=== PATIENT | female | born 1990 | race Caucasian/White ===

== ENCOUNTER 2023-01-12 23:26 | Inpatient (IN) | payer OTHER, SELFPAY ==
--- OUTSIDE RECORDS SUMMARY | 2023-01-12 23:29 | XMS_ITS | Continuity of Care Document ---
Author Name Unknown Organization [facility] ter Address [address] [place] [id number]- Care Team Providers Care Visual Merchandising Associate Name Role Phone Radha Awan MD Primary Care Physician [place] [facility] [place] - 06/15/[address] [address]- Encounter Diagnosis Opiate overdose(Final) - 06/15/21 Bipolar disorder(Final) - 06/15/21 Manic state(Final) - 06/15/21 COVID-19 virus infection(Final) - 06/15/21 Discharge Disposition: A-D/C Home Attending Physician: Tomas Hill MD Admitting Physician: Tomas Hill MD Referring Physician: Not on Staff, Referring MD Allergies, Adverse Reactions, Alerts Substance Reaction Severity Status NKA Active Immunizations Not Given Vaccine Date Status Refusal Reason influenza virus vaccine, inactivated 06/22/19 Not Given Patient Refuses Medications benztropine 1 mg oral tablet 1 mg, 1, tablet, By Mouth, Daily at bedtime, # 14 tablet, Refills 0, Tot. Refills 0, Maintenance, 08/20/20 15:34:00 EDT, Route to Pharmacy Electronically, [facility]/pharmacy #[id number], Partial fill upon patient request if the prescription is for a schedule II o... Start Date: 08/20/20 Stop Date: 09/03/20 Status: Ordered haloperidol 10 mg oral tablet 10 mg, 1, tablet, By Mouth, Daily at bedtime, # 14 tablet, Refills 0, Tot. Refills 0, Maintenance, 08/20/20 15:34:00 EDT, Route to Pharmacy Electronically, [facility]/pharmacy #[id number], Partial fill upon patient request if the prescription is for a schedule II... Start Date: 08/20/20 Stop Date: 09/03/20 Status: Ordered QUEtiapine 200 mg oral tablet 400 mg, 2, tablet, By Mouth, Daily at bedtime, # 28 tablet, Refills 0, Tot. Refills 0, Maintenance,08/20/20 15:34:00 EDT, Route to Pharmacy Electronically, [facility]/pharmacy #[id number], Partial fill upon patient request if the prescription is for a schedule II... Start Date: 08/20/20 Stop Date: 09/03/20 Status: Ordered traZODone 50 mg oral tablet 50 mg, 1, tablet, By Mouth, Daily at bedtime, # 14 tablet, Refills 0, Tot. Refills 0, Maintenance, 08/20/20 15:33:00 EDT, Route to Pharmacy Electronically, [facility]/pharmacy #[id number], Partial fill upon patient request if the prescription is for a schedule II... Start Date: 08/20/20 Stop Date: 09/03/20 Status: Ordered Vital Signs Most recent to oldest [Reference Range]: 1 2 Height 160 cm (06/15/21 12:44 AM) Weight 82 kg (06/15/21 12:44 AM) Oxygen Saturation [94-100 %] 100 % (06/15/21 3:11 AM) 100 % (06/15/21 12:44 AM) Pulse Rate [55-90 bpm] 77 bpm (06/15/21 3:11 AM) 77 bpm (06/15/21 12:44 AM) Blood Pressure [90-138/55-84 mm Hg] 114/ 80mm Hg (06/15/21 3:11 AM) 125/80mm Hg (06/15/21 12:44 AM) Respiratory Rate [16-30 br/min] 18 br/mi n (06/15/21 3:11 AM) 16 br/min (06/15/21 12:44 AM) Temperature [96.8-100.4 DegF] 97.7 DegF (06/15/21 12:44 AM) Mode of Delivery (Oxygen) Room air (06/15/21 3:11 AM) Room air (06/15/21 12:44 AM) Blood pressure sites Arm, right (06/15/21 3:11 AM) Arm, right (06/15/21 12:44 AM) Temperature Route Oral (06/15/21 12:44 AM) Dry Weight 82 kg (06/15/21 12:44 AM) Dry Weight Obtained Via Patient/family s tated (06/15/21 12:44 AM) Social History Social History 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
--- OUTSIDE RECORDS SUMMARY | 2023-01-12 23:30 | XMS_ITS | Continuity of Care Document ---
Author Name Unknown Organization [facility] ter Address [address] [place] [id number]- Care Team Providers Care Ad Writer Name Role Phone Radha Awan MD Primary Care Physician [place] [facility] [place] 08/13/20 - 08/14/[address] [address]- Discharge Disposition: A-D/C Home Attending Physician: Kei Alberts DO Admitting Physician: Kei Alberts DO Referring Physician: Not on Staff, Referring MD Allergies, Adverse Reactions, Alerts Substance Reaction Severity Status NKA Active Immunizations Not Given Vaccine Date Status Refusal Reason influenza virus vaccine, inactivated 06/22/19 Not Given Patient Refuses Medications hydrOXYzine pamoate 50 mg oral capsule = 50 mg, By Mouth, 2 times a day, PRN Anxiety, # 60 capsule, 0 Refills, Maintenance, 01/17/20 14:44:00 EDT, Capsule, [facility][id number], 162, cm, 07/01/19 8:32:00 EST, Height, 90, kg, 06/20/19 18:59:00 EST, Dry Weight Start Date: 01/17/20 Status: Ordered Nicoderm C-Q 21 mg/24 hr transdermal film, extended release 1 patch, Topically, Daily, Apply in the morning, remove prior to going to bed, # 30 patch, 0 Refills, Maintenance, 01/17/20 14:47:00 EDT, Patch, [id number], 162, cm, 07/01/19 8:32:00 EST, Height, 90, kg, 06/20/19 18:59:00 EST, Dry Weight Start Date: 01/17/20 Status: Ordered olanzapine 20 mg oral tablet 1 tablet = 20 mg, By Mouth, Daily at bedtime, # 30 tablet, 0 Refills, Maintenance, 01/17/20 14:44:00 EDT, Tablet, [id number], 162, cm, 07/01/19 8:32:00 EST, Height, 90, kg, 06/20/19 18:59:00 EST, Dry Weight Start Date: 01/17/20 Status: Ordered pantoprazole 20 mg oral delayed release tablet = 20 mg, By Mouth, Daily, # 30 tablet, 0 Refills, Maintenance, 01/17/20 14:47:00 EDT, EC Tablet, 162, cm, 07/01/19 8:32:00 EST, Height, 90, kg, 06/20/19 18:59:00 EST, Dry Weight Start Date: 01/17/20 Status: Ordered traZODone 50 mg oral tablet 50 mg, 1, tablet, By Mouth, Daily at bedtime, PRN, # 30 tablet, Refills 0, Tot. Refills 0, Maintenance, Insomnia, 01/17/20 14:44:00 EDT, Route to Pharmacy Electronically, [facility]/pharmacy #[id number], 162, cm,07/01/19 8:32:00 EST, Height, 90, kg, 06/20/19 18:5... Start Date: 01/17/20 Status: Ordered Results Radiology Reports * Exam Date Time Procedure Performing Provider Status 08/14/20 12:43 AM Chest Portable Jeremy Richardson ( Verified) Notes: (Chest Portable) Reason For Exam: Shortness of Breath RESULT: Chest Portable AP portable chest, INDICATION: Reason: Shortness of Breath; Clinical Question(s): CHF COMPARISON: 08/09/2015 FINDINGS: LINES AND TUBES: None LUNGS AND PLEURA AND MEDIASTINUM: There is no pneumothorax. Clear lungs without focal infiltrate. Normal size heart. IMPRESSION: No acute abnormality. WSN: [id number] Ordering Physician: Pinky Graves Dictated By: Enedelia Nolan MD Dictated Date/Time: 08/14/20 7:59 am Reviewed By: Enedelia Nolan MD Signed By: Enedelia Nolan MD Signed Date/Time: 08/14/20 7:59 am Transcribed By: LANE Transcribed Date/Time: 08/14/20 7:58 am Vital Signs Most recent to oldest [Reference Range]: 1 2 Oxygen Saturation [94-100 %] 100 % (08/14/20 5:01 AM) 100 % (08/14/20 12:18 AM) Pulse Rate [55-90 bpm] 73 bpm (08/14/20 5:01 AM) 83 bpm (08/14/20 12:18 AM) Blood Pressure [90-138/55-84 mm Hg] 110/ 56mm Hg (08/14/20 5:01 AM) 143/76mm Hg *H* (08/14/20 12:18 AM) Respiratory Rate [16-30 br/min] 18 br/mi n (08/14/20 5:01 AM) 16 br/min (08/14/20 12:18 AM) Temperature [96.8-100.4 DegF] 98.0 DegF (08/14/20 5:01 AM) 98.6 DegF (08/14/20 12:18 AM) Mode of Delivery (Oxygen) Room air (08/14/20 5:01 AM) Room air (08/14/20 12:18 AM) Blood pressure sites Arm, left (08/14/20 5:01 AM) Arm, left (08/14/20 12:18 AM) Temperature Route Oral (08/14/20 5:01 AM) Oral (08/14/20 12:18 AM) Social History Social History 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
--- OUTSIDE RECORDS SUMMARY | 2023-01-12 23:30 | XMS_ITS | Continuity of Care Document ---
Author Name Unknown Organization [facility] ter Address [address] [place] [id number]- Care Team Providers Care Quality Assurance Lead Name Role Phone Radha Awan MD Primary Care Physician Encounter [facility] [place] Date(s): 04/11/22 - 04/21/[address] [id number]- Encounter Diagnosis Crack cocaine use(Final) - 04/11/22 Discharge Disposition: A-D/C Home Attending Physician: Andreina Drummond MD Admitting Physician: Cathryn Reilly MD Referring Physician: Not on Staff, Referring MD Allergies, Adverse Reactions, Alerts No Known Allergies Immunizations Given and Recorded Vaccine Date Status Refusal Reason influenza virus vaccine, inactivated 06/28/20 Aki rded tetanus/diphtheria/pertussis, acel(Tdap) 07/11/11 Recorded Human Papillomavirus Vaccine 02/23/07 Recorded hepatitis B adult vaccine 01/01/01 Recorded hepatitis B adult vaccine 02/06/00 Recorded tetanus-diphtheria toxoids (Td) 02/06/00 Recorded Measles/Mumps/Rubella Virus Vaccine 03/14/98 Recor ded Measles/Mumps/Rubella Virus Vaccine 09/20/89 Recor ded Not Given Vaccine Date Status Refusal Reason influenza virus vaccine, inactivated 06/22/19 Not Given Patient Refuses SARS-CoV-2 (COVID-19) Ad26 vaccine 1 08/21/21 Not Given Patient Refuses 1Result Comment: not available Medications benztropine 0.5 mg oral tablet 0.5 mg, 1, tablet, By Mouth, 2 times a day, # 60 each, Refills 0, Tot. Refills 0, Maintenance, 04/21/22 14:46:00 EST, Route to Pharmacy Electronically, [facility], Partial fill upon patient request if the prescription is for a schedule I... Start Date: 04/21/22 Status: Ordered multivitamin Multiple Vitamins oral tablet 1 tablet, By Mouth, Daily, # 90 tablet, 3 Refills, Maintenance, 04/21/22 14:47:00 EST, Tablet, [facility], Partial fill upon patient request if the prescription is for a schedule II opioid drug., 1 tablet By Mouth Daily, 163, cm, ... Start Date: 04/21/22 Status: Ordered risperiDONE 2 mg oral tablet 2 mg, 1, tablet, By Mouth, 2 times a day, # 60 tablet, Refills 1, Tot. Refills 1, Maintenance, 04/21/22 14:47:00 EST, Route to Pharmacy Electronically, [facility], Partial fill upon patient request if the prescription is for a schedule I... Start Date: 04/21/22 Status: Ordered Problem List Condition Confirmation Course Effective Dates Status Health St atus Informant Obese class I Confirmed Active Results Radiology Reports * Exam Date Time Procedure Performing Provider Status 04/11/22 10:[address] Cervical Spine W/O Contrast Carlos Loving; Auth (Verified) Notes: (CT Cervical Spine W/O Contrast) Reason For Exam: Neck trauma, dangerous injury mechanism;Other: RESULT: CT Cervical Spine W/O Contrast CT Head/Brain W/O Contrast, CT Cervical Spine W/O Contrast INDICATION: Hx of Present Illness: combative after drug use; Reason: Trauma; Clinical Question(s): Hematoma TECHNIQUE: Noncontrast head CT using axial technique was reconstructed in axial and coronal planes.Noncontrast spiral CT through the cervical spine was formatted in 3 planes. Automatic tube modulation was used for the cervical spine and iterative dose reconstruction was used for both the head and cervical spine to optimize scan parameters and image quality. CTDIvol Body: 13.90 mGy, DLP Body: 393 mGy*cm. CTDIvol Head: 38.80 mGy, DLP Head: 672 mGy*cm. COMPARISON: None. FINDINGS: Quality Engineer View Findings, Lines and Tubes: None. BRAIN AND EXTRA-AXIAL SPACES: No parenchymal hemorrhage, midline shift, or mass effect. Hernandez-white matter differentiation is wellpreserved. No acute infarct. Negative insular ribbon and hyperdense vessel signs. Ventricles, sulci, and basilar cisterns are normal. No white matter lesions. No subarachnoid hemorrhage. No subdural or epidural collection. CALVARIUM, SKULL BASE, AND SOFT TISSUES: No fractures or suspicious bony lesions. The paranasal sinuses and mastoid air cells are clear. Visualized orbits and globes are intact. The extracranial soft tissues are unremarkable. CERVICAL SPINE: No acute cervical spine fracture. Normal alignment. No locked or perched facet. A few levels of mild multilevel degenerative disc space narrowing and end plate spurring. OTHER BONES: No acute abnormality. CERVICAL SOFT TISSUES AND LUNG APICES: Normal soft tissues. Visualized lung apices are clear. IMPRESSION: No acute intracranial abnormality. No acute cervical spine fracture. WSN: [id number] Ordering Physician: Preston Galvan Dictated By: Myriam Bear MD Dictated Date/Time: 04/11/22 10:54 a Reviewed By: Myriam Bear MD Signed By: Myriam Bear MD Signed Date/Time: 04/11/22 10:54 am Transcribed By: LANE Transcribed Date/Time: 04/11/22 10:49 am * Exam Date Time Procedure Performing Provider Status 04/11/22 10:[address] Head/Brain W/O Contrast Ste , Mariela Forbes; Auth (Verified) Notes: (CT Head/Brain W/O Contrast) Reason For Exam: Trauma RESULT: CT Head/Brain W/O Contrast CT Head/Brain W/O Contrast, CT Cervical Spine W/O Contrast INDICATION: Hx of Present Illness: combative after drug use; Reason: Trauma; Clinical Question(s): Hematoma TECHNIQUE: Noncontrast head CT using axial technique was reconstructed in axial and coronal planes.Noncontrast spiral CT through the cervical spine was formatted in 3 planes. Automatic tube modulation was used for the cervical spine and iterative dose reconstruction was used for both the head and cervical spine to optimize scan parameters and image quality. CTDIvol Body: 13.90 mGy, DLP Body: 393 mGy*cm. CTDIvol Head: 38.80 mGy, DLP Head: 672 mGy*cm. COMPARISON: None. FINDINGS: Quality Engineer View Findings, Lines and Tubes: None. BRAIN AND EXTRA-AXIAL SPACES: No parenchymal hemorrhage, midline shift, or mass effect. Hernandez-white matter differentiation is wellpreserved. No acute infarct. Negative insular ribbon and hyperdense vessel signs. Ventricles, sulci, and basilar cisterns are normal. No white matter lesions. No subarachnoid hemorrhage. No subdural or epidural collection. CALVARIUM, SKULL BASE, AND SOFT TISSUES: No fractures or suspicious bony lesions. The paranasal sinuses and mastoid air cells are clear. Visualized orbits and globes are intact. The extracranial soft tissues are unremarkable. CERVICAL SPINE: No acute cervical spine fracture. Normal alignment. No locked or perched facet. A few levels of mild multilevel degenerative disc space narrowing and end plate spurring. OTHER BONES: No acute abnormality. CERVICAL SOFT TISSUES AND LUNG APICES: Normal soft tissues. Visualized lung apices are clear. IMPRESSION: No acute intracranial abnormality. No acute cervical spine fracture. WSN: [id number] Ordering Physician: Preston Galvan Dictated By: Myriam Bear MD Dictated Date/Time: 04/11/22 10:54 a Reviewed By: Myriam Bear MD Signed By: Myriam Bear MD Signed Date/Time: 04/11/22 10:54 am Transcribed By: LANE Transcribed Date/Time: 04/11/22 10:49 am Vital Signs Most recent to oldest [Reference Range]: 1 2 3 Height 163 cm (04/21/22 7:30 AM) 163 cm (04/20/22 8:34 PM) 163 cm (04/20/22 7:30 AM) Weight 84.5 kg (04/11/22 9:56 PM) Oxygen Saturation [94-100 %] 98 % (04/21/22 7:30 AM) 98 % (04/20/22 8:34 PM) 100 % (04/20/22 7:30 AM) Pulse Rate [55-90 bpm] 96 bpm *H* (04/21/22 7:30 AM) 87 bpm (04/20/22 8:34 PM) 100 bpm *H* (04/20/22 7:30 AM) Body Mass Index [18.5-24.99 kg/m2] 31.8 kg/m2 *>HHI* (04/11/22 9:56 PM) Blood Pressure [90-138/55-84 mm Hg] 138/65mm Hg (04/21/22 7:30 AM) 109/62mm Hg (04/20/22 8:34 PM) 143/76mm Hg *H* (04/20/22 7:30 AM) Respiratory Rate [16-30 br/min] 18 br/min (04/21/22 7:30 AM) 17 br/min (04/20/22 8:34 PM) 18 br/min (04/20/22 7:30 AM) Temperature [96.8-100.4 DegF] 98.7 DegF (04/21/22 7:30 AM) 98.1 DegF (04/20/22 8:34 PM) 97.6 DegF (04/20/22 7:30 AM) Mode of Delivery (Oxygen) Room air (04/21/22 7:30 AM) Room air (04/20/22 8:34 PM) Room air (04/20/22 7:30 AM) Blood pressure sites Arm, left (04/21/22 7:30 AM) Arm, right (04/20/22 8:34 PM) Arm, left (04/20/22 7:30 AM) Temperature Route Oral (04/21/22 7:30 AM) Oral (04/20/22 8:34 PM) Oral (04/20/22 7:30 AM) Dry Weight 84.5 kg (04/11/22 9:56 PM) Weight Obtained Via Bed scale (04/11/22 9:56 PM) Dry Weight Obtained Via Bed scale (04/11/22 9:56 PM) Consult note * Jessica Logan: PERFORM, SIGN, VERIFY Event Display: Consult Authored Date: Patient: ROSMERY GERBER Age: 31 years Sex: Female : 1990 Associated Diagnoses: None Author: Jessica Logan Met with patient this morning to discuss addiction resources. Patient agreed to therapy and connecting with a tin recovery worker. A referral for recovery coaching was submitted. An appointment was established for therapy on at 11:00am over the phone. Patient did not want any other resources at this time. Addiction Consultation Team [address] [place] [id number] Patient: Rosmery Gerber (: 1990) Date: 04/16/2022 You have been referred to the following [facility] Counseling Appointment: 04/25/2022 at 11:00am. Your counselor is Anny Mora. This is an over the phone therapy session. Anny will call you at the time of the appointment. A referral has been made to [facility] on your behalf. A staff member will notify you after discharge to schedule a day/time for an intake. History and physical note * Gil Davison MD: MODIFY, MODIFY, PERFORM Event Display: History and Physical Hospital Authored Date: Patient: ??ROSMERY GERBER ? Age:??31 Years?Sex:??Female?:??1990?? Chief Complaint/Reason for Consultation Episode of agitation and??combativeness. History of Present Illness 31-year-old female with a past medical history of psychosis, bipolar disorder, multiple inpatient hospitalization in [facility] because of linette with prior suicide attempt came with a complaint of agitation.?? As per the information she was brought to the ED because of agitation and destructive behavior.?? Police found her combative, screaming loudly.?? She did use the crack cocaine yesterday.?? She was very combative towards the EMS in route.?? She was given 5 mg Versed IM.?? Lab work-up showed highWBC count.?? Gradually she got more calm but kind of confused as per the ED documentation.?? Because of ongoing altered mental status she was admitted under observation. During my examination she was very quiet and calm and she was not sure why she was brought to the hospital.?? She was found to have slightly high CPK level with positive cocaine in the urine.?? COVID-19 was negative.?? CT of the head and cervical spine was negative for any acute pathology. Currently she is unemployed looking for??job.?? She had a history of depression but currently denied any active suicidal thoughts or any plan from ?? Review of Systems ?? During my examination she was complaining of body aching all over the body otherwise she denied any other active issue.?? Otherwise all other review of system are obtained from the patient and arenegative for except as mentioned above. Objective Vital Signs?? Temperature: 97.8 DegF (04/11/22:56:00) Temperature: 97.8 DegF (04/11/22:56:00) Temperature Route: Oral (04/11/22 21:56:00) Temperature Route: Oral (04/11/22:56:00) Pulse Rate: 84 bpm (04/11/22:56:00) Pulse Rate: 84 bpm (04/11/22:56:00) Pulse Rate: 84 bpm (04/11/22:56:00) Respiratory Rate: 18 br/min (04/11/22:56:00) Respiratory Rate: 18 br/min (04/11/22:56:00) Respiratory Rate: 18 br/min (04/11/22 21:56:00) Systolic Blood Pressure: 119 mm Hg (04/11/22:56:00) Systolic Blood Pressure: 119 mm Hg (04/11/22:56:00) Systolic Blood Pressure: 119 mm Hg (04/11/22:56:00) Diastolic Blood Pressure: 79 mm Hg (04/11/22 21:56:00) Diastolic Blood Pressure: 79 mm Hg (04/11/22:56:00) Diastolic Blood Pressure: 79 mm Hg (04/11/22 21:56:00) Blood pressure sites: Arm, right (04/11/22:56:00) Blood pressure sites: Arm, right (04/11/22:56:00) Mean Arterial Pressure: 92 mm Hg (04/11/22:56:00) Mean Arterial Pressure: 92 mm Hg (04/11/22:56:00) Pulse Pressure: 40 mm Hg (04/11/22:56:00) Pulse Pressure: 40 mm Hg (04/11/22:56:00) Oxygen Saturation: 100 % (04/11/22:56:00) Oxygen Saturation: 100 % (04/11/22:56:00) Mode of Delivery (Oxygen): Room air (04/11/22:56:00) Mode of Delivery (Oxygen): Room air (04/11/22 21:56:00) Early Warning Score: 5 (04/11/22 23:56:29) ? Physical Exam General Appearance: Moderately nourished, not in any apparent distress, alert, awake and oriented x3. Skin: No rash.?? Warm, dry, pink, no pallor, intact. Eye:?? Normal conjunctiva. HEENT: No JVP.?? Moist mucous membrane. Heart:?? S1, S2.?? No murmurs.? Respiratory:?? Clear to auscultation, no rhonchi, no wheezing, no crackles. GI:?? Abdomen is soft, nontender, nondistended.?? Bowel sounds are positive.?? No organomegaly Neurologic:?? Nonfocal neurological examination.?? Cranial nerves II through XII normal.?? Deep tendon reflexes normal. Extremities:?? No calf tenderness, no clubbing, no edema. Psychiatric: Looking anxious. Musculoskeletal: Moving all extremities. Lymphatic system: No cervical lymphadenopathy. ?? CT of the head:/Cervical spine: No acute pathology. Assessment/Plan 31-year-old female with a past medical history of psychosis, bipolar disorder, multiple inpatient hospitalization in [facility] because of linette with prior suicide attempt came with a complaint of agitation.?? She is admitted for ongoing on and off confusion. ?? Acute psychosis Acute delirium due to polysubstance abuse During my examination she was back to her baseline but as per the nurse she did have intermittent on and off episode of confusion.?? She is neurologically intact.?? We will have CIWA protocol, thiamine, folic acid.?? We will watch her for signs or symptoms of withdrawal from opioids, cocaine, alcohol.?? Will give Ativan as needed.?? She wanted to quit polysubstance abuse.?? We will get a addiction medicine consult.?? She denies any suicidal or homicidal thoughts.?? If she will continue to be stable then she can be discharged in the morning time.?? In the ED note there is a documentation of phencyclidine??use but she denied it to me. Mild rhabdomyolysis. Due to agitation.?? We will repeat a CPK level in the morning time. High WBC count Reactive in nature.?? No sign or symptoms of infectious etiology.?? We will continue to watch her DVT prophylaxis Will continue with the Lovenox. ?? CODE STATUS: Full code. Disposition: To home.?? No indication for psych evaluation. Disclaimer:?? This note?? was accomplished with use of Admittedly voice recognition software, which is prone to medical and other word misidentifications and grammatical errors.?? The physician does strive to identify and correct these, but some could still be present.?? Please do not hesitate to contact the physician for clarifications . ?? Histories Allergies Allergies ?(Active and Proposed Allergies Only) NKA? (Severity: Unknown severity, Onset: Unknown) ? Past Medical History/Problem List Bipolar disorder History of polysubstance abuse ? Social History She admitted use of smoking, alcohol, illicit drug abuse that include heroin, cocaine and other stuff.?? She was unable to give me more details about the frequency of drug taking and alcohol intake.? Family History She??denied any positive family history except history of substance abuse.?? Medications She is not taking any medications. ? Results Recent Labs BLOOD COUNT & DIFF WBC 18.0 k/mm3 (High)?? 04/11/2022 01:23 RBC 4.53 m/mm3 ()?? 04/11/2022 01:23 Hgb 13.7 Gm/dL ()?? 04/11/2022 01:23 Hct 42.0 % ()?? 04/11/2022 01:23 MCV 92.7 femtoliters ()?? 04/11/2022 01:23 MCH 30.2 pg ()?? 04/11/2022 01:23 MCHC 32.6 g/dL (Low)?? 04/11/2022 01:23 Platelet Count 154 k/mm3 ()?? 04/11/2022 01:23 RDW-SD 42.5 femtoliters ()?? 04/11/2022 01:23 MPV 11.4 femtoliters ()?? 04/11/2022 01:23 Nucleated RBC (Automated) 0.0 #/100 WBC'S ()?? 04/11/2022 01:23 Abs. NRBC 0.0 k/mm3 ()?? 04/11/2022 01:23 Abs. Neut 12.7 k/mm3 (High)?? 04/11/2022 01:23 Abs. Lymph 3.3 k/mm3 (High)?? 04/11/2022 01:23 Abs. Carroll 1.8 k/mm3 (High)?? 04/11/2022 01:23 Abs. Eo 0.1 k/mm3 ()?? 04/11/2022 01:23 Abs. Baso 0.1 k/mm3 ()?? 04/11/2022 01:23 Neut % 70.6 % ()?? 04/11/2022 01:23 Lymph % 18.3 % ()?? 04/11/2022 01:23 Carroll % 9.8 % ()?? 04/11/2022 01:23 Eos % 0.5 % ()?? 04/11/2022 01:23 Baso % 0.4 % ()?? 04/11/2022 01:23 Platelet Estimate ADEQUATE ()?? 04/11/2022 01:23 Imm Gran 0.4 % ()?? 04/11/2022 01:23 Abs. Imm Gran 0.1 k/mm3 ()?? 04/11/2022 01:23 ?? CARDIAC CK, Total 269 units/L (High)?? 04/11/2022 01:23 ?? CHEM GENERAL Sodium 140 mmol/L ()?? 04/11/2022 01:23 Potassium 4.3 mmol/L ()?? 04/11/2022 01:23 Chloride 99 mmol/L ()?? 04/11/2022 01:23 Bicarbonate Level 28 mmol/L ()?? 04/11/2022 01:23 Anion Gap 13 ()?? 04/11/2022 01:23 Glucose Level 101 mg/dL (High)?? 04/11/2022 01:23 Glucose, POC 202 mg/dL (High)?? 04/11/2022 07:30 BUN 10 mg/dL ()?? 04/11/2022 01:23 Creatinine-Blood 0.7 mg/dL ()?? 04/11/2022 01:23 Estimated GFR Creatinine 117 ML/MIN/1.73 M2 ()?? 04/11/2022 01:23 Calcium 9.5 mg/dL ()?? 04/11/2022 01:23 Protein, Total 6.7 Gm/dL ()?? 04/11/2022 01:23 Albumin 4.4 Gm/dL ()?? 04/11/2022 01:23 AG Ratio 1.9 ()?? 04/11/2022 01:23 Alkaline Phosphatase 54 units/L ()?? 04/11/2022 01:23 AST (SGOT) 28 units/L ()?? 04/11/2022 01:23 ALT (SGPT) 14 units/L ()?? 04/11/2022 01:23 Bilirubin, Total 1.3 mg/dL (High)?? 04/11/2022 01:23 ?? ENDOCRINE/TUMOR MARKER TSH 0.77 uIU/mL ()?? 04/11/2022 01:23 Serum Qual NEGATIVE mIU/mL ()?? 04/11/2022 01:23 ?? TOXICOLOGY/TDM Ethanol, Serum or Plasma NONE DETECTED mg/dL ()?? 04/11/2022 01:23 Cocaine Metabolite Screen, Urine POSITIVE (Abnormal)?? 04/11/2022 05:50 Opiate Screen, Urine NONE DETECTED ()?? 04/11/2022 05:50 ?? VIROLOGY COVID-19 by RT-PCR NEGATIVE ()?? 04/10/2022 20:53 ? EKG study * Event Display: ECG 12-Lead Authored Date: Please click on pdf link to open report * Event Display: ECG 12-Lead Authored Date: Ventricular Rate: 123 BPM Atrial Rate: 123 BPM P-R Interval: 164 ms QRS Duration: 80 ms Q-T Interval: 304 ms QTC Calculation(Bazett): 435 ms P Naches: 72 degrees R Naches: 73 degrees T Naches: 35 degrees Sinus tachycardia Cannot rule out Anterior infarct , age undetermined Abnormal ECG When compared with ECG of 13-AUG-2021 13:21, Vent. rate has increased BY 54 BPM Confirmed by DAVID KATZ ([id number]) on 04/11/2022 11:22:42 AM Hardy: DAVID KTAZ Hospital Progress note * Adrian Jiménez RN: PERFORM, SIGN, VERIFY Event Display: Progress Note Hospital Authored Date: [id number] Patient: ROSMERY GERBER Age: 31 years Sex: Female : 1990 Associated Diagnoses: None Author: Adrian Jiménez RN Patient arrived on unit via wheel chair. Able to make her needs known. Refused assessments. RefusedVitals signs. On enhanced respiratory precautions. Sitter outside of room. Purposeful rounds being done. Safety maintained. * Cathi DO, Jw J: PERFORM Cathi DO, Jw J: PERFORM, MODIFY Cathi DO, Jw J: MODIFY, MODIFY Danie Soria: MODIFY, MODIFY Danie Soria: MODIFY, MODIFY Danie Soria: MODIFY Event Display: Progress Note Hospital Authored Date: [id number] Patient: ??ROSMERY GERBER ? Age:??31 Years?Sex:??Female?:??1990?? Subjective Patient seen this afternoon at bedside. Per nurse collateral, Code yellow had to be called on the patient yesterday and there was reported incidence of patient combativeness and property destruction.The patient is continuously trying to leave her room in an attempt to go home . Per MAR, the patient not receive any IM PRN's for agitation and has ultimately been re-directable with verbal deescalation techniques. ?? When asked how she was feeling, the patient stated good and depressed . The patient profusely expressed her desire to leave the hospital and go back to her partner or her mother. The patient states that she feels as if she is ready to leave. ?? The patient still??has some mild paranoid- making statements such as: doctors don't care they are just trying to test their theories . The patient is more linear and thought process is much more organized as her Risperdal has been titrated to a therapeutic dose. ?? Patient is now on COVID-19 isolation precautions as a rule out. ?? Patient denies any acute side effects from her recent medication management ?? Patient denies AH/VH, SI/HI. ?? Review of Systems 10 point ROS conducted and negative except as stated above ?? Psychiatric Review of Systems -Depression- unable to obtain due to patient limitations -MASSIEL-unable to obtain due to patient limitations -Linette-unable to obtain due to patient limitations -Psychosis- as stated above in HPI ? Allergies Allergies ?(Active and Proposed Allergies Only) NKA? (Severity: Unknown severity, Onset: Unknown) ? Past Medical History Active Problems??(1) Obese class I ? Past Surgical History No surgery history documented. ? Social History No social history documented. ? Objective MENTAL STATUS EXAM ?? Appearance: casually dressed, casual appearance, well groomed Attitude:?? uncooperative, evasive, suspicious, , agitated Motor Activity:?? restless,?inconsistent eye contact Mood: Good and Depressed Affect: angry, irritable, tearful at times Speech: clear, normal rate and tone Orientation: oriented to person, time, and place Perception: denies auditory or visual hallucinations. Paranoid content exhibited during interview- see HPI above Thought process: less disorganized, linear, perseverative surrounding discharge Insight: improved Judgement:??improved - patient fully compliant with medication management Self Injury: denies suicidal ideation, plan, or intent. Denies self injurious behaviors Homicidality: denies homicidal ideation, plan, or intent ?? Physical Exam MSK- patient able to move all four extremities freely; no spasticity/rigidity appreciated _ Home Medications Acetaminophen (acetaminophen 325 mg oral tablet)?650?Milligram?By Mouth?Every 4 hours?as needed?Temperature Greater than 100.5?Pain , Mild Benztropine (benztropine 0.5 mg oral tablet)?0.5?Milligram?1?tablet?By Mouth?2 times a day Clonidine (cloNIDine 0.1 mg oral tablet)?0.1?Milligram?1?tablet?By Mouth?3 times a day?as needed?hold for hypotension?Agitation Cyclobenzaprine (cyclobenzaprine 10 mg oral tablet)?10?Milligram?1?tablet?By Mouth?3 times a day?as needed?Pain , Mild Docusate (docusate sodium 100 mg oral capsule)?100?Milligram?1?capsule?By Mouth?2times a day Enoxaparin?0.4?Milliliter?40?Milligram?Subcutaneous Injection?Daily Folic Acid (folic acid 1 mg oral tablet)?1?Milligram?1?tablet?By Mouth?Daily Lorazepam (LORazepam 0.5 mg oral tablet)?2?tab(s)?1?Milligram?By Mouth?2 times a day?as needed?Anxiety Melatonin (melatonin 3 mg oral tablet)?3?Milligram?By Mouth?Daily at bedtime?as needed?Insomnia Multivitamin (Multivitamin Tablet)?1?tab(s)?By Mouth?Daily Pyridoxine (Pyridoxine Tablet)?50?Milligram?By Mouth?Daily Risperidone (risperiDONE 2 mg oral tablet)?2?Milligram?1?tablet?By Mouth?2 times a day Risperidone (risperiDONE 1 mg oral tablet)?1?Milligram?1?tablet?By Mouth?2 times a day?as needed?Agitation Thiamine (thiamine 100 mg oral tablet)?100?Milligram?1?tablet?By Mouth?2 times a day ? Inpatient Medications Medications (26) Active SCHEDULED: (10) Benztropine 1 mg Tablet (Cogentin Tablet) ??0.5 mg, By Mouth, 2 times a day Enoxaparin 40 mg Inj (Enoxaparin Inj) ??40 mg 0.4 mL, Subcutaneous Injection, Daily Folic Acid 1 mg Tablet (Folic Acid Tablet) ??1 mg, By Mouth, Daily Multivitamin Tablet ??1 tablet, By Mouth, Daily NaCl 0.9% Flush 3ml (NaCL 0.9% Flush) ??3 mL, IV Push, Every 8 hours Nicotine 21 mg / 24 hour Patch (Nicotine Topical) ??21 mg, Topically, Daily Pyridoxine 50 mg Tablet (Pyridoxine Tablet) ??50 mg, By Mouth, Daily Remove Patch (Remove ??Patch) ??1 each, Topically, Daily Risperidone 1 mg Tablet (risperiDONE 1 mg oral tablet) ??2 mg, By Mouth, 2 times a day Thiamine 100 mg Tablet (Thiamine Tablet) ??100 mg, By Mouth, 2 times a day CONTINUOUS: (0) PRN: (16) Acetaminophen 325 mg Tablet (Acetaminophen Tablet) ??650 mg, By Mouth, Every 4 hours Al hydroxide/Mg hydroxide/simethicone 200 mg-200 mg-20 mg/5 mL Susp UD (Maalox Plus Liquid) ??15 mL, By Mouth, 4 times a day Calcium Carbonate 500 mg (Calcium 200 mg) Chewable Tablet (Tums 500 mg oral tablet, chewable) ??1,000 mg 2 tablet, Chew, Every 4 hours Clonidine 0.1 mg Tablet (cloNIDine 0.1 mg oral tablet) ??0.1 mg, By Mouth, 3 times a day Cyclobenzaprine 10 mg Tablet (Flexeril 10 mg oral tablet) ??10 mg, By Mouth, 3 times a day Dextromethorphan-Guaifenesin 20 mg-200 mg/10 mL Liqu UD (Robitussin DM Liquid) ??10 mL, By Mouth, Every 4 hours Haloperidol Lactate 5 mg/mL Inj (1 mL) (Haloperidol LACTATE Inj) ??5 mg 1 mL, Intramuscular, Every 4 hours Lorazepam 1 mg Tablet (LORazepam 0.5 mg oral tablet) ??1 mg, By Mouth, 2 times a day Lorazepam 2 mg Inj Syringe (LORazepam Inj) ??1 mg, Intramuscular, Every 4 hours Melatonin 3 mg Tablet (Melatonin Tablet) ??3 mg, By Mouth, Daily at bedtime NaCl 0.9% Flush 3ml (NaCL 0.9% Flush) ??3 mL, IV Push, Every 8 hours nalOXONE ??400mcg/mL Inj (nalOXONE Inj) ??0.2 mg 0.5 mL, IV Push Slowly, Once Polyethylene Glycol 17 Gm Powder (MiraLax Powder) ??17 Gm 1 pack/packet, By Mouth, Daily Risperidone 1 mg Tablet (risperiDONE 1 mg oral tablet) ??1 mg, By Mouth, 2 times a day Senna 8.6 mg / Docusate 50 mg tablet (Docusate/Senna Tablet) ??1 tablet, By Mouth, 2 times a day Simethicone 80 mg Chewable Tablet (Simethicone Tablet) ??80 mg, Chew, 3 times a day ? Results Recent Labs TOXICOLOGY/TDM Barbiturate Screen, Urine NONE DETECTED ()?? 04/20/2022 02:21 Cannabinoid Screen, Urine POSITIVE (Abnormal)?? 04/20/2022 02:21 Cocaine Metabolite Screen, Urine NONE DETECTED ()?? 04/20/2022 02:21 Methadone Screen, Urine NONE DETECTED ()?? 04/20/2022 02:21 Benzodiazepine Screen, Urine NONE DETECTED ()?? 04/20/2022 02:21 Amphetamine Screen, Urine NONE DETECTED ()?? 04/20/2022 02:21 Opiate Screen, Urine NONE DETECTED ()?? 04/20/2022 02:21 Oxycodone Screen, Urine NONE DETECTED ()?? 04/20/2022 02:21 Buprenorphine, Urine Random NONE DETECTED ()?? 04/20/2022 02:21 ? Assessment/Plan ?? IMPRESSION: The patient is a 31 y/0 female with a PMHx of unspecified psychotic disorder, polysubstance use disorders (heroin, EtOH, crack cocaine, and cannabis) with recent psychiatric admission to [facility] 11/27 who presented to the ED 04/11 after an incidence of agitation in the setting of crack cocaineuse. ?? Per nurse collateral, code yellow had to be called on the patient yesterday. Today, the patient is perseverative on wanting to go home. She is currently re- directable with verbal deescalation techniques. She is fully medication compliant.? DIAGNOSIS: 1. Unspecified psychotic disorder 2. Heroin use disorder 3. Cocaine use disorder 4. EtOH use disorder ?? RECOMMENDATIONS: -Patient is cleared for psychiatric discharge- she has been initiated and up- titrated on a to a therapeutic dose of Risperdal. Her thought is more linear and goal directed as a result of this treatment. Her agitation remains centered on the fact that she cannot leave the hospital and is not relatedto underlying psychosis. The patient remains medication compliant. The patient does have some paranoid features; however, at her baseline she most probably retains some elements of positive psychosis. The patient does not currently represent??imminent danger to herself due to psychosis or disorganization and she does not endorse SI. The patient does not represent a danger to other and she does not report HI. At this time, more harm than good would come from the patient being restrained for involuntary hospitalized which she does not meet criteria for at this point regardless. further. Thus, psychiatry recommends discharge with close psychiatric care follow up outpatient. -Discharge patient on 2mg BID Risperdal -Discharge patient??on 0.5 mg BID Cogentin -Patient to follow up with outpatient services. * Arleth Barlow RN: PERFORM, SIGN, VERIFY Event Display: Progress Note Hospital Authored Date: [id number] Patient: ROSMERY GERBER Age: 31 years Sex: Female : 1990 Associated Diagnoses: None Author: Arleth Barlow RN Findings Problem Related to Alteration in Psychosocial : Alteration in Psychosocial Function/new 04/19/2022 10:00 EST Alteration in Psychosocial Related to Anxiety, Substance abuse, Other: Bipolar, Psychosis Goals & Outcomes, Psychosocial Psychosocial support will be provided to Pt/S.O. as needed, Pt will identify stressors leading up to event, Pt will state importance of adhering to medication regime, Pt/caregiver will be offered appropriate resources & support, Pt will demonstrate ability forself care, Pt will refrain from acting on delusional thinking, Pt will be free from withdrawal symptoms Interventions, Psychosocial Assess psychosocial needs, Assess readiness to learn needed lifestyle changes, Assess/monitor level of consciousness, Collaborate with provider for psychiatric consult, Evaluate resources & support system available to pt, Offer support; discuss coping strategies, Provide a calm, supportive environment, Provide chances to express concerns/emotions/expectations, Provide info on community resources for education, support, Provide information about illness and recovery, Provide verbal limits if pt's behavior escalates BH Goals/Interventions, Psychosocial Yes Psychosocial, Problem Start 04/17/2022 8:00 Reviewed Plan with, Psychosocial Patient Patient Progression, Psychosocial Pt progressing according to plan . Nursing Data Vital Signs : VITAL SIGNS SECTION 04/20/2022 20:34 EST Early Warning Score 0.00 04/20/2022 20:34 EST Temperature 98.1 DegF Temperature Route Oral Pulse Rate 87 bpm Respiratory Rate 17 br/min Systolic Blood Pressure 109 mm Hg Diastolic Blood Pressure 62 mm Hg Blood pressure sites Arm, right Mean Arterial Pressure 78 mm Hg Pulse Pressure 47 mm Hg Oxygen Saturation 98 % Mode of Delivery (Oxygen) Room air . Evaluation Pt sleeping at intervals. Pt says she's annoyed that people are going in and out of room disturbingher. MD and staff were in room to see pt's roomate. No attempts to leave floor. Sitter outside of room. Pt took all night time meds. Prn ativan tab administered once. Patient would ask for food or meds, then would say I didn't ask for that. VSS. Pt cannot leave AMA. . Note * Iron SHELLEY, Eryn: PERFORM, MODIFY, MODIFY, MODIFY, MODIFY Event Display: Discharge/Transfer Note Hospital Authored Date: Patient: ??ROSMERY GERBER ? Age:??31 Years?Sex:??Female?:??1990?? Patient Information Discharge Location: S1 Primary Care Physician: Radha Awan MD Admit Date/Time: 04/11/22 14:49 Discharge Date:??04/21/2022 14:50 Discharge Disposition Discharge Disposition: Home: No Services Discharge Diagnosis Crack cocaine use (F14.90) Psychosis (F29) _ Discharge Medications Benztropine (benztropine 0.5 mg oral tablet)?0.5?Milligram?1?tablet?By Mouth?2 times a day Multivitamin (multivitamin Multiple Vitamins oral tablet)?1?tab(s)?By Mouth?Daily Risperidone (risperiDONE 2 mg oral tablet)?2?Milligram?1?tablet?By Mouth?2 times a day Medications Started Benztropine (benztropine 0.5 mg oral tablet)?0.5?Milligram?1?tablet?By Mouth?2 times a day Multivitamin (multivitamin Multiple Vitamins oral tablet)?1?tab(s)?By Mouth?Daily Risperidone (risperiDONE 2 mg oral tablet)?2?Milligram?1?tablet?By Mouth?2 times a day Medications Discontinued None Doses Changed None Allergies Allergies ?(Active and Proposed Allergies Only) NKA? (Severity: Unknown severity, Onset: Unknown) ?? PCP Follow-Up/Heads-Up Pt admitted for agitation and psychosis in setting of cocaine use. Please ensure pt has mental health follow up in the community. Pt was exposed to COVID during her hospitalization, please ensure that she continues to feel well. Please help patient maintain abstinence from substance use. Hospital Course Pt is a 31-year-old female with a past medical history of psychosis, bipolar disorder, multiple inpatient psychiatric hospitalizations because of linette with prior suicide attempt admitted for agitation, confusion, and cocaine use. She is now??medically cleared. Throughout her hospitalization, she has become more organized and has a safety plan to stay with her mother. Psychiatry has??reassessed her multiple times, and have deemed that she is stable for discharge home with close follow up. ? Acute Psychosis Disorganized Behaviors Acute Agitation due to Polysubstance Abuse Bipolar Disorder ?Pt admitted for agitation and destructive behaviors in setting of crack cocaine use. CT head onadmission showed no acute intracranial abnormality. No acute cervical spine fracture. She has been medically cleared, now less agitated but still??with inappropriate behaviors. She is??occasionally refusing medications. Psychiatry and Addiction Medicine evaluated the patient during this hospitalization. Recommendations: ??-Continue risperidone 2mg BID per psychiatry ??-Cogentin 0.5mg BID for EPS prophylaxis ? Substance Use Disorder Alcohol Use Disorder ?No clear report of how much patient was drinking; does not currently seem to be in alcohol withdrawal. She was started on CIWA protocol and was scoring but it was difficult to determine how much was due to alcohol withdrawal versus other psychiatric condition. Addiction medicine saw patient amy MAT which patient seems interested in engaging in when she is back in the community. Recommendations: ??-Multivitamin supplementation ?? Leukocytosis ?Resolved, most likely reactive in nature. No sign or symptoms of infectious etiology; particularly no suspicion for meningitis. ??Recommendations: ??-Monitor clinically, consider outpatient CBC if necessary. ?? Objective Measurements?? Height: 163 cm (04/21/22) Weight: 84.5 kg (04/11/22) Dry Weight: 84.5 kg (04/11/22) Body Mass Index:??31.8 kg/m2??Critical (04/11/22) ?? Vital Signs?? Temperature: 98.7 DegF (04/21/22 07:30:00) Temperature Route: Oral (04/21/22 07:30:00) Pulse Rate:??96 bpm??High (04/21/22 07:30:00) Respiratory Rate: 18 br/min (04/21/22 07:30:00) Systolic Blood Pressure: 138 mm Hg (04/21/22 07:30:00) Diastolic Blood Pressure: 65 mm Hg (04/21/22 07:30:00) Blood pressure sites: Arm, left (04/21/22 07:30:00) Mean Arterial Pressure: 89 mm Hg (04/21/22 07:30:00) Pulse Pressure: 73 mm Hg (04/21/22 07:30:00) Oxygen Saturation: 98 % (04/21/22 07:30:00) Mode of Delivery (Oxygen): Room air (04/21/22 07:30:00) Early Warning Score: 0 (04/21/22 13:01:28) ?? Intake/Output? 04/11 14:49 04/21 07:00 04/20 07:00 04/19 07:00 04/18 07:00 ?? 04/21 14:50 04/21 14:50 04/21 06:59 04/20 06:59 04/19 06:59 Intake ? 7700 ?480 ?480 ?720 ? 1320 Output ?600 ?0 ?0 ?600 ?0 Net Total ? 7100 ?480 ?480 ?120 ? 1320 ? Urine Count ? 44 ?0 ?5 ?1 ?7 . Physical Exam General: Well appearing. In no distress Head: NCAT. Scalp without any lesions. Eyes: [place] conjunctiva. Anicteric sclera. Ears: Bilateral pinnae without discharge or lesions. Nose:?? No discharge or congestion. Throat/Mouth: MMM. Oral mucosa was pink and without any lesions. Cardiovascular: Well perfused. No murmurs, rubs, or gallops. Physiologic S1 and S2. Respiratory: Breathing comfortably on room air. CTA bilaterally. Neurologic:??Awake and alert. Psych: Friendly, happy mood today. Consultants Psychiatry Addiction Medicine Patient Education Titles Risperidone Oral Tablet?? Finding the Right Rehab Program for Substance Abuse?? Follow-Up Appointments Added Follow Up ?Time Frame ?Comments Radha Awan MD Patient Instructions You were brought to the hospital due to agitation and cocaine use??and were found to have worsened psychosis. Please reach out to your PCP once you are home for further follow up. Please call one of the following numbers to get set up with mental health support. Please take your medication (risperidone 2mg twice a day). Please refrain from cocaine,??alcohol, or tobacco use.??You were also exposedto COVID during your hospitalization. Please wear a mask and quarantine for the next 7-14 days. Please get tested for COVID if you develop any cough, headache, shortness of breath, fevers, chills, muscle aches, or other concerning symptoms. ?? [facility]: ?? [facility]: ?? [facility]: ?? [facility] ?? If you are experiencing a mental health crisis, you can call the [facility] Crisis Hotline at 133-445-9075. Results Discharge Labs BLOOD COUNT & DIFF WBC 7.8 k/mm3 ()?? 04/12/2022 05:57 RBC 4.38 m/mm3 ()?? 04/12/2022 05:57 Hgb 12.9 Gm/dL ()?? 04/12/2022 05:57 Hct 40.9 % ()?? 04/12/2022 05:57 MCV 93.4 femtoliters ()?? 04/12/2022 05:57 MCH 29.5 pg ()?? 04/12/2022 05:57 MCHC 31.5 g/dL (Low)?? 04/12/2022 05:57 Platelet Count 238 k/mm3 ()?? 04/12/2022 05:57 RDW-SD 43.3 femtoliters ()?? 04/12/2022 05:57 MPV 11.4 femtoliters ()?? 04/12/2022 05:57 Nucleated RBC (Automated) 0.0 #/100 WBC'S ()?? 04/12/2022 05:57 Abs. NRBC 0.0 k/mm3 ()?? 04/12/2022 05:57 Abs. Neut 4.5 k/mm3 ()?? 04/12/2022 05:57 Abs. Lymph 2.0 k/mm3 ()?? 04/12/2022 05:57 Abs. Carroll 0.9 k/mm3 ()?? 04/12/2022 05:57 Abs. Eo 0.2 k/mm3 ()?? 04/12/2022 05:57 Abs. Baso 0.1 k/mm3 ()?? 04/12/2022 05:57 Neut % 58.4 % ()?? 04/12/2022 05:57 Lymph % 26.1 % ()?? 04/12/2022 05:57 Carroll % 12.1 % (High)?? 04/12/2022 05:57 Eos % 2.1 % ()?? 04/12/2022 05:57 Baso % 1.0 % ()?? 04/12/2022 05:57 Platelet Estimate ADEQUATE ()?? 04/11/2022 01:23 Imm Gran 0.3 % ()?? 04/12/2022 05:57 Abs. Imm Gran 0.0 k/mm3 ()?? 04/12/2022 05:57 ? CARDIAC CK, Total 201 units/L (High)?? 04/12/2022 05:57 ? CHEM GENERAL Sodium 138 mmol/L ()?? 04/12/2022 05:57 Potassium 4.1 mmol/L ()?? 04/12/2022 05:57 Chloride 103 mmol/L ()?? 04/12/2022 05:57 Bicarbonate Level 26 mmol/L ()?? 04/12/2022 05:57 Anion Gap 9 ()?? 04/12/2022 05:57 Glucose Level 101 mg/dL (High)?? 04/11/2022 01:23 Glucose, POC 123 mg/dL (High)?? 04/12/2022 00:15 BUN 10 mg/dL ()?? 04/11/2022 01:23 Creatinine-Blood 0.5 mg/dL ()?? 04/12/2022 05:57 Estimated GFR Creatinine 126 ML/MIN/1.73 M2 ()?? 04/12/2022 05:57 Calcium 9.5 mg/dL ()?? 04/11/2022 01:23 Protein, Total 6.7 Gm/dL ()?? 04/11/2022 01:23 Albumin 4.4 Gm/dL ()?? 04/11/2022 01:23 AG Ratio 1.9 ()?? 04/11/2022 01:23 Alkaline Phosphatase 54 units/L ()?? 04/11/2022 01:23 AST (SGOT) 23 units/L ()?? 04/12/2022 05:57 ALT (SGPT) 15 units/L ()?? 04/12/2022 05:57 Bilirubin, Total 1.3 mg/dL (High)?? 04/11/2022 01:23 ?? ENDOCRINE/TUMOR MARKER TSH 0.77 uIU/mL ()?? 04/11/2022 01:23 Serum Qual NEGATIVE mIU/mL ()?? 04/11/2022 01:23 ?? TOXICOLOGY/TDM Ethanol, Serum or Plasma NONE DETECTED mg/dL ()?? 04/11/2022 01:23 Barbiturate Screen, Urine NONE DETECTED ()?? 04/20/2022 02:21 Cannabinoid Screen, Urine POSITIVE (Abnormal)?? 04/20/2022 02:21 Cocaine Metabolite Screen, Urine NONE DETECTED ()?? 04/20/2022 02:21 Methadone Screen, Urine NONE DETECTED ()?? 04/20/2022 02:21 Benzodiazepine Screen, Urine NONE DETECTED ()?? 04/20/2022 02:21 Amphetamine Screen, Urine NONE DETECTED ()?? 04/20/2022 02:21 Opiate Screen, Urine NONE DETECTED ()?? 04/20/2022 02:21 Oxycodone Screen, Urine NONE DETECTED ()?? 04/20/2022 02:21 Buprenorphine, Urine Random NONE DETECTED ()?? 04/20/2022 02:21 ?? URINE OTHER Urine, NEGATIVE (N)?? 04/19/2022 10:12 ? VIROLOGY COVID-19 by RT-PCR NEGATIVE ()?? 04/10/2022 20:53 COVID-19 PCR Specimen Source NASAL ()?? 04/17/2022 05:02 COVID-19 PCR Result NEGATIVE ()?? 04/17/2022 05:02 ? Microbiology ?? COVID-19 (2018 Novel Coronavirus) PCR?? Completed?? Source: Nasal Body Site: Nose Collected Dt/Tm: 04/14/2022 05:06 Last Updated Dt/Tm: 04/14/2022 17:26 COVID-19 (2019 Novel Coronavirus) PCR?? Completed?? Source: Nasal Body Site: Nose Collected Dt/Tm: 04/17/2022 05:02 Last Updated Dt/Tm: 04/17/2022 21:35 30??minutes spent on discharge ?? Patient seen and discussed with Attending, Dr. Drummond ?? Eryn Perdue MD PGY-1, Internal Medicine-Pediatrics Pager [phone] ?? * Jessy KIRK, Adrian: PERFORM Event Display: Patient Education/Instruction Authored Date: [id number] Inpatient Adult Discharge Instructions [place] [id number] Name: ROSMERY GERBER : 1990 Visit: 04/11/2022 14:49:00 Current Date: 04/21/2022 15:26 Account: [id number] Inpatient Adult Discharge Instructions We would like to thank you for allowing us to assist you with your healthcare needs. The following includes patient education materials and information regarding your injury/illness. Our entire staffstrives to provide an excellent experience for our patients and their families. PLEASE ENSURE YOU FOLLOW-UP PER THE INSTRUCTIONS BELOW! ?? YOUR OPINION IS IMPORTANT TO US! Please complete the survey you may receive by mail or email. Your feedback will be used to make improvements to the healthcare experiences of our patients and their families. Surveys are administered by [employer] ?? If further treatment with your primary care physician or another doctor is recommended, it is important for you to keep the appointment. Call your primary care physician or return to the Emergency Department immediately if your condition worsens, fails to improve, or new symptoms develop. If you need to find a doctor, you can call [facility] for a referral at [phone] or toll free at [phone] or log in to [email or web address].. ?? You can view and manage your care through the patient portal or by using a health care osmel of your choosing. [employer] is a website that allows you to securely view your medical information including your hospital discharge summary, office visit summaries, medications and follow-up visits. You can also request appointments, renew medications, and request access to your medical information using a health care osmel of your choosing, or just ask a question. You can enroll at [email or web address] or register during your next office visit. You have been discharged from [facility], Patient Care Unit: S1. If you have any questions regarding these instructions after you leave, please call us and we will be happy to assist you. [facility] Your Care Team Attending Physician Hoda SHELLEY, Andreina Consulting Providers Marta SHELLEY, Cayden Cortez; Kevin SHELLEY, Aditi; Jw Winkler DO Discharging Providers Iron SHELLEY, Eryn Reason for Admission handcuffs Your Diagnosis Crack cocaine use Psychosis Tests Performed Below is a partial list of the tests performed during your hospitalization. You may have had other tests and procedures not included in this list. Please discuss all test results with your provider. Alcohol Level ALT Amphetamine Urine Screen AST Barbiturate Urine Screen Benzodiazepine Urine Screen BUPRENORPHINE, URINE Cannabinoid Urine Screen CBC w/ Differential Cocaine Urine Screen Comprehensive Metabolic Panel COVID-19 (2019 Novel Coronavirus) PCR COVID-19 (Novel Coronavirus), Rapid PCR CPK Total Only Creatinine Electrolytes GLUCOSE POC METHADONE SCREEN, URINE Opiate Screen Urine OXYCODONE SCREEN, URINE Serum Qualitative Test Urine TSH with T4 Reflex (Adults Only) CT Cervical Spine W/O Contrast CT Head/Brain W/O Contrast Primary Care Provider Radha Awan MD Advance Directive Health Care Proxy on File No Patient refuses to discuss No qualifying data available. Discharge Vitals Temperature: 98.7 DegF Height: 163 cm Pulse Rate:??96 bpm??High Weight: 84.5 kg Respiratory Rate: 18 br/min Body Mass Index:??31.8 kg/m2??Critical Systolic Blood Pressure: 138 mm Hg Body surface area: 1.96 Diastolic Blood Pressure: 65 mm Hg ?? Oxygen Saturation: 98 % ?? Studies Pending All tests and labs ordered during this hospital stay have been completed unless listed below. Please discuss all pending results with your provider listed above in these instructions. ?? Add On Lab Order COVID-19 (2019 Novel Coronavirus) PCR Fentanyl Screen, Urine Toxicology (FENTANYL SCREEN, URINE) What to do next Instructions From Your Doctor You were brought to the hospital due to agitation and cocaine use??and were found to have worsened psychosis. Please reach out to your PCP once you are home for further follow up. Please call one of the following numbers to get set up with mental health support. Please take your medication (risperidone 2mg twice a day). Please refrain from cocaine,??alcohol, or tobacco use.??You were also exposedto COVID during your hospitalization. Please wear a mask and quarantine for the next 7-14 days. Please get tested for COVID if you develop any cough, headache, shortness of breath, fevers, chills, muscle aches, or other concerning symptoms. ?? [facility]: ?? [facility]: ?? [facility]: ?? [facility] ?? If you are experiencing a mental health crisis, you can call the [facility] Crisis Hotline at [phone]. Discharge Orders You Need to Schedule the Following Appointments Follow Up with??Radha Awan MD When?? Where: [address] [place] [phone] Discharge Medications ROSMERY GERBER :1990 Visit Date:04/11/2022 Medications: Please continue your medications until treatment is completed or stopped by your provider. Medications not listed below should be discontinued. Discuss any questions related to medications with your provider. What How Much When Instructions Next Dose New Benztropine (benztropine 0.5 mg oral tablet) 1 tab(s) Oral Twice a day Pickup at [facility] 3 New Multivitamin (multivitamin Multiple Vitamins oral tablet) 1 tab(s) Oral Daily Refills: 3 Pickup at [facility] 3 Unchanged Risperidone (risperiDONE 2 mg oral tablet) 1 tab(s) Oral Twice a day Pickup at [facility] 3 Pharmacy Information [facility] 3: [address], [place] [phone] ?? What How Much When Comments Stop Taking ChlorproMAZINE (chlorproMAZINE 50 mg oral tablet) 50 Milligram Oral Every 4 hours as needed for Agitation Stop Taking Docusate (docusate sodium 100 mg oral capsule) 1 capsule Oral Twice a day Test Results Below is a partial list of the most recent Laboratory test results done prior to this discharge. You may have had other tests and procedures not included in this list. Please discuss all test resultswith your provider. Alcohol Level (04/11/2022) ???Ethanol, Serum or Plasma - NONE DETECTED ALT (04/12/2022) ???ALT (SGPT) - 15 units/L Amphetamine Urine Screen (04/20/2022) ???Amphetamine Screen, Urine - NONE DETECTED AST (04/12/2022) ???AST (SGOT) - 23 units/L Barbiturate Urine Screen (04/20/2022) ???Barbiturate Screen, Urine - NONE DETECTED Benzodiazepine Urine Screen (04/20/2022) ???Benzodiazepine Screen, Urine - NONE DETECTED BUPRENORPHINE, URINE (04/20/2022) ???Buprenorphine, Urine Random - NONE DETECTED Cannabinoid Urine Screen (04/20/2022) ???Cannabinoid Screen, Urine - POSITIVE CBC w/ Differential (04/12/2022) ???WBC - 7.8 k/mm3???RBC - 4.38 m/mm3???Hgb - 12.9 Gm/dL???Hct - 40.9 %???MCV - 93.4 femtoliters???MCH - 29.5 pg???MCHC - 31.5 g/dL???Platelet Count - 238 k/mm3???RDW-SD - 43.3 femtoliters???MPV - 11.4 femtoliters???Nucleated RBC (Automated) - 0.0 #/100 WBC'S???Abs. NRBC - 0.0 k/mm3???Abs. Neut - 4.5 k/mm3???Abs. Lymph - 2.0 k/mm3???Abs. Carroll - 0.9 k/mm3???Abs. Eo - 0.2 k/mm3???Abs. Baso - 0.1 k/mm3???Neut % - 58.4 %???Lymph % - 26.1 %???Carroll % - 12.1 %???Eos % - 2.1 %???Baso % - 1.0 %???Imm Gran - 0.3 %???Abs. Imm Gran - 0.0 k/mm3 Cocaine Urine Screen (04/20/2022) ???Cocaine Metabolite Screen, Urine - NONE DETECTED Comprehensive Metabolic Panel (04/11/2022) ???Sodium - 140 mmol/L???Potassium - 4.3 mmol/L???Chloride - 99 mmol/L???Bicarbonate Level - 28 mmol/L???Anion Gap - 13???Glucose Level - 101 mg/dL???BUN - 10 mg/dL???Creatinine-Blood - 0.7 mg/dL???Estimated GFR Creatinine - 117 ML/MIN/1.73 M2???Calcium - 9.5 mg/dL???Protein, Total - 6.7 Gm/dL???Alb umin - 4.4 Gm/dL???AG Ratio - 1.9???Alkaline Phosphatase - 54 units/L???AST (SGOT) - 28 units/L???ALT (SGPT) - 14 units/L???Bilirubin, Total - 1.3 mg/dL COVID-19 (2019 Novel Coronavirus) PCR (04/17/2022) ???COVID-19 PCR Specimen Source - NASAL???COVID-19 PCR Result - NEGATIVE COVID-19 (Novel Coronavirus), Rapid PCR (04/10/2022) ???COVID-19 by RT-PCR - NEGATIVE CPK Total Only (04/12/2022) ???CK, Total - 201 units/L Creatinine (04/12/2022) ???Creatinine-Blood - 0.5 mg/dL???Estimated GFR Creatinine - 126 ML/MIN/1.73 M2 Electrolytes (04/12/2022) ???Sodium - 138 mmol/L???Potassium - 4.1 mmol/L???Chloride - 103 mmol/L???Bicarbonate Level - 26 mmol/L???Anion Gap - 9 GLUCOSE POC (04/12/2022) ???Glucose, POC - 123 mg/dL METHADONE SCREEN, URINE (04/20/2022) ???Methadone Screen, Urine - NONE DETECTED Opiate Screen Urine (04/20/2022) ???Opiate Screen, Urine - NONE DETECTED OXYCODONE SCREEN, URINE (04/20/2022) ???Oxycodone Screen, Urine - NONE DETECTED Serum Qualitative (04/11/2022) ??? Serum Qual - NEGATIVE Test Urine (04/19/2022) ???Urine, - NEGATIVE TSH with T4 Reflex (Adults Only) (04/11/2022) ???TSH - 0.77 uIU/mL Allergies (NKA means No Known Allergies) NKA Problems Active Problems??(1) Obese class I?? Education Materials Below is the list of Educational Leaflet Providered with your Discharge Instructions. Psychosis?? Substance Abuse and Traumatic Brain Injury?? Risperidone Oral Tablet?? Finding the Right Rehab Program for Substance Abuse?? Valuables and Belongings I fully understand and agree that [facility] accepts no responsibility for all my personal property including clothing, toilet articles, radios, jewelry, dentures, hearing aids, rings, money, or any other property that is in my possession or is brought to me after admission. I understand certain valuables may be placed in a hospital safe for a short period of time. I understand that the hospital is not liable for loss or damage due to accident, fire, or other natural occurrence while said property is in the safe. I accept full responsibility for any personal property that I keep with me, and will not hold the hospital responsible in case of loss or disappearance. I acknowledge that i have been encouraged to send valuables and belongings home. ?? Review of Valuable and Belonging List: With patient, With witness Date for Pt to Sign Valuables/Belongings: 04/21/22 14:41:00 ?? Other Discharge Information ? Pulmonary Rehab Status?? Pulmonary Rehab Discharge Status?? Respiratory Rate: 18 br/min ? Common Emergency Awareness Tips IS IT A STROKE? Act FAST and Check for these signs: FACE Does the face look uneven? ARM Does one arm drift down? SPEECH Does their speech sound strange? TIME Call at any sign of stroke ?? Heart Attack Signs Chest discomfort: Most heart attacks involve discomfort in the center of the chest and lasts more than a few minutes, or goes away and comes back. It can feel like uncomfortable pressure, squeezing, fullness or pain. Discomfort in upper body: Symptoms can include pain or discomfort in one or both arms, back, neck, jaw or stomach. Shortness of breath: With or without discomfort. Other signs: Breaking out in a cold sweat, nausea, or lightheaded. Remember, MINUTES DO MATTER. If you experience any of these heart attack warning signs, call to get immediate medical attention! ?? Smoking can increase your chances of developing chronic health problems and can cause harmful effects to other family members in your house. If you smoke, you are strongly encouraged to quit. Please call [facility] Link at [phone] or [phone] Initative ([phone]) or log in to [email or web address] for referrals to smoking cessation programs. ?? The National Suicide Prevention Hotline is available 29/12 if you or someone you know needs to find a reason to keep living. By calling 1-945-989-BUX (7384) you'll be connected to a skilled, trained counselor at a crisis center in your area. INPATIENT DISCHARGE INSTRUCTIONS SIGNATURE ROSMERY BHAGAT Location:[facility] Registration Date and Time:04/11/2022 14:49 EDT Primary Care Physician: Radha Awan MD, ROSMERY WEAVER, have received the above patient education materials/instructions and have verbalized understanding. If ambulance or transport services are being used I further acknowledge beinggiven a choice of service. ?? If you need to contact me, please call me at this number: . Patient/Payloader Machine Operator Name: Patient/Payloader Machine Operator Signature: Relationship to Patient: Witness Name/Signature: Date: * Adrian Jiménez RN: PERFORM Event Display: Patient Education/Instruction Authored Date: [id number] Inpatient Adult Discharge Instructions [address] [address] Name: ROSMERY GERBER : 1990 Visit: 04/11/2022 14:49:00 Current Date: 04/21/2022 15:20 Account: [id number] Inpatient Adult Discharge Instructions We would like to thank you for allowing us to assist you with your healthcare needs. The following includes patient education materials and information regarding your injury/illness. Our entire staffstrives to provide an excellent experience for our patients and their families. PLEASE ENSURE YOU FOLLOW-UP PER THE INSTRUCTIONS BELOW! ?? YOUR OPINION IS IMPORTANT TO US! Please complete the survey you may receive by mail or email. Your feedback will be used to make improvements to the healthcare experiences of our patients and their families. Surveys are administered by [employer] ?? If further treatment with your primary care physician or another doctor is recommended, it is important for you to keep the appointment. Call your primary care physician or return to the Emergency Department immediately if your condition worsens, fails to improve, or new symptoms develop. If you need to find a doctor, you can call [facility] for a referral at [phone] or toll free at [phone] ([phone]) or log in to [email or web address].. ?? You can view and manage your care through the patient portal or by using a health care osmel of your choosing. [employer] is a website that allows you to securely view your medical information including your hospital discharge summary, office visit summaries, medications and follow-up visits. You can also request appointments, renew medications, and request access to your medical information using a health care osmel of your choosing, or just ask a question. You can enroll at [email or web address] or register during your next office visit. You have been discharged from [facility], Patient Care Unit: S1. If you have any questions regarding these instructions after you leave, please call us and we will be happy to assist you. [facility] Your Care Team Attending Physician Hoda SHELLEY, Andreina Consulting Providers Marta SHELLEY, Cayden Cortez; Kevin SHELLEY, Jw Obando DO Discharging Providers Iron SHELLEY, Eryn Reason for Admission handcuffs Your Diagnosis Crack cocaine use Psychosis Tests Performed Below is a partial list of the tests performed during your hospitalization. You may have had other tests and procedures not included in this list. Please discuss all test results with your provider. Alcohol Level ALT Amphetamine Urine Screen AST Barbiturate Urine Screen Benzodiazepine Urine Screen BUPRENORPHINE, URINE Cannabinoid Urine Screen CBC w/ Differential Cocaine Urine Screen Comprehensive Metabolic Panel COVID-19 (2019 Novel Coronavirus) PCR COVID-19 (Novel Coronavirus), Rapid PCR CPK Total Only Creatinine Electrolytes GLUCOSE POC METHADONE SCREEN, URINE Opiate Screen Urine OXYCODONE SCREEN, URINE Serum Qualitative Test Urine TSH with T4 Reflex (Adults Only) CT Cervical Spine W/O Contrast CT Head/Brain W/O Contrast Primary Care Provider Radha Awan MD Advance Directive Health Care Proxy on File No Patient refuses to discuss No qualifying data available. Discharge Vitals Temperature: 98.7 DegF Height: 163 cm Pulse Rate:??96 bpm??High Weight: 84.5 kg Respiratory Rate: 18 br/min Body Mass Index:??31.8 kg/m2??Critical Systolic Blood Pressure: 138 mm Hg Body surface area: 1.96 Diastolic Blood Pressure: 65 mm Hg ?? Oxygen Saturation: 98 % ?? Studies Pending All tests and labs ordered during this hospital stay have been completed unless listed below. Please discuss all pending results with your provider listed above in these instructions. ?? Add On Lab Order COVID-19 (2019 Novel Coronavirus) PCR Fentanyl Screen, Urine Toxicology (FENTANYL SCREEN, URINE) What to do next Instructions From Your Doctor You were brought to the hospital due to agitation and cocaine use??and were found to have worsened psychosis. Please reach out to your PCP once you are home for further follow up. Please call one of the following numbers to get set up with mental health support. Please take your medication (risperidone 2mg twice a day). Please refrain from cocaine,??alcohol, or tobacco use.??You were also exposedto COVID during your hospitalization. Please wear a mask and quarantine for the next 7-14 days. Please get tested for COVID if you develop any cough, headache, shortness of breath, fevers, chills, muscle aches, or other concerning symptoms. ?? [facility]: ?? [facility]: ?? [facility]: ?? [facility] ?? If you are experiencing a mental health crisis, you can call the [facility] Crisis Hotline at 800-061-1994. Discharge Orders You Need to Schedule the Following Appointments Follow Up with??Radha Awan MD When?? Where: [address] [place] [address] [place] [id number]- Discharge Medications ROSMERY GERBER :1990 Visit Date:04/11/2022 Medications: Please continue your medications until treatment is completed or stopped by your provider. Medications not listed below should be discontinued. Discuss any questions related to medications with your provider. What How Much When Instructions Next Dose New Benztropine (benztropine 0.5 mg oral tablet) 1 tab(s) Oral Twice a day Pickup at [facility] 3 As directed New Multivitamin (multivitamin Multiple Vitamins oral tablet) 1 tab(s) Oral Daily Refills: 3 Pickup at [facility] 3 As directed Unchanged Risperidone (risperiDONE 2 mg oral tablet) 1 tab(s) Oral Twice a day Pickup at [facility] 3 As directed Pharmacy Information [facility] 3: [address] [place], [place] [id number] [phone] ?? What How Much When Comments Stop Taking ChlorproMAZINE (chlorproMAZINE 50 mg oral tablet) 50 Milligram Oral Every 4 hours as needed for Agitation Stop Taking Docusate (docusate sodium 100 mg oral capsule) 1 capsule Oral Twice a day Test Results Below is a partial list of the most recent Laboratory test results done prior to this discharge. You may have had other tests and procedures not included in this list. Please discuss all test resultswith your provider. Alcohol Level (04/11/2022) ???Ethanol, Serum or Plasma - NONE DETECTED ALT (04/12/2022) ???ALT (SGPT) - 15 units/L Amphetamine Urine Screen (04/20/2022) ???Amphetamine Screen, Urine - NONE DETECTED AST (04/12/2022) ???AST (SGOT) - 23 units/L Barbiturate Urine Screen (04/20/2022) ???Barbiturate Screen, Urine - NONE DETECTED Benzodiazepine Urine Screen (04/20/2022) ???Benzodiazepine Screen, Urine - NONE DETECTED BUPRENORPHINE, URINE (04/20/2022) ???Buprenorphine, Urine Random - NONE DETECTED Cannabinoid Urine Screen (04/20/2022) ???Cannabinoid Screen, Urine - POSITIVE CBC w/ Differential (04/12/2022) ???WBC - 7.8 k/mm3???RBC - 4.38 m/mm3???Hgb - 12.9 Gm/dL???Hct - 40.9 %???MCV - 93.4 femtoliters???MCH - 29.5 pg???MCHC - 31.5 g/dL???Platelet Count - 238 k/mm3???RDW-SD - 43.3 femtoliters???MPV - 11.4 femtoliters???Nucleated RBC (Automated) - 0.0 #/100 WBC'S???Abs. NRBC - 0.0 k/mm3???Abs. Neut - 4.5 k/mm3???Abs. Lymph - 2.0 k/mm3???Abs. Carroll - 0.9 k/mm3???Abs. Eo - 0.2 k/mm3???Abs. Baso - 0.1 k/mm3???Neut % - 58.4 %???Lymph % - 26.1 %???Carroll % - 12.1 %???Eos % - 2.1 %???Baso % - 1.0 %???Imm Gran - 0.3 %???Abs. Imm Gran - 0.0 k/mm3 Cocaine Urine Screen (04/20/2022) ???Cocaine Metabolite Screen, Urine - NONE DETECTED Comprehensive Metabolic Panel (04/11/2022) ???Sodium - 140 mmol/L???Potassium - 4.3 mmol/L???Chloride - 99 mmol/L???Bicarbonate Level - 28 mmol/L???Anion Gap - 13???Glucose Level - 101 mg/dL???BUN - 10 mg/dL???Creatinine-Blood - 0.7 mg/dL???Estimated GFR Creatinine - 117 ML/MIN/1.73 M2???Calcium - 9.5 mg/dL???Protein, Total - 6.7 Gm/dL???Alb umin - 4.4 Gm/dL???AG Ratio - 1.9???Alkaline Phosphatase - 54 units/L???AST (SGOT) - 28 units/L???ALT (SGPT) - 14 units/L???Bilirubin, Total - 1.3 mg/dL COVID-19 (2019 Novel Coronavirus) PCR (04/17/2022) ???COVID-19 PCR Specimen Source - NASAL???COVID-19 PCR Result - NEGATIVE COVID-19 (Novel Coronavirus), Rapid PCR (04/10/2022) ???COVID-19 by RT-PCR - NEGATIVE CPK Total Only (04/12/2022) ???CK, Total - 201 units/L Creatinine (04/12/2022) ???Creatinine-Blood - 0.5 mg/dL???Estimated GFR Creatinine - 126 ML/MIN/1.73 M2 Electrolytes (04/12/2022) ???Sodium - 138 mmol/L???Potassium - 4.1 mmol/L???Chloride - 103 mmol/L???Bicarbonate Level - 26 mmol/L???Anion Gap - 9 GLUCOSE POC (04/12/2022) ???Glucose, POC - 123 mg/dL METHADONE SCREEN, URINE (04/20/2022) ???Methadone Screen, Urine - NONE DETECTED Opiate Screen Urine (04/20/2022) ???Opiate Screen, Urine - NONE DETECTED OXYCODONE SCREEN, URINE (04/20/2022) ???Oxycodone Screen, Urine - NONE DETECTED Serum Qualitative (04/11/2022) ??? Serum Qual - NEGATIVE Test Urine (04/19/2022) ???Urine, - NEGATIVE TSH with T4 Reflex (Adults Only) (04/11/2022) ???TSH - 0.77 uIU/mL Allergies (NKA means No Known Allergies) NKA Problems Active Problems??(1) Obese class I?? Education Materials Below is the list of Educational Leaflet Providered with your Discharge Instructions. Risperidone Oral Tablet?? Finding the Right Rehab Program for Substance Abuse?? Valuables and Belongings I fully understand and agree that [facility] accepts no responsibility for all my personal property including clothing, toilet articles, radios, jewelry, dentures, hearing aids, rings, money, or any other property that is in my possession or is brought to me after admission. I understand certain valuables may be placed in a hospital safe for a short period of time. I understand that the hospital is not liable for loss or damage due to accident, fire, or other natural occurrence while said property is in the safe. I accept full responsibility for any personal property that I keep with me, and will not hold the hospital responsible in case of loss or disappearance. I acknowledge that i have been encouraged to send valuables and belongings home. ?? Review of Valuable and Belonging List: With patient, With witness Date for Pt to Sign Valuables/Belongings: 04/21/22 14:41:00 ?? Other Discharge Information ? Pulmonary Rehab Status?? Pulmonary Rehab Discharge Status?? Respiratory Rate: 18 br/min ? Common Emergency Awareness Tips IS IT A STROKE? Act FAST and Check for these signs: FACE Does the face look uneven? ARM Does one arm drift down? SPEECH Does their speech sound strange? TIME Call at any sign of stroke ?? Heart Attack Signs Chest discomfort: Most heart attacks involve discomfort in the center of the chest and lasts more than a few minutes, or goes away and comes back. It can feel like uncomfortable pressure, squeezing, fullness or pain. Discomfort in upper body: Symptoms can include pain or discomfort in one or both arms, back, neck, jaw or stomach. Shortness of breath: With or without discomfort. Other signs: Breaking out in a cold sweat, nausea, or lightheaded. Remember, MINUTES DO MATTER. If you experience any of these heart attack warning signs, call to get immediate medical attention! ?? Smoking can increase your chances of developing chronic health problems and can cause harmful effects to other family members in your house. If you smoke, you are strongly encouraged to quit. Please call [facility] Link at [phone] or [phone] Initative ([phone]) or log in to [email or web address] for referrals to smoking cessation programs. ?? The National Suicide Prevention Hotline is available 29/12 if you or someone you know needs to find a reason to keep living. By calling 8-004-989-BUX (0137) you'll be connected to a skilled, trained counselor at a crisis center in your area. INPATIENT DISCHARGE INSTRUCTIONS SIGNATURE ROSMERY BHAGAT Location:[facility] Registration Date and Time:04/11/2022 14:49 EDT Primary Care Physician: Radha Awan MD, I ROSMERY GERBER, have received the above patient education materials/instructions and have verbalized understanding. If ambulance or transport services are being used I further acknowledge beinggiven a choice of service. ?? If you need to contact me, please call me at this number: . Patient/Payloader Machine Operator Name: Patient/Payloader Machine Operator Signature: Relationship to Patient: Witness Name/Signature: Date: * Adrian Jiménez RN: PERFORM Event Display: Patient Education Leaflets Authored Date: [id number] Psychosis ?? [id number] Psychosis Psychosis is a serious symptom of certain mental health problems. It also can be caused by some physical disease, traumatic experiences, or drugs and toxins. Psychosis involves perceiving reality differently from those around you. The difference between reality and what you think is reality becomesblurred in your mind. There are different kinds of psychosis, depending on the cause: ??? Health problems such as infections, thyroid disorders, some cancers, sleep deprivation, low or high blood sugar levels, or dementia ??? Drug-induced from drugs such as alcohol, methamphetamine, cocaine, LSD, or PCP ??? Bipolar disorder ??? Depression ??? Schizophrenia Symptoms The symptoms of psychosis may not all be the same for each person. But they usually involve: ??? Hallucinations. Seeing, hearing, feeling, or even tasting or smelling things that are not there. ??? Delusions.??Believing something that's not true, or false beliefs that are not part of a person's mormon or cultural background. There may also be disturbances in thinking, speech, and behavior. These can include: ??? Hearing voices that others don't hear ??? Seeing things that others don't see ??? Racing thoughts ??? Lack of energy ??? Feeling very fearful ??? Disorganized speech ??? Intentional or unintentional bodily harm to others ??? Paranoia ??? Trouble thinking or concentrating clearly ??? Depression,feeling suicidal ??? Insomnia ??? Withdrawal from those around you Treatment for psychosis depends on the cause. Medicine is often used, with or without psychotherapy. You may need to stay in the hospital. This is to protect you and to carefully monitor medicines. ?? Home care ??? Find a healthcare provider and therapist who meet your needs. Seek help when you feellike your symptoms are returning. ??? Be sure to take your medicine as directed even if you think you don't need it. Never stop your medicine or change the dose without talking with your provider. Never use another person's medicine. ??? If you have trouble paying for your prescription, let your providers know so they can help you find resources. ??? Talk with your family about your feelings and thoughts. Ask them to help you recognize any behavior changes so you can get help and, if needed, medicines can be adjusted. ??? Contact your provider if you feel like your medicine is not working and changes need to be made. ?? Follow-up care is critical It's important to manage your condition by staying in close and regular contact with your healthcare team. Always follow up with your counselor, therapist, or psychiatrist as advised. Don't skip taking your medicine or change it without talking with your healthcare team. Take it as directed even if you think you don't need it. Also: ??? Be certain to tell each of your healthcare providers about all of the prescription medicines, bzic-klh-rbjliom medicines, illegal drugs, vitamins, and supplements you take.??Certain supplements interact with medicines. This can result in dangerous side effects.??Ask your pharmacist when you have questions about drug interactions. Tell your provider if you use alcohol and, if you do, howoften and how much you drink. ??? Tell your healthcare provider about all your medical conditions and any recent illnesses, such as infections. ??? Follow-up with lab tests as advised by your healthcare provider. Lab work is very important and can tell your provider the blood level of certain medicines. They can see if your dose needs to be increased or decreased. ?? Crisis care If you or the person is at immediate risk, call or text the National Suicide Lifeline at 988. Or call emergency services at 911. You will be connected to trained crisis counselors. An online chat option is also available. Lifeline is free and available 29/12. The Lifeline will work together with 911operators to make sure you get the care you need. Call 988 if you: ??? Have suicidal thoughts, a suicide plan, and the means to carry out the plan ??? Hear voices that are telling you to harm yourself or others ??? Have trouble breathing ??? Are very confused ??? Are very drowsy or have trouble awakening ??? Faint or lose??consciousness ??? Have arapid heart rate, very low heart rate, or a new irregular heart rate ??? Have a seizure ?? When to seek medical advice Call your healthcare provider right away if any of these occur: ??? Gradual or rapid return of psychotic symptoms ??? Feeling like you want to harm yourself or another ??? Feeling extremely depressed??? Feeling very anxious, agitated, or angry ??? Feeling out of control or being controlled by others ??? Unable to care for yourself ??? Seeing things or hearing voices that you know aren't real ?? Last Reviewed Date: 2021 ?? 1605-6587 [employer]. All rights reserved. This information is not intended as a substitute for professional medical care. Always follow your healthcare professional's instructions. ?? * Adrian Jiménez RN: PERFORM Event Display: Patient Education Leaflets Authored Date: [id number] Substance Abuse and Traumatic Brain Injury ?? 58353 Substance Abuse and Traumatic Brain Injury A traumatic brain injury (TBI) is a shock or blow to your head that changes the way your brain works. A TBI can change the way you think, feel, and act. Substance abuse is using a substance, like alcohol or a drug, in an uncontrolled way that hurts you or those around you. Many people with a TBI also have problems with substance abuse. Substance abuse can lead to a TBI. Studies show that at least 3 in 10 people hospitalized for a TBIhave a history of substance abuse. This relationship can work in the opposite way, as well. Having a TBI can lead to substance abuse, even if you haven???t had a problem with substance abuse in the past. Alcohol is the most common type of substance abuse problem seen in people with a TBI.?? Why substance abuse leads to TBI Just like a TBI, substance abuse changes the way you think, act, and feel. Being intoxicated affects your vision, coordination, and judgment. This can lead to risky behavior and poor decisions that cause TBI accidents and injuries. ?? Why TBI leads to substance abuse Symptoms of a TBI include slowed thinking, mood swings, depression, anxiety, and headaches. Living with these symptoms can be very frustrating. Some people try to ease their problems with alcohol or drugs. This is very dangerous. A TBI may make your brain more easily affected by alcohol and drugs.? The dangers of misusing alcohol or drugs after a TBI If you've been diagnosed with a TBI, you need to know how dangerous it is to try to ease your symptoms with alcohol or drugs. Mixing a TBI with misuse of alcohol or drugs raises your risk for: ??? Slower recovery ??? TBI symptoms getting worse ??? Making bad decisions ??? Having another TBI ??? Seizures ??? Family and job problems ??? Suicide ?? What to do Knowing the dangers of substance abuse after TBI is the first step. Many people who've had a substance abuse problem in the past actually stop using drugs and alcohol after a TBI because they understand the dangers. Here are robins steps to take: ??? Be honest with your healthcare team. Let them know if you're having problems with alcohol or drugs. ??? Stick with your treatment program. People in supervised treatment are less likely to have substance abuse problems. ??? Don???t spend too much time alone. Have friends and family take part inyour recovery. ??? Join a support group. Ask your healthcare provider if you need help finding one.??? Don???t get discouraged. Knowing that the symptoms of TBI usually go away in time will help youhave a successful recovery. It may be tempting to ease the symptoms and frustration of recovering from a TBI by drinking alcohol or taking drugs. But this only makes things worse. Be patient with your brain. It takes time to heal. Remember that most people do recover. ?? Last Reviewed Date: 2021 ?? [employer]. All rights reserved. This information is not intended as a substitute for professional medical care. Always follow your healthcare professional's instructions. ?? * Eryn Perdue MD: PERFORM Event Display: Patient Education Leaflets Authored Date: [id number] Risperidone Oral Tablet ?? [id number] Risperidone Oral Tablet Brands: Risperdal Uses This medicine is used for the following purposes: ??? bipolar disorder ??? depression ??? developmental disorder ??? obsessive compulsive disorder ??? schizophrenia ?? Instructions This medicine may be taken with or without food. It is very important that you take the medicine at about the same time every day. It will work bestif you do this. Keep the medicine at room temperature. Avoid heat and direct light. It may take several weeks for this medicine to fully work. It is important that you keep taking each dose of this medicine on time even if you are feeling well. If you forget to take a dose on time, take it as soon as you remember. If it is almost time for thenext dose, do not take the missed dose. Return to your normal dosing schedule. Do not take 2 doses of this medicine at one time. Tell your doctor and pharmacist about all your medicines. Include prescription and xzso-ing-aanucftkmldpidnx, vitamins, and herbal medicines. Do not suddenly stop taking this medicine. Check with your doctor before stopping. This medicine may cause higher blood sugar levels or diabetes. Please follow your doctor's instructions and check your blood sugar level regularly while on this medicine. ?? Cautions Tell your doctor and pharmacist if you ever had an allergic reaction to a medicine. Do not use the medication any more than instructed. This medicine may cause dizziness or fainting, especially after exercising or in hot weather. Be very careful when standing or sitting up quickly. Your ability to stay alert or to react quickly may be impaired by this medicine. Do not operate machinery or drive while on this medicine. Do not drink beverages with alcohol while on this medicine. Avoid becoming overheated during exercise or other activities. Try to stay cool in hot weather. Contact your doctor if you notice a change in the amount or darkening of your urine. Tell the doctor or pharmacist if you are , planning to be , or . Do not start or stop any other medicines without first speaking to your doctor or pharmacist. If you have a painful erection or an erection for more than 4 hours, seek medical care right away. Do not share this medicine with anyone who has not been prescribed this medicine. ?? Side Effects The following is a list of some common side effects from this medicine. Please speak with your doctor about what you should do if you experience these or other side effects. ??? dizziness or drowsiness ??? drooling ??? nausea ??? weight gain Call your doctor or get medical help right away if you notice any of these more serious side effects: ??? agitated feeling or trouble sleeping ??? confusion ??? fainting ??? lack of energy and tiredness ??? fever ??? swelling in the neck or throat ??? rapid heartbeat ??? low blood pressure ??? mood changes ??? uncontrollable movement of face, tongue, arms or legs ??? muscle aches, spasms or abnormal movements ??? seizures ??? problems with sexual functions or desire ??? difficulty swallowing A few people may have an allergic reaction to this medicine. Symptoms can include difficulty breathing, skin rash, itching, swelling, or severe dizziness. If you notice any of these symptoms, seek medical help quickly. ?? Extra Please speak with your doctor, nurse, or pharmacist if you have any questions about this medicine. ?? [email or web address] IMPORTANT NOTE: This document tells you briefly how to take your medicine, but it does not tell youall there is to know about it. Your doctor or pharmacist may give you other documents about your medicine. Please talk to them if you have any questions. Always follow their advice. There is a more complete description of this medicine available in Kiswahili. Scan this code on your smartphone or tablet or use the web address below. You can also ask your pharmacist for a printout. If you have any questions, please ask your pharmacist. The display and use of this drug information is subject to Terms of Use. Copyright(c) 2021 [employer]. ?? [employer]. All rights reserved. This information is not intended as a substitute for professional medical care. Always follow your healthcare professional's instructions. ?? CT Cervical spine WO contrast * [facility] , CIS S: TRANSCRIMARIELA Bear MD, Myriam R: VERIFY Event Display: Result: Authored Date: CT Head/Brain W/O Contrast, CT Cervical Spine W/O Contrast INDICATION: Hx of Present Illness: combative after drug use; Reason: Trauma; Clinical Question(s): Hematoma TECHNIQUE: Noncontrast head CT using axial technique was reconstructed in axial and coronal planes.Noncontrast spiral CT through the cervical spine was formatted in 3 planes. Automatic tube modulation was used for the cervical spine and iterative dose reconstruction was used for both the head and cervical spine to optimize scan parameters and image quality. CTDIvol Body: 13.90 mGy, DLP Body: 393 mGy*cm. CTDIvol Head: 38.80 mGy, DLP Head: 672 mGy*cm. COMPARISON: None. FINDINGS: Quality Engineer View Findings, Lines and Tubes: None. BRAIN AND EXTRA-AXIAL SPACES: No parenchymal hemorrhage, midline shift, or mass effect. Hernandez-white matter differentiation is wellpreserved. No acute infarct. Negative insular ribbon and hyperdense vessel signs. Ventricles, sulci, and basilar cisterns are normal. No white matter lesions. No subarachnoid hemorrhage. No subdural or epidural collection. CALVARIUM, SKULL BASE, AND SOFT TISSUES: No fractures or suspicious bony lesions. The paranasal sinuses and mastoid air cells are clear. Visualized orbits and globes are intact. The extracranial soft tissues are unremarkable. CERVICAL SPINE: No acute cervical spine fracture. Normal alignment. No locked or perched facet. A few levels of mild multilevel degenerative disc space narrowing and end plate spurring. OTHER BONES: No acute abnormality. CERVICAL SOFT TISSUES AND LUNG APICES: Normal soft tissues. Visualized lung apices are clear. IMPRESSION: No acute intracranial abnormality. No acute cervical spine fracture. 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 Automatic tube modulation was used for the cervical spine and iterative dose reconstruction was used for both the head and cervical spine to optimize scan parameters and image quality. CTDIvol Body: 13.90 mGy, DLP Body: 393 mGy*cm. CTDIvol Head: 38.80 mGy, DLP Head: 672 mGy*cm. COMPARISON: None. FINDINGS: Quality Engineer View Findings, Lines and Tubes: None. BRAIN AND EXTRA-AXIAL SPACES: No parenchymal hemorrhage, midline shift, or mass effect. Hernandez-white matter differentiation is wellpreserved. No acute infarct. Negative insular ribbon and hyperdense vessel signs. Ventricles, sulci, and basilar cisterns are normal. No white matter lesions. No subarachnoid hemorrhage. No subdural or epidural collection. CALVARIUM, SKULL BASE, AND SOFT TISSUES: No fractures or suspicious bony lesions. The paranasal sinuses and mastoid air cells are clear. Visualized orbits and globes are intact. The extracranial soft tissues are unremarkable. CERVICAL SPINE: No acute cervical spine fracture. Normal alignment. No locked or perched facet. A few levels of mild multilevel degenerative disc space narrowing and end plate spurring. OTHER BONES: No acute abnormality. CERVICAL SOFT TISSUES AND LUNG APICES: Normal soft tissues. Visualized lung apices are clear. IMPRESSION: No acute intracranial abnormality. No acute cervical spine fracture. WSN: [id number] Ordering Physician: Preston Galvan Dictated By: Myriam Bear MD Dictated Date/Time: 04/11/22 10:54 a Reviewed By: Myriam Bear MD Signed By: Myriam Bear MD Signed Date/Time: 04/11/22 10:54 am Transcribed By: CSB Transcribed Date/Time: 04/11/22 10:49 am Patient Care team information Care Team Personnel Name: Abby Grace RN Position: [facility] RN Member Role: Primary Care Nurse Name: Adrian Jiménez RN Position: [facility] RN Member Role: Primary Care Nurse Name: Adriane Bonilla RN Position: [facility] RN Member Role: Primary Care Nurse Name: Danica Carmona RN Position: [facility] ED RN W/OE and Tasks Member Role: Primary Care Nurse Name: Reba Arguello Position: [facility] RN Member Role: Primary Care Nurse Name: Anna Ramos RN Position: [facility] RN Member Role: Primary Care Nurse Name: Tarah Pa RN Position: [facility] RN Member Role: Primary Care Nurse Name: Leonie Barros RN Position: [facility] RN Member Role: Primary Care Nurse Name: Erica Booth LPN Position: [facility] RN Member Role: Primary Care Nurse Name: Charley New RN Position: [facility] RN Member Role: Primary Care Nurse Name: Mel Martines RN Position: [facility] RN Member Role: Primary Care Nurse Name: Maria Elena Huntley RN Position: [facility] RN Member Role: Primary Care Nurse Name: Radha Awan MD Position: [facility] Physician (General Medicine) Member Role: PCP Address: Address: [address] [place] [id number] Name: Juli Holder RN Position: [facility] RN Member Role: Primary Care Nurse Name: Jeanine Cespedes RN Position: [facility] RN Member Role: Primary Care Nurse Name: Ghulam AWAN Attending Position: [facility] ED Medicine MD Name: Brianda Small Position: [facility] ED TA [facility] Member Role: Personal Injury Law Specialist Name: Ailin Dominguez Position: [facility] ED OA Charge Member Role: ED Associate Name: Daxa Dickson RN Position: [facility] ED RN W/OE and Tasks Member Role: Patient Care Provider Care Team Related Persons Name: REGGIE LAWSON Address: [place] [address] Name: PHLYLIS LAUREANO Address: home [address] [place] [id number]
--- OUTSIDE RECORDS SUMMARY | 2023-01-12 23:30 | XMS_ITS | Continuity of Care Document ---
Author Name Unknown Organization [facility] ter Address [address] [place] [address]- Care Team Providers Care Job Placement Specialist Name Role Phone Not on Staff, PCP Primary Care Physician Unavail able [place] [facility] [place]14[place] - 09/15/[address] [address]- Encounter Diagnosis Anxiety(Final) - 09/14/22 Suicidal ideation(Final) - 09/14/22 Discharge Disposition: Transfer to [facility] Attending Physician: Maria Elena Devries MD Admitting Physician: Maria Elena Devries MD Referring Physician: Not on Staff, Referring [...] Patient Refuses 1Result Comment: not available Medications Acetaminophen Tablet 650 mg, Tablet, By Mouth, Every 8 hours, PRN for Pain , Moderate, STAT, 09/14/22 8:04:00 EDT Start Date: 09/14/22 Stop Date: 09/15/22 Status: Discontinued benztropine 0.5 mg oral tablet 0.5 mg, 1, tablet, By Mouth, 2 times a day, # 60 each, Refills 0, Tot. Refills 0, Maintenance, 04/21/22 14:46:00 EST, Route to Pharmacy Electronically, [facility], Partial fill upon patient request if the prescription is for a schedule I... Start Date: 04/21/22 Status: Ordered Ibuprofen Tablet 400 mg, Tablet, By Mouth, Every 8 hours, PRN for Pain , Moderate, STAT, 09/14/22 8:04:00 EDT Start Date: 09/14/22 Stop Date: 09/15/22 Status: Discontinued multivitamin Multiple Vitamins oral tablet 1 tablet, By Mouth, Daily, # 90 tablet, 3 Refills, Maintenance, 04/21/22 14:47:00 EST, Tablet, [facility], Partial fill upon patient request if the prescription is for a schedule II opioid drug., 1 tablet By Mouth Daily, 163, cm, ... Start Date: 04/21/22 Status: Ordered risperiDONE 2 mg oral tablet 2 mg, 1, tablet, By Mouth, 2 times a day, # 60 tablet, Refills 1, Tot. Refills 1, Maintenance, 04/21/22 14:47:00 EST, Route to Pharmacy Electronically, [facility], Partial fill upon patient request if the prescription is for a schedule I... Start Date: 04/21/22 Status: Ordered Problem List Condition Confirmation Course Effective Dates Status Health St atus Informant Obese class I Confirmed Active Vital Signs Most recent to oldest [Reference Range]: 1 2 3 4 Oxygen Saturation [94-100 %] 100 % (09/15/22 6:14 AM) 100 % (09/14/22 7:00 PM) 99 % (09/14/22 7:49 AM) Pulse Rate [55-90 bpm] 91 bpm *H* (09/15/22 9:54 AM) 82 bpm (09/15/22 6:14 AM) 70 bpm (09/14/22 7:00 PM) Blood Pressure [90-138/55-84 mm Hg] 114/82mm Hg (09/15/22 9:54 AM) 123/87mm Hg (09/15/22 6:14 AM) 119/69mm Hg (09/14/22 7:00 PM) Respiratory Rate [16-30 br/min] 16 br/min (09/15/22 6:14 AM) 18 br/min (09/14/22 7:00 PM) 16 br/min (09/14/22 2:59 PM) 16 br/min (09/14/22 2:59 PM) Temperature [96.8-100.4 DegF] 97.3 DegF (09/15/22 6:14 AM) 98 DegF (09/14/22 7:00 PM) Mode of Delivery (Oxygen) Room air (09/15/22 6:14 AM) Room air (09/14/22 7:00 PM) Room air (09/14/22 7:49 AM) Blood pressure sites Arm, right (09/15/22 6:14 AM) Arm, left (09/14/22 7:49 AM) Temperature Route Oral (09/15/22 6:14 AM) Oral (09/14/22 7:00 PM) Hospital Progress note * Dex Braun DO: PERFORM Event Display: Progress Note Hospital Authored Date: Patient: ??ROSMERY HORTA ? Age:??32 Years?Sex:??Female?:??1990?? Subjective Chief complaint:? I'm still so anxious ?? Patient seen, chart reviewed, and discussed with treatment team.? Interval History: No acute overnight events. Patient has been refusing Madeline and Zyprexa overnight, and only took Zyprexa 5 mg x1 this morning. She was seen briefly this morning prior to IPLOC transfer. Rosmery??reports ongoing anxiety and feeling worried about everything that is going on right now. She does not feel as though she requires any IPLOC and would prefer discharge. 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 She did not report any adverse effects to current medication regimen. Aware of placement for [facility] later this morning. Adamantly denying any SI/HI/AVH. No other reported symptoms concerning for anxiety, depression, linette, psychosis or PTSD. Able to make needs known.? Patient was later overheard speaking with [facility] about experiencing visual hallucinations after taking??Zyprexa this morning, despite receiving psychoeducation on the use of antipsychotic medications in treatment of hallucinations. ?? Review of Systems Pertinent positives as listed above in HPI. ??Otherwise, remainder of review of systems negative. Objective ? Vital Signs?? Temperature: 97.3 DegF (09/15/22 06:14:00) Temperature Route: Oral (09/15/22 06:14:00) Pulse Rate:??91 bpm??High (09/15/22 09:54:00) Respiratory Rate: 16 br/min (09/15/22 06:14:00) Systolic Blood Pressure: 114 mm Hg (09/15/22 09:54:00) Diastolic Blood Pressure: 82 mm Hg (09/15/22 09:54:00) Blood pressure sites: Arm, right (09/15/22 06:14:00) Mean Arterial Pressure: 93 mm Hg (09/15/22 09:54:00) Pulse Pressure: 32 mm Hg (09/15/22 09:54:00) Oxygen Saturation: 100 % (09/15/22 06:14:00) Mode of Delivery (Oxygen): Room air (09/15/22 06:14:00) ? Physical Exam Mental Status Exam Appearance: Casual, disheveled Eye contact: Sparse Attitude: Guarded Motor Activity: Restless; absent of tics, tremors, psychomotor agitation Mood: Anxious Affect: Blunted Speech: Nonspontaneous, normal rate, low tone, latency, brief responses Perception: No reported AVH;??appears internally preoccupied, actively responding to internal stimuli Orientation: Intact to person and place Memory: Uncertain Thought Process: Disorganized Thought Content: Minimization of precipitants. Paranoia, delusions. Medication Adherence: Impaired Reliability: Limited historian Insight: Impaired Judgment: Impaired?? Impulse control: Impaired Suicidality/Self-destructive Behavior: None currently Homicidality/Violence: None currently Muscle strength/tone: Antigravity. No rigidity noted. Moving all four extremities spontaneously. Ambulating without gait disturbance.? _ Inpatient Medications Medications (11) Active SCHEDULED: (2) Madeline 300 mg Tablet (LITHium Tablet) ??600 mg, By Mouth, Daily at bedtime Olanzapine 5 mg Tablet (olanzapine 5 mg oral tablet) ??5 mg, By Mouth, 2 times a day CONTINUOUS: (0) PRN: (9) Acetaminophen 325 mg Tablet (Acetaminophen Tablet) ??650 mg, By Mouth, Every 8 hours Al hydroxide/Mg hydroxide/simethicone 200 mg-200 mg-20 mg/5 mL Susp UD (Maalox Plus Liquid) ??30 mL, By Mouth, Every 8 hours ChlorproMAZINE 50 mg Tablet (chlorproMAZINE 50 mg oral tablet) ??50 mg, By Mouth, Every 4 hours diphenhydrAMINE 25 mg Tablet (diphenhydrAMINE 25 mg oral tablet) ??25 mg, By Mouth, Every 4 hours HydrOXYzine Pamoate 25mg Capsule (HydrOXYzine Pamoate Capsule) ??50 mg, By Mouth, Every 6 hours Ibuprofen 400 mg Tablet (Ibuprofen Tablet) ??400 mg, By Mouth, Every 8 hours Lorazepam 1 mg Tablet (LORazepam Tablet) ??1 mg, By Mouth, Every 8 hours Melatonin 3 mg Tablet (Melatonin Tablet) ??3 mg, By Mouth, Daily at bedtime Trazodone 50 mg Tablet (traZODone 50 mg oral tablet) ??50 mg, By Mouth, Daily at bedtime ? Results Recent Labs BLOOD COUNT & DIFF WBC 12.4 k/mm3 (High)?? 09/14/2022 09:48 RBC 4.27 m/mm3 ()?? 09/14/2022 09:48 Hgb 12.7 Gm/dL ()?? 09/14/2022 09:48 Hct 38.4 % ()?? 09/14/2022 09:48 MCV 89.9 femtoliters ()?? 09/14/2022 09:48 MCH 29.7 pg ()?? 09/14/2022 09:48 MCHC 33.1 g/dL ()?? 09/14/2022 09:48 Platelet Count 295 k/mm3 ()?? 09/14/2022 09:48 RDW-SD 38.7 femtoliters ()?? 09/14/2022 09:48 MPV 10.3 femtoliters ()?? 09/14/2022 09:48 Nucleated RBC (Automated) 0.0 #/100 WBC'S ()?? 09/14/2022 09:48 Abs. NRBC 0.0 k/mm3 ()?? 09/14/2022 09:48 Abs. Neut 7.3 k/mm3 (High)?? 09/14/2022 09:48 Abs. Lymph 3.4 k/mm3 (High)?? 09/14/2022 09:48 Abs. Menard 1.2 k/mm3 (High)?? 09/14/2022 09:48 Abs. Eo 0.2 k/mm3 ()?? 09/14/2022 09:48 Abs. Baso 0.1 k/mm3 ()?? 09/14/2022 09:48 Neut % 58.8 % ()?? 09/14/2022 09:48 Lymph % 27.9 % ()?? 09/14/2022 09:48 Menard % 10.0 % ()?? 09/14/2022 09:48 Eos % 1.9 % ()?? 09/14/2022 09:48 Baso % 0.8 % ()?? 09/14/2022 09:48 Imm Gran 0.6 % ()?? 09/14/2022 09:48 Abs. Imm Gran 0.1 k/mm3 ()?? 09/14/2022 09:48 ?? CHEM GENERAL Sodium 140 mmol/L ()?? 09/14/2022 09:48 Potassium 3.9 mmol/L ()?? 09/14/2022 09:48 Chloride 100 mmol/L ()?? 09/14/2022 09:48 Bicarbonate Level 35 mmol/L (High)?? 09/14/2022 09:48 Anion Gap 5 ()?? 09/14/2022 09:48 Glucose Level 134 mg/dL (High)?? 09/14/2022 09:48 BUN 10 mg/dL ()?? 09/14/2022 09:48 Creatinine-Blood 0.6 mg/dL ()?? 09/14/2022 09:48 Estimated GFR Creatinine 120 ML/MIN/1.73 M2 ()?? 09/14/2022 09:48 Calcium 9.5 mg/dL ()?? 09/14/2022 09:48 ?? ENDOCRINE/TUMOR MARKER TSH 0.39 uIU/mL (Low)?? 09/14/2022 09:48 Blood <1 mIU/mL ()?? 09/14/2022 09:48 ?? TOXICOLOGY/TDM Ethanol, Serum or Plasma NONE DETECTED mg/dL ()?? 09/14/2022 09:48 Madeline Level 0.2 mmol/L (Low)?? 09/14/2022 09:48 Barbiturate Screen, Urine NONE DETECTED ()?? 09/14/2022 09:50 Cannabinoid Screen, Urine POSITIVE (Abnormal)?? 09/14/2022 09:50 Cocaine Metabolite Screen, Urine POSITIVE (Abnormal)?? 09/14/2022 09:50 Benzodiazepine Screen, Urine NONE DETECTED ()?? 09/14/2022 09:50 Amphetamine Screen, Urine NONE DETECTED ()?? 09/14/2022 09:50 Opiate Screen, Urine NONE DETECTED ()?? 09/14/2022 09:50 ?? VIROLOGY Influenza A PCR NEGATIVE ()?? 09/14/2022 08:35 Influenza B PCR NEGATIVE ()?? 09/14/2022 08:35 RSV PCR NEGATIVE ()?? 09/14/2022 08:35 COVID-19 PCR Specimen Source NASAL ()?? 09/14/2022 08:35 COVID-19 PCR Result NEGATIVE ()?? 09/14/2022 08:35 ? Assessment/Plan Assessment:?In brief, this is a 32-year-old female with past history of bipolar 1 disorder with psychotic features, polysubstance use, question of substance-induced psychosis, multiple inpatientpsychiatric hospitalizations, who initially presented [place] [facility] on [place] for evaluation of anxiety.??At this point in time, the patient has been medically cleared and referred to??[facility] Crisis for evaluation and assistance with potential psychiatric disposition, albeit currently pending bed searchfor inpatient psychiatric hospitalization.?The emergency psychiatry service was consulted for ass istance with medication management. There is concern for??acute psychotic illness as evident by??guarded attitude,??sparse eye contact, mild psychomotor agitation, blunted affect??with latency??and fragmentation of speech??disorganized thought process??and appearance of??responding to internal stimuli.?? In the setting of urine toxicology positive for cannabinoid??pain??as well as to 3 days of nonadherence to her psychotropic medication,??this presentation is most consistent??with recurrence??of psychotic disorder secondary to substance use??and medication nonadherence.??Diagnostic clarificati on is deferred to the next/longitudinal level of care. Explained to the patient the differential diagnoses, treatment options, risks of untreated illness, and risks/benefits of treatment. See below for??detailed??treatment recommendations. ?? 09/15/22: Rosmery remains acutely psychotic as evident by ongoing perceptual disturbances, internalpreoccupation, self-dialoguing, and disorganization. Reasonable to titrate Zyprexa for psychosis and/or mood stabilization. Discontinue Benadryl (not necessary with Thorazine) PRN for severe agitation. Otherwise, continue all medications as currently scheduled. She continues to meet criteria for IPLOC and is??being imminently transferred to [facility] for inpatient psychiatric stabilization. ?? Diagnoses: Unspecified psychotic disorder Visual hallucinations Agitation Medication nonadherence Crack cocaine use Cannabis use History of bipolar 1 disorder with psychotic features, rule out current??manic episode with psychotic features Rule out??cannabis induced psychotic disorder Rule out cocaine-induced??psychotic disorder ?? Recommendations: -Disposition as per Crisis Services, albeit currently a bed search for inpatient psychiatric hospitalization. 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 Patient may NOT leave A without psychiatry clearance. -Restart lithium for mood stabilization at reduced dose given recent nonadherence, 600 mg po qhs with further optimization as indicated toward previous dose of 900 mg po qhs. Monitoring parameters asbelow. -Titrate Zyprexa/Olanzapine??from 5??to 10??mg??PO twice daily with further optimization as indicated for psychosis. -Restart trazodone 50 mg po qhs prn insomnia, allowing for additional 50 mg if needed (100 mg max single dose) -Start hydroxyzine 50 mg po q6h prn anxiety -Start??chlorpromazine 50 mg + po q4h prn agitation as per last known inpatient regimen. Can use IMequivalent PRN severe agitation with acute safety concern and refusal of PO. -Decrease melatonin to 3 mg po qhs prn insomnia targeting minimum effective dose. -The preference is for PO medications, but if the patient refuses the oral medications and there issufficient acute safety concern, can judiciously utilize IM equivalents for severe agitation.??Would note that these medications are only being utilized in the ER while the patient awaits placement. Long-term need for these medications will need to be assessed by the patient's future treating psychiatrist. -Seclusion or restraint may only be used as interventions of last resort in the management of severe agitation in patient. If they are used, seclusion and restraint episodes should be as short as possible, dignified, and as safe as possible for all involved. Patient preference should always be considered when feasible. -Given elevated bicarbonate 35 and extensive hepatic metabolism of olanzapine please consider CMP to rule out metabolic disturbance contributing to symptoms -Check trough serum lithium level, BMP, TSH, and CBC within 4-5 days of any dose adjustment and following achievement of therapeutic dose. -ECG when able given potentially QT-prolonging polypharmacy ?? Please feel free to contact the Psychiatry consult service (page [phone]) with any questions or concerns.? Dex Braun D.O.?? It Program Manager, Emergency Psychiatry Services Division of Consultation-Liaison Psychiatry Department of Psychiatry [facility] ? Patient Care team information Care Team Personnel Name: Abby Grace RN Position: [facility] RN Member Role: Primary Care Nurse Name: Adrian Jiménez RN Position: [facility] RN Member Role: Primary Care Nurse Name: Adriane Bonilla RN Position: [facility] RN Member Role: Primary Care Nurse Name: Danica Carmona RN Position: [facility] ED RN W/OE and Tasks Member Role: Primary Care Nurse Name: Reba Arguello RN Position: [facility] RN Member Role: Primary Care Nurse Name: Anna Ramos RN Position: [facility] RN Member Role: Primary Care Nurse Name: Tarah Pa RN Position: [facility] RN Member Role: Primary Care Nurse Name: Leonie Barros RN Position: [facility] RN Member Role: Primary Care Nurse Name: Erica Booth LPN Position: [facility] RN Member Role: Primary Care Nurse Name: Not on Staff, PCP Position: [facility] Physician (General Medicine) Member Role: PCP Name: Mel Martines RN Position: [facility] RN Member Role: Primary Care Nurse Name: Maria Elena Huntley RN Position: [facility] RN Member Role: Primary Care Nurse Name: Jeanine Cespedes RN Position: [facility] RN Member Role: Primary Care Nurse Name: [facility] Attending Position: [facility] ED Attendings Patient Name: Maria Elena Devries MD Position: [facility] ED Medicine MD Member Role: Admitting Physician Address: Address: [address] [place] [id number] Name: Yessy Turner Position: [facility] ED TA [facility] Member Role: 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
--- OUTSIDE RECORDS SUMMARY | 2023-01-12 23:30 | XMS_ITS | Continuity of Care Document ---
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 Name Role Phone Radha Awan MD Primary Care Physician [phone] Encounter [facility] Date(s): 01/16/21 - 01/18/[address] [address]- Encounter Diagnosis Psychosis(Final) - 01/16/21 Substance use disorder(Final) - 01/18/21 Discharge Disposition: A-D/C Retirement, [facility], or Longterm Fac Attending Physician: Tuan Mccabe MD Admitting Physician: Tuan Mccabe MD Referring Physician: Not on Staff, Referring [...] 08/20/20 15:34:00 EDT, Route to Pharmacy Electronically, [id number], Partial fill upon patient request if the prescription is for a schedule II o... Start Date: 08/20/20 Stop Date: 09/03/20 Status: Ordered haloperidol 10 mg oral tablet 10 mg, 1, tablet, By Mouth, Daily at bedtime, # 14 tablet, Refills 0, Tot. Refills 0, Maintenance, 08/20/20 15:34:00 EDT, Route to Pharmacy Electronically, [id number], Partial fill upon patient request if the prescription is for a schedule II... Start Date: 08/20/20 Stop Date: 09/03/20 Status: Ordered QUEtiapine 200 mg oral tablet 400 mg, 2, tablet, By Mouth, Daily at bedtime, # 28 tablet, Refills 0, Tot. Refills 0, Maintenance,08/20/20 15:34:00 EDT, Route to Pharmacy Electronically, [id number], Partial fill upon patient request if the prescription is for a schedule II... Start Date: 08/20/20 Stop Date: 09/03/20 Status: Ordered traZODone 50 mg oral tablet 50 mg, 1, tablet, By Mouth, Daily at bedtime, # 14 tablet, Refills 0, Tot. Refills 0, Maintenance, 08/20/20 15:33:00 EDT, Route to Pharmacy Electronically, [id number], Partial fill upon patient request if the prescription is for a schedule II... Start Date: 08/20/20 Stop Date: 09/03/20 Status: Ordered Vital Signs Most recent to oldest [Reference Range]: 1 2 3 Oxygen Saturation [94-100 %] 100 % (01/18/21 5:06 AM) 100 % (01/17/21 9:03 PM) 100 % (01/17/21 1:15 PM) Pulse Rate [55-90 bpm] 68 bpm (01/18/21 5:06 AM) 72 bpm (01/17/21 9:03 PM) 70 bpm (01/17/21 1:15 PM) Blood Pressure [90-138/55-84 mm Hg] 118/72mm Hg (01/18/21 5:06 AM) 122/74mm Hg (01/17/21 9:03 PM) 116/73mm Hg (01/17/21 1:15 PM) Respiratory Rate [16-30 br/min] 16 br/min (01/18/21 5:06 AM) 16 br/min (01/17/21 9:03 PM) 18 br/min (01/17/21 1:15 PM) Temperature [96.8-100.4 DegF] 98.4 DegF (01/18/21 5:06 AM) 97.6 DegF (01/17/21 9:03 PM) 97.9 DegF (01/17/21 4:00 AM) Mode of Delivery (Oxygen) Room air (01/18/21 5:06 AM) Room air (01/17/21 9:03 PM) Room air (01/17/21 4:00 AM) Blood pressure sites Arm, left (01/17/21 4:00 AM) Temperature Route Oral (01/18/21 5:06 AM) Oral (01/17/21 9:03 PM) Oral (01/17/21 4:00 AM) Social History Social History 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
--- OUTSIDE RECORDS SUMMARY | 2023-01-12 23:30 | XMS_ITS | Continuity of Care Document ---
Author Name Unknown Organization [facility] ter Address [address] [place] [id number]- Care Team Providers Care Title Abstractor Name Role Phone Not on Staff, PCP Primary Care Physician Unavail able Encounter [facility] Date(s): 06/06/22 - 06/10/[address] [address]- Encounter Diagnosis Acute paranoia(Final) - 06/06/22 Discharge Disposition: Transfer to [facility] Facility Attending Physician: Rob Rodriges MD Admitting Physician: Rob Rodriges MD Referring Physician: Not on Staff, Referring [...] 04/21/22 14:46:00 EST, Route to Pharmacy Electronically, [facility], Partial fill upon patient request if the prescription is for a schedule I... Start Date: 04/21/22 Status: Ordered multivitamin Multiple Vitamins oral tablet 1 tablet, By Mouth, Daily, # 90 tablet, 3 Refills, Maintenance, 04/21/22 14:47:00 EST, Tablet, [facility], Partial fill upon patient request if the prescription is for a schedule II opioid drug., 1 tablet By Mouth Daily, 163, cm, ... Start Date: 04/21/22 Status: Ordered risperiDONE 2 mg oral tablet 2 mg, 1, tablet, By Mouth, 2 times a day, # 60 tablet, Refills 1, Tot. Refills 1, Maintenance, 04/21/22 14:47:00 EST, Route to Pharmacy Electronically, [facility], Partial fill upon patient request if the prescription is for a schedule I... Start Date: 04/21/22 Status: Ordered Problem List Condition Confirmation Course Effective Dates Status Health St atus Informant Obese class I Confirmed Active Vital Signs Most recent to oldest [Reference Range]: 1 2 3 Oxygen Saturation [94-100 %] 100 % (06/09/22 3:25 PM) 99 % (06/08/22 9:26 PM) 100 % (06/08/22 1:51 PM) Pulse Rate [55-90 bpm] 135 bpm *H* (06/09/22 3:25 PM) 110 bpm *H* (06/08/22 9:26 PM) 80 bpm (06/08/22 1:51 PM) Blood Pressure [90-138/55-84 mm Hg] 103/58mm Hg (06/09/22 3:25 PM) 130/87mm Hg (06/08/22 9:26 PM) 109/45mm Hg (06/08/22 1:51 PM) Respiratory Rate [16-30 br/min] 18 br/min (06/09/22 3:25 PM) 18 br/min (06/08/22 9:26 PM) 16 br/min (06/08/22 1:51 PM) Temperature [96.8-100.4 DegF] 97.1 DegF (06/09/22 3:25 PM) 98.7 DegF (06/08/22 9:26 PM) 98.3 DegF (06/08/22 1:51 PM) Mode of Delivery (Oxygen) Room air (06/09/22 3:25 PM) Room air (06/08/22 9:26 PM) Room air (06/08/22 1:51 PM) Blood pressure sites Arm, right (06/09/22 3:25 PM) Arm, right (06/08/22 9:26 PM) Arm, right (06/08/22 1:51 PM) Temperature Route Oral (06/09/22 3:25 PM) Oral (06/08/22 9:26 PM) Oral (06/08/22 1:51 PM) Hospital Progress note * Event Display: Progress Note Hospital Authored Date: * Cayden Lozano MD: PERFORM, SIGN, VERIFY Event Display: Progress Note Hospital Authored Date: Patient: ADRIAN HORTA Age: 31 years Sex: Female : 1990 Associated Diagnoses: None Author: Marta SHELLEY, Cayden Cortez Asked by ED to review psychiatric medications. Chart reviewed. Patient not seen. Briefly, this patient with psychotic disorder is being continued on her current psychiatric medication and is calm andcompliant in the ED. Since we do not know what her outpatient adherence with medications was, I agree with continuing her on Risperidone as ordered and would defer further changes to the inpatient psy chiatry team. Above relayed to Dr. Julian. Please contact me with further questions or concerns. Patient Care team information Care Team Personnel Name: Abyb Grace RN Position: [facility] RN Member Role: Primary Care Nurse Name: Adrian Jiménez RN Position: [facility] RN Member Role: Primary Care Nurse Name: Adriane Bonilla RN Position: S RN Member Role: Primary Care Nurse Name: Danica Carmona RN Position: [facility] ED RN W/OE and Tasks Member Role: Primary Care Nurse Name: Reba Arguello Position: S RN Member Role: Primary Care Nurse Name: Anna Ramos RN Position: S RN Member Role: Primary Care Nurse Name: Tarah Pa RN Position: S RN Member Role: Primary Care Nurse Name: Leonie Barros RN Position: S RN Member Role: Primary Care Nurse Name: Erica Booth LPN Position: [facility] RN Member Role: Primary Care Nurse Name: Charley New RN Position: [facility] RN Member Role: Primary Care Nurse Name: Not on Staff, PCP Position: [facility] Physician (General Medicine) Member Role: PCP Name: Mel Martines RN Position: [facility] RN Member Role: Primary Care Nurse Name: Maria Elena Huntley RN Position: [facility] RN Member Role: Primary Care Nurse Name: Juli Holder RN Position: [facility] RN Member Role: Primary Care Nurse Name: Jeanine Cespedes RN Position: [facility] RN Member Role: Primary Care Nurse Name: *[facility], ED Attending Position: [facility] ED Attendings Patient Name: Shruti Aguilar RN Position: [facility] ED RN W/OE and Tasks Member Role: Patient Care Provider Name: Rob Rodriges MD Position: [facility] ED Medicine MD Member Role: Admitting Physician Address: Address: [address] [place] [id number]- [place] Care Team Related Persons Name: REGGIE LAWSON Address: [place] [address] Name: PHYLLIS LAUREANO Address: home [address] [place] [id number]
--- OUTSIDE RECORDS SUMMARY | 2023-01-12 23:30 | XMS_ITS | Continuity of Care Document ---
Author Name Unknown Organization [facility] ter Address [address] [place] [address]- Care Team Providers Care Biztalk Administrator Name Role Phone Radha Awan MD Primary Care Physician [phone] Encounter [facility] Date(s): 08/14/20 - 08/20/[address] [address]- Encounter Diagnosis Agitation(Final) - 08/15/20 Discharge Disposition: A-D/C Home Attending Physician: Blane Olmstead MD Admitting Physician: Blane Olmstead MD Referring Physician: Not on Staff, Referring [...] 08/20/20 15:34:00 EDT, Route to Pharmacy Electronically, [facility] #[id number], Partial fill upon patient request if the prescription is for a schedule II o... Start Date: 08/20/20 Stop Date: 09/03/20 Status: Ordered haloperidol 10 mg oral tablet 10 mg, 1, tablet, By Mouth, Daily at bedtime, # 14 tablet, Refills 0, Tot. Refills 0, Maintenance, 08/20/20 15:34:00 EDT, Route to Pharmacy Electronically, [facility]/pharmacy #[id number], Partial fill upon patient request if the prescription is for a schedule II... Start Date: 08/20/20 Stop Date: 09/03/20 Status: Ordered QUEtiapine 200 mg oral tablet 400 mg, 2, tablet, By Mouth, Daily at bedtime, # 28 tablet, Refills 0, Tot. Refills 0, Maintenance,08/20/20 15:34:00 EDT, Route to Pharmacy Electronically, [facility]/pharmacy #[id number], Partial fill upon patient request if the prescription is for a schedule II... Start Date: 08/20/20 Stop Date: 09/03/20 Status: Ordered traZODone 50 mg oral tablet 50 mg, 1, tablet, By Mouth, Daily at bedtime, # 14 tablet, Refills 0, Tot. Refills 0, Maintenance, 08/20/20 15:33:00 EDT, Route to Pharmacy Electronically, [facility]/pharmacy #[id number], Partial fill upon patient request if the prescription is for a schedule II... Start Date: 08/20/20 Stop Date: 09/03/20 Status: Ordered Vital Signs Most recent to oldest [Reference Range]: 1 2 3 Oxygen Saturation [94-100 %] 100 % (08/20/20 8:15 PM) 100 % (08/20/20 2:29 PM) 100 % (08/20/20 10:30 AM) Pulse Rate [55-90 bpm] 80 bpm (08/20/20 8:15 PM) 89 bpm (08/20/20 2:29 PM) 70 bpm (08/20/20 10:30 AM) Blood Pressure [90-138/55-84 mm Hg] 126/70mm Hg (08/20/20 8:15 PM) 113/67mm Hg (08/20/20 2:29 PM) 126/70mm Hg (08/20/20 10:30 AM) Respiratory Rate [16-30 br/min] 17 br/min (08/20/20 8:15 PM) 17 br/min (08/20/20 2:29 PM) 16 br/min (08/20/20 10:30 AM) Temperature [96.8-100.4 DegF] 98.8 DegF (08/20/20 8:15 PM) 98.2 DegF (08/20/20 2:29 PM) 98.1 DegF (08/20/20 10:30 AM) Mode of Delivery (Oxygen) Room air (08/20/20 8:15 PM) Room air (08/20/20 2:29 PM) Room air (08/20/20 10:30 AM) Blood pressure sites Arm, left (08/20/20 8:15 PM) Arm, right (08/20/20 2:29 PM) Arm, right (08/19/20 8:57 PM) Temperature Route Oral (08/20/20 8:15 PM) Oral (08/20/20 2:29 PM) Oral (08/20/20 10:30 AM) Social History Social History 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
--- OUTSIDE RECORDS SUMMARY | 2023-01-12 23:30 | XMS_ITS | Continuity of Care Document ---
Author Name Unknown Organization [facility] ter Address [address] [place] [address]- Care Team Providers Care Golf Course Superintendent Name Role Phone Radha Awan MD Primary Care Physician [phone] Encounter [facility] Date(s): 10/26/19 - 10/27/[address] [address]- [facility] Discharge Disposition: Transfer to [facility] Facility Attending Physician: Nacho Pacheco MD Admitting Physician: Nacho Pacheco MD Referring Physician: Not on Staff, Referring MD Allergies, Adverse Reactions, Alerts Substance Reaction Severity Status NKA Active Immunizations Not Given Vaccine Date Status Refusal Reason influenza virus vaccine, inactivated 06/22/19 Not Given Patient Refuses Medications Colace sodium 100 mg oral capsule 100 mg, 1, capsule, By Mouth, 2 times a day, # 60 capsule, Refills 0, Tot. Refills 0, Maintenance, 07/24/19 11:47:00 EST, Route to Pharmacy Electronically, [facility]acy #[id number], 162, cm, 07/01/19 8:32:00 EST, Height, 90, kg, 06/20/19 18:59:00 EST, Dry W... Start Date: 07/24/19 Status: Ordered Cryselle 28 oral tablet TAKE 1 TABLET BY MOUTH EVERY DAY Start Date: 11/26/18 Status: Ordered divalproex sodium 250 mg oral enteric coated tablet 1 tablet = 250 mg, By Mouth, 2 times a day, # 60 tablet, 0 Refills, Maintenance, 07/24/19 11:47:00 EST, Tablet, [facility]/pharmacy #[id number], 162, cm, 07/01/19 8:32:00 EST, Height, 90, kg, 06/20/19 18:59:00 EST, Dry Weight Start Date: 07/24/19 Status: Ordered hydrOXYzine pamoate 50 mg oral capsule 1 capsule = 50 mg, By Mouth, 2 times a day, PRN Anxiety, may also take for insomnia, # 60 capsule, 0 Refills, Maintenance, 07/24/19 11:47:00 EST, Capsule, [facility]/pharmacy #[id number], 162, cm, 07/01/19 8:32:00 EST, Height, 90, kg, 06/20/19 18:59:00 EST, Dry We... Start Date: 07/24/19 Status: Ordered traZODone 50 mg oral tablet 50 mg, 1, tablet, By Mouth, Daily at bedtime, PRN, # 30 tablet, Refills 0, Tot. Refills 0, Maintenance, Insomnia, 07/24/19 11:47:00 EST, Route to Pharmacy Electronically, [facility]/pharmacy #[id number], 162, cm,07/01/19 8:32:00 EST, Height, 90, kg, 06/20/19 18:5... Start Date: 07/24/19 Status: Ordered valACYclovir 500 mg oral tablet 500 mg, 1, tablet, By Mouth, 2 times a day with meals, # 60 tablet, Refills 0, Tot. Refills 0, Maintenance, 07/24/19 11:47:00 EST, Route to Pharmacy Electronically, [facility]/pharmacy #[id number], 162, cm, 07/01/19 8:32:00 EST, Height, 90, kg, 06/20/19 18:59:00 E... Start Date: 07/24/19 Status: Ordered ZyPREXA 10 mg oral tablet 10 mg, 1, tablet, By Mouth, Daily in AM, # 30 tablet, Refills 0, Tot. Refills 0, Maintenance, 07/24/19 11:47:00 EST, Route to Pharmacy Electronically, [facility]/pharmacy #[id number], 162, cm, 07/01/19 8:32:00 EST, Height, 90, kg, 06/20/19 18:59:00 EST, Dry Weight Start Date: 07/24/19 Status: Ordered ZyPREXA 15 mg oral tablet 1 tablet = 15 mg, By Mouth, Daily at bedtime, # 30 tablet, 0 Refills, Maintenance, 07/24/19 11:47:00 EST, Tablet, [id number], 162, cm, 07/01/19 8:32:00 EST, Height, 90, kg, 06/20/19 18:59:00 EST, Dry Weight Start Date: 07/24/19 Status: Ordered Vital Signs Most recent to oldest [Reference Range]: 1 2 3 4 Oxygen Saturation [94-100 %] 100 % (10/27/19 8:46 AM) 100 % (10/26/19 10:28 PM) 100 % (10/26/19 3:26 PM) Pulse Rate [55-90 bpm] 75 bpm (10/27/19 8:46 AM) 89 bpm (10/26/19 10:28 PM) 94 bpm *H* (10/26/19 3:26 PM) Blood Pressure [90-138/55-84 mm Hg] 124/66mm Hg (10/26/19 10:28 PM) 123/61mm Hg (10/26/19 3:26 PM) 144/86mm Hg *H* (10/26/19 9:41 AM) Respiratory Rate [16-30 br/min] 20 br/min (10/27/19 8:46 AM) 18 br/min (10/26/19 10:28 PM) 20 br/min (10/26/19 8:02 PM) 20 br/min (10/26/19 8:02 PM) Temperature [96.8-100.4 DegF] 98.4 DegF (10/26/19 10:28 PM) 98.2 DegF (10/26/19 3:26 PM) 97.9 DegF (10/26/19 9:41 AM) Mode of Delivery (Oxygen) Room air (10/27/19 8:46 AM) Room air (10/26/19 10:28 PM) Room air (10/26/19 3:26 PM) Blood pressure sites Arm, right (10/26/19 10:28 PM) Arm, right (10/26/19 3:26 PM) Arm, left (10/26/19 9:41 AM) Temperature Route Oral (10/26/19 10:28 PM) Oral (10/26/19 3:26 PM) Oral (10/26/19 9:41 AM) Social History Social History 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
--- OUTSIDE RECORDS SUMMARY | 2023-01-12 23:30 | XMS_ITS | Continuity of Care Document ---
Author Name Unknown Organization [facility] ter Address [address] [place] [address]- Care Team Providers Care Behavioral Consultant Name Role Phone Radha Awan MD Primary Care Physician Encounter [facility] Date(s): 01/05/20 - 01/06/[address] [address]- [facility] Encounter Diagnosis Schizophrenia(Final) - 01/05/20 Discharge Disposition: A-D/C Home Attending Physician: Eben Coles MD Admitting Physician: Eben Coles MD Referring Physician: Not on Staff, Referring [...] 07/24/19 11:47:00 EST, Route to Pharmacy Electronically, [facility] #[id number], 162, cm, 07/01/19 8:32:00 EST, Height, [...] 0 Refills, Maintenance, 07/24/19 11:47:00 EST, Tablet, [facility]/pharmacy #[id number], 162, cm, 07/01/19 8:32:00 EST, Height, 90, kg, 06/20/19 18:59:00 EST, Dry Weight Start Date: 07/24/19 Status: Ordered hydrOXYzine pamoate 50 mg oral capsule 1 capsule = 50 mg, By Mouth, 2 times a day, PRN Anxiety, may also take for insomnia, # 60 capsule, 0 Refills, Maintenance, 07/24/19 11:47:00 EST, Capsule, [facility]/pharmacy #[id number], 162, cm, 07/01/19 8:32:00 EST, Height, 90, kg, 06/20/19 18:59:00 EST, Dry We... Start Date: 07/24/19 Status: Ordered traZODone 50 mg oral tablet 50 mg, 1, tablet, By Mouth, Daily at bedtime, PRN, # 30 tablet, Refills 0, Tot. Refills 0, Maintenance, Insomnia, 07/24/19 11:47:00 EST, Route to Pharmacy Electronically, [facility]/pharmacy #[id number], 162, cm,07/01/19 8:32:00 EST, Height, 90, kg, 06/20/19 18:5... Start Date: 07/24/19 Status: Ordered valACYclovir 500 mg oral tablet 500 mg, 1, tablet, By Mouth, 2 times a day with meals, # 60 tablet, Refills 0, Tot. Refills 0, Maintenance, 07/24/19 11:47:00 EST, Route to Pharmacy Electronically, [facility]/pharmacy #[id number], 162, cm, 07/01/19 8:32:00 EST, Height, 90, kg, 06/20/19 18:59:00 E... Start Date: 07/24/19 Status: Ordered ZyPREXA 10 mg oral tablet 10 mg, 1, tablet, By Mouth, Daily in AM, # 30 tablet, Refills 0, Tot. Refills 0, Maintenance, 07/24/19 11:47:00 EST, Route to Pharmacy Electronically, [facility]/pharmacy #[id number], 162, cm, 07/01/19 8:32:00 EST, Height, 90, kg, 06/20/19 18:59:00 EST, Dry Weight Start Date: 07/24/19 Status: Ordered ZyPREXA 15 mg oral tablet 1 tablet = 15 mg, By Mouth, Daily at bedtime, # 30 tablet, 0 Refills, Maintenance, 07/24/19 11:47:00 EST, Tablet, [facility]/pharmacy #[id number], 162, cm, 07/01/19 8:32:00 EST, Height, 90, kg, 06/20/19 18:59:00 EST, Dry Weight Start Date: 07/24/19 Status: Ordered Vital Signs Most recent to oldest [Reference Range]: 1 2 3 Oxygen Saturation [94-100 %] 100 % (01/06/20 5:38 AM) 100 % (01/05/20 10:18 PM) 100 % (01/05/20 5:11 AM) Pulse Rate [55-90 bpm] 101 bpm *H* (01/06/20 5:38 AM) 62 bpm (01/05/20 10:18 PM) 59 bpm (01/05/20 5:11 AM) Blood Pressure [90-138/55-84 mm Hg] 102/85mm Hg (01/06/20 5:38 AM) 123/58mm Hg (01/05/20 10:18 PM) 108/55mm Hg (01/05/20 5:11 AM) Respiratory Rate [16-30 br/min] 16 br/min (01/06/20 5:38 AM) 16 br/min (01/05/20 10:18 PM) 20 br/min (01/05/20 5:11 AM) Temperature [96.8-100.4 DegF] 97.9 DegF (01/06/20 5:38 AM) 97.9 DegF (01/05/20 10:18 PM) 97.7 DegF (01/05/20 5:11 AM) Mode of Delivery (Oxygen) Room air (01/06/20 5:38 AM) Room air (01/05/20 10:18 PM) Room air (01/05/20 5:11 AM) Blood pressure sites Arm, left (01/06/20 5:38 AM) Arm, left (01/05/20 10:18 PM) Arm, right (01/05/20 5:11 AM) Temperature Route Oral (01/06/20 5:38 AM) Oral (01/05/20 10:18 PM) Oral (01/05/20 5:11 AM) Social History Social History 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
--- OUTSIDE RECORDS SUMMARY | 2023-01-12 23:30 | XMS_ITS | Continuity of Care Document ---
Author Name Unknown Organization [facility] ter Address [address] [place] [address]- Care Team Providers Care Support Manager Name Role Phone Radha Awan MD Primary Care Physician [phone] Encounter [facility] [place] Date(s): 02/26/21 - 02/28/[address] [address]- Encounter Diagnosis Polysubstance abuse(Final) - 02/27/21 Bipolar disorder(Final) - 02/27/21 Discharge Disposition: Transfer to [facility] Facility Attending Physician: Saul Emerson DO Admitting Physician: Saul Emerson DO Referring Physician: Not on Staff, Referring [...] 08/20/20 15:34:00 EDT, Route to Pharmacy Electronically, [facility]/pharmacy #[id number], Partial fill upon patient request if the prescription is for a schedule II o... Start Date: 08/20/20 Stop Date: 09/03/20 Status: Ordered haloperidol 10 mg oral tablet 10 mg, 1, tablet, By Mouth, Daily at bedtime, # 14 tablet, Refills 0, Tot. Refills 0, Maintenance, 08/20/20 15:34:00 EDT, Route to Pharmacy Electronically, [facility]/pharmacy #[id number], Partial fill upon patient request if the prescription is for a schedule II... Start Date: 08/20/20 Stop Date: 09/03/20 Status: Ordered QUEtiapine 200 mg oral tablet 400 mg, 2, tablet, By Mouth, Daily at bedtime, # 28 tablet, Refills 0, Tot. Refills 0, Maintenance,08/20/20 15:34:00 EDT, [id number] Partial fill upon patient request if the prescription is for a schedule II... Start Date: 08/20/20 Stop Date: 09/03/20 Status: Ordered traZODone 50 mg oral tablet 50 mg, 1, tablet, By Mouth, Daily at bedtime, # 14 tablet, Refills 0, Tot. Refills 0, Maintenance, 08/20/20 15:33:00 EDT, Route to Pharmacy Electronically, [facility]/pharmacy #[id number], Partial fill upon patient request if the prescription is for a schedule II... Start Date: 08/20/20 Stop Date: 09/03/20 Status: Ordered Vital Signs Most recent to oldest [Reference Range]: 1 2 3 Height 160 cm (02/28/21 6:10 AM) 160 cm (02/27/21 8:19 PM) 160 cm (02/27/21 6:36 AM) Weight 86.5 kg (02/28/21 6:10 AM) 86.5 kg (02/27/21 8:19 PM) 86.5 kg (02/27/21 6:36 AM) Oxygen Saturation [94-100 %] 98 % (02/28/21 6:10 AM) 99 % (02/27/21 8:19 PM) 100 % (02/27/21 6:36 AM) Pulse Rate [55-90 bpm] 68 bpm (02/28/21 6:10 AM) 77 bpm (02/27/21 8:19 PM) 86 bpm (02/27/21 6:36 AM) Body Mass Index [18.5-24.99] 33.79 *>HHI* (02/27/21 8:19 PM) 33.79 *>HHI* (02/27/21 6:36 AM) 33.79 *>HHI* (02/26/21 9:44 PM) Blood Pressure [90-138/55-84 mm Hg] 102/58mm Hg (02/28/21 6:10 AM) 104/61mm Hg (02/27/21 8:19 PM) 107/54mm Hg (02/27/21 6:36 AM) Respiratory Rate [16-30 br/min] 16 br/min (02/28/21 6:10 AM) 16 br/min (02/27/21 8:19 PM) 16 br/min (02/27/21 6:36 AM) Temperature [96.8-100.4 DegF] 97.9 DegF (02/28/21 6:10 AM) 98.1 DegF (02/27/21 8:19 PM) 98.2 DegF (02/27/21 6:36 AM) Mode of Delivery (Oxygen) Room air (02/28/21 6:10 AM) Room air (02/27/21 8:19 PM) Room air (02/27/21 6:36 AM) Blood pressure sites Arm, right (02/28/21 6:10 AM) Arm, right (02/27/21 8:19 PM) Arm, right (02/27/21 6:36 AM) Temperature Route Oral (02/28/21 6:10 AM) Oral (02/27/21 8:19 PM) Oral (02/27/21 6:36 AM) Dry Weight 86.5 kg (02/28/21 6:10 AM) 86.5 kg (02/27/21 8:19 PM) 86.5 kg (02/27/21 6:36 AM) Weight Obtained Via Patient/family state d (02/26/21 7:29 AM) Dry Weight Obtained Via Patient/family s tated (02/26/21 7:29 AM) Social History Social History 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
--- OUTSIDE RECORDS SUMMARY | 2023-01-12 23:30 | XMS_ITS | Continuity of Care Document ---
Author Name Unknown Organization [facility] ter Address [address] [place] [address]- Care Team Providers Care Vending Technician Name Role Phone Radha Awan MD Primary Care Physician [phone] Encounter [facility] [place] Date(s): 10/30/22 - 10/30/[address] [address]- Discharge Disposition: A-D/C Home Attending Physician: Eliot SHELLEY, Leisa Esqueda Admitting Physician: Leisa Mccabe MD Referring Physician: Not on Staff, [...] 04/21/22 14:46:00 EST, Route to Pharmacy Electronically, [facility], Partial fill upon patient request if the prescription is for a schedule I... Start Date: 04/21/22 Status: Ordered hydrOXYzine pamoate 50 mg oral capsule 0 Refills, Maintenance, 10/30/22 3:21:00 EDT, Partial fill upon patient request if the prescriptionis for a schedule II opioid drug. Start Date: 10/30/22 Status: Ordered ibuprofen 600 mg oral tablet TAKE 1 TABLET BY MOUTH 3 TIMES A DAY NEEDED FOR PAIN Start Date: 10/30/22 Status: Ordered lithium 450 mg oral tablet, extended release TAKE 2 TABS AT BEDTIME FOR MOOD Start Date: 10/30/22 Status: Ordered Melatonin 3 mg oral tablet 0 Refills, Maintenance, 10/30/22 3:21:00 EDT, Partial fill upon patient request if the prescriptionis for a schedule II opioid drug. Start Date: 10/30/22 Status: Ordered multivitamin Multiple Vitamins oral tablet 1 tablet, By Mouth, Daily, # 90 tablet, 3 Refills, Maintenance, 04/21/22 14:47:00 EST, Tablet, [facility], Partial fill upon patient request if the prescription is for a schedule II opioid drug., 1 tablet By Mouth Daily, 163, cm, ... Start Date: 04/21/22 Status: Ordered olanzapine 10 mg oral tablet TAKE 1 TABLET BY MOUTH EVERY DAY AT BEDTIME FOR BIPOLAR Start Date: 10/30/22 Status: Ordered risperiDONE 2 mg oral tablet 2 mg, 1, tablet, By Mouth, 2 times a day, # 60 tablet, Refills 1, Tot. Refills 1, Maintenance, 04/21/22 14:47:00 EST, Route to Pharmacy Electronically, [facility], Partial fill upon patient request if the prescription is for a schedule I... Start Date: 04/21/22 Status: Ordered traZODone 50 mg oral tablet 50 mg, 1, tablet, TAKE 1 TABLET BY MOUTH AT BEDTIME NEEDED SLEEP OR INSOMNIA Start Date: 10/30/22 Status: Ordered Problem List Condition Confirmation Course Effective Dates Status Health St atus Informant Obese class I Confirmed Active Vital Signs Most recent to oldest [Reference Range]: 1 2 Height 160 cm (10/30/22 6:39 AM) 160 cm (10/30/22 2:47 AM) Weight 79.5 kg (10/30/22 6:39 AM) 79.5 kg (10/30/22 2:47 AM) Oxygen Saturation [94-100 %] 98 % (5/25/23 6:39 AM) 100 % (10/30/22 2:47 AM) Pulse Rate [55-90 bpm] 78 bpm (10/30/22 6:39 AM) 85 bpm (10/30/22 2:47 AM) Body Mass Index [18.5-24.99 kg/m2] 31.05 kg/m2 *>HHI* (10/30/22 6:39 AM) Blood Pressure [90-138/55-84 mm Hg] 109/ 60mm Hg (10/30/22 6:39 AM) 129/82mm Hg (10/30/22 2:47 AM) Respiratory Rate [16-30 br/min] 18 br/mi n (10/30/22 6:39 AM) 15 br/min *L* (10/30/22 2:47 AM) Temperature [96.8-100.4 DegF] 97.9 DegF (10/30/22 6:39 AM) 98 DegF (10/30/22 2:47 AM) Mode of Delivery (Oxygen) Room air (10/30/22 6:39 AM) Room air (10/30/22 2:47 AM) Blood pressure sites Arm, right (10/30/22 6:39 AM) Arm, right (10/30/22 2:47 AM) Temperature Route Oral (10/30/22 6:39 AM) Oral (10/30/22 2:47 AM) Dry Weight 79.5 kg (10/30/22 6:39 AM) 79.5 kg (10/30/22 2:47 AM) Weight Obtained Via Patient/family state d (10/30/22 2:47 AM) Dry Weight Obtained Via Patient/family s tated (10/30/22 2:47 AM) EKG study * Event Display: EKG Authored Date: Patient Care team information Care Team Personnel Name: Abby Grace RN Position: S RN Member Role: Primary Care Nurse Name: Adrian Jiménez RN Position: S RN Member Role: Primary Care Nurse Name: Adriane Bonilla RN Position: S RN Member Role: Primary Care Nurse Name: Danica Carmona RN Position: [facility] CH[place] RN W/OE and Tasks Member Role: Primary Care Nurse Name: Reba Arguello RN Position: [facility] RN Member Role: Primary Care Nurse Name: Anna Ramos RN Position: [facility] RN Member Role: Primary Care Nurse Name: Tarah Pa RN Position: [facility] RN Member Role: Primary Care Nurse Name: Leonie Barros RN Position: [facility] RN Member Role: Primary Care Nurse Name: Erica Booth LPN Position: [facility] RN Member Role: Primary Care Nurse Name: Mel Martines RN Position: [facility] RN Member Role: Primary Care Nurse Name: Maria Elena Huntley RN Position: [facility] RN Member Role: Primary Care Nurse Name: Radha Awan MD Position: [facility] Physician (General Medicine) Member Role: PCP Address: Address: [address] [place] [id number]- Name: *[facility], ED Attending Position: [facility] ED Attendings Patient Name: Rosa Elena Gramajo Position: [facility] ED TA [facility] Member Role: Patient Care Provider Name: Gabrielle Stallworth RN Position: [facility] ED RN W/OE and Tasks Member Role: Patient Care Provider Name: Eliot SHELLEY, Leisa Esqueda Position: [facility] ED Medicine MD Member Role: Admitting Physician Address: Address: [address] [place] [address] [place] [address]- [place] Care Team Related Persons Name: REGGIE LAWSON Address: [place] [address] Name: PHYLLIS LAUREANO Address: home [address] [place] [id number]
[2023-01-12 23:40] VITALS: BP 131/90; PULSE 100; RESP 18; TEMP 36.4; O2SAT 97
[2023-01-13] MEDS: OLANZapine 5 MG TABLET PO ×2 (00:06→15:42)
--- NOTE | 2023-01-13 01:51 | PC.ADMIT ---
Rosmery is a 32 year old female, [place] [facility] to [facility] for safety, stabilization and medication reconciliation. DX Bipolar Disorder with psychotic features. Rosmery arrived on the unit post signing a CV at 2330 via stretcher. She is alert, awake, oriented , ad-ashlie with steady gait, skin check/body audit completed. Active Medical DX include UTI, she is prescribed Keflex x 5 days. TOX screen positive for cannabis and cocaine, Covid negative. She has a history of Multiple psychiatric in patient treatments. Presenting event leading to [facility] included non-adherence with prescribed psychiatric meds resulting in exacerbation of symptoms/decompensation of psychosis and substance use. During the admission process she appeared to be responding to internal stimuli, delayed/latent brief responses or she declined to provide answers to questions, often stating I don't remember or I don't know. , flat affect, intermittent intense eye contact, Denied SI/HI/AVH/SIB by nodding her head in response. Rosmery was escorted to her assigned room, provided with snacks, scheduled HS med given, and she went to bed, requested to complete admission later, I want to go to sleep. Discharge planning to include reconnecting with psychiatrist and PCP. Rosmery is on 15 min unit safety observation checks.
--- NOTE | 2023-01-13 06:35 | PC.NURSE ---
Rosmery refused am Keflex and asked nurse to leaver her room.
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
--- NOTE | 2023-01-13 12:02 | HO.PM.IMCN ---
History of Present Illness Data of Consult Service Date: 01/13/23 Requesting physician: Chucho Mccabe Primary Care Provider: Unknown Physician HPI Reason for consult: medical H&P 32-year-old female without significant past medical history except for polysubstance abuse admitted to psychiatry with consult placed hospital service for medical H and P. The patient is not agreeable to examination at this time. While at [facility] ED, urinalysis was significant for 3+ leukocytes, heavy bacteria but negative for any nitrites and did have squamous epithelial cells. Unclear patient is symptomatic as she is not agreeable to discussion. Urine cultures not available for review. She was prescribed Keflex. Urine tox screen positive for cannabinoids and cocaine. No other significant lab abnormality. Review of Systems Review of Systems: Yes Other (pt not agreeable to exam/interview) [facility] Medical History No pertinent past medical history Social History Household Members: Other Household Members Other:: Boyfriend Housing: Unknown / Unable to assess Do you presently have visiting nurse or other home services: No Unable to assess alcohol history related to: Refusing to respond Patient Tobacco Use Status: Tobacco use Unknown Use of substances other than those prescribed or required for medical reasons: Yes Substance Use Type: Crack/Cocaine and Marijuana Last Used Substance: Unknown Currently Displaying Signs/Symptoms of Drug Intoxication Withdrawal: No Advance Directives: No Advance Directives Information Provided: Yes Do you have thoughts of harming others: None Do you have a plan to hurt others: No Plan Recently lost weight without trying: No How much weight loss: Not applicable Eating poorly because of decreased appetite: No Nutrition screen score: 0 Nutrition Risks: No Nutritional Risk Patient : No : No Poor oral hygiene: No service: No Sexual orientation: Straight/Heterosexual Meds Allergies Allergy/AdvReac Type Severity Reaction Status Date / Time No Known Allergies Allergy Verified 01/13/23 00:32 Active Medications: Current Medications Acetaminophen (Acetaminophen 325 Mg Tablet) 650 mg PO Q6H PRN PRN Reason: Headache/Pain Mild Scale (1-3) Al Hydroxide/Mg Hydroxide (Magnesium Hydrox/Alum Hydrox 30 Ml Oral.Susp) 30 ml PO Q6H PRN PRN Reason: Heartburn/Nausea Cephalexin HCl (Cephalexin 500 Mg Capsule) 500 mg PO Q6H [facility] Stop: 01/17/23 12:01 Last Admin: 01/13/23 08:45 Dose: Not Given Hydroxyzine HCl (Hydroxyzine Hcl 25 Mg Tablet) 25 mg PO Q6H PRN PRN Reason: Anxiety Magnesium Hydroxide (Milk Of Magnesia 30 Ml Oral.Susp) 30 ml PO DAILY PRN PRN Reason: Constipation Nicotine Polacrilex (Nicotine Polacrilex 2 Mg Gum) 4 mg BUCCAL Q2H PRN PRN Reason: Nicotine Cravings Olanzapine (Olanzapine 5 Mg Tablet) 5 mg PO BID [facility] Last Admin: 01/13/23 08:45 Dose: Not Given Trazodone HCl (Trazodone Hcl 50 Mg Tablet) 50 mg PO BEDTIME MRX1 PRN PRN Reason: Insomnia Home Medications Medication Instructions Recorded Confirmed Last Taken Type benztropine 0.5 mg tablet 0.5 mg PO BID 01/13/23 01/13/23 Unknown History chlorpromazine 50 mg tablet 50 mg PO Q4H PRN Agitation 01/13/23 01/13/23 Unknown History doxycycline monohydrate 100 mg 100 mg PO BID 01/13/23 01/13/23 Unknown History capsule hydroxyzine HCl 25 mg tablet 25 mg PO Q8H PRN anxiety 01/13/23 01/13/23 Unknown History hydroxyzine HCl 25 mg tablet 25 mg PO Q8H PRN anxiety 01/13/23 01/13/23 Unknown History ibuprofen 600 mg tablet 600 mg PO TID PRN pain 01/13/23 01/13/23 Unknown History ibuprofen 600 mg tablet 600 mg PO TID PRN pain 01/13/23 01/13/23 Unknown History lithium carbonate 450 mg 900 mg PO BEDTIME depressive 01/13/23 01/13/23 Unknown History tablet,extended release disorder multivitamin with folic acid 400 1 tab PO DAILY 01/13/23 01/13/23 Unknown History mcg tablet (Daily-Jo Ann (with folic acid)) olanzapine 5 mg tablet 5 mg PO BID 01/13/23 01/13/23 01/13/23 00:05 History 5 mg vits no.130-ferrous fum 1 tab PO DAILY 01/13/23 01/13/23 Unknown History 27 mg iron-folic acid 800 mcg tablet ( Vitamin) vits no.130-ferrous fum 1 tab PO DAILY 01/13/23 01/13/23 Unknown History 27 mg iron-folic acid 800 mcg tablet ( Vitamin) trazodone 50 mg tablet 50 mg PO BEDTIME PRN insomnia 01/13/23 01/13/23 Unknown History Physical Exam Vital Signs and Narrative: Vital Signs: Last Vital Signs Temp 97.6 F 01/12/23 23:40 Pulse 100 01/12/23 23:40 Resp 18 01/12/23 23:40 BP 131/90 H 01/12/23 23:40 Pulse Ox 97 01/12/23 23:40 O2 Del Method Room Air 01/12/23 23:40 Pt refused Assessment and Plan (1) Routine medical exam: Status: Acute (2) Abnormal urinalysis: Status: Acute Plan 32-year-old female without significant past medical history except for polysubstance abuse admitted to psychiatry with consult placed hospital service for medical H and P. #Mood disorder -plan per psychiatry #Abnormal UA at [facility] -culture not available for review -Likely contaminated given presence of squamous epithelial cells in the urine -would only recommend continuing Keflex if patient symptomatic -would not repeat UA/UC unless patient symptomatic # polysubstance abuse -plan per Psychiatry [facility] chart reviewed. Thank you for allowing me to participate in this consult. Signing off at this time. Please do not hesitate to call for further questions. Time Spent With Patient Time: Total time managing care of this patient today ____ minutes.
[2023-01-13] MEDS: cephALEXin 500 MG CAPSULE PO ×2 (12:32→18:37)
[2023-01-13] MEDS: hydrOXYzine HCL 25 MG TABLET PO (18:42)
[2023-01-13 20:15] VITALS: BP 134/89; PULSE 110; RESP 16; TEMP 36.4; O2SAT 98
[2023-01-13] MEDS: OLANZapine 10 MG TABLET PO (21:07)
[2023-01-13] MEDS: Lithium Carbonate ER 450 MG TABLET.ER PO (21:07)
[2023-01-14 04:58] LABS: Amphetamine Screen Urine Not Detected (Not Detect); Barbiturates, Urine Not Detected (Not Detect); Benzodiazepines Screen Urine Not Detected (Not Detect); Cannabinoid Screen Urine Not Detected (Not Detect); Cocaine Screen Urine Not Detected (Not Detect); Fentanyl, urine POSITIVE (Not Detect); Opiate Screen Urine Not Detected (Not Detect); Phencyclidine Screen Urine Not Detected (Not Detect)
[2023-01-14 09:29] LABS: MANUAL DIFF FLAG NO
[2023-01-14 09:33] LABS: Basophils Absolute Auto 0.1 X10*3/uL (0.0-0.2); Basophils Percent Auto 0.6 % (0-2); Eosinophils Absolute Auto 0.1 X10*3/uL (0.0-0.4); Eosinophils Percent Auto 0.9 % (0-4); Hematocrit 45.5 % (37.0-47.0); Hemoglobin 15.4 g/dl (12.0-16.0); Imm Gran Abs Auto 0.08 X10*3/uL (0.00-0.03); Imm Gran Pct Auto 0.7 % (0.0-0.4); Lymphocytes Absolute Auto 1.6 X10*3/uL (1.2-4.9); Lymphocytes Percent Auto 14.1 % (20-40); Mean Corpuscular HGB Conc 33.8 g/dl (31.0-35.0); Mean Corpuscular Volume 88.7 fL (80.0-98.0); Mean Platelet Volume 10.3 fL (9.4-12.3); Monocytes Absolute Auto 0.9 X10*3/uL (0.1-1.2); Neutrophils Absolute Auto 8.6 x10*3/uL (2.0-8.3); Neutrophils Percent Auto 75.7 % (45-73); Platelet Count 281 X10*3/uL (160-400); Red Blood Count 5.13 X10*6/uL (4.20-5.50); Red Cell Distribution Width 12.4 % (11.0-16.0); White Blood Count 11.3 X10*3/uL (4.8-10.8)
[2023-01-14 09:42] LABS: Lithium 0.23 mmol/L (0.60-1.20)
--- NOTE | 2023-01-14 09:57 | P.PNPSI_ITS ---
Subjective Subjective Date of Service: 01/14/23 Reason For Visit: F39, F14.20 Subjective Notes: Conditional Voluntary Interim History: Reviewed in team and Dr. Santos. Patient more talkative today in 1:1, however remains guarded with some confusion. Patient reports feeling depressed and anxious . Patient stated, I stopped taking my medications because I ran out of refills. I came here because I couldn't stay still from the anxiety . Pt reports some paranoia around her family. Pt stated, I don't know if I've ever had a child. I have some paranoia around if my family is lying but I don't know . Patient reports using substances regularly,(crack/cocaine/fentanyl/heroin); the last being before admission. She reports taking zyprexa and lithium in the past and this combination being helpful. Denies SI/HI/VH/AH at this time. Would like a referral to a outpatient psychiatrist and therapist. barn worker notified. Medication Compliance: Yes Side effects from medications: No Attending Groups: No Review of Systems Constitutional: Reports as per HPI Eyes: Reports as per HPI Reports as per HPI Cardiovascular: Reports as per HPI Respiratory: Reports as per HPI Gastrointestinal: Reports as per HPI Genitourinary: Reports as per HPI Musculoskeletal: Reports as per HPI Skin/Breast: Reports as per HPI Reports as per HPI Psychiatric: Reports as per HPI Endocrine: Reports as per HPI Hematologic/Lymphatic: Reports as per HPI Allergic/Immunologic: Reports as per HPI Mental Status Exam Mental Status Exam Narrative: Pt is alert and oriented; behavior is cooperative and calm; patient is not in distress; dressed in casual attire with unkempt hair; mood is described as de pressed ; eye contact appropriate; Speech is normal rate, volume and prosody and not pressured; no psychomotor agitation/retardation present; thought process is confused; Thought content is on tx; pt reports some paranoia regarding her family; denies SI/HI. There is no evidence of perceptual disturbance. Patients insight and judgment are poor. Diagnostics Vital Signs (24Hr): Vital Signs - 24 hr 01/13/23 20:15 Temperature 97.6 F Pulse Rate 110 H Respiratory Rate 16 Blood Pressure 134/89 Pulse Oximetry 98 Oxygen Delivery Method Room Air Labs 01/14/23 09:21 01/14/23 09:21 Labs: Laboratory Results - last 48 hr 01/14/23 01/14/23 01/14/23 04:37 09:21 09:21 WBC 11.3 H RBC 5.13 Hgb 15.4 Hct 45.5 MCV 88.7 MCH 30.0 MCHC 33.8 RDW 12.4 Plt Count 281 MPV 10.3 Immature Gran % (Auto) 0.7 H Neut % (Auto) 75.7 H Lymph % (Auto) 14.1 L [place] % (Auto) 8.0 Eos % (Auto) 0.9 Baso % (Auto) 0.6 Lymph # (Auto) 1.6 [place] # (Auto) 0.9 Eos # (Auto) 0.1 Baso # (Auto) 0.1 Abs Immat Gran (auto) 0.08 H Absolute Neuts (auto) 8.6 H Absolute Nucleated RBC 0.000 Nucleated RBC % (auto) 0.0 Urine Opiates Screen Not Detected Urine Fentanyl Screen POSITIVE H Ur Barbiturates Screen Not Detected Ur Phencyclidine Scrn Not Detected Ur Amphetamines Screen Not Detected U Benzodiazepines Scrn Not Detected [place] 0.23 L Urine Cocaine Screen Not Detected U Marijuana (THC) Screen Not Detected Medications Medications Current Medications Acetaminophen (Acetaminophen 325 Mg Tablet) 650 mg PO Q6H PRN PRN Reason: Headache/Pain Mild Scale (1-3) Al Hydroxide/Mg Hydroxide (Magnesium Hydrox/Alum Hydrox 30 Ml Oral.Susp) 30 ml PO Q6H PRN PRN Reason: Heartburn/Nausea Cephalexin HCl (Cephalexin 500 Mg Capsule) 500 mg PO Q6H MÓNICA Stop: 01/17/23 12:01 Last Admin: 01/14/23 06:43 Dose: Not Given Hydroxyzine HCl (Hydroxyzine Hcl 25 Mg Tablet) 25 mg PO Q6H PRN PRN Reason: Anxiety Last Admin: 01/13/23 18:42 Dose: 25 mg [place] Carbonate ([place] Carbonate Er 450 Mg Tablet.Er) 450 mg PO BEDTIME MÓNICA Last Admin: 01/13/23 21:07 Dose: 450 mg Magnesium Hydroxide (Milk Of Magnesia 30 Ml Oral.Susp) 30 ml PO DAILY PRN PRN Reason: Constipation Nicotine Polacrilex (Nicotine Polacrilex 2 Mg Gum) 4 mg BUCCAL Q2H PRN PRN Reason: Nicotine Cravings Olanzapine (Olanzapine 10 Mg Tablet) 10 mg PO BEDTIME MÓNICA Last Admin: 01/13/23 21:07 Dose: 10 mg Olanzapine (Olanzapine 5 Mg Tablet) 5 mg PO Q6H PRN PRN Reason: Psychosis Last Admin: 01/13/23 15:42 Dose: 5 mg Trazodone HCl (Trazodone Hcl 50 Mg Tablet) 50 mg PO BEDTIME MRX1 PRN PRN Reason: Insomnia Allergies Allergies Allergy/AdvReac Type Severity Reaction Status Date / Time No Known Allergies Allergy Verified 01/13/23 00:32 Assessment & Plan Assessment & Plan (1) Bipolar 1 disorder: Status: Acute Code(s): F31.9 - Bipolar disorder, unspecified (2) Cocaine abuse: Status: Acute Code(s): F14.10 - Cocaine abuse, uncomplicated Plan Patient is a 32 year old female with hx of Bipolar d/o and polysubstance abuse, who presented via ambulance to ER secondary to not being medication compliant for some time . Bipolar d/o r/o substance induced psychosis. Plan: CV 15 minute safety checks Obtain collateral Zyprexa 10mg PO bedtime Zyprexa 5mg PO Q6HR PRN for psychosis [place] ER 450mg PO bedtime 01/14: Pt remains guarded with some confusion. Depressed, anxious. Patient stated, I stopped taking my medications because I ran out of refills. I came here because I couldn't stay still from the anxiety . Some paranoia around her family. She reports taking zyprexa and lithium in the past and this combination being helpful. Continue current tx plan. Patient educated on: diagnosis and medication risk/benefits Informed Consent: understands and further education needed Reason for continued inpatient stay Substantial Risk for: med/psych decompensation Time Spent With Patient Time: Total time managing care of this patient today _30___ minutes.
[2023-01-14 09:59] LABS: Anion Gap 12 (12-20); Blood Urea Nitrogen 11 mg/dL (9-16); Carbon Dioxide 22 mmol/L (22-29); Chloride 109 mmol/L (96-108); Estimated Glomerular Filt Rate > 60; Potassium 4.3 mmol/L (3.3-5.1); Sodium 139 mmol/L (135-145)
[2023-01-14 10:10] LABS: TSH reflex Free T4 0.36 uIU/mL (0.32-4.0)
[2023-01-14] MEDS: cephALEXin 500 MG CAPSULE PO ×2 (11:01→17:55)
[2023-01-14] MEDS: OLANZapine 5 MG TABLET PO ×2 (11:01→18:04)
--- NOTE | 2023-01-14 15:44 | PC.NURSE ---
Patient signed A 3 day notice on 01/14/23, up on Thursday01/19/23
[2023-01-14] MEDS: hydrOXYzine HCL 25 MG TABLET PO (18:04)
[2023-01-14] MEDS: Acetaminophen 325 MG TABLET 650 MG PO (18:04)
[2023-01-14] MEDS: OLANZapine 10 MG TABLET PO (19:59)
[2023-01-14] MEDS: Lithium Carbonate ER 450 MG TABLET.ER PO (19:59)
[2023-01-14] MEDS: traZODone HCL 50 MG TABLET PO (20:00)
[2023-01-15] MEDS: traZODone HCL 50 MG TABLET PO ×2 (01:55→21:34)
[2023-01-15] MEDS: Magnesium Hydrox/Alum Hydrox 30 ML ORAL.SUSP PO (01:56)
--- NOTE | 2023-01-15 08:51 | HO.PSYCHPN ---
Subjective Subjective Date of Service: 01/15/23 Reason For Visit: F39, F14.20 Subjective Notes: 3 Day Interim History: Reviewed in team and Dr. Santos. Patient presents calm and cooperative today. More organized with tangential thought content. Pt stated, I signed a 3 day because I don't want to be here. I'm doing okay with the medication now. I'm not feeling paranoid. I'm going to go live with my mom. I just need a referral to a psychiatrist and therapist . Medication Compliance: Yes Side effects from medications: No Attending Groups: No Review of Systems Review of Systems Yes Other (pt not agreeable to exam/interview) Constitutional: Reports as per HPI Eyes: Reports as per HPI Reports as per HPI Cardiovascular: Reports as per HPI Respiratory: Reports as per HPI Gastrointestinal: Reports as per HPI Genitourinary: Reports as per HPI Musculoskeletal: Reports as per HPI Skin/Breast: Reports as per HPI Reports as per HPI Psychiatric: Reports as per HPI Endocrine: Reports as per HPI Hematologic/Lymphatic: Reports as per HPI Allergic/Immunologic: Reports as per HPI Mental Status Exam Mental Status Exam Narrative: Pt is alert and oriented; behavior is cooperative and calm; patient is not in distress; dressed in casual attire with unkempt hair; mood is described as okay ; eye contact appropriate; Speech is normal rate, volume and prosody and not pressured; no psychomotor agitation/retardation present; thought process is organized; Thought content is tangential; denies paranoia. denies SI/HI. There is no evidence of perceptual disturbance. Patients insight and judgment are poor. Diagnostics Labs 01/14/23 09:21 01/14/23 09:21 Labs: Laboratory Results - last 48 hr 01/14/23 01/14/23 01/14/23 04:37 09:21 09:21 WBC 11.3 H RBC 5.13 Hgb 15.4 Hct 45.5 MCV 88.7 MCH 30.0 MCHC 33.8 RDW 12.4 Plt Count 281 MPV 10.3 Immature Gran % (Auto) 0.7 H Neut % (Auto) 75.7 H Lymph % (Auto) 14.1 L [place] % (Auto) 8.0 Eos % (Auto) 0.9 Baso % (Auto) 0.6 Lymph # (Auto) 1.6 [place] # (Auto) 0.9 Eos # (Auto) 0.1 Baso # (Auto) 0.1 Abs Immat Gran (auto) 0.08 H Absolute Neuts (auto) 8.6 H Absolute Nucleated RBC 0.000 Nucleated RBC % (auto) 0.0 Sodium 139 Potassium 4.3 Chloride 109 H Carbon Dioxide 22 Anion Gap 12 BUN 11 Creatinine 0.70 Estim Creat Clear Calc TNP Estimated GFR > 60 TSH 0.36 Urine Opiates Screen Not Detected Urine Fentanyl Screen POSITIVE H Ur Barbiturates Screen Not Detected Ur Phencyclidine Scrn Not Detected Ur Amphetamines Screen Not Detected U Benzodiazepines Scrn Not Detected [place] Urine Cocaine Screen Not Detected U Marijuana (THC) Screen Not Detected 01/14/23 09:21 WBC RBC Hgb Hct MCV MCH MCHC RDW Plt Count MPV Immature Gran % (Auto) Neut % (Auto) Lymph % (Auto) [place] % (Auto) Eos % (Auto) Baso % (Auto) Lymph # (Auto) [place] # (Auto) Eos # (Auto) Baso # (Auto) Abs Immat Gran (auto) Absolute Neuts (auto) Absolute Nucleated RBC Nucleated RBC % (auto) Sodium Potassium Chloride Carbon Dioxide Anion Gap BUN Creatinine Estim Creat Clear Calc Estimated GFR TSH Urine Opiates Screen Urine Fentanyl Screen Ur Barbiturates Screen Ur Phencyclidine Scrn Ur Amphetamines Screen U Benzodiazepines Scrn [place] 0.23 L Urine Cocaine Screen U Marijuana (THC) Screen Medications Medications Current Medications Acetaminophen (Acetaminophen 325 Mg Tablet) 650 mg PO Q6H PRN PRN Reason: Headache/Pain Mild Scale (1-3) Last Admin: 01/14/23 18:04 Dose: 650 mg Al Hydroxide/Mg Hydroxide (Magnesium Hydrox/Alum Hydrox 30 Ml Oral.Susp) 30 ml PO Q6H PRN PRN Reason: Heartburn/Nausea Last Admin: 01/15/23 01:56 Dose: 30 ml Cephalexin HCl (Cephalexin 500 Mg Capsule) 500 mg PO Q6H MÓNICA Stop: 01/17/23 12:01 Last Admin: 01/15/23 07:37 Dose: Not Given Hydroxyzine HCl (Hydroxyzine Hcl 25 Mg Tablet) 25 mg PO Q6H PRN PRN Reason: Anxiety Last Admin: 01/14/23 18:04 Dose: 25 mg [place] Carbonate ([place] Carbonate Er 450 Mg Tablet.Er) 450 mg PO BEDTIME MÓNICA Last Admin: 01/14/23 19:59 Dose: 450 mg Magnesium Hydroxide (Milk Of Magnesia 30 Ml Oral.Susp) 30 ml PO DAILY PRN PRN Reason: Constipation Nicotine Polacrilex (Nicotine Polacrilex 2 Mg Gum) 4 mg BUCCAL Q2H PRN PRN Reason: Nicotine Cravings Olanzapine (Olanzapine 10 Mg Tablet) 10 mg PO BEDTIME MÓNICA Last Admin: 01/14/23 19:59 Dose: 10 mg Olanzapine (Olanzapine 5 Mg Tablet) 5 mg PO Q6H PRN PRN Reason: Psychosis Last Admin: 01/14/23 18:04 Dose: 5 mg Trazodone HCl (Trazodone Hcl 50 Mg Tablet) 50 mg PO BEDTIME MRX1 PRN PRN Reason: Insomnia Last Admin: 01/15/23 01:55 Dose: 50 mg Allergies Allergies Allergy/AdvReac Type Severity Reaction Status Date / Time No Known Allergies Allergy Verified 01/13/23 00:32 Assessment & Plan Assessment & Plan (1) Bipolar 1 disorder: Status: Acute Code(s): F31.9 - Bipolar disorder, unspecified (2) Cocaine abuse: Status: Acute Code(s): F14.10 - Cocaine abuse, uncomplicated Plan Patient is a 32 year old female with hx of Bipolar d/o and polysubstance abuse, who presented via ambulance to ER secondary to not being medication compliant for some time . Bipolar d/o r/o substance induced psychosis. Plan: CV 15 minute safety checks Obtain collateral Zyprexa 10mg PO bedtime Zyprexa 5mg PO Q6HR PRN for psychosis [place] ER 450mg PO bedtime 01/14: Pt remains guarded with some confusion. Depressed, anxious. Patient stated, I stopped taking my medications because I ran out of refills. I came here because I couldn't stay still from the anxiety . Some paranoia around her family. She reports taking zyprexa and lithium in the past and this combination being helpful. Continue current tx plan. 01/15: Patient presents calm and cooperative today. More organized with tangential thought content. Pt stated, I signed a 3 day because I don't want to be here. I'm doing okay with the medication now. I'm not feeling paranoid. I'm going to go live with my mom. I just need a referral to a psychiatrist and therapist . Denies SI/HI/VH/AH. Continue tx plan. Patient educated on: diagnosis, medication risk/benefits and therapeutic strategies Informed Consent: understands Reason for continued inpatient stay Substantial Risk for: med/psych decompensation Time Spent With Patient Time: Total time managing care of this patient today _30___ minutes.
[2023-01-15] MEDS: cephALEXin 500 MG CAPSULE PO ×3 (09:29→17:34)
[2023-01-15 10:00] VITALS: BP 112/64; PULSE 102; RESP 16; TEMP 36.8; O2SAT 98
[2023-01-15] MEDS: OLANZapine 5 MG TABLET PO (12:52)
[2023-01-15] MEDS: hydrOXYzine HCL 25 MG TABLET PO (17:34)
[2023-01-15 21:20] VITALS: BP 136/92; PULSE 107; RESP 16; O2SAT 96
[2023-01-15] MEDS: OLANZapine 10 MG TABLET PO (21:34)
[2023-01-15] MEDS: Lithium Carbonate ER 450 MG TABLET.ER PO (21:34)
[2023-01-16] MEDS: cephALEXin 500 MG CAPSULE PO ×4 (00:36→17:27)
--- NOTE | 2023-01-16 09:04 | P.PNPSI_ITS ---
Subjective Subjective Date of Service: 01/16/23 Reason For Visit: F39, F14.20 Subjective Notes: 3 Day Interim History: Reviewed in team and Dr. Santos. Patient presents with organized thought content and process. Patient reports feeling good today. Pt stated, I signed a 3 day. I'm feeling better than when I first came. I'm going to keep taking my meds. I just want to go home . Patient denies SI/HI/VH/AH. Medication Compliance: Yes Side effects from medications: No Attending Groups: No Review of Systems Review of Systems Yes Other (pt not agreeable to exam/interview) Constitutional: Reports as per HPI Eyes: Reports as per HPI Reports as per HPI Cardiovascular: Reports as per HPI Respiratory: Reports as per HPI Gastrointestinal: Reports as per HPI Genitourinary: Reports as per HPI Musculoskeletal: Reports as per HPI Skin/Breast: Reports as per HPI Reports as per HPI Psychiatric: Reports as per HPI Endocrine: Reports as per HPI Hematologic/Lymphatic: Reports as per HPI Allergic/Immunologic: Reports as per HPI Mental Status Exam Mental Status Exam Narrative: Pt is alert and oriented; behavior is cooperative and calm; patient is not in distress; dressed in casual attire with unkempt hair; mood is described as good ; eye contact appropriate; Speech is normal rate, volume and prosody and not pressured; no psychomotor agitation/retardation present; thought process is organized; Thought content is on discharge; denies paranoia. denies SI/HI. There is no evidence of perceptual disturbance. Patients insight and judgment are fair. Diagnostics Vital Signs (24Hr): Vital Signs - 24 hr 01/15/23 10:00 01/15/23 21:20 Temperature 98.2 F Pulse Rate 102 H 107 H Respiratory Rate 16 16 Blood Pressure 112/64 136/92 H Pulse Oximetry 98 96 Oxygen Delivery Method Room Air Room Air Labs 01/14/23 09:21 01/14/23 09:21 Labs: Laboratory Results - last 48 hr 01/14/23 01/14/23 01/14/23 09:21 09:21 09:21 WBC 11.3 H RBC 5.13 Hgb 15.4 Hct 45.5 MCV 88.7 MCH 30.0 MCHC 33.8 RDW 12.4 Plt Count 281 MPV 10.3 Immature Gran % (Auto) 0.7 H Neut % (Auto) 75.7 H Lymph % (Auto) 14.1 L [place] % (Auto) 8.0 Eos % (Auto) 0.9 Baso % (Auto) 0.6 Lymph # (Auto) 1.6 [place] # (Auto) 0.9 Eos # (Auto) 0.1 Baso # (Auto) 0.1 Abs Immat Gran (auto) 0.08 H Absolute Neuts (auto) 8.6 H Absolute Nucleated RBC 0.000 Nucleated RBC % (auto) 0.0 Sodium 139 Potassium 4.3 Chloride 109 H Carbon Dioxide 22 Anion Gap 12 BUN 11 Creatinine 0.70 Estim Creat Clear Calc TNP Estimated GFR > 60 TSH 0.36 [place] 0.23 L Medications Medications Current Medications Acetaminophen (Acetaminophen 325 Mg Tablet) 650 mg PO Q6H PRN PRN Reason: Headache/Pain Mild Scale (1-3) Last Admin: 01/14/23 18:04 Dose: 650 mg Al Hydroxide/Mg Hydroxide (Magnesium Hydrox/Alum Hydrox 30 Ml Oral.Susp) 30 ml PO Q6H PRN PRN Reason: Heartburn/Nausea Last Admin: 01/15/23 01:56 Dose: 30 ml Cephalexin HCl (Cephalexin 500 Mg Capsule) 500 mg PO Q6H MÓNICA Stop: 01/17/23 12:01 Last Admin: 01/16/23 07:11 Dose: 500 mg Hydroxyzine HCl (Hydroxyzine Hcl 25 Mg Tablet) 25 mg PO Q6H PRN PRN Reason: Anxiety Last Admin: 01/15/23 17:34 Dose: 25 mg [place] Carbonate ([place] Carbonate Er 450 Mg Tablet.Er) 450 mg PO BEDTIME MÓNICA Last Admin: 01/15/23 21:34 Dose: 450 mg Magnesium Hydroxide (Milk Of Magnesia 30 Ml Oral.Susp) 30 ml PO DAILY PRN PRN Reason: Constipation Nicotine Polacrilex (Nicotine Polacrilex 2 Mg Gum) 4 mg BUCCAL Q2H PRN PRN Reason: Nicotine Cravings Olanzapine (Olanzapine 10 Mg Tablet) 10 mg PO BEDTIME MÓNICA Last Admin: 01/15/23 21:34 Dose: 10 mg Olanzapine (Olanzapine 5 Mg Tablet) 5 mg PO Q6H PRN PRN Reason: Psychosis Last Admin: 01/15/23 12:52 Dose: 5 mg Trazodone HCl (Trazodone Hcl 50 Mg Tablet) 50 mg PO BEDTIME MRX1 PRN PRN Reason: Insomnia Last Admin: 01/15/23 21:34 Dose: 50 mg Allergies Allergies Allergy/AdvReac Type Severity Reaction Status Date / Time No Known Allergies Allergy Verified 01/13/23 00:32 Assessment & Plan Assessment & Plan (1) Bipolar 1 disorder: Status: Acute Code(s): F31.9 - Bipolar disorder, unspecified (2) Cocaine abuse: Status: Acute Code(s): F14.10 - Cocaine abuse, uncomplicated Plan Patient is a 32 year old female with hx of Bipolar d/o and polysubstance abuse, who presented via ambulance to ER secondary to not being medication compliant for some time . Bipolar d/o r/o substance induced psychosis. Plan: CV 15 minute safety checks Obtain collateral Zyprexa 10mg PO bedtime Zyprexa 5mg PO Q6HR PRN for psychosis [place] ER 450mg PO bedtime 01/14: Pt remains guarded with some confusion. Depressed, anxious. Patient stated, I stopped taking my medications because I ran out of refills. I came here because I couldn't stay still from the anxiety . Some paranoia around her family. She reports taking zyprexa and lithium in the past and this combination being helpful. Continue current tx plan. 01/15: Patient presents calm and cooperative today. More organized with tangential thought content. Pt stated, I signed a 3 day because I don't want to be here. I'm doing okay with the medication now. I'm not feeling paranoid. I'm going to go live with my mom. I just need a referral to a psychiatrist and therapist . Denies SI/HI/VH/AH. Continue tx plan. 01/16: Patient presents with organized thought content and process. Patient reports feeling good today. Pt stated, I signed a 3 day. I'm feeling better than when I first came. I'm going to keep taking my meds. I just want to go home . Labs ordered for Thursday (BUN, creatintine,TSH, Electrolytes and lithium level). Patient educated on: diagnosis, medication risk/benefits and therapeutic strategies Informed Consent: understands and further education needed Reason for continued inpatient stay Substantial Risk for: med/psych decompensation Time Spent With Patient Time: Total time managing care of this patient today _30___ minutes.
[2023-01-16 10:00] VITALS: BP 108/68; PULSE 78; RESP 18; TEMP 36.9; O2SAT 96
[2023-01-16] MEDS: OLANZapine 5 MG TABLET PO ×2 (10:11→15:24)
[2023-01-16] MEDS: Nicotine Polacrilex 2 MG GUM 4 MG BUCCAL (15:24)
[2023-01-16 20:20] VITALS: BP 132/92; PULSE 100; RESP 16; TEMP 36.8; O2SAT 98
[2023-01-16] MEDS: OLANZapine 10 MG TABLET PO (20:41)
[2023-01-16] MEDS: Docusate Sodium 100 MG CAPSULE PO (20:41)
[2023-01-16] MEDS: Lithium Carbonate ER 450 MG TABLET.ER PO (20:41)
[2023-01-16] MEDS: traZODone HCL 50 MG TABLET PO ×2 (20:46→22:24)
[2023-01-17] MEDS: cephALEXin 500 MG CAPSULE PO ×2 (00:24→11:21)
--- NOTE | 2023-01-17 10:15 | P.PNPSI_ITS ---
Subjective Subjective Date of Service: 01/17/23 Reason For Visit: F39, F14.20 Subjective Notes: Conditional Voluntary Interim History: pt was calmer less lablie agreeable to tx asking for valtrex genital suppression later heard bf had been ? arrested Mental Status Exam Mental Status Exam Narrative: Pt is alert and oriented; behavior is cooperative and calm; patient is not in distress; dressed in casual attire with unkempt hair; mood is described as good ; eye contact appropriate; Speech is normal rate, volume and prosody and not pressured; no psychomotor agitation/retardation present; thought process is organized; Thought content is on discharge; denies paranoia. denies SI/HI. There is no evidence of perceptual disturbance. Patients insight and judgment are fair. Diagnostics Vital Signs (24Hr): Vital Signs - 24 hr 01/16/23 20:20 Temperature 98.3 F Pulse Rate 100 Respiratory Rate 16 Blood Pressure 132/92 H Pulse Oximetry 98 Oxygen Delivery Method Room Air Labs 01/14/23 09:21 01/14/23 09:21 Medications Medications Current Medications Acetaminophen (Acetaminophen 325 Mg Tablet) 650 mg PO Q6H PRN PRN Reason: Headache/Pain Mild Scale (1-3) Last Admin: 01/14/23 18:04 Dose: 650 mg Al Hydroxide/Mg Hydroxide (Magnesium Hydrox/Alum Hydrox 30 Ml Oral.Susp) 30 ml PO Q6H PRN PRN Reason: Heartburn/Nausea Last Admin: 01/15/23 01:56 Dose: 30 ml Cephalexin HCl (Cephalexin 500 Mg Capsule) 500 mg PO Q6H MÓNICA Stop: 01/17/23 12:01 Last Admin: 01/17/23 07:31 Dose: Not Given Docusate Sodium (Docusate Sodium 100 Mg Capsule) 100 mg PO BEDTIME [facility] Last Admin: 01/16/23 20:41 Dose: 100 mg Hydroxyzine HCl (Hydroxyzine Hcl 25 Mg Tablet) 25 mg PO Q6H PRN PRN Reason: Anxiety Last Admin: 01/15/23 17:34 Dose: 25 mg [place] Carbonate ([place] Carbonate Er 450 Mg Tablet.Er) 450 mg PO BEDTIME [facility] Last Admin: 01/16/23 20:41 Dose: 450 mg Magnesium Hydroxide (Milk Of Magnesia 30 Ml Oral.Susp) 30 ml PO DAILY PRN PRN Reason: Constipation Nicotine Polacrilex (Nicotine Polacrilex 2 Mg Gum) 4 mg BUCCAL Q2H PRN PRN Reason: Nicotine Cravings Last Admin: 01/16/23 15:24 Dose: 4 mg Olanzapine (Olanzapine 10 Mg Tablet) 10 mg PO BEDTIME MÓNICA Last Admin: 01/16/23 20:41 Dose: 10 mg Olanzapine (Olanzapine 5 Mg Tablet) 5 mg PO Q6H PRN PRN Reason: Psychosis Last Admin: 01/16/23 15:24 Dose: 5 mg Trazodone HCl (Trazodone Hcl 50 Mg Tablet) 50 mg PO BEDTIME MRX1 PRN PRN Reason: Insomnia Last Admin: 01/16/23 22:24 Dose: 50 mg Allergies Allergies Allergy/AdvReac Type Severity Reaction Status Date / Time No Known Allergies Allergy Verified 01/13/23 00:32 Assessment & Plan Assessment & Plan (1) Bipolar 1 disorder: Status: Acute Code(s): F31.9 - Bipolar disorder, unspecified (2) Cocaine abuse: Status: Acute Code(s): F14.10 - Cocaine abuse, uncomplicated Plan Patient is a 32 year old female with hx of Bipolar d/o and polysubstance abuse, who presented via ambulance to ER secondary to not being medication compliant for some time . Bipolar d/o r/o substance induced psychosis. Plan: CV 15 minute safety checks Obtain collateral Zyprexa 10mg PO bedtime Zyprexa 5mg PO Q6HR PRN for psychosis [place] ER 450mg PO bedtime 01/14: Pt remains guarded with some confusion. Depressed, anxious. Patient stated, I stopped taking my medications because I ran out of refills. I came here becau se I couldn't stay still from the anxiety . Some paranoia around her family. She reports taking zyprexa and lithium in the past and this combination being helpful. Continue current tx plan. 01/15: Patient presents calm and cooperative today. More organized with tangential thought content. Pt stated, I signed a 3 day because I don't want to be here. I'm doing okay with the medication now. I'm not feeling paranoid. I'm going to go live with my mom. I just need a referral to a psychiatrist and ther apist . Denies SI/HI/VH/AH. Continue tx plan. 01/16: Patient presents with organized thought content and process. Patient reports feeling good today. Pt stated, I signed a 3 day. I'm feeling better than when I first came. I'm going to keep taking my meds. I just want to go home . Labs ordered for Thursday (BUN, creatintine,TSH, Electrolytes and lithium level). cont plan of care start valtex Patient educated on: diagnosis and medication risk/benefits Informed Consent: further education needed Reason for continued inpatient stay Substantial Risk for: inability to function, rapid decompensation and med/psych decompensation Time Spent With Patient Time: Total time managing care of this patient today ____ minutes.
[2023-01-17] MEDS: Nicotine Polacrilex 2 MG GUM 4 MG BUCCAL (13:04)
[2023-01-17] MEDS: hydrOXYzine HCL 25 MG TABLET PO ×2 (13:04→20:16)
[2023-01-17] MEDS: OLANZapine 5 MG TABLET PO (14:42)
[2023-01-17] MEDS: LORazepam 1 MG TABLET 2 MG PO (15:50)
--- NOTE | 2023-01-17 16:30 | PC.NURSE ---
Pt became agitated after finding out her boyfriend got arrested. Pt threatened to break the phone but was able to be redirected. Pt received Hydroxyzine and Zyprexa 5mg an hour earlier but she reported no effectiveness. Ativan 2mg ordered and administered. Pt appears calm and reports feeing better.
[2023-01-17] MEDS: Magnesium Hydrox/Alum Hydrox 30 ML ORAL.SUSP PO (19:16)
[2023-01-17] MEDS: OLANZapine 10 MG TABLET PO (20:08)
[2023-01-17] MEDS: traZODone HCL 50 MG TABLET PO (20:08)
[2023-01-17] MEDS: Lithium Carbonate ER 450 MG TABLET.ER PO (20:09)
[2023-01-17] MEDS: cephALEXin 500 MG CAPSULE 1000 MG PO (20:09)
[2023-01-17] MEDS: Docusate Sodium 100 MG CAPSULE PO (20:09)
[2023-01-17 20:10] VITALS: BP 141/64; PULSE 125; RESP 18; TEMP 36.8; O2SAT 100
[2023-01-18 08:12] LABS: Anion Gap 12 (12-20); Blood Urea Nitrogen 11 mg/dL (9-16); Carbon Dioxide 23 mmol/L (22-29); Chloride 108 mmol/L (96-108); Estimated Glomerular Filt Rate > 60; Sodium 139 mmol/L (135-145)
[2023-01-18 08:29] LABS: TSH reflex Free T4 0.57 uIU/mL (0.32-4.0)
[2023-01-18] MEDS: cephALEXin 500 MG CAPSULE 1000 MG PO ×2 (09:21→20:34)
[2023-01-18] MEDS: valACYclovir HCL 500 MG TABLET PO (09:21)
[2023-01-18 09:32] VITALS: BP 114/55; PULSE 92; TEMP 36.6; O2SAT 99
--- NOTE | 2023-01-18 10:12 | HO.PSYCHPN ---
Subjective Subjective Date of Service: 01/18/23 Reason For Visit: F39, F14.20 Subjective Notes: Conditional Voluntary and 3 Day Interim History: Patient continues to be improved not overly agitated some concerns about where she is going to live issues related to her boyfriend who may have been arrested. Patient has been agitated yesterday seems much calmer future focused not psychotic Tolerating current regimen Diagnostics Vital Signs (24Hr): Vital Signs - 24 hr 01/17/23 20:10 01/18/23 09:32 Temperature 98.2 F 97.9 F Pulse Rate 125 H 92 Respiratory Rate 18 Blood Pressure 141/64 H 114/55 L Pulse Oximetry 100 99 Oxygen Delivery Method Room Air Labs 01/14/23 09:21 01/18/23 07:28 Labs: Laboratory Results - last 48 hr 01/18/23 01/18/23 07:28 07:28 Sodium 139 Potassium 4.0 Chloride 108 Carbon Dioxide 23 Anion Gap 12 BUN 11 Creatinine 0.60 Estim Creat Clear Calc TNP Estimated GFR > 60 TSH 0.57 [place] 0.20 L Medications Medications Current Medications Acetaminophen (Acetaminophen 325 Mg Tablet) 650 mg PO Q6H PRN PRN Reason: Headache/Pain Mild Scale (1-3) Last Admin: 01/14/23 18:04 Dose: 650 mg Al Hydroxide/Mg Hydroxide (Magnesium Hydrox/Alum Hydrox 30 Ml Oral.Susp) 30 ml PO Q6H PRN PRN Reason: Heartburn/Nausea Last Admin: 01/17/23 19:16 Dose: 30 ml Bacitracin (Bacitracin Oint 14 Gm Tube) 1 appl TOPICAL BID PRN; Protocol PRN Reason: ingrown hair Cephalexin HCl (Cephalexin 500 Mg Capsule) 1,000 mg PO BID MÓNICA Stop: 01/19/23 21:01 Last Admin: 01/18/23 09:21 Dose: 1,000 mg Docusate Sodium (Docusate Sodium 100 Mg Capsule) 100 mg PO BEDTIME MÓNICA Last Admin: 01/17/23 20:09 Dose: 100 mg Hydroxyzine HCl (Hydroxyzine Hcl 25 Mg Tablet) 25 mg PO Q6H PRN PRN Reason: Anxiety Last Admin: 01/17/23 20:16 Dose: 25 mg [place] Carbonate ([place] Carbonate Er 450 Mg Tablet.Er) 450 mg PO BEDTIME MÓNICA Last Admin: 01/17/23 20:09 Dose: 450 mg Magn[place] Hydroxide (Milk Of Magnesia 30 Ml Oral.Susp) 30 ml PO DAILY PRN PRN Reason: Constipation Nicotine Polacrilex (Nicotine Polacrilex 2 Mg Gum) 4 mg [place]CC[place] Q2H PRN PRN Reason: Nicotine Cravings Last Admin: 01/17/23 13:04 Dose: 4 mg Olanzapine (Olanzapine 10 Mg Tablet) 10 mg PO BEDTIME MÓNICA Last Admin: 01/17/23 20:08 Dose: 10 mg Olanzapine (Olanzapine 5 Mg Tablet) 5 mg PO Q6H PRN PRN Reason: Psychosis Last Admin: 01/17/23 14:42 Dose: 5 mg Trazodone HCl (Trazodone Hcl 50 Mg Tablet) 50 mg PO BEDTIME MRX1 PRN PRN Reason: Insomnia Last Admin: 01/17/23 20:08 Dose: 50 mg Valacyclovir HCl (Valacyclovir Hcl 500 Mg Tablet) 500 mg PO DAILY MÓNICA Last Admin: 01/18/23 09:21 Dose: 500 mg Allergies Allergies Allergy/AdvReac Type Severity Reaction Status Date / Time No Known Allergies Allergy Verified 01/13/23 00:32 Assessment & Plan Assessment & Plan (1) Bipolar 1 disorder: Status: Acute Code(s): F31.9 - Bipolar disorder, unspecified (2) Cocaine abuse: Status: Acute Code(s): F14.10 - Cocaine abuse, uncomplicated Plan Patient is a 32 year old female with hx of Bipolar d/o and polysubstance abuse, who presented via ambulance to ER secondary to not being medication compliant for some time . Bipolar d/o r/o substance induced psychosis. Plan: CV 15 minute safety checks Obtain collateral Zyprexa 10mg PO bedtime Zyprexa 5mg PO Q6HR PRN for psychosis [place] ER 450mg PO bedtime 01/14: Pt remains guarded with some confusion. Depressed, anxious. Patient stated, I stopped taking my medications because I ran out of refills. I came here because I couldn't stay still from the anxiety . Some paranoia around her family. She reports taking zyprexa and lithium in the past and this combination being helpful. Continue current tx plan. 01/15: Patient presents calm and cooperative today. More organized with tangential thought content. Pt stated, I signed a 3 day because I don't want to be here. I'm doing okay with the medication now. I'm not feeling paranoid. I'm going to go live with my mom. I just need a referral to a psychiatrist and therapist . Denies SI/HI/VH/AH. Continue tx plan. 01/16: Patient presents with organized thought content and process. Patient reports feeling good today. Pt stated, I signed a 3 day. I'm feeling better than when I first came. I'm going to keep taking my meds. I just want to go home . Labs ordered for Thursday (BUN, creatintine,TSH, Electrolytes and lithium level). 8107/31 cont plan of care start valtex 01/18/2023 [place] level low 0.2 unclear up patient compliant increase lithium to 600 mg at bedtime would maintain at the lower end range Reason for continued inpatient stay Substantial Risk for: inability to function and rapid decompensation Time Spent With Patient Time: Total time managing care of this patient today ____ minutes.
--- NOTE | 2023-01-18 10:13 | HO.PSYCHPN ---
Subjective Subjective Reason For Visit: F39, F14.20 Diagnostics Vital Signs (24Hr): Vital Signs - 24 hr 01/17/23 20:10 01/18/23 09:32 Temperature 98.2 F 97.9 F Pulse Rate 125 H 92 Respiratory Rate 18 Blood Pressure 141/64 H 114/55 L Pulse Oximetry 100 99 Oxygen Delivery Method Room Air Labs 01/14/23 09:21 01/18/23 07:28 Labs: Laboratory Results - last 48 hr 01/18/23 01/18/23 07:28 07:28 Sodium 139 Potassium 4.0 Chloride 108 Carbon Dioxide 23 Anion Gap 12 BUN 11 Creatinine 0.60 Estim Creat Clear Calc TNP Estimated GFR > 60 TSH 0.57 [place] 0.20 L Medications Medications Current Medications Acetaminophen (Acetaminophen 325 Mg Tablet) 650 mg PO Q6H PRN PRN Reason: Headache/Pain Mild Scale (1-3) Last Admin: 01/14/23 18:04 Dose: 650 mg Al Hydroxide/Mg Hydroxide (Magnesium Hydrox/Alum Hydrox 30 Ml Oral.Susp) 30 ml PO Q6H PRN PRN Reason: Heartburn/Nausea Last Admin: 01/17/23 19:16 Dose: 30 ml Bacitracin (Bacitracin Oint 14 Gm Tube) 1 appl TOPICAL BID PRN; Protocol PRN Reason: ingrown hair Cephalexin HCl (Cephalexin 500 Mg Capsule) 1,000 mg PO BID MÓNICA Stop: 01/19/23 21:01 Last Admin: 01/18/23 09:21 Dose: 1,000 mg Docusate Sodium (Docusate Sodium 100 Mg Capsule) 100 mg PO BEDTIME MÓNICA Last Admin: 01/17/23 20:09 Dose: 100 mg Hydroxyzine HCl (Hydroxyzine Hcl 25 Mg Tablet) 25 mg PO Q6H PRN PRN Reason: Anxiety Last Admin: 01/17/23 20:16 Dose: 25 mg [place] Carbonate ([place] Carbonate Er 450 Mg Tablet.Er) 450 mg PO BEDTIME MÓNICA Last Admin: 01/17/23 20:09 Dose: 450 mg Magnesium Hydroxide (Milk Of Magnesia 30 Ml Oral.Susp) 30 ml PO DAILY PRN PRN Reason: Constipation Nicotine Polacrilex (Nicotine Polacrilex 2 Mg Gum) 4 mg BUCCAL Q2H PRN PRN Reason: Nicotine Cravings Last Admin: 01/17/23 13:04 Dose: 4 mg Olanzapine (Olanzapine 10 Mg Tablet) 10 mg PO BEDTIME MÓNICA Last Admin: 01/17/23 20:08 Dose: 10 mg Olanzapine (Olanzapine 5 Mg Tablet) 5 mg PO Q6H PRN PRN Reason: Psychosis Last Admin: 01/17/23 14:42 Dose: 5 mg Trazodone HCl (Trazodone Hcl 50 Mg Tablet) 50 mg PO BEDTIME MRX1 PRN PRN Reason: Insomnia Last Admin: 01/17/23 20:08 Dose: 50 mg Valacyclovir HCl (Valacyclovir Hcl 500 Mg Tablet) 500 mg PO DAILY MÓNICA Last Admin: 01/18/23 09:21 Dose: 500 mg Allergies Allergies Allergy/AdvReac Type Severity Reaction Status Date / Time No Known Allergies Allergy Verified 01/13/23 00:32 Assessment & Plan Assessment & Plan (1) Bipolar 1 disorder: Status: Acute Code(s): F31.9 - Bipolar disorder, unspecified (2) Cocaine abuse: Status: Acute Code(s): F14.10 - Cocaine abuse, uncomplicated Plan Patient is a 32 year old female with hx of Bipolar d/o and polysubstance abuse, who presented via ambulance to ER secondary to not being medication compliant for some time . Bipolar d/o r/o substance induced psychosis. Plan: CV 15 minute safety checks Obtain collateral Zyprexa 10mg PO bedtime Zyprexa 5mg PO Q6HR PRN for psychosis [place] ER 450mg PO bedtime 01/14: Pt remains guarded with some confusion. Depressed, anxious. Patient stated, I stopped taking my medications because I ran out of refills. I came here because I couldn't stay still from the anxiety . Some paranoia around her family. She reports taking zyprexa and lithium in the past and this combination being helpful. Continue current tx plan. 01/15: Patient presents calm and cooperative today. More organized with tangential thought content. Pt stated, I signed a 3 day because I don't want to be here. I'm doing okay with the medication now. I'm not feeling paranoid. I'm going to go live with my mom. I just need a referral to a psychiatrist and therapist . Denies SI/HI/VH/AH. Continue tx plan. 01/16: Patient presents with organized thought content and process. Patient reports feeling good today. Pt stated, I signed a 3 day. I'm feeling better than when I first came. I'm going to keep taking my meds. I just want to go home . Labs ordered for Thursday (BUN, creatintine,TSH, Electrolytes and lithium level). cont plan of care start valtex Time Spent With Patient Time: Total time managing care of this patient today ____ minutes.
[2023-01-18] MEDS: OLANZapine 5 MG TABLET PO ×2 (11:58→18:15)
[2023-01-18] MEDS: hydrOXYzine HCL 25 MG TABLET PO ×2 (14:20→20:35)
[2023-01-18 20:30] VITALS: BP 141/83; PULSE 102; RESP 16; O2SAT 99
[2023-01-18] MEDS: OLANZapine 10 MG TABLET PO (20:34)
[2023-01-18] MEDS: Lithium Carbonate ER 450 MG TABLET.ER PO (20:35)
[2023-01-18] MEDS: traZODone HCL 50 MG TABLET PO (20:35)
[2023-01-18] MEDS: Magnesium Hydrox/Alum Hydrox 30 ML ORAL.SUSP PO (23:29)
[2023-01-19] MEDS: cephALEXin 500 MG CAPSULE 1000 MG PO (08:55)
[2023-01-19] MEDS: valACYclovir HCL 500 MG TABLET PO (08:55)
[2023-01-19] MEDS: OLANZapine 5 MG TABLET PO (08:57)
[2023-01-19 09:04] VITALS: BP 159/89; PULSE 104; RESP 16; TEMP 36.6; O2SAT 97
--- NOTE | 2023-01-19 10:00 | P.DS_ITS ---
DS: Providers Provider Date of Service: 01/19/23 Date of admission: 01/12/23 23:26 Date of discharge: 01/19/23 Primary care physician: Unknown Physician Admitting clinician: Diamante Garcia Attending physician on admission: Carrington Santos Consults: 01/12/23 23:38 Consult to Hospitalist Routine Comment: Consulting Provider: Hospitalist Reason For Exam: OSH admission Attending physician on discharge: Carrington Santos Discharging clinician: Diamante Garcia DS: Diagnosis Discharge Diagnosis (1) Bipolar 1 disorder: Status: Acute (2) Cocaine abuse: Status: Acute DS: Medications Discharge Medications Home Medications: Home Medications Medication Instructions Recorded Confirmed benztropine 0.5 mg tablet 0.5 mg PO BID 01/13/23 01/13/23 chlorpromazine 50 mg tablet 50 mg PO Q4H PRN Agitation 01/13/23 01/13/23 doxycycline monohydrate 100 mg 100 mg PO BID 01/13/23 01/13/23 capsule hydroxyzine HCl 25 mg tablet 25 mg PO Q8H PRN anxiety 01/13/23 01/13/23 hydroxyzine HCl 25 mg tablet 25 mg PO Q8H PRN anxiety 01/13/23 01/13/23 ibuprofen 600 mg tablet 600 mg PO TID PRN pain 01/13/23 01/13/23 ibuprofen 600 mg tablet 600 mg PO TID PRN pain 01/13/23 01/13/23 lithium carbonate 450 mg 900 mg PO BEDTIME depressive 01/13/23 01/13/23 tablet,extended release disorder multivitamin with folic acid 400 1 tab PO DAILY 01/13/23 01/13/23 mcg tablet (Daily-Jo Ann (with folic acid)) olanzapine 5 mg tablet 5 mg PO BID 01/13/23 01/13/23 vits no.130-ferrous fum 1 tab PO DAILY 01/13/23 01/13/23 27 mg iron-folic acid 800 mcg tablet ( Vitamin) vits no.130-ferrous fum 1 tab PO DAILY 01/13/23 01/13/23 27 mg iron-folic acid 800 mcg tablet ( Vitamin) trazodone 50 mg tablet 50 mg PO BEDTIME PRN insomnia 01/13/23 01/13/23 Mental Status Exam Mental Status Exam Narrative: Pt is alert and oriented; behavior is cooperative, friendly and calm; patient is not in distress; dressed in casual attire; mood is described as good ; eye contact appropriate; Speech is normal rate, volume and prosody and not pressured; no psychomotor agitation/retardation present; thought process is organized and goal directed; Thought content is on tx; otherwise pertinent to relevant topics and without any delusional content, paranoid ideations or grandiosity; denies SI/HI. There is no evidence of perceptual disturbance. Patients insight and judgment are fair. Data Data Completed and Pending Completed studies during hospitalization [Text1]: 01/14/23 01/14/23 01/14/23 04:37 09:21 09:21 WBC 11.3 H RBC 5.13 Hgb 15.4 Hct 45.5 MCV 88.7 MCH 30.0 MCHC 33.8 RDW 12.4 Plt Count 281 MPV 10.3 Immature Gran % (Auto) 0.7 H Neut % (Auto) 75.7 H Lymph % (Auto) 14.1 L [place] % (Auto) 8.0 Eos % (Auto) 0.9 Baso % (Auto) 0.6 Lymph # (Auto) 1.6 [place] # (Auto) 0.9 Eos # (Auto) 0.1 Baso # (Auto) 0.1 Abs Immat Gran (auto) 0.08 H Absolute Neuts (auto) 8.6 H Absolute Nucleated RBC 0.000 Nucleated RBC % (auto) 0.0 Sodium 139 Potassium 4.3 Chloride 109 H Carbon Dioxide 22 Anion Gap 12 BUN 11 Creatinine 0.70 Estim Creat Clear Calc TNP Estimated GFR > 60 TSH 0.36 Urine Opiates Screen Not Detected Urine Fentanyl Screen POSITIVE H Ur Barbiturates Screen Not Detected Ur Phencyclidine Scrn Not Detected Ur Amphetamines Screen Not Detected U Benzodiazepines Scrn Not Detected [place] Urine Cocaine Screen Not Detected U Marijuana (THC) Screen Not Detected 01/14/23 01/18/23 01/18/23 09:21 07:28 07:28 WBC RBC Hgb Hct MCV MCH MCHC RDW Plt Count MPV Immature Gran % (Auto) Neut % (Auto) Lymph % (Auto) [place] % (Auto) Eos % (Auto) Baso % (Auto) Lymph # (Auto) [place] # (Auto) Eos # (Auto) Baso # (Auto) Abs Immat Gran (auto) Absolute Neuts (auto) Absolute Nucleated RBC Nucleated RBC % (auto) Sodium 139 Potassium 4.0 Chloride 108 Carbon Dioxide 23 Anion Gap 12 BUN 11 Creatinine 0.60 Estim Creat Clear Calc TNP Estimated GFR > 60 TSH 0.57 Urine Opiates Screen Urine Fentanyl Screen Ur Barbiturates Screen Ur Phencyclidine Scrn Ur Amphetamines Screen U Benzodiazepines Scrn [place] 0.23 L 0.20 L Urine Cocaine Screen U Marijuana (THC) Screen DS: Summary Hospital Course Hospital Course: Patient is a 32 year old female with hx of Bipolar d/o and polysubstance abuse, who presented via ambulance to ER secondary to not being medication compliant for some time . Per crisis report, pt stated she had been trying to keep her own schedule of medication but was unable to keep it up. During the crisis evaluation, she was observed responding to internal stimuli, paranoid and unable to answer most questions. During admission assessment, Pt was laying in bed in her room.Pt refused to meet with T/W and stated, I don't know why I'm here. I don't want to talk to you right now. We can talk tomorrow. You can be excused . When T/W explained to patient what a conditional voluntary and 3 day notice are; pt stated, I un derstand. You are excused . T/W told patient that we would meet again tomorrow and left patients room. Pt remains guarded with some confusion. Depressed, anxious. Patient stated, I stopped taking my medications because I ran out of refills. I came here because I couldn't stay still from the anxiety . Some paranoia around her family. She reports taking zyprexa and lithium in the past and this combination being helpful. Patient was started on, Zyprexa 10mg PO bedtime and [place] ER 450mg PO bedtime. Patient presents calm and cooperative today. More organized with tangential thought content. Pt stated, I signed a 3 day because I don't want to be here. I'm doing okay with the medication now. I'm not feeling paranoid. I'm going to go live with my mom. I just need a referral to a psychiatrist and therapist . Denies SI/HI/VH/AH. Patient presents with organized thought content and process. Pt stated, I signed a 3 day. I'm feeling better than when I first came. I'm going to keep taking my meds. I just want to go home . [place] level low 0.2, unclear of patient compliant, increase lithium to 600 mg at bedtime, would maintain at the lower end range. Patient reports feeling good and ready to go home . Patient reports she plans on being medication compliant and following up with her outpatient providers. Denies SI/HI/VH/AH at this time. Time spent discussing smoking cessation with patient: 3 to 10 minutes Status at Discharge Cognitive/behavioral status at discharge: Patient was interviewed prior to discharge and found to be fully oriented and without any SI or HI. Patient has insight and demonstrates good judgment in terms of wanting to pursue treatment. Patient is not in imminent risk of harm to self or others and has a safety plan that includes presenting to the closest ER or calling 911 if feeling unsafe. Patient has been observed closely by nursing and unit staff throughout admission; patient has not engaged in any behaviors that suggest dangerousness to self or others and has demonstrated appropriate behaviors and impulse control. Functional status at discharge: independent ambulation Overall status at discharge: patient is back to baseline Time Spent with Patient Time attestation: Total time managing care of this patient today _30___ minutes. Time spent: Less than 30 minutes Discharge Plan Discharge Anticipated Discharge Date/Time: 01/19/23 13:30 Patient Disposition: Home, Self-Care Discharge Diagnosis: Bipolar d/o, cocaine abuse Referrals: Itzel Infante (Therapy) [Other] - 01/29/23 10:00 am (IN OFFICE APPOINTMENT) Dr. Vega (Psychiatry) [Other] - 02/13/23 9:00 am (TELEHEALTH APPOINTMENT) María Delgado, VIDYA [Nurse Practitioner] - 1 Week (pcp will contact patient with follow up appt. ) Discharge Medications: New lithium carbonate 300 mg Tablet Extended Release 600 mg PO BEDTIME 30 Days Qty: 60 0RF olanzapine 10 mg Tablet 10 mg PO BEDTIME 30 Days Qty: 30 0RF trazodone 50 mg Tablet 50 mg PO BEDTIME PRN (Reason: Insomnia) 30 Days Qty: 30 0RF hydroxyzine HCl 25 mg Tablet 25 mg PO TID PRN (Reason: Anxiety) 30 Days Qty: 90 0RF valacyclovir 500 mg Tablet 500 mg PO DAILY 30 Days Qty: 30 0RF Discontinued benztropine 0.5 mg tablet 0.5 mg PO BID trazodone 50 mg tablet 50 mg PO BEDTIME PRN (Reason: insomnia) olanzapine 5 mg tablet 5 mg PO BID lithium carbonate 450 mg tablet extended release 900 mg PO BEDTIME doxycycline monohydrate 100 mg capsule 100 mg PO BID hydroxyzine HCl 25 mg tablet 25 mg PO Q8H PRN (Reason: anxiety) hydroxyzine HCl 25 mg tablet 25 mg PO Q8H PRN (Reason: anxiety) ibuprofen 600 mg tablet 600 mg PO TID PRN (Reason: pain) ibuprofen 600 mg tablet 600 mg PO TID PRN (Reason: pain) chlorpromazine 50 mg tablet 50 mg PO Q4H PRN (Reason: Agitation) multivitamin with folic acid [Daily-Jo Ann (with folic acid)] 400 mcg tablet 1 tab PO DAILY Vitamin 27 mg iron- 800 mcg tablet 1 tab PO DAILY Vitamin 27 mg iron- 800 mcg tablet 1 tab PO DAILY Discharge Orders: Discharge Order (Routine); Ordered 01/19/23 Ordered By: Diamante Garcia Diet: Regular diet Activity on Discharge: As tolerated Stand Alone Forms: Patient Portal Discharge page, Community Support Care Plan Goals: Maintain mood and safe behaviors Take medications as prescribed Continue to pursue sobriety Practice coping skills Continue with outpatient providers and reach out to them as needed Health Concerns: Mood stability and behaviors Sobriety Plan of Treatment: Follow up with your PCP, psychiatric provider and other outpatient providers regarding above concerns Take medications as prescribed Assessment: Patient was interviewed prior to discharge and found to be fully oriented and without any SI or HI. Patient has insight and demonstrates good judgment in terms of wanting to pursue treatment. Patient is not in imminent risk of harm to self or others and has a safety plan that includes presenting to the closest ER or calling 911 if feeling unsafe. Patient has been observed closely by nursing and unit staff throughout admission; patient has not engaged in any behaviors that suggest dangerousness to self or others and has demonstrated appropriate behaviors and impulse control. Discharge Date/Time: 01/19/23 12:02
== END 2023-01-19 12:02 | disposition home or self-care (01) | DRG 753 ==
PROVIDERS: Admitting Provider Psychiatry & Neurology Psychiatry; Responsible Provider Registered Nurse; Visit Provider Psychiatry & Neurology Psychiatry
DX: F31.9 Bipolar disorder, unspecified (principal); Z91.148 Patient's other noncompliance with medication regimen for other reason; F14.10 Cocaine abuse, uncomplicated; Z79.899 Other long term (current) drug therapy
CPT/HCPCS: 36415; 80051; 80178; 80307; 82565; 84443; 84520; 85025

== ENCOUNTER → 2023-01-12 23:26 | Outpatient (BNV) | payer OTHER, SELFPAY | PROVIDERS: Admitting Provider Psychiatry & Neurology Psychiatry; Responsible Provider Registered Nurse; Visit Provider Psychiatry & Neurology Psychiatry | DX: F31.63 Bipolar disorder, current episode mixed, severe, without psychotic features (principal); F14.10 Cocaine abuse, uncomplicated | CPT/HCPCS: 99232 ==

== ENCOUNTER → 2023-01-12 23:26 | Outpatient (BNV) | payer OTHER, SELFPAY | PROVIDERS: Admitting Provider Psychiatry & Neurology Psychiatry; Responsible Provider Registered Nurse; Visit Provider Registered Nurse | DX: F31.63 Bipolar disorder, current episode mixed, severe, without psychotic features (principal); F14.10 Cocaine abuse, uncomplicated | CPT/HCPCS: 90792; 99231; 99232; 99238 ==

== ENCOUNTER → 2023-01-12 23:26 | Outpatient (BNV) | payer OTHER, SELFPAY | PROVIDERS: Admitting Provider Psychiatry & Neurology Psychiatry; Responsible Provider Registered Nurse; Visit Provider Physician Assistant | DX: Z02.2 Encounter for examination for admission to residential institution (principal) | CPT/HCPCS: 99429 ==

== ENCOUNTER 2025-01-11 19:03 | Inpatient (IN) | payer OTHER, SELFPAY ==
[2025-01-11 20:00] VITALS: BP 115/72; PULSE 96; RESP 16; TEMP 36.8; O2SAT 99
--- NOTE | 2025-01-11 23:55 | PC.ADMIT ---
Patient is a 34 year old single Belarusian speaking female who was BIBA to [facility] at 1925 from [facility] ED and placed on 15 minute safety checks. She signed a CV, was fairly cooperative with skin check, which was unremarkable. However, patient would not participate in the admission paperwork, did not want to participate with [facility], and much of the information documented in her assessment was from the patient's ED record and this selling underwriter's assessment when interacting with the patient. She was basically nonverbal, but would offer Yes or No to some questions, or shake or nod her head. She appeared very distracted and would occasionally look around and laugh. Rosmery has a history of bipolar d/o, schizophrenia and cocaine/crack use, severe, with multiple inpatient psychiatric admissions and at least two Section 35s. She has a history of medication noncompliance and uses marijuana, cocaine and PCP. Apparently the patient was using some type of substances today and was noted to be basically nonverbal at home, so her family sent her to the ED for evaluation. Medications were reviewed with Kelsey Luna NP. Patient will remain on 15 minute safety checks. Although she is type 2 Diabetic she refused HS POC. Will continue to monitor patient.
[2025-01-12 05:42] VITALS: BMI 33.9
[2025-01-12 08:00] VITALS: BP 106/60; PULSE 61; RESP 16; TEMP 35.5; O2SAT 98
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
[2025-01-12 20:00] VITALS: BP 116/78; PULSE 75; RESP 16; TEMP 35.9; O2SAT 96
--- NOTE | 2025-01-12 22:41 | PC.NURSE ---
Addendum entered by Kim Morgan RN 01/12/25 22:47: Valacyclovir 500 mg po daily was ordered and patient received her first dose. Patient declined Risperdal and HS poc. Original Note: Patient c/o genital herpes outbreak with itching. She has a history of taking po medication as a prn for outbreaks. Dr. Mccabe notified and order was received.
[2025-01-13 08:00] VITALS: BP 99/48; PULSE 69; TEMP 36.1; O2SAT 98
[2025-01-13 08:25] LABS: Glucose, Whole Blood 140 mg/dL (60-115)
--- NOTE | 2025-01-13 09:46 | P.PNPSI_ITS ---
Subjective Subjective Date of Service: 01/13/25 Reason For Visit: F31.2 Biopolar D/O manic; F143.20 Cocaine use raymond Subjective Notes: Calvo Warning Interim History: Met with patient; discussed with team Patient mostly refused to engage. Teacher Of Family And Consumer Science did give calvo warning which patient said she understood. Patient said I do not want to talk... But also asked KS going to get a roommate? She then said Thank you, Bye. Later she approached senior underwriter and asked if she could change rooms or change to a different floor however would not discuss why or engage further and walked away. Mental Status Exam Mental Status Exam Narrative: Pt is alert and oriented; behavior is isolative, non- cooperative, calm, speaking very little; patient is not in distress; dressed in hospital attire, unkempt, hirsutism; mood is described as Don't want to talk and affect blunted; eye contact avoidant; Speech sparse, soft and quiet; psychomotor retardation present; thought process seems disorganized; Thought content not disclose; does not express any SI/HI. Patient appears internally preoccupied and responding to internal stimuli. Patients insight and judgment impaired Diagnostics Vital Signs (24Hr): Vital Signs - 24 hr 01/12/25 20:00 01/13/25 08:00 Temperature 96.7 F L 96.9 F Pulse Rate 75 69 Respiratory Rate 16 Blood Pressure 116/78 99/48 L Pulse Oximetry 96 98 Oxygen Delivery Method Room Air Room Air BMI result Body Mass Index 33.9 Labs Labs: Laboratory Results - last 48 hr 01/13/25 08:18 POC Glucose 140 H Medications Medications Current Medications Acetaminophen (Acetaminophen 325 Mg Tablet) 650 mg PO Q6H PRN PRN Reason: Headache/Pain, Scale 1-10 Al Hydroxide/Mg Hydroxide (Magnesium Hydrox/Alum Hydrox 30 Ml Oral.Susp) 30 ml PO Q6H PRN PRN Reason: Heartburn/Nausea Hydroxyzine HCl (Hydroxyzine Hcl 25 Mg Tablet) 25 mg PO Q6H PRN PRN Reason: mild anxiety Insulin Human Lispro (Insulin Lispro 100 Unit/Ml 3 Ml Vial) 0 unit SUBCUT [facility]; Protocol Last Admin: 01/13/25 08:00 Dose: Not Given Magnesium Hydroxide (Milk Of Magnesia 30 Ml Oral.Susp) 30 ml PO DAILY PRN PRN Reason: Constipation Metformin HCl (Metformin Hcl 500 Mg Tablet) 500 mg PO BIDWM [facility] Last Admin: 01/13/25 09:02 Dose: Not Given Nicotine Polacrilex (Nicotine Polacrilex 2 Mg Gum) 2 mg BUCCAL Q2H PRN PRN Reason: Nicotine Cravings Olanzapine (Olanzapine 5 Mg Tablet) 5 mg PO Q4H PRN PRN Reason: psychosis/agitation Risperidone (Risperidone 1 Mg Tablet) 1 mg PO BID [facility] Last Admin: 01/13/25 09:02 Dose: Not Given Trazodone HCl (Trazodone Hcl 50 Mg Tablet) 50 mg PO BEDTIME MRX1 PRN PRN Reason: Insomnia Last Admin: 01/13/25 03:49 Dose: 50 mg Valacyclovir HCl (Valacyclovir Hcl 500 Mg Tablet) 500 mg PO DAILY [facility] Last Admin: 01/13/25 09:02 Dose: Not Given Allergies Allergies Allergy/AdvReac Type Severity Reaction Status Date / Time blueberry Allergy Unknown Unknown Verified 01/11/25 21:20 Assessment & Plan Assessment & Plan (1) Catatonia: Status: Acute Code(s): F06.1 - Catatonic disorder due to known physiological condition (2) Bipolar 1 disorder: Status: Acute Code(s): F31.9 - Bipolar disorder, unspecified (3) Polysubstance use disorder: Status: Acute Code(s): F19.90 - Other psychoactive substance use, unspecified, uncomplicated Assessment and Plan: 34-year-old Polish-speaking female is a direct transfer, via ambulance, from [facility] [place] [facility] She has history of bipolar disorder, schizophrenia, marijuana, PCP, and cocaine/crack use (severe), multiple inpatient admissions and at least 2 section 35. She was evaluated at [facility] for being nonverbal at home following substance use. This provider and patient's professor of social work found the patient lying in her bed. She is alert, opens and closes her eyes, moves her feet, but would not respond to this provider and professor of social work. Patient advised to inform staff if she decides to engage in an interview with her professor of social work and provider for admission. Hospital course: 01/13 patient appears catatonic, not talking much, not moving, sometimes walking around in a disorganized way; seems to be history of catatonia as well. Not sure if eating and drinking. Teacher Of Family And Consumer Science tried to discuss medications including Ativan however patient not engaging; Currently refusing all medications Plan Admit to M5. CV 15 minutes check. Start patient on Ativan 1 mg t.i.d.; may increase Hold Risperdal for now given concern for catatonia Diagnostics as needed. Collateral contact. Continue remainder of regime. Encouraged full milieu. Discharge planning. Patient educated on: diagnosis and medication risk/benefits Informed Consent: does not understand Reason for continued inpatient stay Substantial Risk for: inability to function Time Spent With Patient Time: Total time managing care of this patient today ____ minutes.
[2025-01-13 20:00] VITALS: BP 100/60; PULSE 99; RESP 16; TEMP 36.1; O2SAT 99
[2025-01-14 08:00] VITALS: BP 128/73; PULSE 66; RESP 16; TEMP 35.7; O2SAT 99
--- NOTE | 2025-01-14 17:26 | HO.PSYCHPN ---
Subjective Subjective Date of Service: 01/14/25 Reason For Visit: F31.2 Biopolar D/O manic; F143.20 Cocaine use raymond Interim History: Met with patient; discussed with team Withdrawn. Difficult to engage. One word answers. Stays in her room. Irritable. I want to go to a different unit. I don't feel comfortable here but would not elaborate what she means. Paranoid. When she takes Ativan she has some improvement but is inconsistent and refuses it. Denies SI/HI. . Review of Systems Review of Systems Unable to obtain due to patient's cooperation Mental Status Exam Mental Status Exam Narrative: Pt is alert and oriented; behavior is isolative, non- cooperative, calm, speaking very little; patient is not in distress; dressed in hospital attire, unkempt, hirsutism; mood is described as Don't want to talk and affect blunted; eye contact avoidant; Speech sparse, soft and quiet; psychomotor retardation present; thought process seems disorganized; Thought content not disclose; does not express any SI/HI. Patient appears internally preoccupied and responding to internal stimuli. Patients insight and judgment impaired Diagnostics Vital Signs (24Hr): Vital Signs - 24 hr 01/13/25 20:00 01/14/25 08:00 Temperature 96.9 F 96.3 F L Pulse Rate 99 66 Respiratory Rate 16 16 Blood Pressure 100/60 128/73 Pulse Oximetry 99 99 Oxygen Delivery Method Room Air Room Air BMI result Body Mass Index 33.9 Labs Labs: Laboratory Results - last 48 hr 01/13/25 08:18 POC Glucose 140 H Medications Medications Current Medications Acetaminophen (Acetaminophen 325 Mg Tablet) 650 mg PO Q6H PRN PRN Reason: Headache/Pain, Scale 1-10 Al Hydroxide/Mg Hydroxide (Magnesium Hydrox/Alum Hydrox 30 Ml Oral.Susp) 30 ml PO Q6H PRN PRN Reason: Heartburn/Nausea Hydroxyzine HCl (Hydroxyzine Hcl 25 Mg Tablet) 25 mg PO Q6H PRN PRN Reason: mild anxiety Insulin Human Lispro (Insulin Lispro 100 Unit/Ml 3 Ml Vial) 0 unit SUBCUT QIDACHS [facility]; Protocol Last Admin: 01/14/25 16:21 Dose: Not Given Lorazepam (Lorazepam 1 Mg Tablet) 1 mg PO QID [facility] Last Admin: 01/14/25 14:01 Dose: Not Given Magnesium Hydroxide (Milk Of Magnesia 30 Ml Oral.Susp) 30 ml PO DAILY PRN PRN Reason: Constipation Metformin HCl (Metformin Hcl 500 Mg Tablet) 500 mg PO BIDWM [facility] Last Admin: 01/14/25 13:22 Dose: Not Given Nicotine Polacrilex (Nicotine Polacrilex 2 Mg Gum) 2 mg BUCCAL Q2H PRN PRN Reason: Nicotine Cravings Olanzapine (Olanzapine 5 Mg Tablet) 5 mg PO Q4H PRN PRN Reason: psychosis/agitation Risperidone (Risperidone 1 Mg Tablet) 1 mg PO BID [facility] On Hold: 01/13/25 09:46 Last Admin: 01/13/25 09:02 Dose: Not Given Trazodone HCl (Trazodone Hcl 50 Mg Tablet) 50 mg PO BEDTIME MRX1 PRN PRN Reason: Insomnia Last Admin: 01/13/25 20:41 Dose: 50 mg Valacyclovir HCl (Valacyclovir Hcl 500 Mg Tablet) 500 mg PO DAILY [facility] Last Admin: 01/14/25 13:22 Dose: Not Given Allergies Allergies Allergy/AdvReac Type Severity Reaction Status Date / Time blueberry Allergy Unknown Unknown Verified 01/11/25 21:20 Assessment & Plan Assessment & Plan (1) Catatonia: Status: Acute Code(s): F06.1 - Catatonic disorder due to known physiological condition (2) Bipolar 1 disorder: Status: Acute Code(s): F31.9 - Bipolar disorder, unspecified (3) Polysubstance use disorder: Status: Acute Code(s): F19.90 - Other psychoactive substance use, unspecified, uncomplicated Assessment and Plan: 34-year-old Estonian-speaking female is a direct transfer, via ambulance, from [facility] [place] [facility] [place] [facility]. She has history of bipolar disorder, schizophrenia, marijuana, PCP, and cocaine/crack use (severe), multiple inpatient admissions and at least 2 section 35. She was evaluated at [facility] for being nonverbal at home following substance use. This provider and patient's social media specialist found the patient lying in her bed. She is alert, opens and closes her eyes, moves her feet, but would not respond to this provider and social media specialist. Patient advised to inform staff if she decides to engage in an interview with her social media specialist and provider for admission. Hospital course: 01/13 patient appears catatonic, not talking much, not moving, sometimes walking around in a disorganized way; seems to be history of catatonia as well. Not sure if eating and drinking. Driveway Attendant tried to discuss medications including Ativan however patient not engaging; Currently refusing all medications 01/14: continue current management and treatment plan. Encourage adherence. Plan Admit to M5. CV 15 minutes check. Start patient on Ativan 1 mg t.i.d.; may increase Hold Risperdal for now given concern for catatonia Diagnostics as needed. Collateral contact. Continue remainder of regime. Encouraged full milieu. Discharge planning. Reason for continued inpatient stay Substantial Risk for: inability to function and rapid decompensation Time Spent With Patient Time: Total time managing care of this patient today ____ minutes.
[2025-01-14 20:27] LABS: Glucose, Whole Blood 154 mg/dL (60-115)
--- NOTE | 2025-01-15 09:20 | HO.PSYCHPN ---
Subjective Subjective Date of Service: 01/15/25 Reason For Visit: F31.2 Biopolar D/O manic; F143.20 Cocaine use raymond Interim History: Met with patient. Very difficult to engage. Refusing medications. Slowed responses. Mumbles I don't know what to tell you, I don't know what to say... in response to questions. She is isolated. Then asking about discharge. Appears internally preoccupied. Paranoid. Denies SI/HI. . Review of Systems Review of Systems Unable to obtain due to patient's cooperation Mental Status Exam Mental Status Exam Narrative: Pt is alert and oriented; behavior is isolative, non- cooperative, calm, speaking very little; patient is not in distress; dressed in hospital attire, unkempt, hirsutism; mood is described as Don't want to talk and affect blunted; eye contact avoidant; Speech sparse, soft and quiet; psychomotor retardation present; thought process seems disorganized; Thought content not disclose; does not express any SI/HI. Patient appears internally preoccupied and responding to internal stimuli. Patients insight and judgment impaired Diagnostics Vital Signs (24Hr): BMI result Body Mass Index 33.9 Labs Labs: Laboratory Results - last 48 hr 01/14/25 20:22 POC Glucose 154 H Medications Medications Current Medications Acetaminophen (Acetaminophen 325 Mg Tablet) 650 mg PO Q6H PRN PRN Reason: Headache/Pain, Scale 1-10 Al Hydroxide/Mg Hydroxide (Magnesium Hydrox/Alum Hydrox 30 Ml Oral.Susp) 30 ml PO Q6H PRN PRN Reason: Heartburn/Nausea Hydroxyzine HCl (Hydroxyzine Hcl 25 Mg Tablet) 25 mg PO Q6H PRN PRN Reason: mild anxiety Insulin Human Lispro (Insulin Lispro 100 Unit/Ml 3 Ml Vial) 0 unit SUBCUT QIDACHS [facility]; Protocol Last Admin: 01/15/25 08:55 Dose: Not Given Lorazepam (Lorazepam 1 Mg Tablet) 1 mg PO QID [facility] Last Admin: 01/15/25 09:00 Dose: Not Given Magnesium Hydroxide (Milk Of Magnesia 30 Ml Oral.Susp) 30 ml PO DAILY PRN PRN Reason: Constipation Metformin HCl (Metformin Hcl 500 Mg Tablet) 500 mg PO BIDWM [facility] Last Admin: 01/15/25 09:00 Dose: Not Given Nicotine Polacrilex (Nicotine Polacrilex 2 Mg Gum) 2 mg BUCCAL Q2H PRN PRN Reason: Nicotine Cravings Olanzapine (Olanzapine 5 Mg Tablet) 5 mg PO Q4H PRN PRN Reason: psychosis/agitation Risperidone (Risperidone 1 Mg Tablet) 1 mg PO BID [facility] On Hold: 01/13/25 09:46 Last Admin: 01/13/25 09:02 Dose: Not Given Trazodone HCl (Trazodone Hcl 50 Mg Tablet) 50 mg PO BEDTIME MRX1 PRN PRN Reason: Insomnia Last Admin: 01/14/25 20:35 Dose: 50 mg Valacyclovir HCl (Valacyclovir Hcl 500 Mg Tablet) 500 mg PO DAILY [facility] Last Admin: 01/15/25 08:59 Dose: Not Given Allergies Allergies Allergy/AdvReac Type Severity Reaction Status Date / Time blueberry Allergy Unknown Unknown Verified 01/11/25 21:20 Assessment & Plan Assessment & Plan (1) Catatonia: Status: Acute Code(s): F06.1 - Catatonic disorder due to known physiological condition (2) Bipolar 1 disorder: Status: Acute Code(s): F31.9 - Bipolar disorder, unspecified (3) Polysubstance use disorder: Status: Acute Code(s): F19.90 - Other psychoactive substance use, unspecified, uncomplicated Assessment and Plan: 34-year-old Lao-speaking female is a direct transfer, via ambulance, from [facility] to [facility] [place] [place] [facility]. She has history of bipolar disorder, schizophrenia, marijuana, PCP, and cocaine/crack use (severe), multiple inpatient admissions and at least 2 section 35. She was evaluated at [facility] for being nonverbal at home following substance use. This provider and patient's social organization professor found the patient lying in her bed. She is alert, opens and closes her eyes, moves her feet, but would not respond to this provider and social organization professor. Patient advised to inform staff if she decides to engage in an interview with her social organization professor and provider for admission. Hospital course: 01/13 patient appears catatonic, not talking much, not moving, sometimes walking around in a disorganized way; seems to be history of catatonia as well. Not sure if eating and drinking. Director Summer Sessions tried to discuss medications including Ativan however patient not engaging; Currently refusing all medications 01/14: continue current management and treatment plan. Encourage adherence. 01/15: continue current management and treatment plan. Encourage adherence. Plan Admit to M5. CV 15 minutes check. Start patient on Ativan 1 mg t.i.d.; may increase Hold Risperdal for now given concern for catatonia Diagnostics as needed. Collateral contact. Continue remainder of regime. Encouraged full milieu. Discharge planning. Reason for continued inpatient stay Substantial Risk for: inability to function and rapid decompensation Time Spent With Patient Time: Total time managing care of this patient today ____ minutes.
[2025-01-15 19:45] VITALS: BP 128/65; PULSE 89; TEMP 35.9; O2SAT 98
[2025-01-16 07:57] VITALS: BP 110/55; PULSE 74; RESP 18; TEMP 35.9; O2SAT 99
[2025-01-16 20:13] VITALS: BP 123/71; PULSE 84; RESP 16; TEMP 36.2; O2SAT 99
--- NOTE | 2025-01-16 22:01 | P.PNPSI_ITS ---
Subjective Subjective Date of Service: 01/16/25 Reason For Visit: F31.2 Biopolar D/O manic; F143.20 Cocaine use raymond Subjective Notes: 3 Day Healthcare Proxy: No Guardianship: No Medical Problems Affecting Mental Status: No Interim History: Medical record and nursing notes reviewed; case discussed during rounds with team/nursing staff, and met with patient for supportive therapy/psychoeducation, as well as medication management. Patient slept for 7 hours, was not compliant with medication or point of care, she is in bed most of the morning until she was thinking about signing the 3 da ys. She would not signed a 3 days until she talk to to social worker psychiatric. She said yet to anxiety and said a little when I asked about depression. Reports hearing voices when being asked, but not able to disclose to more details. She denies suicidal thoughts or thoughts of hurting other people. She was not sure where she was coming from before coming in here. She was not sure who she stay with prior to be admitted. This provider note the patient by history, that mom and sister concerned about her in the past. However, patient is guarded, do not give anymore information or consent to talk to the family member. Not able to assess for more details regarding substance use. Medication Compliance: No Side effects from medications: No Attending Groups: No Review of Systems Acute medical concerns: No Medical Review of Systems: unchanged Review of Systems Review of Systems Unable to obtain due to patient's cooperation. Do not appear to be distress Mental Status Exam Mental Status Exam Narrative: Pt is alert and oriented; behavior is isolative, non- cooperative, calm with mild anxiety, speaking very little; patient is not in distress; dressed in hospital attire, unkempt, poor hygiene; mood is described as little bit for depression and anxiety,and affect blunted; eye contact avoidant but can be appropriate when she wants to talk; Speech sparse, soft and quiet; psychomotor retardation present; thought process seems disorganized; Thought content focused on 3 day notice; denies SI/HI. Patient appears internally preoccupied and responding to internal stimuli. Reports hearing voices, but not giving details. Thought blocks. Patients insight and judgment impaired Diagnostics Vital Signs (24Hr): Vital Signs - 24 hr 01/16/25 07:57 01/16/25 20:13 Temperature 96.6 F L 97.2 F Pulse Rate 74 84 Respiratory Rate 18 16 Blood Pressure 110/55 L 123/71 Pulse Oximetry 99 99 Oxygen Delivery Method Room Air Room Air BMI result Body Mass Index 33.9 Medications Medications Current Medications Acetaminophen (Acetaminophen 325 Mg Tablet) 650 mg PO Q6H PRN PRN Reason: Headache/Pain, Scale 1-10 Al Hydroxide/Mg Hydroxide (Magnesium Hydrox/Alum Hydrox 30 Ml Oral.Susp) 30 ml PO Q6H PRN PRN Reason: Heartburn/Nausea Hydroxyzine HCl (Hydroxyzine Hcl 25 Mg Tablet) 25 mg PO Q6H PRN PRN Reason: mild anxiety Insulin Human Lispro (Insulin Lispro 100 Unit/Ml 3 Ml Vial) 0 unit SUBCUT QIDACHS [facility]; Protocol Last Admin: 01/16/25 21:55 Dose: Not Given Lorazepam (Lorazepam 1 Mg Tablet) 1 mg PO QID [facility] Last Admin: 01/16/25 21:55 Dose: Not Given Magnesium Hydroxide (Milk Of Magnesia 30 Ml Oral.Susp) 30 ml PO DAILY PRN PRN Reason: Constipation Metformin HCl (Metformin Hcl 500 Mg Tablet) 500 mg PO BIDWM [facility] Last Admin: 01/16/25 17:40 Dose: Not Given Nicotine Polacrilex (Nicotine Polacrilex 2 Mg Gum) 2 mg BUCCAL Q2H PRN PRN Reason: Nicotine Cravings Olanzapine (Olanzapine 5 Mg Tablet) 5 mg PO Q4H PRN PRN Reason: psychosis/agitation Risperidone (Risperidone 1 Mg Tablet) 1 mg PO BID [facility] On Hold: 01/13/25 09:46 Last Admin: 01/13/25 09:02 Dose: Not Given Trazodone HCl (Trazodone Hcl 50 Mg Tablet) 50 mg PO BEDTIME MRX1 PRN PRN Reason: Insomnia Last Admin: 01/15/25 21:59 Dose: 50 mg Valacyclovir HCl (Valacyclovir Hcl 500 Mg Tablet) 500 mg PO DAILY [facility] Last Admin: 01/16/25 09:37 Dose: Not Given Allergies Allergies Allergy/AdvReac Type Severity Reaction Status Date / Time blueberry Allergy Unknown Unknown Verified 01/11/25 21:20 Assessment & Plan Assessment & Plan (1) Catatonia: Status: Acute Code(s): F06.1 - Catatonic disorder due to known physiological condition (2) Bipolar 1 disorder: Status: Acute Code(s): F31.9 - Bipolar disorder, unspecified (3) Polysubstance use disorder: Status: Acute Code(s): F19.90 - Other psychoactive substance use, unspecified, uncomplicated Assessment and Plan: 34-year-old Yakut-speaking female is a direct transfer, via ambulance, from [facility] to [facility] [place] [facility]. She has history of bipolar disorder, schizophrenia, marijuana, PCP, and cocaine/crack use (severe), multiple inpatient admissions and at least 2 section 35. She was evaluated at [facility] for being nonverbal at home following substance use. This provider and patient's social worker psychiatric found the patient lying in her bed. She is alert, opens and closes her eyes, moves her feet, but would not respond to this provider and social worker psychiatric. Patient advised to inform staff if she decides to engage in an interview with her social worker psychiatric and provider for admission. Hospital course: 01/13 patient appears catatonic, not talking much, not moving, sometimes walking around in a disorganized way; seems to be history of catatonia as well. Not sure if eating and drinking. Plumbing Inspector tried to discuss medications including Ativan however patient not engaging; Currently refusing all medications 01/14: continue current management and treatment plan. Encourage adherence. 01/15: continue current management and treatment plan. Encourage adherence. 01/16/25: Patient slept for 7 hours, was not compliant with medication or point of care, she is in bed most of the morning until she was thinking about signing the 3 days. She would not signed a 3 days until she talk to to social worker psychiatric. She said yes to anxiety and said a little when I asked about depression. Reports hearing voices when being asked, but not able to disclose to more details. She denies suicidal thoughts or thoughts of hurting other people. She was not sure where she stayed and who she stayed with before coming in here. This provider note the patient by history, that mom and sister concerned about her in the past. However, patient is guarded, do not give anymore information or consent to talk to the family member. Not able to assess for more details regarding substance use. Plan 15 minutes check. 3 day notice on . Current Ativan 1 mg QID.; She has not taking Ativan- only took total of 3 doses since 01/13.. I was her distribution center assistant in the past. She responded well when she takes risperidone. Therefore resume the order. Diagnostics as needed. Collateral contact. Continue remainder of regime. Encouraged full milieu. Discharge planning. Reason for continued inpatient stay Substantial Risk for: med/psych decompensation Time Spent With Patient Time: Total time managing care of this patient today ____ minutes.
[2025-01-17 08:29] LABS: Creatinine Clr Calc Pharmacy 148.3; Estimated Glomerular Filt Rate > 60
[2025-01-17 08:31] LABS: Anion Gap 14 (12-20); Blood Urea Nitrogen 12 mg/dL (9-16); Calcium 9.3 mg/dL (8.4-10.2); Carbon Dioxide 27 mmol/L (22-29); Chloride 101 mmol/L (96-108); Creatinine Clr Calc Pharmacy 156.0; Estimated Glomerular Filt Rate > 60; Potassium 4.0 mmol/L (3.3-5.1); Sodium 138 mmol/L (135-145)
--- NOTE | 2025-01-17 09:13 | P.PNPSI_ITS ---
Subjective Subjective Date of Service: 01/17/25 Reason For Visit: F31.2 Biopolar D/O manic; F143.20 Cocaine use raymond Subjective Notes: [place] Warning Interim History: met with patient; discussed with team; reviewed chart Patient difficult with which to engage, lying in bed, not talking much at all, intermittently opening eyes. On inquiry about why not taking medications, she She says she did took some pills today (her metformin and 1 dose of Ativan). Does not answer questions about SI, HI, AVH, depression, worries. She is eating and drinking and said that she will talk with physician underwriter tomorrow. Program Manager asked her about her 3 day notice and there is concern about discharging her if she is not able to answer questions...she said that she will talk with physician underwriter tomorrow. Program Manager talked with patient's sister who reports that was her regular, full functioning self few weeks until she relapsed. Sister says that whenever patient uses a lot she becomes like a zombie; she typically uses crack cocaine. Sister says she has been in numerous treatment facilities and on medication returns to full functioning, communicating and having normal discourse however as soon as he is discharged from any facility she relapses that day; sister reiterated that she has been stabilized numerous times with the same result. Sister said that despite her not talking and acting like a zombie she is typically able to function and reports that patient called their mother 2 days ago asking for phone number is of a friend. Says her diagnose says schizoaffective disorder, bipolar type, borderline personality disorder; denies ASD diagnosis Program Manager also discussed Case with Sarah who has had this patient at other facilities and thinks this might not be catatonia but rather selective mutism and the patient selects the times when she wants to be organized and talk; patient has a history of psychotic illness and catatonia however rarely takes medications during inpatient admissions and at some point just gets better and wants to go. Of note patient was organized enough to sign a 3 day notice. Mental Status Exam Mental Status Exam Narrative: Pt is alert and oriented; behavior is isolative, non- cooperative, calm, speaking very little; patient is not in distress; dressed in hospital attire, unkempt, hirsutism; mood is described as ill talk tomorrow and affect blunted; eye contact avoidant; Speech sparse, soft and quiet; psychomotor retardation present; thought process seems disorganized; Thought content not disclose; does not express any SI/HI. Patient appears internally preoccupied and responding to internal stimuli. Patients insight and judgment impaired Diagnostics Vital Signs (24Hr): Vital Signs - 24 hr 01/16/25 20:13 Temperature 97.2 F Pulse Rate 84 Respiratory Rate 16 Blood Pressure 123/71 Pulse Oximetry 99 Oxygen Delivery Method Room Air BMI result Body Mass Index 33.9 Labs 01/17/25 07:54 Labs: Laboratory Results - last 48 hr 01/17/25 01/17/25 01/17/25 07:54 07:54 07:54 Sodium 138 Potassium 4.0 Chloride 101 Carbon Dioxide 27 Anion Gap 14 BUN 12 Creatinine 0.58 0.61 Estim Creat Clear Calc 156.0 148.3 Estimated GFR > 60 Random Glucose Calcium 01/17/25 07:54 Sodium Potassium Chloride Carbon Dioxide Anion Gap BUN Creatinine Estim Creat Clear Calc Estimated GFR > 60 Random Glucose 140 H Calcium 9.3 Medications Medications Current Medications Acetaminophen (Acetaminophen 325 Mg Tablet) 650 mg PO Q6H PRN PRN Reason: Headache/Pain, Scale 1-10 Al Hydroxide/Mg Hydroxide (Magnesium Hydrox/Alum Hydrox 30 Ml Oral.Susp) 30 ml PO Q6H PRN PRN Reason: Heartburn/Nausea Hydroxyzine HCl (Hydroxyzine Hcl 25 Mg Tablet) 25 mg PO Q6H PRN PRN Reason: mild anxiety Insulin Human Lispro (Insulin Lispro 100 Unit/Ml 3 Ml Vial) 0 unit SUBCUT QIDACHS [facility]; Protocol Last Admin: 01/17/25 08:04 Dose: Not Given Lorazepam (Lorazepam 1 Mg Tablet) 1 mg PO QID [facility] Last Admin: 01/17/25 08:53 Dose: 1 mg Magnesium Hydroxide (Milk Of Magnesia 30 Ml Oral.Susp) 30 ml PO DAILY PRN PRN Reason: Constipation Metformin HCl (Metformin Hcl 500 Mg Tablet) 500 mg PO BIDWM [facility] Last Admin: 01/17/25 08:54 Dose: 500 mg Nicotine Polacrilex (Nicotine Polacrilex 2 Mg Gum) 2 mg BUCCAL Q2H PRN PRN Reason: Nicotine Cravings Olanzapine (Olanzapine 5 Mg Tablet) 5 mg PO Q4H PRN PRN Reason: psychosis/agitation Risperidone (Risperidone 1 Mg Tablet) 1 mg PO BID [facility] On Hold: 01/13/25 09:46 Last Admin: 01/13/25 09:02 Dose: Not Given Trazodone HCl (Trazodone Hcl 50 Mg Tablet) 50 mg PO BEDTIME MRX1 PRN PRN Reason: Insomnia Last Admin: 01/15/25 21:59 Dose: 50 mg Valacyclovir HCl (Valacyclovir Hcl 500 Mg Tablet) 500 mg PO DAILY M[facility]NICA Last Admin: 01/17/25 08:54 Dose: 500 mg Allergies Allergies Allergy/AdvReac Type Severity Reaction Status Date / Time blueberry Allergy Unknown Unknown Verified 01/11/25 21:20 Assessment & Plan Assessment & Plan (1) Schizoaffective disorder, bipolar type: Status: Acute Code(s): F25.0 - Schizoaffective disorder, bipolar type (2) Catatonia: Status: Acute Code(s): F06.1 - Catatonic disorder due to known physiological condition (3) Polysubstance use disorder: Status: Acute Code(s): F19.90 - Other psychoactive substance use, unspecified, uncomplicated (4) Cocaine abuse: Status: Acute Code(s): F14.10 - Cocaine abuse, uncomplicated Plan 34-year-old Estonian-speaking female is a direct transfer, via ambulance, from [facility] to [facility]. She has history of bipolar disorder, schizophrenia, marijuana, PCP, and cocaine/crack use (severe), multiple inpatient admissions and at least 2 section 35. She was evaluated at [facility] for being nonverbal at home following substance use. This provider and patient's vp digital marketing social media and crm found the patient lying in her bed. She is alert, opens and closes her eyes, moves her feet, but would not respond to this provider and vp digital marketing social media and crm. Patient advised to inform staff if she decides to engage in an interview with her vp digital marketing social media and crm and provider for admission. Hospital course: 01/13 patient appears catatonic, not talking much, not moving, sometimes walking around in a disorganized way; seems to be history of catatonia as well. Not sure if eating and drinking. Program Manager tried to discuss medications including Ativan however patient not engaging; Currently refusing all medications 01/14: continue current management and treatment plan. Encourage adherence. 01/15: continue current management and treatment plan. Encourage adherence. 01/16/25: Patient slept for 7 hours, was not compliant with medication or point of care, she is in bed most of the morning until she was thinking about signing the 3 days. She would not signed a 3 days until she talk to to vp digital marketing social media and crm. She said yes to anxiety and said a little when I asked about depression. Reports hearing voices when being asked, but not able to disclose to more details. She denies suicidal thoughts or thoughts of hurting other people. She was not sure where she stayed and who she stayed with before coming in here. This provider note the patient by history, that mom and sister concerned about her in the past. However, patient is guarded, do not give anymore information or consent to talk to the family member. Not able to assess for more details regarding substance use. 01/17 Patient difficult with which to engage, lying in bed, not talking much at all, intermittently opening eyes. On inquiry about why not taking medications, she She says she did took some pills today (her metformin and 1 dose of Ativan). Does not answer questions about SI, HI, AVH, depression, worries. She is eating and drinking and said that she will talk with physician underwriter tomorrow. Program Manager asked her about her 3 day notice and there is concern about discharging her if she is not able to answer questions...she said that she will talk with physician underwriter tomorrow. Collateral: Program Manager talked with patient's sister who reports that was her regular, full functioning self few weeks until she relapsed. Sister says that whenever patient uses a lot she becomes like a zombie; she typically uses crack cocaine. Sister says she has been in numerous treatment facilities and on medication returns to full functioning, communicating and having normal discourse however as soon as he is discharged from any facility she relapses that day; sister reiterated that she has been stabilized numerous times with the same result. Sister said that despite her not talking and acting like a zombie she is typically able to function and reports that patient called their mother 2 days ago asking for phone number is of a friend. Says her diagnose says schizoaffective disorder, bipolar type, borderline personality disorder; denies ASD diagnosis Program Manager also discussed Case with Sarah who has had this patient at other facilities and thinks this might not be catatonia but rather selective mutism and the patient selects the times when she wants to be organized and talk; patient has a history of psychotic illness and catatonia however rarely takes medications during inpatient admissions and at some point just gets better and wants to go. Of note patient was organized enough to sign a 3 day notice. Impression/clinical reasoning: Patient has psychotic illness that seems to respond to Risperdal; currently she has catatonic like symptoms and while she has a history of selective mutism/participation her symptoms are enough to warrant continued Ativan. Hopefully she will take it and can restart Risperdal Plan 15 minutes check. 3 day notice on . continue Ativan 1 mg QID Will restart Risperdal but will hold for now, hoping she will take Ativan Diagnostics as needed. Collateral contact. Continue remainder of regime. Encouraged full milieu. Discharge planning. Patient educated on: diagnosis and medication risk/benefits Informed Consent: understands, does not understand and further education needed Reason for continued inpatient stay Substantial Risk for: inability to function and rapid decompensation Time Spent With Patient Time: Total time managing care of this patient today ____ minutes.
--- NOTE | 2025-01-18 09:59 | P.PNPSI_ITS ---
Subjective Subjective Date of Service: 01/18/25 Reason For Visit: F31.2 Biopolar D/O manic; F143.20 Cocaine use raymond Interim History: met with patient; discussed with team Patient a little more talkative today hand out and about in the milieu more, eating and drinking and sitting with peers though keeping to herself and remains internally preoccupied. Patient told senior mortgage underwriter that she had a hard time talking because she was in her slumber. She seems to say show take medications and did take some doses; she also agreed to retract her 3 day notice and was able to discuss how much longer senior mortgage underwriter thought she should stay. Throughout conversation patient continuing to struggle with internal preoccupation and thought blocking. Patient refusing point of cares to check blood sugar. Control Clerk Repairs can not find hx of scripts for insulin; she's been mostly refusing POC (the few times has allowed <200). Will HOLD sliding scale/POC's for now. Ordered HBA1C (and lipids) Mental Status Exam Mental Status Exam Narrative: Pt is alert and oriented; behavior is in the milieu, sitting with peers though not talking, laughing inappropriately and remains internally preoccupied but a little more talkative with provider; patient is not in distress; dressed in hospital attire, unkempt, hirsutism; mood is described as blunted and affect a little more expressive but smiling inappropriately; eye contact remains avoidant; Speech sparse, soft and quiet; less psychomotor retardation present; thought process can be goal oriented but also quickly becomes disorganized; Thought content not disclosed; does not express any SI/HI. Patient appears internally preoccupied and responding to internal stimuli. Patients insight and judgment impaired Diagnostics Vital Signs (24Hr): BMI result Body Mass Index 33.9 Labs 01/17/25 07:54 Labs: Laboratory Results - last 48 hr 01/17/25 01/17/25 01/17/25 07:54 07:54 07:54 Sodium 138 Potassium 4.0 Chloride 101 Carbon Dioxide 27 Anion Gap 14 BUN 12 Creatinine 0.58 0.61 Estim Creat Clear Calc 156.0 148.3 Estimated GFR > 60 Random Glucose Calcium 01/17/25 07:54 Sodium Potassium Chloride Carbon Dioxide Anion Gap BUN Creatinine Estim Creat Clear Calc Estimated GFR > 60 Random Glucose 140 H Calcium 9.3 Medications Medications Current Medications Acetaminophen (Acetaminophen 325 Mg Tablet) 650 mg PO Q6H PRN PRN Reason: Headache/Pain, Scale 1-10 Al Hydroxide/Mg Hydroxide (Magnesium Hydrox/Alum Hydrox 30 Ml Oral.Susp) 30 ml PO Q6H PRN PRN Reason: Heartburn/Nausea Hydroxyzine HCl (Hydroxyzine Hcl 25 Mg Tablet) 25 mg PO Q6H PRN PRN Reason: mild anxiety Insulin Human Lispro (Insulin Lispro 100 Unit/Ml 3 Ml Vial) 0 unit SUBCUT QIDACHS [facility]; Protocol Last Admin: 01/18/25 09:28 Dose: Not Given Lorazepam (Lorazepam 1 Mg Tablet) 1 mg PO QID [facility] Last Admin: 01/18/25 09:45 Dose: Not Given Magnesium Hydroxide (Milk Of Magnesia 30 Ml Oral.Susp) 30 ml PO DAILY PRN PRN Reason: Constipation Metformin HCl (Metformin Hcl 500 Mg Tablet) 500 mg PO BIDWM [facility] Last Admin: 01/18/25 08:05 Dose: 500 mg Nicotine Polacrilex (Nicotine Polacrilex 2 Mg Gum) 2 mg BUCCAL Q2H PRN PRN Reason: Nicotine Cravings Olanzapine (Olanzapine 5 Mg Tablet) 5 mg PO Q4H PRN PRN Reason: psychosis/agitation Risperidone (Risperidone 1 Mg Tablet) 1 mg PO BID [facility] On Hold: 01/13/25 09:46 Last Admin: 01/13/25 09:02 Dose: Not Given Trazodone HCl (Trazodone Hcl 50 Mg Tablet) 50 mg PO BEDTIME MRX1 PRN PRN Reason: Insomnia Last Admin: 01/17/25 20:50 Dose: 50 mg Valacyclovir HCl (Valacyclovir Hcl 500 Mg Tablet) 500 mg PO DAILY [facility] Last Admin: 01/18/25 08:05 Dose: 500 mg Allergies Allergies Allergy/AdvReac Type Severity Reaction Status Date / Time blueberry Allergy Unknown Unknown Verified 01/11/25 21:20 Assessment & Plan Assessment & Plan (1) Schizoaffective disorder, bipolar type: Status: Acute Code(s): F25.0 - Schizoaffective disorder, bipolar type (2) Catatonia: Status: Acute Code(s): F06.1 - Catatonic disorder due to known physiological condition (3) Polysubstance use disorder: Status: Acute Code(s): F19.90 - Other psychoactive substance use, unspecified, uncomplicated (4) Cocaine abuse: Status: Acute Code(s): F14.10 - Cocaine abuse, uncomplicated Plan 34-year-old Fijian-speaking female is a direct transfer, via ambulance, from [facility] to [facility]. She has history of bipolar disorder, schizophrenia, marijuana, PCP, and cocaine/crack use (severe), multiple inpatient admissions and at least 2 section 35. She was evaluated at [facility] for being nonverbal at home following substance use. This provider and patient's social services assistant found the patient lying in her bed. She is alert, opens and closes her eyes, moves her feet, but would not respond to this provider and social services assistant. Patient advised to inform staff if she decides to engage in an interview with her social services assistant and provider for admission. Hospital course: 01/13 patient appears catatonic, not talking much, not moving, sometimes walking around in a disorganized way; seems to be history of catatonia as well. Not sure if eating and drinking. Control Clerk Repairs tried to discuss medications including Ativan however patient not engaging; Currently refusing all medications 01/14: continue current management and treatment plan. Encourage adherence. 01/15: continue current management and treatment plan. Encourage adherence. 01/16/25: Patient slept for 7 hours, was not compliant with medication or point of care, she is in bed most of the morning until she was thinking about signing the 3 days. She would not signed a 3 days until she talk to to social services assistant. She said yes to anxiety and said a little when I asked about depression. Reports hearing voices when being asked, but not able to disclose to more details. She denies suicidal thoughts or thoughts of hurting other people. She was not sure where she stayed and who she stayed with before coming in here. This provider note the patient by history, that mom and sister concerned about her in the past. However, patient is guarded, do not give anymore information or consent to talk to the family member. Not able to assess for more details regarding substance use. 01/17 Patient difficult with which to engage, lying in bed, not talking much at all, intermittently opening eyes. On inquiry about why not taking medications, she She says she did took some pills today (her metformin and 1 dose of Ativan). Does not answer questions about SI, HI, AVH, depression, worries. She is eating and drinking and said that she will talk with senior mortgage underwriter tomorrow. Control Clerk Repairs asked her about her 3 day notice and there is concern about discharging her if she is not able to answer questions...she said that she will talk with senior mortgage underwriter tomorrow. Collateral: Control Clerk Repairs talked with patient's sister who reports that was her regular, full functioning self few weeks until she relapsed. Sister says that whenever patient uses a lot she becomes like a zombie; she typically uses crack cocaine. Sister says she has been in numerous treatment facilities and on medication returns to full functioning, communicating and having normal discourse however as soon as he is discharged from any facility she relapses that day; sister reiterated that she has been stabilized numerous times with the same result. Sister said that despite her not talking and acting like a zombie she is typically able to function and reports that patient called their mother 2 days ago asking for phone number is of a friend. Says her diagnose says schizoaffective disorder, bipolar type, borderline personality disorder; denies ASD diagnosis -Control Clerk Repairs also discussed Case with Sarah who has had this patient at other facilities and thinks this might not be catatonia but rather selective mutism and the patient selects the times when she wants to be organized and talk; patient has a history of psychotic illness and catatonia however rarely takes medications during inpatient admissions and at some point just gets better and wants to go. -Of note patient was organized enough to sign a 3 day notice. 01/18 Patient a little more talkative today hand out and about in the milieu more, eating and drinking and sitting with peers though keeping to herself and remains internally preoccupied. Patient told senior mortgage underwriter that she had a hard time talking because she was in her slumber. She seems to say show take medications and did take some doses; she also agreed to retract her 3 day notice and was able to discuss how much longer senior mortgage underwriter thought she should stay. Throughout conversation patient continuing to struggle with internal preoccupation and thought blocking. Patient refusing point of cares to check blood sugar. Control Clerk Repairs can not find hx of scripts for insulin; she's been mostly refusing POC (the few times has allowed <200). Will HOLD sliding scale/POC's for now. 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 She has agreed to restart risperidone but has often refused Plan 15 minutes check. CV continue Ativan 1 mg QID Restart Risperdal 1 mg b.i.d. Diagnostics as needed. Collateral contact. Continue remainder of regime. Encouraged full milieu. Discharge planning. Patient educated on: diagnosis and medication risk/benefits Informed Consent: understands, does not understand and further education needed Reason for continued inpatient stay Substantial Risk for: rapid decompensation Time Spent With Patient Time: Total time managing care of this patient today ____ minutes.
[2025-01-18 20:00] VITALS: BP 129/78; PULSE 91; RESP 16; TEMP 36.6; O2SAT 96
--- NOTE | 2025-01-19 09:45 | HO.PSYCHPN ---
Subjective Subjective Date of Service: 01/19/25 Reason For Visit: F31.2 Biopolar D/O manic; F143.20 Cocaine use raymond Interim History: Met with patient; discussed with team Patient again not talking, isolating and mostly stayed in bed; eating and drinking without problems but refusing medication and remains very internally preoccupied with significant thought blocking. Not answering questions Mental Status Exam Mental Status Exam Narrative: Pt is alert and oriented; behavior is isolative, non-cooperative, calm, internally preoccupied, sometimes smiling or laughing inappropriately; speaking very little; patient is not in distress; dressed in hospital attire, unkempt, hirsutism; mood is described as blunted and affect blunted; eye contact avoidant; Speech sparse, soft and quiet; psychomotor retardation present; thought process marred by significant thought blocking; can be goal oriented but quickly becomes disorganized; Thought content not disclosed; does not express any SI/HI. Patient internally preoccupied and responding to internal stimuli. Patients insight and judgment impaired Diagnostics Vital Signs (24Hr): Vital Signs - 24 hr 01/18/25 20:00 Temperature 97.9 F Pulse Rate 91 Respiratory Rate 16 Blood Pressure 129/78 Pulse Oximetry 96 Oxygen Delivery Method Room Air BMI result Body Mass Index 33.9 Labs 01/17/25 07:54 Medications Medications Current Medications Acetaminophen (Acetaminophen 325 Mg Tablet) 650 mg PO Q6H PRN PRN Reason: Headache/Pain, Scale 1-10 Al Hydroxide/Mg Hydroxide (Magnesium Hydrox/Alum Hydrox 30 Ml Oral.Susp) 30 ml PO Q6H PRN PRN Reason: Heartburn/Nausea Hydroxyzine HCl (Hydroxyzine Hcl 25 Mg Tablet) 25 mg PO Q6H PRN PRN Reason: mild anxiety Insulin Human Lispro (Insulin Lispro 100 Unit/Ml 3 Ml Vial) 0 unit SUBCUT QIDACHS [facility]; Protocol On Hold: 01/18/25 09:59 Last Admin: 01/18/25 09:28 Dose: Not Given Lorazepam (Lorazepam 1 Mg Tablet) 1 mg PO QID [facility] Last Admin: 01/19/25 09:36 Dose: Not Given Magnesium Hydroxide (Milk Of Magnesia 30 Ml Oral.Susp) 30 ml PO DAILY PRN PRN Reason: Constipation Metformin HCl (Metformin Hcl 500 Mg Tablet) 500 mg PO BIDWM [facility] Last Admin: 01/19/25 09:36 Dose: Not Given Nicotine Polacrilex (Nicotine Polacrilex 2 Mg Gum) 2 mg BUCCAL Q2H PRN PRN Reason: Nicotine Cravings Olanzapine (Olanzapine 5 Mg Tablet) 5 mg PO Q4H PRN PRN Reason: psychosis/agitation Risperidone (Risperidone 1 Mg Tablet) 1 mg PO BID [facility] Last Admin: 01/19/25 09:36 Dose: Not Given Trazodone HCl (Trazodone Hcl 50 Mg Tablet) 50 mg PO BEDTIME MRX1 PRN PRN Reason: Insomnia Last Admin: 01/17/25 20:50 Dose: 50 mg Valacyclovir HCl (Valacyclovir Hcl 500 Mg Tablet) 500 mg PO DAILY [facility] Last Admin: 01/19/25 09:37 Dose: Not Given Allergies Allergies Allergy/AdvReac Type Severity Reaction Status Date / Time blueberry Allergy Unknown Unknown Verified 01/11/25 21:20 Assessment & Plan Assessment & Plan (1) Schizoaffective disorder, bipolar type: Status: Acute Code(s): F25.0 - Schizoaffective disorder, bipolar type (2) Catatonia: Status: Acute Code(s): F06.1 - Catatonic disorder due to known physiological condition (3) Polysubstance use disorder: Status: Acute Code(s): F19.90 - Other psychoactive substance use, unspecified, uncomplicated (4) Cocaine abuse: Status: Acute Code(s): F14.10 - Cocaine abuse, uncomplicated Plan 34-year-old Northern Irish-speaking female is a direct transfer, via ambulance, from [facility] to [facility]. She has history of bipolar disorder, schizophrenia, marijuana, PCP, and cocaine/crack use (severe), multiple inpatient admissions and at least 2 section 35. She was evaluated at [facility] for being nonverbal at home following substance use. This provider and patient's social media marketing analyst found the patient lying in her bed. She is alert, opens and closes her eyes, moves her feet, but would not respond to this provider and social media marketing analyst. Patient advised to inform staff if she decides to engage in an interview with her social media marketing analyst and provider for admission. Hospital course: 01/13 patient appears catatonic, not talking much, not moving, sometimes walking around in a disorganized way; seems to be history of catatonia as well. Not sure if eating and drinking. Fuel Attendant tried to discuss medications including Ativan however patient not engaging; Currently refusing all medications 01/14: continue current management and treatment plan. Encourage adherence. 01/15: continue current management and treatment plan. Encourage adherence. 01/16/25: Patient slept for 7 hours, was not compliant with medication or point of care, she is in bed most of the morning until she was thinking about signing the 3 days. She would not signed a 3 days until she talk to to social media marketing analyst. She said yes to anxiety and said a little when I asked about depression. Reports hearing voices when being asked, but not able to disclose to more details. She denies suicidal thoughts or thoughts of hurting other people. She was not sure where she stayed and who she stayed with before coming in here. This provider note the patient by history, that mom and sister concerned about her in the past. However, patient is guarded, do not give anymore information or consent to talk to the family member. Not able to assess for more details regarding substance use. 01/17 Patient difficult with which to engage, lying in bed, not talking much at all, intermittently opening eyes. On inquiry about why not taking medications, she She says she did took some pills today (her metformin and 1 dose of Ativan). Does not answer questions about SI, HI, AVH, depression, worries. She is eating and drinking and said that she will talk with underwriter solicitation director tomorrow. Fuel Attendant asked her about her 3 day notice and there is concern about discharging her if she is not able to answer questions...she said that she will talk with underwriter solicitation director tomorrow. Collateral: Fuel Attendant talked with patient's sister who reports that was her regular, full functioning self few weeks until she relapsed. Sister says that whenever patient uses a lot she becomes like a zombie; she typically uses crack cocaine. Sister says she has been in numerous treatment facilities and on medication returns to full functioning, communicating and having normal discourse however as soon as he is discharged from any facility she relapses that day; sister reiterated that she has been stabilized numerous times with the same result. Sister said that despite her not talking and acting like a zombie she is typically able to function and reports that patient called their mother 2 days ago asking for phone number is of a friend. Says her diagnose says schizoaffective disorder, bipolar type, borderline personality disorder; denies ASD diagnosis -Fuel Attendant also discussed Case with Sarah who has had this patient at other facilities and thinks this might not be catatonia but rather selective mutism and the patient selects the times when she wants to be organized and talk; patient has a history of psychotic illness and catatonia however rarely takes medications during inpatient admissions and at some point just gets better and wants to go. -Of note patient was organized enough to sign a 3 day notice. 01/18 Patient a little more talkative today hand out and about in the milieu more, eating and drinking and sitting with peers though keeping to herself and remains internally preoccupied. Patient told underwriter solicitation director that she had a hard time talking because she was in her slumber. She seems to say show take medications and did take some doses; she also agreed to retract her 3 day notice and was able to discuss how much longer underwriter solicitation director thought she should stay. Throughout conversation patient continuing to struggle with internal preoccupation and thought blocking. -Patient refusing point of cares to check blood sugar. Fuel Attendant can not find hx of scripts for insulin; she's been mostly refusing POC (the few times has allowed <200). Will HOLD sliding scale/POC's for now. Ordered HBA1C (and lipids) 01/19 Patient again not talking, isolating and mostly stayed in bed; eating and drinking without problems but refusing medication and remains very internally preoccupied with significant thought blocking. Not answering questions Impression/clinical reasoning: Patient has psychotic illness that in the past has seemed to respond to Risperdal; currently she has catatonic like symptoms and while she has a history of selective mutism/participation her symptoms are enough to warrant continued Ativan. She has agreed to restart risperidone but has often refused Plan 15 minutes check. CV continue Ativan 1 mg QID for catatonic like symptoms Increased Risperdal to 1 mg q.i.d. since she has been refusing and hoping that multiple offers will result in patient taking adequate dose Patient refused labs including hemoglobin A1c and lipid panel with several attempts Diagnostics as needed. Collateral contact. Continue remainder of regime. Encouraged full milieu. Discharge planning. Patient educated on: diagnosis and medication risk/benefits Informed Consent: does not understand Reason for continued inpatient stay Substantial Risk for: inability to function Time Spent With Patient Time: Total time managing care of this patient today ____ minutes.
[2025-01-20 08:00] VITALS: BP 99/54; PULSE 77; TEMP 36.4
--- NOTE | 2025-01-20 18:14 | HO.PSYCHPN ---
Subjective Subjective Date of Service: 01/20/25 Reason For Visit: F31.2 Biopolar D/O manic; F143.20 Cocaine use raymond Interim History: Met with patient; discussed with team Patient remains isolative, lying in bed, not talking and continually responding to internal stimuli. Continues to refuse labs. Sometimes patient will go to groups but does not talk and needs cues for her to transition. Mental Status Exam Mental Status Exam Narrative: Pt is alert and oriented; behavior is isolative, non-cooperative, calm, internally preoccupied, sometimes smiling or laughing inappropriately; speaking very little; patient is not in distress; dressed in hospital attire, unkempt, hirsutism; mood is described as blunted and affect blunted; eye contact avoidant; Speech sparse, soft and quiet; psychomotor retardation present; thought process marred by significant thought blocking; can be goal oriented but quickly becomes disorganized; Thought content not disclosed; does not express any SI/HI. Patient internally preoccupied and responding to internal stimuli. Patients insight and judgment impaired Diagnostics Vital Signs (24Hr): Vital Signs - 24 hr 01/20/25 08:00 Temperature 97.5 F Pulse Rate 77 Blood Pressure 99/54 L Oxygen Delivery Method Room Air BMI result Body Mass Index 33.9 Labs 01/17/25 07:54 Medications Medications Current Medications Acetaminophen (Acetaminophen 325 Mg Tablet) 650 mg PO Q6H PRN PRN Reason: Headache/Pain, Scale 1-10 Al Hydroxide/Mg Hydroxide (Magnesium Hydrox/Alum Hydrox 30 Ml Oral.Susp) 30 ml PO Q6H PRN PRN Reason: Heartburn/Nausea Hydroxyzine HCl (Hydroxyzine Hcl 25 Mg Tablet) 25 mg PO Q6H PRN PRN Reason: mild anxiety Insulin Human Lispro (Insulin Lispro 100 Unit/Ml 3 Ml Vial) 0 unit SUBCUT QIDACHS [facility]; Protocol On Hold: 01/18/25 09:59 Last Admin: 01/18/25 09:28 Dose: Not Given Lorazepam (Lorazepam 1 Mg Tablet) 1 mg PO QID [facility] Last Admin: 01/20/25 12:29 Dose: Not Given Magnesium Hydroxide (Milk Of Magnesia 30 Ml Oral.Susp) 30 ml PO DAILY PRN PRN Reason: Constipation Metformin HCl (Metformin Hcl 500 Mg Tablet) 500 mg PO BIDWM [facility] Last Admin: 01/20/25 08:55 Dose: 500 mg Nicotine Polacrilex (Nicotine Polacrilex 2 Mg Gum) 2 mg BUCCAL Q2H PRN PRN Reason: Nicotine Cravings Olanzapine (Olanzapine 5 Mg Tablet) 5 mg PO Q4H PRN PRN Reason: psychosis/agitation Risperidone (Risperidone 1 Mg Tablet) 1 mg PO QID [facility] Last Admin: 01/20/25 12:29 Dose: Not Given Trazodone HCl (Trazodone Hcl 50 Mg Tablet) 50 mg PO BEDTIME MRX1 PRN PRN Reason: Insomnia Last Admin: 01/17/25 20:50 Dose: 50 mg Valacyclovir HCl (Valacyclovir Hcl 500 Mg Tablet) 500 mg PO DAILY [facility] Last Admin: 01/20/25 08:55 Dose: 500 mg Allergies Allergies Allergy/AdvReac Type Severity Reaction Status Date / Time blueberry Allergy Unknown Unknown Verified 01/11/25 21:20 Assessment & Plan Assessment & Plan (1) Schizoaffective disorder, bipolar type: Status: Acute Code(s): F25.0 - Schizoaffective disorder, bipolar type (2) Catatonia: Status: Acute Code(s): F06.1 - Catatonic disorder due to known physiological condition (3) Polysubstance use disorder: Status: Acute Code(s): F19.90 - Other psychoactive substance use, unspecified, uncomplicated (4) Cocaine abuse: Status: Acute Code(s): F14.10 - Cocaine abuse, uncomplicated Plan 34-year-old French-speaking female is a direct transfer, via ambulance, from [facility] to [facility]. She has history of bipolar disorder, schizophrenia, marijuana, PCP, and cocaine/crack use (severe), multiple inpatient admissions and at least 2 section 35. She was evaluated at [facility] for being nonverbal at home following substance use. This provider and patient's foster care social worker found the patient lying in her bed. She is alert, opens and closes her eyes, moves her feet, but would not respond to this provider and foster care social worker. Patient advised to inform staff if she decides to engage in an interview with her foster care social worker and provider for admission. Hospital course: 01/13 patient appears catatonic, not talking much, not moving, sometimes walking around in a disorganized way; seems to be history of catatonia as well. Not sure if eating and drinking. Balancer tried to discuss medications including Ativan however patient not engaging; Currently refusing all medications 01/14: continue current management and treatment plan. Encourage adherence. 01/15: continue current management and treatment plan. Encourage adherence. 01/16/25: Patient slept for 7 hours, was not compliant with medication or point of care, she is in bed most of the morning until she was thinking about signing the 3 days. She would not signed a 3 days until she talk to to foster care social worker. She said yes to anxiety and said a little when I asked about depression. Reports hearing voices when being asked, but not able to disclose to more details. She denies suicidal thoughts or thoughts of hurting other people. She was not sure where she stayed and who she stayed with before coming in here. This provider note the patient by history, that mom and sister concerned about her in the past. However, patient is guarded, do not give anymore information or consent to talk to the family member. Not able to assess for more details regarding substance use. 01/17 Patient difficult with which to engage, lying in bed, not talking much at all, intermittently opening eyes. On inquiry about why not taking medications, she She says she did took some pills today (her metformin and 1 dose of Ativan). Does not answer questions about SI, HI, AVH, depression, worries. She is eating and drinking and said that she will talk with underwriter tomorrow. Balancer asked her about her 3 day notice and there is concern about discharging her if she is not able to answer questions...she said that she will talk with underwriter tomorrow. Collateral: Balancer talked with patient's sister who reports that was her regular, full functioning self few weeks until she relapsed. Sister says that whenever patient uses a lot she becomes like a zombie; she typically uses crack cocaine. Sister says she has been in numerous treatment facilities and on medication returns to full functioning, communicating and having normal discourse however as soon as he is discharged from any facility she relapses that day; sister reiterated that she has been stabilized numerous times with the same result. Sister said that despite her not talking and acting like a zombie she is typically able to function and reports that patient called their mother 2 days ago asking for phone number is of a friend. Says her diagnose says schizoaffective disorder, bipolar type, borderline personality disorder; denies ASD diagnosis -Balancer also discussed Case with Sarah who has had this patient at other facilities and thinks this might not be catatonia but rather selective mutism and the patient selects the times when she wants to be organized and talk; patient has a history of psychotic illness and catatonia however rarely takes medications during inpatient admissions and at some point just gets better and wants to go. -Of note patient was organized enough to sign a 3 day notice. 01/18 Patient a little more talkative today hand out and about in the milieu more, eating and drinking and sitting with peers though keeping to herself and remains internally preoccupied. Patient told underwriter that she had a hard time talking because she was in her slumber. She seems to say show take medications and did take some doses; she also agreed to retract her 3 day notice and was able to discuss how much longer underwriter thought she should stay. Throughout conversation patient continuing to struggle with internal preoccupation and thought blocking. -Patient refusing point of cares to check blood sugar. Balancer can not find hx of scripts for insulin; she's been mostly refusing POC (the few times has allowed <200). Will HOLD sliding scale/POC's for now. 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 She has agreed to restart risperidone but has often refused 01/19 Patient again not talking, isolating and mostly stayed in bed; eating and drinking without problems but refusing medication and remains very internally preoccupied with significant thought blocking. Not answering questions 01/20 Patient remains isolative, lying in bed, not talking and continually responding to internal stimuli. Continues to refuse labs. Sometimes patient will go to groups but does not talk and needs cues for her to transition. Impression/clinical reasoning: Patient remained psychotic, internally preoccupied and with catatonic symptoms. Refusing treatments, refusing medication. At this time patient can not be discharge safely as there is no indication she can take care of herself in the community; she could not get herself home and if discharge would wander aimlessly, vulnerable to predation; patient is to severely internally preoccupied that she can not even say she wants to discharge or answer questions. Will continue offering medications for both catatonia and psychosis; however if patient is not engaged in treatment, will strongly consider rescinding CV and filing for involuntary commitment Plan 15 minutes check. CV continue Ativan 1 mg QID for catatonic like symptoms Increased Risperdal to 1 mg q.i.d. since she has been refusing and hoping that multiple offers will result in patient taking adequate dose Patient refused labs including hemoglobin A1c and lipid panel with several attempts Diagnostics as needed. Collateral contact. Continue remainder of regime. Encouraged full milieu. Discharge planning. Patient educated on: diagnosis and medication risk/benefits Informed Consent: does not understand Reason for continued inpatient stay Substantial Risk for: inability to function Time Spent With Patient Time: Total time managing care of this patient today ____ minutes.
[2025-01-20 19:45] VITALS: BP 132/69; PULSE 84; RESP 15; TEMP 36.7; O2SAT 96
--- NOTE | 2025-01-21 09:44 | HO.PSYCHPN ---
Subjective Subjective Date of Service: 01/21/25 Reason For Visit: F31.2 Biopolar D/O manic; F143.20 Cocaine use raymond Interim History: met with patient; discussed with team No change in presentation; remains very difficult with which to engage, not answering questions very much. She did say she is all right and denied AH though she remains internally preoccupied thought blocking. Tried to discuss reasons for refusing medications but patient would not answer; patient eating and drinking Mental Status Exam Mental Status Exam Narrative: Pt is alert and oriented; behavior is isolative, non-cooperative, calm, internally preoccupied, sometimes smiling or laughing inappropriately; speaking very little; patient is not in distress; dressed in hospital attire, unkempt, hirsutism; mood is described as alright though affect blunted; eye contact avoidant; Speech sparse, soft and quiet; psychomotor retardation present; thought process marred by significant thought blocking; can be goal oriented but quickly becomes disorganized; Thought content not disclosed; does not express any SI/HI. Patient internally preoccupied and responding to internal stimuli. Patients insight and judgment impaired Diagnostics Vital Signs (24Hr): Vital Signs - 24 hr 01/20/25 19:45 Temperature 98.1 F Pulse Rate 84 Respiratory Rate 15 Blood Pressure 132/69 Pulse Oximetry 96 BMI result Body Mass Index 33.9 Labs 01/17/25 07:54 Medications Medications Current Medications Acetaminophen (Acetaminophen 325 Mg Tablet) 650 mg PO Q6H PRN PRN Reason: Headache/Pain, Scale 1-10 Al Hydroxide/Mg Hydroxide (Magnesium Hydrox/Alum Hydrox 30 Ml Oral.Susp) 30 ml PO Q6H PRN PRN Reason: Heartburn/Nausea Hydroxyzine HCl (Hydroxyzine Hcl 25 Mg Tablet) 25 mg PO Q6H PRN PRN Reason: mild anxiety Insulin Human Lispro (Insulin Lispro 100 Unit/Ml 3 Ml Vial) 0 unit SUBCUT QIDACHS [facility]; Protocol On Hold: 01/18/25 09:59 Last Admin: 01/18/25 09:28 Dose: Not Given Lorazepam (Lorazepam 1 Mg Tablet) 1 mg PO QID [facility] Last Admin: 01/21/25 09:26 Dose: Not Given Magnesium Hydroxide (Milk Of Magnesia 30 Ml Oral.Susp) 30 ml PO DAILY PRN PRN Reason: Constipation Metformin HCl (Metformin Hcl 500 Mg Tablet) 500 mg PO BIDWM [facility] Last Admin: 01/21/25 09:26 Dose: Not Given Nicotine Polacrilex (Nicotine Polacrilex 2 Mg Gum) 2 mg BUCCAL Q2H PRN PRN Reason: Nicotine Cravings Olanzapine (Olanzapine 5 Mg Tablet) 5 mg PO Q4H PRN PRN Reason: psychosis/agitation Risperidone (Risperidone 1 Mg Tablet) 1 mg PO QID [facility] Last Admin: 01/21/25 09:26 Dose: Not Given Trazodone HCl (Trazodone Hcl 50 Mg Tablet) 50 mg PO BEDTIME MRX1 PRN PRN Reason: Insomnia Last Admin: 01/17/25 20:50 Dose: 50 mg Valacyclovir HCl (Valacyclovir Hcl 500 Mg Tablet) 500 mg PO DAILY [facility] Last Admin: 01/21/25 09:26 Dose: Not Given Allergies Allergies Allergy/AdvReac Type Severity Reaction Status Date / Time blueberry Allergy Unknown Unknown Verified 01/11/25 21:20 Assessment & Plan Assessment & Plan (1) Schizoaffective disorder, bipolar type: Status: Acute Code(s): F25.0 - Schizoaffective disorder, bipolar type (2) Catatonia: Status: Acute Code(s): F06.1 - Catatonic disorder due to known physiological condition (3) Polysubstance use disorder: Status: Acute Code(s): F19.90 - Other psychoactive substance use, unspecified, uncomplicated (4) Cocaine abuse: Status: Acute Code(s): F14.10 - Cocaine abuse, uncomplicated Plan 34-year-old Occitan-speaking female is a direct transfer, via ambulance, from [facility] to [facility]. She has history of bipolar disorder, schizophrenia, marijuana, PCP, and cocaine/crack use (severe), multiple inpatient admissions and at least 2 section 35. She was evaluated at [facility] for being nonverbal at home following substance use. This provider and patient's social media project manager found the patient lying in her bed. She is alert, opens and closes her eyes, moves her feet, but would not respond to this provider and social media project manager. Patient advised to inform staff if she decides to engage in an interview with her social media project manager and provider for admission. Hospital course: 01/13 patient appears catatonic, not talking much, not moving, sometimes walking around in a disorganized way; seems to be history of catatonia as well. Not sure if eating and drinking. Battery Inspector tried to discuss medications including Ativan however patient not engaging; Currently refusing all medications 01/14: continue current management and treatment plan. Encourage adherence. 01/15: continue current management and treatment plan. Encourage adherence. 01/16/25: Patient slept for 7 hours, was not compliant with medication or point of care, she is in bed most of the morning until she was thinking about signing the 3 days. She would not signed a 3 days until she talk to to social media project manager. She said yes to anxiety and said a little when I asked about depression. Reports hearing voices when being asked, but not able to disclose to more details. She denies suicidal thoughts or thoughts of hurting other people. She was not sure where she stayed and who she stayed with before coming in here. This provider note the patient by history, that mom and sister concerned about her in the past. However, patient is guarded, do not give anymore information or consent to talk to the family member. Not able to assess for more details regarding substance use. 01/17 Patient difficult with which to engage, lying in bed, not talking much at all, intermittently opening eyes. On inquiry about why not taking medications, she She says she did took some pills today (her metformin and 1 dose of Ativan). Does not answer questions about SI, HI, AVH, depression, worries. She is eating and drinking and said that she will talk with short story writer tomorrow. Battery Inspector asked her about her 3 day notice and there is concern about discharging her if she is not able to answer questions...she said that she will talk with short story writer tomorrow. Collateral: Battery Inspector talked with patient's sister who reports that was her regular, full functioning self few weeks until she relapsed. Sister says that whenever patient uses a lot she becomes like a zombie; she typically uses crack cocaine. Sister says she has been in numerous treatment facilities and on medication returns to full functioning, communicating and having normal discourse however as soon as he is discharged from any facility she relapses that day; sister reiterated that she has been stabilized numerous times with the same result. Sister said that despite her not talking and acting like a zombie she is typically able to function and reports that patient called their mother 2 days ago asking for phone number is of a friend. Says her diagnose says schizoaffective disorder, bipolar type, borderline personality disorder; denies ASD diagnosis -Battery Inspector also discussed Case with Sarah who has had this patient at other facilities and thinks this might not be catatonia but rather selective mutism and the patient selects the times when she wants to be organized and talk; patient has a history of psychotic illness and catatonia however rarely takes medications during inpatient admissions and at some point just gets better and wants to go. -Of note patient was organized enough to sign a 3 day notice. 01/18 Patient a little more talkative today hand out and about in the milieu more, eating and drinking and sitting with peers though keeping to herself and remains internally preoccupied. Patient told short story writer that she had a hard time talking because she was in her slumber. She seems to say show take medications and did take some doses; she also agreed to retract her 3 day notice and was able to discuss how much longer short story writer thought she should stay. Throughout conversation patient continuing to struggle with internal preoccupation and thought blocking. -Patient refusing point of cares to check blood sugar. Battery Inspector can not find hx of scripts for insulin; she's been mostly refusing POC (the few times has allowed <200). Will HOLD sliding scale/POC's for now. 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 She has agreed to restart risperidone but has often refused 01/19 Patient again not talking, isolating and mostly stayed in bed; eating and drinking without problems but refusing medication and remains very internally preoccupied with significant thought blocking. Not answering questions 01/20 Patient remains isolative, lying in bed, not talking and continually responding to internal stimuli. Continues to refuse labs. Sometimes patient will go to groups but does not talk and needs cues for her to transition. 01/21 No change in presentation; remains very difficult with which to engage, not answering questions very much. She did say she is all right and denied AH though she remains internally preoccupied thought blocking. Tried to discuss reasons for refusing medications but patient would not answer; patient eating and drinking -sometimes takes medications but mostly refuses; changed Risperdal to 2 mg b.i.d. (so if she takes it she gets at least 2 mg) Impression/clinical reasoning: Patient remained psychotic, internally preoccupied and with catatonic symptoms. Refusing treatments, refusing medication. At this time patient can not be discharge safely as there is no indication she can take care of herself in the community; she could not get herself home and if discharge would wander aimlessly, vulnerable to predation; patient is to severely internally preoccupied that she can not even say she wants to discharge or answer questions. Will continue offering medications for both catatonia and psychosis; however if patient is not engaged in treatment, will strongly consider rescinding CV and filing for involuntary commitment Plan 15 minutes check. CV continue Ativan 1 mg QID for catatonic like symptoms Change Risperdal to 2 mg b.i.d. since she has been refusing and hoping that multiple offers will result in patient taking adequate dose Patient refused labs including hemoglobin A1c and lipid panel with several attempts Diagnostics as needed. Collateral contact. Continue remainder of regime. Encouraged full milieu. Discharge planning. Patient educated on: diagnosis and medication risk/benefits Informed Consent: does not understand Reason for continued inpatient stay Substantial Risk for: inability to function Time Spent With Patient Time: Total time managing care of this patient today ____ minutes.
[2025-01-21 19:56] VITALS: RESP 15
--- NOTE | 2025-01-22 19:03 | P.PNPSI_ITS ---
Subjective Subjective Date of Service: 01/22/25 Reason For Visit: F31.2 Biopolar D/O manic; F143.20 Cocaine use raymond Interim History: met with pt; discussed with team no change in presentation, hardly talking. does not respond to quesitons Mental Status Exam Mental Status Exam Narrative: Pt is alert and oriented; behavior is isolative, non-cooperative, calm, internally preoccupied, sometimes smiling or laughing inappropriately; speaking very little; patient is not in distress; dressed in hospital attire, unkempt, hirsutism; mood is described as alright though affect blunted; eye contact avoidant; Speech sparse, soft and quiet; psychomotor retardation present; thought process marred by significant thought blocking; can be goal oriented but quickly becomes disorganized; Thought content not disclosed; does not express any SI/HI. Patient internally preoccupied and responding to internal stimuli. Patients insight and judgment impaired Diagnostics Vital Signs (24Hr): Vital Signs - 24 hr 01/21/25 19:56 Respiratory Rate 15 BMI result Body Mass Index 33.9 Labs 01/17/25 07:54 Medications Medications Current Medications Acetaminophen (Acetaminophen 325 Mg Tablet) 650 mg PO Q6H PRN PRN Reason: Headache/Pain, Scale 1-10 Al Hydroxide/Mg Hydroxide (Magnesium Hydrox/Alum Hydrox 30 Ml Oral.Susp) 30 ml PO Q6H PRN PRN Reason: Heartburn/Nausea Hydroxyzine HCl (Hydroxyzine Hcl 25 Mg Tablet) 25 mg PO Q6H PRN PRN Reason: mild anxiety Insulin Human Lispro (Insulin Lispro 100 Unit/Ml 3 Ml Vial) 0 unit SUBCUT QIDACHS [facility]; Protocol On Hold: 01/18/25 09:59 Last Admin: 01/18/25 09:28 Dose: Not Given Lorazepam (Lorazepam 1 Mg Tablet) 1 mg PO QID [facility] Last Admin: 01/22/25 17:07 Dose: Not Given Magnesium Hydroxide (Milk Of Magnesia 30 Ml Oral.Susp) 30 ml PO DAILY PRN PRN Reason: Constipation Metformin HCl (Metformin Hcl 500 Mg Tablet) 500 mg PO BIDWM [facility] Last Admin: 01/22/25 17:07 Dose: Not Given Nicotine Polacrilex (Nicotine Polacrilex 2 Mg Gum) 2 mg BUCCAL Q2H PRN PRN Reason: Nicotine Cravings Olanzapine (Olanzapine 5 Mg Tablet) 5 mg PO Q4H PRN PRN Reason: psychosis/agitation Risperidone (Risperidone 2 Mg Tablet) 2 mg PO BID [facility] Last Admin: 01/22/25 12:51 Dose: 2 mg Trazodone HCl (Trazodone Hcl 50 Mg Tablet) 50 mg PO BEDTIME MRX1 PRN PRN Reason: Insomnia Last Admin: 01/17/25 20:50 Dose: 50 mg Valacyclovir HCl (Valacyclovir Hcl 500 Mg Tablet) 500 mg PO DAILY [facility] Last Admin: 01/22/25 08:50 Dose: Not Given Allergies Allergies Allergy/AdvReac Type Severity Reaction Status Date / Time blueberry Allergy Unknown Unknown Verified 01/11/25 21:20 Assessment & Plan Assessment & Plan (1) Schizoaffective disorder, bipolar type: Status: Acute Code(s): F25.0 - Schizoaffective disorder, bipolar type (2) Catatonia: Status: Acute Code(s): F06.1 - Catatonic disorder due to known physiological condition (3) Polysubstance use disorder: Status: Acute Code(s): F19.90 - Other psychoactive substance use, unspecified, uncomplicated (4) Cocaine abuse: Status: Acute Code(s): F14.10 - Cocaine abuse, uncomplicated Plan 34-year-old Frisian-speaking female is a direct transfer, via ambulance, from [facility] to [facility]. She has history of bipolar disorder, schizophrenia, marijuana, PCP, and cocaine/crack use (severe), multiple inpatient admissions and at least 2 section 35. She was evaluated at [facility] for being nonverbal at home following substance use. This provider and patient's social worker aide found the patient lying in her bed. She is alert, opens and closes her eyes, moves her feet, but would not respond to this provider and social worker aide. Patient advised to inform staff if she decides to engage in an interview with her social worker aide and provider for admission. Hospital course: 01/13 patient appears catatonic, not talking much, not moving, sometimes walking around in a disorganized way; seems to be history of catatonia as well. Not sure if eating and drinking. Finished Garment Inspector tried to discuss medications including Ativan however patient not engaging; Currently refusing all medications 01/14: continue current management and treatment plan. Encourage adherence. 01/15: continue current management and treatment plan. Encourage adherence. 01/16/25: Patient slept for 7 hours, was not compliant with medication or point of care, she is in bed most of the morning until she was thinking about signing the 3 days. She would not signed a 3 days until she talk to to social worker aide. She said yes to anxiety and said a little when I asked about depression. Reports hearing voices when being asked, but not able to disclose to more details. She denies suicidal thoughts or thoughts of hurting other people. She was not sure where she stayed and who she stayed with before coming in here. This provider note the patient by history, that mom and sister concerned about her in the past. However, patient is guarded, do not give anymore information or consent to talk to the family member. Not able to assess for more details regarding substance use. 01/17 Patient difficult with which to engage, lying in bed, not talking much at all, intermittently opening eyes. On inquiry about why not taking medications, she She says she did took some pills today (her metformin and 1 dose of Ativan). Does not answer questions about SI, HI, AVH, depression, worries. She is eating and drinking and said that she will talk with contract technical writer tomorrow. Finished Garment Inspector asked her about her 3 day notice and there is concern about discharging her if she is not able to answer questions...she said that she will talk with contract technical writer tomorrow. Collateral: Finished Garment Inspector talked with patient's sister who reports that was her regular, full functioning self few weeks until she relapsed. Sister says that whenever patient uses a lot she becomes like a zombie; she typically uses crack cocaine. Sister says she has been in numerous treatment facilities and on medication returns to full functioning, communicating and having normal discourse however as soon as he is discharged from any facility she relapses that day; sister reiterated that she has been stabilized numerous times with the same result. Sister said that despite her not talking and acting like a zombie she is typically able to function and reports that patient called their mother 2 days ago asking for phone number is of a friend. Says her diagnose says schizoaffective disorder, bipolar type, borderline personality disorder; denies ASD diagnosis -Finished Garment Inspector also discussed Case with Sarah who has had this patient at other facilities and thinks this might not be catatonia but rather selective mutism and the patient selects the times when she wants to be organized and talk; patient has a history of psychotic illness and catatonia however rarely takes medications during inpatient admissions and at some point just gets better and wants to go. -Of note patient was organized enough to sign a 3 day notice. 01/18 Patient a little more talkative today hand out and about in the milieu more, eating and drinking and sitting with peers though keeping to herself and remains internally preoccupied. Patient told contract technical writer that she had a hard time talking because she was in her slumber. She seems to say show take medications and did take some doses; she also agreed to retract her 3 day notice and was able to discuss how much longer contract technical writer thought she should stay. Throughout conversation patient continuing to struggle with internal preoccupation and thought blocking. -Patient refusing point of cares to check blood sugar. Finished Garment Inspector can not find hx of scripts for insulin; she's been mostly refusing POC (the few times has allowed <200). Will HOLD sliding scale/POC's for now. 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 She has agreed to restart risperidone but has often refused 01/19 Patient again not talking, isolating and mostly stayed in bed; eating and drinking without problems but refusing medication and remains very internally preoccupied with significant thought blocking. Not answering questions 01/20 Patient remains isolative, lying in bed, not talking and continually responding to internal stimuli. Continues to refuse labs. Sometimes patient will go to groups but does not talk and needs cues for her to transition. 01/21 No change in presentation; remains very difficult with which to engage, not answering questions very much. She did say she is all right and denied AH though she remains internally preoccupied thought blocking. Tried to discuss reasons for refusing medications but patient would not answer; patient eating and drinking -sometimes takes medications but mostly refuses; changed Risperdal to 2 mg b.i.d. (so if she takes it she gets at least 2 mg) Impression/clinical reasoning: Patient remained psychotic, internally preoccupied and with catatonic symptoms. Refusing treatments, refusing medication. At this time patient can not be discharge safely as there is no indication she can take care of herself in the community; she could not get herself home and if discharge would wander aimlessly, vulnerable to predation; patient is to severely internally preoccupied that she can not even say she wants to discharge or answer questions. Will continue offering medications for both catatonia and psychosis; however if patient is not engaged in treatment, will strongly consider rescinding CV and filing for involuntary commitment Plan 15 minutes check. CV continue Ativan 1 mg QID for catatonic like symptoms Change Risperdal to 2 mg b.i.d. since she has been refusing and hoping that multiple offers will result in patient taking adequate dose Patient refused labs including hemoglobin A1c and lipid panel with several attempts Diagnostics as needed. Collateral contact. Continue remainder of regime. Encouraged full milieu. Discharge planning. Patient educated on: diagnosis and medication risk/benefits Informed Consent: understands Reason for continued inpatient stay Substantial Risk for: inability to function Time Spent With Patient Time: Total time managing care of this patient today ____ minutes.
[2025-01-22 19:55] VITALS: BP 129/77; PULSE 88; RESP 16; TEMP 36.4; O2SAT 98
--- NOTE | 2025-01-23 14:44 | P.PNPSI_ITS ---
Subjective Subjective Date of Service: 01/23/25 Reason For Visit: F31.2 Biopolar D/O manic; F143.20 Cocaine use raymond Interim History: Met with patient; discussed with team Patient remains disorganized in speech and behavior. She can not answer questions appropriately and either does not saying anything or says I do not know... She remains unable to articulate any choices in her treatment, if she wants to stay on the unit, if she wants to discharge, where she would go... Forklift Material Handler explained the need for treatment and that team had decided to rescind her CV and 5 for involuntary commitment. Mental Status Exam Mental Status Exam Narrative: Pt is alert and oriented; behavior is isolative, non-cooperative, calm, internally preoccupied, sometimes smiling or laughing inappropriately; speaking very little; patient is not in distress; dressed in hospital attire, unkempt, hirsutism; mood is described as alright though affect blunted; eye contact avoidant; Speech sparse, soft and quiet; psychomotor retardation present; thought process marred by significant thought blocking; can be goal oriented but quickly becomes disorganized; Thought content not disclosed; does not express any SI/HI. Patient internally preoccupied and responding to internal stimuli. Patients insight and judgment impaired Diagnostics Vital Signs (24Hr): Vital Signs - 24 hr 01/22/25 19:55 Temperature 97.6 F Pulse Rate 88 Respiratory Rate 16 Blood Pressure 129/77 Pulse Oximetry 98 Oxygen Delivery Method Room Air BMI result Body Mass Index 33.9 Labs 01/17/25 07:54 Medications Medications Current Medications Acetaminophen (Acetaminophen 325 Mg Tablet) 650 mg PO Q6H PRN PRN Reason: Headache/Pain, Scale 1-10 Al Hydroxide/Mg Hydroxide (Magnesium Hydrox/Alum Hydrox 30 Ml Oral.Susp) 30 ml PO Q6H PRN PRN Reason: Heartburn/Nausea Hydroxyzine HCl (Hydroxyzine Hcl 25 Mg Tablet) 25 mg PO Q6H PRN PRN Reason: mild anxiety Insulin Human Lispro (Insulin Lispro 100 Unit/Ml 3 Ml Vial) 0 unit SUBCUT QIDACHS [facility]; Protocol On Hold: 01/18/25 09:59 Last Admin: 01/18/25 09:28 Dose: Not Given Lorazepam (Lorazepam 1 Mg Tablet) 1 mg PO QID [facility] Last Admin: 01/23/25 09:08 Dose: Not Given Magnesium Hydroxide (Milk Of Magnesia 30 Ml Oral.Susp) 30 ml PO DAILY PRN PRN Reason: Constipation Metformin HCl (Metformin Hcl 500 Mg Tablet) 500 mg PO BIDWM [facility] Last Admin: 01/23/25 09:06 Dose: 500 mg Nicotine Polacrilex (Nicotine Polacrilex 2 Mg Gum) 2 mg BUCCAL Q2H PRN PRN Reason: Nicotine Cravings Olanzapine (Olanzapine 5 Mg Tablet) 5 mg PO Q4H PRN PRN Reason: psychosis/agitation Risperidone (Risperidone 2 Mg Tablet) 2 mg PO BID [facility] Last Admin: 01/23/25 09:07 Dose: 2 mg Trazodone HCl (Trazodone Hcl 50 Mg Tablet) 50 mg PO BEDTIME MRX1 PRN PRN Reason: Insomnia Last Admin: 01/17/25 20:50 Dose: 50 mg Valacyclovir HCl (Valacyclovir Hcl 500 Mg Tablet) 500 mg PO DAILY [facility] Last Admin: 01/23/25 09:06 Dose: 500 mg Allergies Allergies Allergy/AdvReac Type Severity Reaction Status Date / Time blueberry Allergy Unknown Unknown Verified 01/11/25 21:20 Assessment & Plan Assessment & Plan (1) Schizoaffective disorder, bipolar type: Status: Acute Code(s): F25.0 - Schizoaffective disorder, bipolar type (2) Catatonia: Status: Acute Code(s): F06.1 - Catatonic disorder due to known physiological condition (3) Polysubstance use disorder: Status: Acute Code(s): F19.90 - Other psychoactive substance use, unspecified, uncomplicated (4) Cocaine abuse: Status: Acute Code(s): F14.10 - Cocaine abuse, uncomplicated Plan 34-year-old [place]i-speaking female is a direct transfer, via ambulance, from [facility] to [facility]. She has history of bipolar disorder, schizophrenia, marijuana, PCP, and cocaine/crack use (severe), multiple inpatient admissions and at least 2 section 35. She was evaluated at [facility] for being nonverbal at home following substance use. This provider and patient's social media developer found the patient lying in her bed. She is alert, opens and closes her eyes, moves her feet, but would not respond to this provider and social media developer. Patient advised to inform staff if she decides to engage in an interview with her social media developer and provider for admission. Hospital course: 01/13 patient appears catatonic, not talking much, not moving, sometimes walking around in a disorganized way; seems to be history of catatonia as well. Not sure if eating and drinking. F[employer] Material Handler tried to discuss medications including Ativan however patient not engaging; Currently refusing all medications 01/14: continue current management and treatment plan. Encourage adherence. 01/15: continue current management and treatment plan. Encourage adherence. 01/16/25: Patient slept for 7 hours, was not compliant with medication or point of care, she is in bed most of the morning until she was thinking about signing the 3 days. She would not signed a 3 days until she talk to to social media developer. She said yes to anxiety and said a little when I asked about depression. Reports hearing voices when being asked, but not able to disclose to more details. She denies suicidal thoughts or thoughts of hurting other people. She was not sure where she stayed and who she stayed with before coming in here. This provider note the patient by history, that mom and sister concerned about her in the past. However, patient is guarded, do not give anymore information or consent to talk to the family member. Not able to assess for more details regarding substance use. 01/17 Patient difficult with which to engage, lying in bed, not talking much at all, intermittently opening eyes. On inquiry about why not taking medications, she She says she did took some pills today (her metformin and 1 dose of Ativan). Does not answer questions about SI, HI, AVH, depression, worries. She is eating and drinking and said that she will talk with information writer tomorrow. Forklift Material Handler asked her about her 3 day notice and there is concern about discharging her if she is not able to answer questions...she said that she will talk with information writer tomorrow. Collateral: Forklift Material Handler talked with patient's sister who reports that was her regular, full functioning self few weeks until she relapsed. Sister says that whenever patient uses a lot she becomes like a zombie; she typically uses crack cocaine. Sister says she has been in numerous treatment facilities and on medication returns to full functioning, communicating and having normal discourse however as soon as he is discharged from any facility she relapses that day; sister reiterated that she has been stabilized numerous times with the same result. Sister said that despite her not talking and acting like a zombie she is typically able to function and reports that patient called their mother 2 days ago asking for phone number is of a friend. Says her diagnose says schizoaffective disorder, bipolar type, borderline personality disorder; denies ASD diagnosis -Forklift Material Handler also discussed Case with Sarah who has had this patient at other facilities and thinks this might not be catatonia but rather selective mutism and the patient selects the times when she wants to be organized and talk; patient has a history of psychotic illness and catatonia however rarely takes medications during inpatient admissions and at some point just gets better and wants to go. -Of note patient was organized enough to sign a 3 day notice. 01/18 Patient a little more talkative today hand out and about in the milieu more, eating and drinking and sitting with peers though keeping to herself and remains internally preoccupied. Patient told information writer that she had a hard time talking because she was in her slumber. She seems to say show take medications and did take some doses; she also agreed to retract her 3 day notice and was able to discuss how much longer information writer thought she should stay. Throughout conversation patient continuing to struggle with internal preoccupation and thought blocking. -Patient refusing point of cares to check blood sugar. Forklift Material Handler can not find hx of scripts for insulin; she's been mostly refusing POC (the few times has allowed <200). Will HOLD sliding scale/POC's for now. 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 She has agreed to restart risperidone but has often refused 01/19 Patient again not talking, isolating and mostly stayed in bed; eating and drinking without problems but refusing medication and remains very internally preoccupied with significant thought blocking. Not answering questions 01/20 Patient remains isolative, lying in bed, not talking and continually responding to internal stimuli. Continues to refuse labs. Sometimes patient will go to groups but does not talk and needs cues for her to transition. 01/21 No change in presentation; remains very difficult with which to engage, not answering questions very much. She did say she is all right and denied AH though she remains internally preoccupied thought blocking. Tried to discuss reasons for refusing medications but patient would not answer; patient eating and drinking -sometimes takes medications but mostly refuses; changed Risperdal to 2 mg b.i.d. (so if she takes it she gets at least 2 mg) 01/22 Patient remains disorganized in speech and behavior. She can not answer questions appropriately and either does not saying anything or says I do not know... She remains unable to articulate any choices in her treatment, if she wants to stay on the unit, if she wants to discharge, where she would go... Forklift Material Handler explained the need for treatment and that team had decided to rescind her CV and 5 for involuntary commitment. Impression/clinical reasoning: Patient remained psychotic, internally preoccupied and with catatonic symptoms. Refusing treatments, refusing medication. At this time patient can not be discharge safely as there is no indication she can take care of herself in the community; she could not get herself home and if discharge would wander aimlessly, vulnerable to predation; patient is to severely internally preoccupied that she can not even say she wants to discharge or answer questions. Will continue offering medications for both catatonia and psychosis. Team agrees that patient is too disorganized and unsafe for discharge and unable to make any treatment decisions for herself. Will rescind her CV and file for involuntary commitment and substituted judgment Plan 15 minutes check. section 7 (pending) continue Ativan 1 mg QID for catatonic like symptoms Continue Risperdal to 2 mg b.i.d. since she has been refusing and hoping that multiple offers will result in patient taking adequate dose Patient refused labs including hemoglobin A1c and lipid panel with several attempts Diagnostics as needed. Collateral contact. Continue remainder of regime. Encouraged full milieu. Discharge planning. Patient educated on: diagnosis and medication risk/benefits Informed Consent: does not understand Reason for continued inpatient stay Substantial Risk for: inability to function Time Spent With Patient Time: Total time managing care of this patient today ____ minutes.
[2025-01-23] MEDS: Magnesium Hydrox/Alum Hydrox 30 ML ORAL.SUSP PO (17:32)
[2025-01-23 20:07] VITALS: BP 125/72; PULSE 80; RESP 16; TEMP 36.7; O2SAT 98
[2025-01-24 08:00] VITALS: BP 124/64; PULSE 89; TEMP 36.6; O2SAT 98
--- NOTE | 2025-01-24 15:56 | HO.PSYCHPN ---
Subjective Subjective Date of Service: 01/24/25 Reason For Visit: F31.2 Biopolar D/O manic; F143.20 Cocaine use raymond Interim History: Met with patient; discussed with team Little change in presentation. Patient lying in bed, laughing or smiling inappropriately and saying very little. When asked how she is doing she says so-so but does not respond to any other related questions When typewriter ribbon winder asks if she is better she says not sure When typewriter ribbon winder asked who she hear voices she laughs inappropriately but does not answer When asked about SI, she looks, smiles but does not answer When asked how she slept she says not sure Embossed Or Impressed Lettering Painter again discussed the need for medications which she has taking sometimes and refusing it others Mental Status Exam Mental Status Exam Narrative: Pt is alert and oriented; behavior is isolative, non-cooperative, calm, internally preoccupied, sometimes smiling or laughing inappropriately; speaking very little; patient is not in distress; dressed in hospital attire, unkempt, hirsutism; mood is described as so-so though affect blunted; eye contact avoidant; Speech sparse, soft and quiet; psychomotor retardation present; thought process marred by significant thought blocking; can be goal oriented but quickly becomes disorganized; Thought content not disclosed; does not express any SI/HI. Patient internally preoccupied and responding to internal stimuli. Patients insight and judgment impaired Diagnostics Vital Signs (24Hr): Vital Signs - 24 hr 01/23/25 20:07 01/24/25 08:00 Temperature 98.1 F 97.9 F Pulse Rate 80 89 Respiratory Rate 16 Blood Pressure 125/72 124/64 Pulse Oximetry 98 98 Oxygen Delivery Method Room Air Room Air BMI result Body Mass Index 33.9 Labs 01/17/25 07:54 Medications Medications Current Medications Acetaminophen (Acetaminophen 325 Mg Tablet) 650 mg PO Q6H PRN PRN Reason: Headache/Pain, Scale 1-10 Al Hydroxide/Mg Hydroxide (Magnesium Hydrox/Alum Hydrox 30 Ml Oral.Susp) 30 ml PO Q6H PRN PRN Reason: Heartburn/Nausea Last Admin: 01/23/25 17:32 Dose: 30 ml Hydroxyzine HCl (Hydroxyzine Hcl 25 Mg Tablet) 25 mg PO Q6H PRN PRN Reason: mild anxiety Insulin Human Lispro (Insulin Lispro 100 Unit/Ml 3 Ml Vial) 0 unit SUBCUT QIDACHS [facility]; Protocol On Hold: 01/18/25 09:59 Last Admin: 01/18/25 09:28 Dose: Not Given Lorazepam (Lorazepam 1 Mg Tablet) 1 mg PO QID [facility] Last Admin: 01/24/25 13:34 Dose: Not Given Magnesium Hydroxide (Milk Of Magnesia 30 Ml Oral.Susp) 30 ml PO DAILY PRN PRN Reason: Constipation Metformin HCl (Metformin Hcl 500 Mg Tablet) 500 mg PO BIDWM [facility] Last Admin: 01/24/25 09:13 Dose: 500 mg Nicotine Polacrilex (Nicotine Polacrilex 2 Mg Gum) 2 mg BUCCAL Q2H PRN PRN Reason: Nicotine Cravings Olanzapine (Olanzapine 5 Mg Tablet) 5 mg PO Q4H PRN PRN Reason: psychosis/agitation Risperidone (Risperidone 2 Mg Tablet) 2 mg PO BID [facility] Last Admin: 01/24/25 09:13 Dose: 2 mg Trazodone HCl (Trazodone Hcl 50 Mg Tablet) 50 mg PO BEDTIME MRX1 PRN PRN Reason: Insomnia Last Admin: 01/17/25 20:50 Dose: 50 mg Valacyclovir HCl (Valacyclovir Hcl 500 Mg Tablet) 500 mg PO DAILY [facility] Last Admin: 01/24/25 09:13 Dose: 500 mg Allergies Allergies Allergy/AdvReac Type Severity Reaction Status Date / Time blueberry Allergy Unknown Unknown Verified 01/11/25 21:20 Assessment & Plan Assessment & Plan (1) Schizoaffective disorder, bipolar type: Status: Acute Code(s): F25.0 - Schizoaffective disorder, bipolar type (2) Catatonia: Status: Acute Code(s): F06.1 - Catatonic disorder due to known physiological condition (3) Polysubstance use disorder: Status: Acute Code(s): F19.90 - Other psychoactive substance use, unspecified, uncomplicated (4) Cocaine abuse: Status: Acute Code(s): F14.10 - Cocaine abuse, uncomplicated Plan 34-year-old Azeri-speaking female is a direct transfer, via ambulance, from [facility] to [facility]. She has history of bipolar disorder, schizophrenia, marijuana, PCP, and cocaine/crack use (severe), multiple inpatient admissions and at least 2 section 35. She was evaluated at [facility] for being nonverbal at home following substance use. This provider and patient's marriage and family social worker found the patient lying in her bed. She is alert, opens and closes her eyes, moves her feet, but would not respond to this provider and marriage and family social worker. Patient advised to inform staff if she decides to engage in an interview with her marriage and family social worker and provider for admission. Hospital course: 01/13 patient appears catatonic, not talking much, not moving, sometimes walking around in a disorganized way; seems to be history of catatonia as well. Not sure if eating and drinking. Embossed Or Impressed Lettering Painter tried to discuss medications including Ativan however patient not engaging; Currently refusing all medications 01/14: continue current management and treatment plan. Encourage adherence. 01/15: continue current management and treatment plan. Encourage adherence. 01/16/25: Patient slept for 7 hours, was not compliant with medication or point of care, she is in bed most of the morning until she was thinking about signing the 3 days. She would not signed a 3 days until she talk to to marriage and family social worker. She said yes to anxiety and said a little when I asked about depression. Reports hearing voices when being asked, but not able to disclose to more details. She denies suicidal thoughts or thoughts of hurting other people. She was not sure where she stayed and who she stayed with before coming in here. This provider note the patient by history, that mom and sister concerned about her in the past. However, patient is guarded, do not give anymore information or consent to talk to the family member. Not able to assess for more details regarding substance use. 01/17 Patient difficult with which to engage, lying in bed, not talking much at all, intermittently opening eyes. On inquiry about why not taking medications, she She says she did took some pills today (her metformin and 1 dose of Ativan). Does not answer questions about SI, HI, AVH, depression, worries. She is eating and drinking and said that she will talk with typewriter ribbon winder tomorrow. Embossed Or Impressed Lettering Painter asked her about her 3 day notice and there is concern about discharging her if she is not able to answer questions...she said that she will talk with typewriter ribbon winder tomorrow. Collateral: Embossed Or Impressed Lettering Painter talked with patient's sister who reports that was her regular, full functioning self few weeks until she relapsed. Sister says that whenever patient uses a lot she becomes like a zombie; she typically uses crack cocaine. Sister says she has been in numerous treatment facilities and on medication returns to full functioning, communicating and having normal discourse however as soon as he is discharged from any facility she relapses that day; sister reiterated that she has been stabilized numerous times with the same result. Sister said that despite her not talking and acting like a zombie she is typically able to function and reports that patient called their mother 2 days ago asking for phone number is of a friend. Says her diagnose says schizoaffective disorder, bipolar type, borderline personality disorder; denies ASD diagnosis -Embossed Or Impressed Lettering Painter also discussed Case with Sarah who has had this patient at other facilities and thinks this might not be catatonia but rather selective mutism and the patient selects the times when she wants to be organized and talk; patient has a history of psychotic illness and catatonia however rarely takes medications during inpatient admissions and at some point just gets better and wants to go. -Of note patient was organized enough to sign a 3 day notice. 01/18 Patient a little more talkative today hand out and about in the milieu more, eating and drinking and sitting with peers though keeping to herself and remains internally preoccupied. Patient told typewriter ribbon winder that she had a hard time talking because she was in her slumber. She seems to say show take medications and did take some doses; she also agreed to retract her 3 day notice and was able to discuss how much longer typewriter ribbon winder thought she should stay. Throughout conversation patient continuing to struggle with internal preoccupation and thought blocking. -Patient refusing point of cares to check blood sugar. Embossed Or Impressed Lettering Painter can not find hx of scripts for insulin; she's been mostly refusing POC (the few times has allowed <200). Will HOLD sliding scale/POC's for now. 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 She has agreed to restart risperidone but has often refused 01/19 Patient again not talking, isolating and mostly stayed in bed; eating and drinking without problems but refusing medication and remains very internally preoccupied with significant thought blocking. Not answering questions 01/20 Patient remains isolative, lying in bed, not talking and continually responding to internal stimuli. Continues to refuse labs. Sometimes patient will go to groups but does not talk and needs cues for her to transition. 01/21 No change in presentation; remains very difficult with which to engage, not answering questions very much. She did say she is all right and denied AH though she remains internally preoccupied thought blocking. Tried to discuss reasons for refusing medications but patient would not answer; patient eating and drinking -sometimes takes medications but mostly refuses; changed Risperdal to 2 mg b.i.d. (so if she takes it she gets at least 2 mg) 01/22 Patient remains disorganized in speech and behavior. She can not answer questions appropriately and either does not saying anything or says I do not know... She remains unable to articulate any choices in her treatment, if she wants to stay on the unit, if she wants to discharge, where she would go... Embossed Or Impressed Lettering Painter explained the need for treatment and that team had decided to rescind her CV and 5 for involuntary commitment. 01/24 Little change in presentation. Patient lying in bed, laughing or smiling inappropriately and saying very little. When asked how she is doing she says so-so but does not respond to any other related questions When typewriter ribbon winder asks if she is better she says not sure When typewriter ribbon winder asked who she hear voices she laughs inappropriately but does not answer When asked about SI, she looks, smiles but does not answer When asked how she slept she says not sure Embossed Or Impressed Lettering Painter again discussed the need for medications which she has taking sometimes and refusing it others Impression/clinical reasoning: Patient remained psychotic, internally preoccupied and with catatonic symptoms. Refusing treatments, refusing medication. At this time patient can not be discharge safely as there is no indication she can take care of herself in the community; she could not get herself home and if discharge would wander aimlessly, vulnerable to predation; patient is to severely internally preoccupied that she can not even say she wants to discharge or answer questions. Will continue offering medications for both catatonia and psychosis. Team agrees that patient is too disorganized and unsafe for discharge and unable to make any treatment decisions for herself. Will rescind her CV and file for involuntary commitment and substituted judgment Plan 15 minutes check. section 7 (pending) continue Ativan 1 mg QID for catatonic like symptoms Continue Risperdal to 2 mg b.i.d. since she has been refusing and hoping that multiple offers will result in patient taking adequate dose Patient refused labs including hemoglobin A1c and lipid panel with several attempts Diagnostics as needed. Collateral contact. Continue remainder of regime. Encouraged full milieu. Discharge planning. Patient educated on: diagnosis and medication risk/benefits Informed Consent: does not understand Reason for continued inpatient stay Substantial Risk for: inability to function Time Spent With Patient Time: Total time managing care of this patient today ____ minutes.
[2025-01-25 08:12] VITALS: BP 126/75; PULSE 81; TEMP 36.6; O2SAT 97
[2025-01-25] MEDS: Magnesium Hydrox/Alum Hydrox 30 ML ORAL.SUSP PO ×2 (13:25→21:54)
[2025-01-25] MEDS: Milk of Magnesia 30 ML ORAL.SUSP PO (13:25)
--- NOTE | 2025-01-25 17:14 | P.PNPSI_ITS ---
Subjective Subjective Date of Service: 01/25/25 Reason For Visit: F31.2 Biopolar D/O manic; F143.20 Cocaine use raymond Interim History: Met with patient; discussed with team Patient a little bit more talkative today. Still not answering many questions but did ask insurance writer to repeat the question (patient was too internally preoccupied to hurt initially). Later on she did take medication Mental Status Exam Mental Status Exam Narrative: Pt is alert and oriented; behavior is little more cooperative, calm; still very internally preoccupied, sometimes smiling or laughing inappropriately; speaking very little; patient is not in distress; dressed in hospital attire, unkempt, hirsutism; mood is described as so-so though affect blunted; eye contact avoidant; Speech sparse, soft and quiet; no psychomotor retardation present today; thought process marred by significant thought blocking; can be goal oriented but quickly becomes disorganized; Thought content not disclosed; does not express any SI/HI. Patient internally preoccupied and responding to internal stimuli. Patients insight and judgment impaired Diagnostics Vital Signs (24Hr): Vital Signs - 24 hr 01/25/25 08:12 Temperature 97.8 F Pulse Rate 81 Blood Pressure 126/75 Pulse Oximetry 97 Oxygen Delivery Method Room Air BMI result Body Mass Index 33.9 Labs 01/17/25 07:54 Medications Medications Current Medications Acetaminophen (Acetaminophen 325 Mg Tablet) 650 mg PO Q6H PRN PRN Reason: Headache/Pain, Scale 1-10 Al Hydroxide/Mg Hydroxide (Magnesium Hydrox/Alum Hydrox 30 Ml Oral.Susp) 30 ml PO Q6H PRN PRN Reason: Heartburn/Nausea Last Admin: 01/25/25 13:25 Dose: 30 ml Hydroxyzine HCl (Hydroxyzine Hcl 25 Mg Tablet) 25 mg PO Q6H PRN PRN Reason: mild anxiety Insulin Human Lispro (Insulin Lispro 100 Unit/Ml 3 Ml Vial) 0 unit SUBCUT QIDACHS [facility]; Protocol On Hold: 01/18/25 09:59 Last Admin: 01/18/25 09:28 Dose: Not Given Lorazepam (Lorazepam 1 Mg Tablet) 1 mg PO QID [facility] Last Admin: 01/25/25 16:36 Dose: 1 mg Magnesium Hydroxide (Milk Of Magnesia 30 Ml Oral.Susp) 30 ml PO DAILY PRN PRN Reason: Constipation Last Admin: 01/25/25 13:25 Dose: 30 ml Metformin HCl (Metformin Hcl 500 Mg Tablet) 500 mg PO BIDWM [facility] Last Admin: 01/25/25 16:36 Dose: 500 mg Nicotine Polacrilex (Nicotine Polacrilex 2 Mg Gum) 2 mg BUCCAL Q2H PRN PRN Reason: Nicotine Cravings Olanzapine (Olanzapine 5 Mg Tablet) 5 mg PO Q4H PRN PRN Reason: psychosis/agitation Risperidone (Risperidone 2 Mg Tablet) 2 mg PO BID [facility] Last Admin: 01/25/25 08:57 Dose: 2 mg Senna (Sennosides 8.6 Mg Tablet) 17.2 mg PO DAILY PRN PRN Reason: Constipation Last Admin: 01/25/25 16:36 Dose: 17.2 mg Trazodone HCl (Trazodone Hcl 50 Mg Tablet) 50 mg PO BEDTIME MRX1 PRN PRN Reason: Insomnia Last Admin: 01/17/25 20:50 Dose: 50 mg Valacyclovir HCl (Valacyclovir Hcl 500 Mg Tablet) 500 mg PO DAILY [facility] Last Admin: 01/25/25 13:25 Dose: 500 mg Allergies Allergies Allergy/AdvReac Type Severity Reaction Status Date / Time blueberry Allergy Unknown Unknown Verified 01/11/25 21:20 Assessment & Plan Assessment & Plan (1) Schizoaffective disorder, bipolar type: Status: Acute Code(s): F25.0 - Schizoaffective disorder, bipolar type (2) Catatonia: Status: Acute Code(s): F06.1 - Catatonic disorder due to known physiological condition (3) Polysubstance use disorder: Status: Acute Code(s): F19.90 - Other psychoactive substance use, unspecified, uncomplicated (4) Cocaine abuse: Status: Acute Code(s): F14.10 - Cocaine abuse, uncomplicated Plan 34-year-old Welsh-speaking female is a direct transfer, via ambulance, from [facility] to [facility]. She has history of bipolar disorder, schizophrenia, marijuana, PCP, and cocaine/crack use (severe), multiple inpatient admissions and at least 2 section 35. She was evaluated at [facility] for being nonverbal at home following substance use. This provider and patient's social media project manager found the patient lying in her bed. She is alert, opens and closes her eyes, moves her feet, but would not respond to this provider and social media project manager. Patient advised to inform staff if she decides to engage in an interview with her social media project manager and provider for admission. Hospital course: 01/13 patient appears catatonic, not talking much, not moving, sometimes walking around in a disorganized way; seems to be history of catatonia as well. Not sure if eating and drinking. Resistance Machine Welder Setter tried to discuss medications including Ativan however patient not engaging; Currently refusing all medications 01/14: continue current management and treatment plan. Encourage adherence. 01/15: continue current management and treatment plan. Encourage adherence. 01/16/25: Patient slept for 7 hours, was not compliant with medication or point of care, she is in bed most of the morning until she was thinking about signing the 3 days. She would not signed a 3 days until she talk to to social media project manager. She said yes to anxiety and said a little when I asked about depression. Reports hearing voices when being asked, but not able to disclose to more details. She denies suicidal thoughts or thoughts of hurting other people. She was not sure where she stayed and who she stayed with before coming in here. This provider note the patient by history, that mom and sister concerned about her in the past. However, patient is guarded, do not give anymore information or consent to talk to the family member. Not able to assess for more details regarding substance use. 01/17 Patient difficult with which to engage, lying in bed, not talking much at all, intermittently opening eyes. On inquiry about why not taking medications, she She says she did took some pills today (her metformin and 1 dose of Ativan). Does not answer questions about SI, HI, AVH, depression, worries. She is eating and drinking and said that she will talk with insurance writer tomorrow. Resistance Machine Welder Setter asked her about her 3 day notice and there is concern about discharging her if she is not able to answer questions...she said that she will talk with insurance writer tomorrow. Collateral: Resistance Machine Welder Setter talked with patient's sister who reports that was her regular, full functioning self few weeks until she relapsed. Sister says that whenever patient uses a lot she becomes like a zombie; she typically uses crack cocaine. Sister says she has been in numerous treatment facilities and on medication returns to full functioning, communicating and having normal discourse however as soon as he is discharged from any facility she relapses that day; sister reiterated that she has been stabilized numerous times with the same result. Sister said that despite her not talking and acting like a zombie she is typically able to function and reports that patient called their mother 2 days ago asking for phone number is of a friend. Says her diagnose says schizoaffective disorder, bipolar type, borderline personality disorder; denies ASD diagnosis -Resistance Machine Welder Setter also discussed Case with Sarah who has had this patient at other facilities and thinks this might not be catatonia but rather selective mutism and the patient selects the times when she wants to be organized and talk; patient has a history of psychotic illness and catatonia however rarely takes medications during inpatient admissions and at some point just gets better and wants to go. -Of note patient was organized enough to sign a 3 day notice. 01/18 Patient a little more talkative today hand out and about in the milieu more, eating and drinking and sitting with peers though keeping to herself and remains internally preoccupied. Patient told insurance writer that she had a hard time talking because she was in her slumber. She seems to say show take medications and did take some doses; she also agreed to retract her 3 day notice and was able to discuss how much longer insurance writer thought she should stay. Throughout conversation patient continuing to struggle with internal preoccupation and thought blocking. -Patient refusing point of cares to check blood sugar. Resistance Machine Welder Setter can not find hx of scripts for insulin; she's been mostly refusing POC (the few times has allowed <200). Will HOLD sliding scale/POC's for now. 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 She has agreed to restart risperidone but has often refused 01/19 Patient again not talking, isolating and mostly stayed in bed; eating and drinking without problems but refusing medication and remains very internally preoccupied with significant thought blocking. Not answering questions 01/20 Patient remains isolative, lying in bed, not talking and continually responding to internal stimuli. Continues to refuse labs. Sometimes patient will go to groups but does not talk and needs cues for her to transition. 01/21 No change in presentation; remains very difficult with which to engage, not answering questions very much. She did say she is all right and denied AH though she remains internally preoccupied thought blocking. Tried to discuss reasons for refusing medications but patient would not answer; patient eating and drinking -sometimes takes medications but mostly refuses; changed Risperdal to 2 mg b.i.d. (so if she takes it she gets at least 2 mg) 01/22 Patient remains disorganized in speech and behavior. She can not answer questions appropriately and either does not saying anything or says I do not know... She remains unable to articulate any choices in her treatment, if she wants to stay on the unit, if she wants to discharge, where she would go... Resistance Machine Welder Setter explained the need for treatment and that team had decided to rescind her CV and 5 for involuntary commitment. 01/24 Little change in presentation. Patient lying in bed, laughing or smiling inappropriately and saying very little. When asked how she is doing she says so-so but does not respond to any other related questions When insurance writer asks if she is better she says not sure When insurance writer asked who she hear voices she laughs inappropriately but does not answer When asked about SI, she looks, smiles but does not answer When asked how she slept she says not sure Resistance Machine Welder Setter again discussed the need for medications which she has taking sometimes and refusing it others 01/25 Patient a little bit more talkative today. Still not answering many questions but did ask insurance writer to repeat the question (patient was too internally preoccupied to hurt initially). Later on she did take medication Impression/clinical reasoning: Patient remained psychotic, internally preoccupied and with catatonic symptoms. Refusing treatments, refusing medication. At this time patient can not be discharge safely as there is no indication she can take care of herself in the community; she could not get herself home and if discharge would wander aimlessly, vulnerable to predation; patient is to severely internally preoccupied that she can not even say she wants to discharge or answer questions. Will continue offering medications for both catatonia and psychosis. Team agrees that patient is too disorganized and unsafe for discharge and unable to make any treatment decisions for herself. Will rescind her CV and file for involuntary commitment and substituted judgment Plan 15 minutes check. section 7 (pending) continue Ativan 1 mg QID for catatonic like symptoms Continue Risperdal to 2 mg b.i.d. since she has been refusing and hoping that multiple offers will result in patient taking adequate dose Patient refused labs including hemoglobin A1c and lipid panel with several attempts Diagnostics as needed. Collateral contact. Continue remainder of regime. Encouraged full milieu. Discharge planning. Patient educated on: diagnosis and medication risk/benefits Informed Consent: understands, does not understand and further education needed Reason for continued inpatient stay Substantial Risk for: inability to function and rapid decompensation Time Spent With Patient Time: Total time managing care of this patient today ____ minutes.
[2025-01-25 20:00] VITALS: BP 120/72; PULSE 99; RESP 16; TEMP 36.8; O2SAT 97
--- NOTE | 2025-01-26 09:46 | HO.PSYCHPN ---
Subjective Subjective Date of Service: 01/26/25 Reason For Visit: F31.2 Biopolar D/O manic; F143.20 Cocaine use raymond Interim History: Met with patient; discussed with team Patient starting to talk more, more organized. Asking questions and answering questions appropriately. Asked about medications and agreed to adjustments including increase dose of Risperdal for ongoing AH. Also asked about aftercare and help with sobriety. Patient well groomed today, showered, combed hair, shaved and dressed in appropriate casual attire. Mental Status Exam Mental Status Exam Narrative: Pt is alert and oriented; behavior is more cooperative, more socially interactive and more organized; asking and answering questions appropriately; patient is not in distress; dressed in casual attire, combed hair, good hygiene and grooming; mood is described as good and affect congruent, brighter and more naturally expressive; eye contact improved; Speech still with some thought blocking and is still sparse but normal rate, volume and prosody and not pressured; no psychomotor agitation/retardation present; thought process is more organized and goal directed; Thought content is now more on tx; no expressed delusional ideations; no SI/HI. AH remain and patient remains internally preoccupied Patients insight and judgment appear impaired but improving Diagnostics Vital Signs (24Hr): Vital Signs - 24 hr 01/25/25 20:00 Temperature 98.2 F Pulse Rate 99 Respiratory Rate 16 Blood Pressure 120/72 Pulse Oximetry 97 Oxygen Delivery Method Room Air BMI result Body Mass Index 33.9 Labs 01/17/25 07:54 Medications Medications Current Medications Acetaminophen (Acetaminophen 325 Mg Tablet) 650 mg PO Q6H PRN PRN Reason: Headache/Pain, Scale 1-10 Al Hydroxide/Mg Hydroxide (Magnesium Hydrox/Alum Hydrox 30 Ml Oral.Susp) 30 ml PO Q6H PRN PRN Reason: Heartburn/Nausea Last Admin: 01/25/25 21:54 Dose: 30 ml Hydroxyzine HCl (Hydroxyzine Hcl 25 Mg Tablet) 25 mg PO Q6H PRN PRN Reason: mild anxiety Insulin Human Lispro (Insulin Lispro 100 Unit/Ml 3 Ml Vial) 0 unit SUBCUT QIDACHS [facility]; Protocol On Hold: 01/18/25 09:59 Last Admin: 01/18/25 09:28 Dose: Not Given Lorazepam (Lorazepam 1 Mg Tablet) 1 mg PO QID [facility] Last Admin: 01/26/25 08:46 Dose: 1 mg Magnesium Hydroxide (Milk Of Magnesia 30 Ml Oral.Susp) 30 ml PO DAILY PRN PRN Reason: Constipation Last Admin: 01/25/25 13:25 Dose: 30 ml Metformin HCl (Metformin Hcl 500 Mg Tablet) 500 mg PO BIDWM [facility] Last Admin: 01/26/25 08:49 Dose: 500 mg Nicotine Polacrilex (Nicotine Polacrilex 2 Mg Gum) 2 mg BUCCAL Q2H PRN PRN Reason: Nicotine Cravings Olanzapine (Olanzapine 5 Mg Tablet) 5 mg PO Q4H PRN PRN Reason: psychosis/agitation Risperidone (Risperidone 2 Mg Tablet) 2 mg PO BID [facility] Last Admin: 01/26/25 08:46 Dose: 2 mg Senna (Sennosides 8.6 Mg Tablet) 17.2 mg PO DAILY PRN PRN Reason: Constipation Last Admin: 01/26/25 08:46 Dose: 17.2 mg Trazodone HCl (Trazodone Hcl 50 Mg Tablet) 50 mg PO BEDTIME MRX1 PRN PRN Reason: Insomnia Last Admin: 01/17/25 20:50 Dose: 50 mg Valacyclovir HCl (Valacyclovir Hcl 500 Mg Tablet) 500 mg PO DAILY [facility] Last Admin: 01/26/25 08:46 Dose: 500 mg Allergies Allergies Allergy/AdvReac Type Severity Reaction Status Date / Time blueberry Allergy Unknown Unknown Verified 01/11/25 21:20 Assessment & Plan Assessment & Plan (1) Schizoaffective disorder, bipolar type: Status: Acute Code(s): F25.0 - Schizoaffective disorder, bipolar type (2) Catatonia: Status: Acute Code(s): F06.1 - Catatonic disorder due to known physiological condition (3) Polysubstance use disorder: Status: Acute Code(s): F19.90 - Other psychoactive substance use, unspecified, uncomplicated (4) Cocaine abuse: Status: Acute Code(s): F14.10 - Cocaine abuse, uncomplicated Plan 34-year-old Tajik-speaking female is a direct transfer, via ambulance, from [facility] to [facility]. She has history of bipolar disorder, schizophrenia, marijuana, PCP, and cocaine/crack use (severe), multiple inpatient admissions and at least 2 section 35. She was evaluated at [facility] for being nonverbal at home following substance use. This provider and patient's social worker clinical found the patient lying in her bed. She is alert, opens and closes her eyes, moves her feet, but would not respond to this provider and social worker clinical. Patient advised to inform staff if she decides to engage in an interview with her social worker clinical and provider for admission. Hospital course: 01/13 patient appears catatonic, not talking much, not moving, sometimes walking around in a disorganized way; seems to be history of catatonia as well. Not sure if eating and drinking. [employer] tried to discuss medications including Ativan however patient not engaging; Currently refusing all medications 01/14: continue current management and treatment plan. Encourage adherence. 01/15: continue current management and treatment plan. Encourage adherence. 01/16/25: Patient slept for 7 hours, was not compliant with medication or point of care, she is in bed most of the morning until she was thinking about signing the 3 days. She would not signed a 3 days until she talk to to social worker clinical. She said yes to anxiety and said a little when I asked about depression. Reports hearing voices when being asked, but not able to disclose to more details. She denies suicidal thoughts or thoughts of hurting other people. She was not sure where she stayed and who she stayed with before coming in here. This provider note the patient by history, that mom and sister concerned about her in the past. However, patient is guarded, do not give anymore information or consent to talk to the family member. Not able to assess for more details regarding substance use. 01/17 Patient difficult with which to engage, lying in bed, not talking much at all, intermittently opening eyes. On inquiry about why not taking medications, she She says she did took some pills today (her metformin and 1 dose of Ativan). Does not answer questions about SI, HI, AVH, depression, worries. She is eating and drinking and said that she will talk with advertising copy writer tomorrow. [employer] Mathematics Teacher asked her about her 3 day notice and there is concern about discharging her if she is not able to answer questions...she said that she will talk with advertising copy writer tomorrow. Collateral: [employer] Mathematics Teacher talked with patient's sister who reports that was her regular, full functioning self few weeks until she relapsed. Sister says that whenever patient uses a lot she becomes like a zombie; she typically uses crack cocaine. Sister says she has been in numerous treatment facilities and on medication returns to full functioning, communicating and having normal discourse however as soon as he is discharged from any facility she relapses that day; sister reiterated that she has been stabilized numerous times with the same result. Sister said that despite her not talking and acting like a zombie she is typically able to function and reports that patient called their mother 2 days ago asking for phone number is of a friend. Says her diagnose says schizoaffective disorder, bipolar type, borderline personality disorder; denies ASD diagnosis -[employer] Mathematics Teacher also discussed Case with Sarah who has had this patient at other facilities and thinks this might not be catatonia but rather selective mutism and the patient selects the times when she wants to be organized and talk; patient has a history of psychotic illness and catatonia however rarely takes medications during inpatient admissions and at some point just gets better and wants to go. -Of note patient was organized enough to sign a 3 day notice. 01/18 Patient a little more talkative today hand out and about in the milieu more, eating and drinking and sitting with peers though keeping to herself and remains internally preoccupied. Patient told advertising copy writer that she had a hard time talking because she was in her slumber. She seems to say show take medications and did take some doses; she also agreed to retract her 3 day notice and was able to discuss how much longer advertising copy writer thought she should stay. Throughout conversation patient continuing to struggle with internal preoccupation and thought blocking. -Patient refusing point of cares to check blood sugar. [employer] Mathematics Teacher can not find hx of scripts for insulin; she's been mostly refusing POC (the few times has allowed <200). Will HOLD sliding scale/POC's for now. 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 She has agreed to restart risperidone but has often refused 01/19 Patient again not talking, isolating and mostly stayed in bed; eating and drinking without problems but refusing medication and remains very internally preoccupied with significant thought blocking. Not answering questions 01/20 Patient remains isolative, lying in bed, not talking and continually responding to internal stimuli. Continues to refuse labs. Sometimes patient will go to groups but does not talk and needs cues for her to transition. 01/21 No change in presentation; remains very difficult with which to engage, not answering questions very much. She did say she is all right and denied AH though she remains internally preoccupied thought blocking. Tried to discuss reasons for refusing medications but patient would not answer; patient eating and drinking -sometimes takes medications but mostly refuses; changed Risperdal to 2 mg b.i.d. (so if she takes it she gets at least 2 mg) 01/22 Patient remains disorganized in speech and behavior. She can not answer questions appropriately and either does not saying anything or says I do not know... She remains unable to articulate any choices in her treatment, if she wants to stay on the unit, if she wants to discharge, where she would go... [employer] Teacher explained the need for treatment and that team had decided to rescind her CV and 5 for involuntary commitment. 01/24 Little change in presentation. Patient lying in bed, laughing or smiling inappropriately and saying very little. When asked how she is doing she says so-so but does not respond to any other related questions When advertising copy writer asks if she is better she says not sure When advertising copy writer asked who she hear voices she laughs inappropriately but does not answer When asked about SI, she looks, smiles but does not answer When asked how she slept she says not sure [employer] Teacher again discussed the need for medications which she has taking sometimes and refusing it others Impression/clinical reasoning: Patient remained psychotic, internally preoccupied and with catatonic symptoms. Refusing treatments, refusing medication. At this time patient can not be discharge safely as there is no indication she can take care of herself in the community; she could not get herself home and if discharge would wander aimlessly, vulnerable to predation; patient is to severely internally preoccupied that she can not even say she wants to discharge or answer questions. Will continue offering medications for both catatonia and psychosis. Team agrees that patient is too disorganized and unsafe for discharge and unable to make any treatment decisions for herself. Will rescind her CV and file for involuntary commitment and substituted judgment 01/25 Patient a little bit more talkative today. Still not answering many questions but did ask advertising copy writer to repeat the question (patient was too internally preoccupied to hurt initially). Later on she did take medication 01/26 patient is taking medications and starting to do better. Talking more and asking about aftercare. Says she will consider long-acting injectable as well. Will switch at medications to make easier at her request and will taper off Ativan since catatonic symptoms seem to be resolving and remaining symptoms are mostly due to psychosis. Discussed AH and she says they remain and so agrees to increase Risperdal dose. -if patient continues to take medications and improve will likely not need to go to court Plan 15 minutes check. section 7 Lower to Ativan 1 mg b.i.d.; catatonic symptoms resolving; will taper off and discontinue Increase to Risperdal to 2 mg daily and 4 mg q.h.s. -encourage long-acting injectable [facility] as needed. Collateral contact. Continue remainder of regime. Encouraged full milieu. Discharge planning. Patient educated on: diagnosis, medication risk/benefits and substance abuse Informed Consent: understands and further education needed Reason for continued inpatient stay Substantial Risk for: rapid decompensation Time Spent With Patient Time: Total time managing care of this patient today ____ minutes.
[2025-01-26] MEDS: Milk of Magnesia 30 ML ORAL.SUSP PO (12:41)
[2025-01-26 20:00] VITALS: BP 149/86; PULSE 102; RESP 16; TEMP 36.2; O2SAT 98
[2025-01-26] MEDS: Magnesium Hydrox/Alum Hydrox 30 ML ORAL.SUSP PO (20:14)
[2025-01-27 11:58] LABS: Creatinine Clr Calc Pharmacy 137.0; Estimated Glomerular Filt Rate > 60
--- NOTE | 2025-01-27 15:52 | HO.PSYCHPN ---
Subjective Subjective Date of Service: 01/27/25 Reason For Visit: F31.2 Biopolar D/O manic; F143.20 Cocaine use raymond Subjective Notes: Section 7 Healthcare Proxy: No Guardianship: No Medical Problems Affecting Mental Status: No Interim History: Medical record and nursing notes reviewed; case discussed during rounds with team/nursing staff, and met with patient for supportive therapy/psychoeducation, as well as medication management. Slept for 8 hours, was medication compliant yesterday. She refused this morning medication at the beginning, but ended taking them later on. Reported that she has good appetite. Mood is bored . Denies suicidal thoughts or homicidal thoughts. Denies hallucinations at 1st, but saying sometimes when she heard voices, just now when asked when she last hear voices. Not able to elaborate further details of what she hears. I do not know regarding anxiety and depression questions. Reported that she has been taking medications but I took someone else medication , then mentioned metformin. Discussed with patient regarding HOPKINS for risperidone, she said she does not want. Explained to patient the benefit of HOPKINS, and remind patient that she does not have to make decision today, but is aware that we have the option to not have to take by mouth every day to enhance the better compliance, and able to be stable longer away from the hospital. Patient also met with social media intern today, agree with referral for outpatient services for mental health and substance use, she also signed consent to send referral out. She appears to be paranoid, mild thought blocked, however more logical and more engaging in conversation. Staff reported that she shaved yesterday, she was up, on the antonio pacing at the one-to-one assessment. Unkempt him but fair hygiene. Review of Systems Review of Systems Constitutional: Denies fatigue and Denies fever(s) Cardiovascular: Denies chest pain and Denies dyspnea Respiratory: Denies dyspnea Gastrointestinal: Denies abdominal pain Psychiatric: denies suicidal ideation Endocrine: Denies fatigue Yes all other systems are reviewed and are negative Mental Status Exam Mental Status Exam Narrative: Pt is alert and oriented; behavior is cooperative, more socially interactive and more organized; asking and answering questions appropriately; patient is not in distress; dressed in casual attire, combed hair,shaved facial hair with unkempt hair, fair hygiene and grooming; mood is described as bored and affect congruent, brighter and more naturally expressive; eye contact improved and fair; Speech still with some thought blocking and is still sparse but normal rate, volume and prosody and not pressured; no psychomotor agitation/retardation present; thought process is more organized and goal directed; Thought content is now more on tx; no expressed delusional ideations but making paranoid statement; no SI/HI. AH remain and patient remains internally preoccupied Patients insight and judgment appear impaired but improving Diagnostics Vital Signs (24Hr): Vital Signs - 24 hr 01/26/25 20:00 Temperature 97.2 F Pulse Rate 102 H Respiratory Rate 16 Blood Pressure 149/86 H Pulse Oximetry 98 Oxygen Delivery Method Room Air BMI result Body Mass Index 33.9 Labs 01/27/25 11:42 Labs: Laboratory Results - last 48 hr 01/27/25 01/27/25 01/27/25 11:42 11:42 11:42 Creatinine Cancelled 0.66 Estim Creat Clear Calc Cancelled 137.0 Estimated GFR Cancelled 01/27/25 11:42 Creatinine Estim Creat Clear Calc Estimated GFR > 60 Medications Medications Current Medications Acetaminophen (Acetaminophen 325 Mg Tablet) 650 mg PO Q6H PRN PRN Reason: Headache/Pain, Scale 1-10 Al Hydroxide/Mg Hydroxide (Magnesium Hydrox/Alum Hydrox 30 Ml Oral.Susp) 30 ml PO Q6H PRN PRN Reason: Heartburn/Nausea Last Admin: 01/26/25 20:14 Dose: 30 ml Hydroxyzine HCl (Hydroxyzine Hcl 25 Mg Tablet) 25 mg PO Q6H PRN PRN Reason: mild anxiety Insulin Human Lispro (Insulin Lispro 100 Unit/Ml 3 Ml Vial) 0 unit [facility]; Protocol On Hold: 01/18/25 09:59 Last Admin: 01/18/25 09:28 Dose: Not Given Lorazepam (Lorazepam 1 Mg Tablet) 1 mg PO BID [facility] Stop: 01/28/25 23:00 Last Admin: 01/27/25 11:22 Dose: Not Given Magnesium Hydroxide (Milk Of Magnesia 30 Ml Oral.Susp) 30 ml PO DAILY PRN PRN Reason: Constipation Last Admin: 01/26/25 12:41 Dose: 30 ml Metformin HCl ([facility] Hcl 500 Mg Tablet) [facility] Last Admin: 01/27/25 11:22 Dose: Not Given Nicotine Polacrilex (Nicotine Polacrilex 2 Mg Gum) 2 mg BUCCAL Q2H PRN PRN Reason: Nicotine Cravings Polyethylene Glycol (Polyethylene Glycol 3350 17 Gm Powd.Pack) 17 gm PO DAILY PRN PRN Reason: Constipation Last Admin: 01/27/25 14:45 Dose: 17 gm Risperidone (Risperidone 2 Mg Tablet) 2 mg PO DAILY MÓNICA Last Admin: 01/27/25 11:22 Dose: Not Given Risperidone (Risperidone 2 Mg Tablet) 4 mg PO BEDTIME MÓNICA Last Admin: 01/26/25 20:07 Dose: 4 mg Senna (Sennosides 8.6 Mg Tablet) 17.2 mg PO DAILY PRN PRN Reason: Constipation Last Admin: 01/27/25 11:44 Dose: 17.2 mg Simethicone (Simethicone 80 Mg Tab.Chew) 80 mg PO QIDWMHS PRN PRN Reason: flatulance Trazodone HCl (Trazodone Hcl 50 Mg Tablet) 50 mg PO BEDTIME MRX1 PRN PRN Reason: Insomnia Last Admin: 01/26/25 20:11 Dose: 50 mg Valacyclovir HCl (Valacyclovir Hcl 500 Mg Tablet) 500 mg PO DAILY MÓNICA Last Admin: 01/27/25 11:22 Dose: Not Given Allergies Allergies Allergy/AdvReac Type Severity Reaction Status Date / Time blueberry Allergy Unknown Unknown Verified 01/11/25 21:20 Assessment & Plan Assessment & Plan (1) Schizoaffective disorder, bipolar type: Status: Acute Code(s): F25.0 - Schizoaffective disorder, bipolar type (2) Catatonia: Status: Acute Code(s): F06.1 - Catatonic disorder due to known physiological condition (3) Polysubstance use disorder: Status: Acute Code(s): F19.90 - Other psychoactive substance use, unspecified, uncomplicated (4) Cocaine abuse: Status: Acute Code(s): F14.10 - Cocaine abuse, uncomplicated Plan 34-year-old Lithuanian-speaking female is a direct transfer, via ambulance, from [facility] to [facility]. She has history of bipolar disorder, schizophrenia, marijuana, PCP, and cocaine/crack use (severe), multiple inpatient admissions and at least 2 section 35. She was evaluated at [facility] for being nonverbal at home following substance use. This provider and patient's social media intern found the patient lying in her bed. She is alert, opens and closes her eyes, moves her feet, but would not respond to this provider and social media intern. Patient advised to inform staff if she decides to engage in an interview with her social media intern and provider for admission. Hospital course: 01/13 patient appears catatonic, not talking much, not moving, sometimes walking around in a disorganized way; seems to be history of catatonia as well. Not sure if eating and drinking. Maintenance And Custodian Supervisor tried to discuss medications including Ativan however patient not engaging; Currently refusing all medications 01/14: continue current management and treatment plan. Encourage adherence. 01/15: continue current management and treatment plan. Encourage adherence. 01/16/25: Patient slept for 7 hours, was not compliant with medication or point of care, she is in bed most of the morning until she was thinking about signing the 3 days. She would not signed a 3 days until she talk to to social media intern. She said yes to anxiety and said a little when I asked about depression. Reports hearing voices when being asked, but not able to disclose to more details. She denies suicidal thoughts or thoughts of hurting other people. She was not sure where she stayed and who she stayed with before coming in here. This provider note the patient by history, that mom and sister concerned about her in the past. However, patient is guarded, do not give anymore information or consent to talk to the family member. Not able to assess for more details regarding substance use. 01/17 Patient difficult with which to engage, lying in bed, not talking much at all, intermittently opening eyes. On inquiry about why not taking medications, she She says she did took some pills today (her metformin and 1 dose of Ativan). Does not answer questions about SI, HI, AVH, depression, worries. She is eating and drinking and said that she will talk with music writer tomorrow. Maintenance And Custodian Supervisor asked her about her 3 day notice and there is concern about discharging her if she is not able to answer questions...she said that she will talk with music writer tomorrow. Collateral: Maintenance And Custodian Supervisor talked with patient's sister who reports that was her regular, full functioning self few weeks until she relapsed. Sister says that whenever patient uses a lot she becomes like a zombie; she typically uses crack cocaine. Sister says she has been in numerous treatment facilities and on medication returns to full functioning, communicating and having normal discourse however as soon as he is discharged from any facility she relapses that day; sister reiterated that she has been stabilized numerous times with the same result. Sister said that despite her not talking and acting like a zombie she is typically able to function and reports that patient called their mother 2 days ago asking for phone number is of a friend. Says her diagnose says schizoaffective disorder, bipolar type, borderline personality disorder; denies ASD diagnosis -Maintenance And Custodian Supervisor also discussed Case with Sarah who has had this patient at other facilities and thinks this might not be catatonia but rather selective mutism and the patient selects the times when she wants to be organized and talk; patient has a history of psychotic illness and catatonia however rarely takes medications during inpatient admissions and at some point just gets better and wants to go. -Of note patient was organized enough to sign a 3 day notice. 01/18 Patient a little more talkative today hand out and about in the milieu more, eating and drinking and sitting with peers though keeping to herself and remains internally preoccupied. Patient told music writer that she had a hard time talking because she was in her slumber. She seems to say show take medications and did take some doses; she also agreed to retract her 3 day notice and was able to discuss how much longer music writer thought she should stay. Throughout conversation patient continuing to struggle with internal preoccupation and thought blocking. -Patient refusing point of cares to check blood sugar. Maintenance And Custodian Supervisor can not find hx of scripts for insulin; she's been mostly refusing POC (the few times has allowed <200). Will HOLD sliding scale/POC's for now. 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 She has agreed to restart risperidone but has often refused 01/19 Patient again not talking, isolating and mostly stayed in bed; eating and drinking without problems but refusing medication and remains very internally preoccupied with significant thought blocking. Not answering questions 01/20 Patient remains isolative, lying in bed, not talking and continually responding to internal stimuli. Continues to refuse labs. Sometimes patient will go to groups but does not talk and needs cues for her to transition. 01/21 No change in presentation; remains very difficult with which to engage, not answering questions very much. She did say she is all right and denied AH though she remains internally preoccupied thought blocking. Tried to discuss reasons for refusing medications but patient would not answer; patient eating and drinking -sometimes takes medications but mostly refuses; changed Risperdal to 2 mg b.i.d. (so if she takes it she gets at least 2 mg) 01/22 Patient remains disorganized in speech and behavior. She can not answer questions appropriately and either does not saying anything or says I do not know... She remains unable to articulate any choices in her treatment, if she wants to stay on the unit, if she wants to discharge, where she would go... Maintenance And Custodian Supervisor explained the need for treatment and that team had decided to rescind her CV and 5 for involuntary commitment. 01/24 Little change in presentation. Patient lying in bed, laughing or smiling inappropriately and saying very little. When asked how she is doing she says so-so but does not respond to any other related questions When music writer asks if she is better she says not sure When music writer asked who she hear voices she laughs inappropriately but does not answer When asked about SI, she looks, smiles but does not answer When asked how she slept she says not sure Maintenance And Custodian Supervisor again discussed the need for medications which she has taking sometimes and refusing it others Impression/clinical reasoning: Patient remained psychotic, internally preoccupied and with catatonic symptoms. Refusing treatments, refusing medication. At this time patient can not be discharge safely as there is no indication she can take care of herself in the community; she could not get herself home and if discharge would wander aimlessly, vulnerable to predation; patient is to severely internally preoccupied that she can not even say she wants to discharge or answer questions. Will continue offering medications for both catatonia and psychosis. Team agrees that patient is too disorganized and unsafe for discharge and unable to make any treatment decisions for herself. Will rescind her CV and file for involuntary commitment and substituted judgment 01/25 Patient a little bit more talkative today. Still not answering many questions but did ask music writer to repeat the question (patient was too internally preoccupied to hurt initially). Later on she did take medication 01/26 patient is taking medications and starting to do better. Talking more and asking about aftercare. Says she will consider long-acting injectable as well. Will switch at medications to make easier at her request and will taper off Ativan since catatonic symptoms seem to be resolving and remaining symptoms are mostly due to psychosis. Discussed AH and she says they remain and so agrees to increase Risperdal dose. -if patient continues to take medications and improve will likely not need to go to court 01/27/25: Slept for 8 hours, was medication compliant yesterday. She refused them this morning at the beginning, but ended taking them later on. Reported that she has good appetite. Mood is bored . Denies suicidal thoughts or homicidal thoughts. Denies hallucinations at 1st, but saying sometimes when asked if she heard voices, just now . Not able to elaborate further details of what she hears. I do not know regarding anxiety and depression questions. Reported that she has been taking medications but I took someone else medication , then mentioned metformin. Discussed with patient regarding H[facility] [employer] for risperidone, she said she does not want it. Explained to patient the benefit of HOPKINS, and remind patient that she does not have to make decision today, but is aware that we have the option to not have to take by mouth every day to enhance the better compliance, and able to be stable longer away from the hospital. Patient also met with social media intern today, agree with referral for outpatient services for mental health and substance use, she also signed consent to send referral out. She appears to be paranoid, mild thought blocked, however more logical and more engaging in conversation. Staff reported that she shaved yesterday. She was up, in the antonio pacing after the one-to-one assessment. Unkempt him but fair hygiene. Plan 15 minutes check. section 7 Lower to Ativan 1 mg b.i.d.; catatonic symptoms resolving; will taper off and discontinue Increase to Risperdal to 2 mg daily and 4 mg q.h.s. -encourage long-acting injectable [facility] as needed. Collateral contact. Continue remainder of regime. Encouraged full milieu. Discharge planning. Patient educated on: diagnosis, medication risk/benefits, substance abuse and therapeutic strategies Informed Consent: understands and further education needed Reason for continued inpatient stay Substantial Risk for: med/psych decompensation Time Spent With Patient Time: Total time managing care of this patient today ____ minutes.
[2025-01-27 19:54] VITALS: BP 120/72; PULSE 102; TEMP 36.9; O2SAT 99
[2025-01-28 07:49] VITALS: BP 121/59; PULSE 77; TEMP 36.3; O2SAT 97
--- NOTE | 2025-01-28 10:37 | HO.PSYCHPN ---
Subjective Subjective Date of Service: 01/28/25 Reason For Visit: F31.2 Biopolar D/O manic; F143.20 Cocaine use raymond Interim History: Pt seen, discussed with the team. Refusing medications. Attempted to meet with pt who is in bed, stared at this consumer loan underwriter and was non verbal. Walking in the milieu later in the day-observant, guarded, attentive to milieu activity. Appearing paranoid Medication Compliance: No Attending Groups: No Review of Systems Acute medical concerns: No Medical Review of Systems: unchanged Review of Systems Review of Systems Yes Unobtainable due to mental status Mental Status Exam Mental Status Exam Narrative: Pt is silent, appears paranoid and will not interact with this consumer loan underwriter. Patient Appearance: Appropriate Patient Orientation: Person Level of Consciousness: Alert Patient Behavior: Resistive to Care, Avoidant and Good Eye Contact (intense at times) Mood Description: Blunted Affect Description: Blunted Speech Pattern: No Speech Judgement: Poor Diagnostics Vital Signs (24Hr): Vital Signs - 24 hr 01/27/25 19:54 01/28/25 07:49 Temperature 98.4 F 97.3 F Pulse Rate 102 H 77 Blood Pressure 120/72 121/59 L Pulse Oximetry 99 97 Oxygen Delivery Method Room Air Room Air BMI result Body Mass Index 33.9 Labs 01/27/25 11:42 Labs: Laboratory Results - last 48 hr 01/27/25 01/27/25 01/27/25 11:42 11:42 11:42 Creatinine Cancelled 0.66 Estim Creat Clear Calc Cancelled 137.0 Estimated GFR Cancelled 01/27/25 11:42 Creatinine Estim Creat Clear Calc Estimated GFR > 60 Medications Medications Current Medications Acetaminophen (Acetaminophen 325 Mg Tablet) 650 mg PO Q6H PRN PRN Reason: Headache/Pain, Scale 1-10 Last Admin: 01/27/25 20:50 Dose: 650 mg Al Hydroxide/Mg Hydroxide (Magnesium Hydrox/Alum Hydrox 30 Ml Oral.Susp) 30 ml PO Q6H PRN PRN Reason: Heartburn/Nausea Last Admin: 01/26/25 20:14 Dose: 30 ml Benzocaine (Benzocaine 20 % Oral Gel 9 Gm Tube) 1 appl MUCOUS MEM QID PRN; Protocol PRN Reason: dental pain Hydroxyzine HCl (Hydroxyzine Hcl 25 Mg Tablet) 25 mg PO Q6H PRN PRN Reason: mild anxiety Insulin Human Lispro (Insulin Lispro 100 Unit/Ml 3 Ml Vial) 0 unit SUBCUT QIDACHS [facility]; Protocol On Hold: 01/18/25 09:59 Last Admin: 01/18/25 09:28 Dose: Not Given Lorazepam (Lorazepam 1 Mg Tablet) 1 mg PO BID [facility] Stop: 01/28/25 23:00 Last Admin: 01/28/25 10:12 Dose: 1 mg Magnesium Hydroxide (Milk Of Magnesia 30 Ml Oral.Susp) 30 ml PO DAILY PRN PRN Reason: Constipation Last Admin: 01/26/25 12:41 Dose: 30 ml Metformin HCl (Metformin Hcl 500 Mg Tablet) 500 mg PO BIDWM [facility] Last Admin: 01/28/25 10:12 Dose: 500 mg Nicotine Polacrilex (Nicotine Polacrilex 2 Mg Gum) 2 mg BUCCAL Q2H PRN PRN Reason: Nicotine Cravings Polyethylene Glycol (Polyethylene Glycol 3350 17 Gm Powd.Pack) 17 gm PO DAILY PRN PRN Reason: Constipation Last Admin: 01/27/25 14:45 Dose: 17 gm Risperidone (Risperidone 2 Mg Tablet) 2 mg PO DAILY [facility] Last Admin: 01/28/25 10:12 Dose: 2 mg Risperidone (Risperidone 2 Mg Tablet) 4 mg PO BEDTIME [facility] Last Admin: 01/27/25 20:48 Dose: 4 mg Senna (Sennosides 8.6 Mg Tablet) 17.2 mg PO DAILY PRN PRN Reason: Constipation Last Admin: 01/27/25 11:44 Dose: 17.2 mg Simethicone (Simethicone 80 Mg Tab.Chew) 80 mg PO QIDWMHS PRN PRN Reason: flatulance Last Admin: 01/27/25 21:02 Dose: 80 mg Trazodone HCl (Trazodone Hcl 50 Mg Tablet) 50 mg PO BEDTIME MRX1 PRN PRN Reason: Insomnia Last Admin: 01/27/25 20:48 Dose: 50 mg Valacyclovir HCl (Valacyclovir Hcl 500 Mg Tablet) 500 mg PO DAILY [facility] Last Admin: 01/28/25 10:13 Dose: 500 mg Allergies Allergies Allergy/AdvReac Type Severity Reaction Status Date / Time blueberry Allergy Unknown Unknown Verified 01/11/25 21:20 Assessment & Plan Assessment & Plan (1) Schizoaffective disorder, bipolar type: Status: Acute Code(s): F25.0 - Schizoaffective disorder, bipolar type (2) Catatonia: Status: Acute Code(s): F06.1 - Catatonic disorder due to known physiological condition (3) Polysubstance use disorder: Status: Acute Code(s): F19.90 - Other psychoactive substance use, unspecified, uncomplicated (4) Cocaine abuse: Status: Acute Code(s): F14.10 - Cocaine abuse, uncomplicated Plan 34-year-old Urdu-speaking female is a direct transfer, via ambulance, from [facility] to [facility]. She has history of bipolar disorder, schizophrenia, marijuana, PCP, and cocaine/crack use (severe), multiple inpatient admissions and at least 2 section 35. She was evaluated at [facility] for being nonverbal at home following substance use. This provider and patient's renal social worker found the patient lying in her bed. She is alert, opens and closes her eyes, moves her feet, but would not respond to this provider and renal social worker. Patient advised to inform staff if she decides to engage in an interview with her renal social worker and provider for admission. Hospital course: 01/13 patient appears catatonic, not talking much, not moving, sometimes walking around in a disorganized way; seems to be history of catatonia as well. Not sure if eating and drinking. [employer] Supervisor tried to discuss medications including Ativan however patient not engaging; Currently refusing all medications 01/14: continue current management and treatment plan. Encourage adherence. 01/15: continue current management and treatment plan. Encourage adherence. 01/16/25: Patient slept for 7 hours, was not compliant with medication or point of care, she is in bed most of the morning until she was thinking about signing the 3 days. She would not signed a 3 days until she talk to to renal social worker. She said yes to anxiety and said a little when I asked about depression. Reports hearing voices when being asked, but not able to disclose to more details. She denies suicidal thoughts or thoughts of hurting other people. She was not sure where she stayed and who she stayed with before coming in here. This provider note the patient by history, that mom and sister concerned about her in the past. However, patient is guarded, do not give anymore information or consent to talk to the family member. Not able to assess for more details regarding substance use. 01/17 Patient difficult with which to engage, lying in bed, not talking much at all, intermittently opening eyes. On inquiry about why not taking medications, she She says she did took some pills today (her metformin and 1 dose of Ativan). Does not answer questions about SI, HI, AVH, depression, worries. She is eating and drinking and said that she will talk with consumer loan underwriter tomorrow. [employer] Supervisor asked her about her 3 day notice and there is concern about discharging her if she is not able to answer questions...she said that she will talk with consumer loan underwriter tomorrow. Collateral: [employer] Supervisor talked with patient's sister who reports that was her regular, full functioning self few weeks until she relapsed. Sister says that whenever patient uses a lot she becomes like a zombie; she typically uses crack cocaine. Sister says she has been in numerous treatment facilities and on medication returns to full functioning, communicating and having normal discourse however as soon as he is discharged from any facility she relapses that day; sister reiterated that she has been stabilized numerous times with the same result. Sister said that despite her not talking and acting like a zombie she is typically able to function and reports that patient called their mother 2 days ago asking for phone number is of a friend. Says her diagnose says schizoaffective disorder, bipolar type, borderline personality disorder; denies ASD diagnosis -[employer] Supervisor also discussed Case with Sarah who has had this patient at other facilities and thinks this might not be catatonia but rather selective mutism and the patient selects the times when she wants to be organized and talk; patient has a history of psychotic illness and catatonia however rarely takes medications during inpatient admissions and at some point just gets better and wants to go. -Of note patient was organized enough to sign a 3 day notice. 01/18 Patient a little more talkative today hand out and about in the milieu more, eating and drinking and sitting with peers though keeping to herself and remains internally preoccupied. Patient told consumer loan underwriter that she had a hard time talking because she was in her slumber. She seems to say show take medications and did take some doses; she also agreed to retract her 3 day notice and was able to discuss how much longer consumer loan underwriter thought she should stay. Throughout conversation patient continuing to struggle with internal preoccupation and thought blocking. -Patient refusing point of cares to check blood sugar. [employer] Supervisor can not find hx of scripts for insulin; she's been mostly refusing POC (the few times has allowed <200). Will HOLD sliding scale/POC's for now. 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 She has agreed to restart risperidone but has often refused 01/19 Patient again not talking, isolating and mostly stayed in bed; eating and drinking without problems but refusing medication and remains very internally preoccupied with significant thought blocking. Not answering questions 01/20 Patient remains isolative, lying in bed, not talking and continually responding to internal stimuli. Continues to refuse labs. Sometimes patient will go to groups but does not talk and needs cues for her to transition. 01/21 No change in presentation; remains very difficult with which to engage, not answering questions very much. She did say she is all right and denied AH though she remains internally preoccupied thought blocking. Tried to discuss reasons for refusing medications but patient would not answer; patient eating and drinking -sometimes takes medications but mostly refuses; changed Risperdal to 2 mg b.i.d. (so if she takes it she gets at least 2 mg) 01/22 Patient remains disorganized in speech and behavior. She can not answer questions appropriately and either does not saying anything or says I do not know... She remains unable to articulate any choices in her treatment, if she wants to stay on the unit, if she wants to discharge, where she would go... [employer] Supervisor explained the need for treatment and that team had decided to rescind her CV and 5 for involuntary commitment. 01/24 Little change in presentation. Patient lying in bed, laughing or smiling inappropriately and saying very little. When asked how she is doing she says so-so but does not respond to any other related questions When consumer loan underwriter asks if she is better she says not sure When consumer loan underwriter asked who she hear voices she laughs inappropriately but does not answer When asked about SI, she looks, smiles but does not answer When asked how she slept she says not sure [employer] Supervisor again discussed the need for medications which she has taking sometimes and refusing it others Impression/clinical reasoning: Patient remained psychotic, internally preoccupied and with catatonic symptoms. Refusing treatments, refusing medication. At this time patient can not be discharge safely as there is no indication she can take care of herself in the community; she could not get herself home and if discharge would wander aimlessly, vulnerable to predation; patient is to severely internally preoccupied that she can not even say she wants to discharge or answer questions. Will continue offering medications for both catatonia and psychosis. Team agrees that patient is too disorganized and unsafe for discharge and unable to make any treatment decisions for herself. Will rescind her CV and file for involuntary commitment and substituted judgment 01/25 Patient a little bit more talkative today. Still not answering many questions but did ask consumer loan underwriter to repeat the question (patient was too internally preoccupied to hurt initially). Later on she did take medication 01/26 patient is taking medications and starting to do better. Talking more and asking about aftercare. Says she will consider long-acting injectable as well. Will switch at medications to make easier at her request and will taper off Ativan since catatonic symptoms seem to be resolving and remaining symptoms are mostly due to psychosis. Discussed AH and she says they remain and so agrees to increase Risperdal dose. -if patient continues to take medications and improve will likely not need to go to court 01/27/25: Slept for 8 hours, was medication compliant yesterday. She refused them this morning at the beginning, but ended taking them later on. Reported that she has good appetite. Mood is bored . Denies suicidal thoughts or homicidal thoughts. Denies hallucinations at 1st, but saying sometimes when asked if she heard voices, just now . Not able to elaborate further details of what she hears. I do not know regarding anxiety and depression questions. Reported that she has been taking medications but I took someone else medication , then mentioned metformin. Discussed with patient regarding [facility] [employer] for risperidone, she said she does not want it. Explained to patient the benefit of [facility], and remind patient that she does not have to make decision today, but is aware that we have the option to not have to take by mouth every day to enhance the better compliance, and able to be stable longer away from the hospital. Patient also met with renal social worker today, agree with referral for outpatient services for mental health and substance use, she also signed consent to send referral out. She appears to be paranoid, mild thought blocked, however more logical and more engaging in conversation. Staff reported that she shaved yesterday. She was up, in the antonio pacing after the one-to-one assessment. Unkempt him but fair hygiene. 01/28: Continue tx Plan 15 minutes check. section 7 Lower to Ativan 1 mg b.i.d.; catatonic symptoms resolving; will taper off and discontinue Increase to Risperdal to 2 mg daily and 4 mg q.h.s. -encourage long-acting injectable [facility] as needed. Collateral contact. Continue remainder of regime. Encouraged full milieu. Discharge planning. Reason for continued inpatient stay Substantial Risk for: rapid decompensation Time Spent With Patient Time: Total time managing care of this patient today ____ minutes.
[2025-01-29 08:00] VITALS: RESP 16
--- NOTE | 2025-01-29 13:24 | HO.PSYCHPN ---
Subjective Subjective Date of Service: 01/29/25 Reason For Visit: F31.2 Biopolar D/O manic; F143.20 Cocaine use raymond Interim History: Pt able to say Hi to this ghost writer today. Accepted Risperdal from the team! Visable in the milieu Medication Compliance: Intermittent Side effects from medications: No Review of Systems Review of Systems Yes Unobtainable due to mental status Mental Status Exam Mental Status Exam Narrative: Pt is silent, appears paranoid and will not interact with this ghost writer. She was able to say Hi this a.m. Patient Appearance: Appropriate Patient Orientation: Person Level of Consciousness: Alert Patient Behavior: Resistive to Care, Avoidant and Good Eye Contact (intense at times) Mood Description: Blunted Affect Description: Blunted Speech Pattern: No Speech Judgement: Poor Diagnostics Vital Signs (24Hr): Vital Signs - 24 hr 01/29/25 08:00 Respiratory Rate 16 BMI result Body Mass Index 33.9 Labs 01/27/25 11:42 Medications Medications Current Medications Acetaminophen (Acetaminophen 325 Mg Tablet) 650 mg PO Q6H PRN PRN Reason: Headache/Pain, Scale 1-10 Last Admin: 01/27/25 20:50 Dose: 650 mg Al Hydroxide/Mg Hydroxide (Magnesium Hydrox/Alum Hydrox 30 Ml Oral.Susp) 30 ml PO Q6H PRN PRN Reason: Heartburn/Nausea Last Admin: 01/26/25 20:14 Dose: 30 ml Benzocaine (Benzocaine 20 % Oral Gel 9 Gm Tube) 1 appl MUCOUS MEM QID PRN; Protocol PRN Reason: dental pain Hydroxyzine HCl (Hydroxyzine Hcl 25 Mg Tablet) 25 mg PO Q6H PRN PRN Reason: mild anxiety Insulin Human Lispro (Insulin Lispro 100 Unit/Ml 3 Ml Vial) 0 unit SUBCUT QIDACHS [facility]; Protocol On Hold: 01/18/25 09:59 Last Admin: 01/18/25 09:28 Dose: Not Given Magnesium Hydroxide (Milk Of Magnesia 30 Ml Oral.Susp) 30 ml PO DAILY PRN PRN Reason: Constipation Last Admin: 01/26/25 12:41 Dose: 30 ml Metformin HCl (Metformin Hcl 500 Mg Tablet) [facility] [place] Last Admin: 01/29/25 08:26 Dose: Not Given Nicotine Polacrilex (Nicotine Polacrilex 2 Mg Gum) 2 mg BUCCAL Q2H PRN PRN Reason: Nicotine Cravings Polyethylene Glycol (Polyethylene Glycol 3350 17 Gm Powd.Pack) 17 gm PO DAILY PRN PRN Reason: Constipation Last Admin: 01/27/25 14:45 Dose: 17 gm Risperidone (Risperidone 2 Mg Tablet) 2 mg PO DAILY MÓNICA Last Admin: 01/29/25 08:26 Dose: Not Given Risperidone (Risperidone 2 Mg Tablet) 4 mg PO BEDTIME MÓNICA Last Admin: 01/28/25 21:54 Dose: Not Given Senna (Sennosides 8.6 Mg Tablet) 17.2 mg PO DAILY PRN PRN Reason: Constipation Last Admin: 01/27/25 11:44 Dose: 17.2 mg Simethicone (Simethicone 80 Mg Tab.Chew) 80 mg PO QIDWMHS PRN PRN Reason: flatulance Last Admin: 01/27/25 21:02 Dose: 80 mg Trazodone HCl (Trazodone Hcl 50 Mg Tablet) 50 mg PO BEDTIME MRX1 PRN PRN Reason: Insomnia Last Admin: 01/27/25 20:48 Dose: 50 mg Valacyclovir HCl (Valacyclovir Hcl 500 Mg Tablet) 500 mg PO DAILY MÓNICA Last Admin: 01/29/25 08:26 Dose: Not Given Allergies Allergies Allergy/AdvReac Type Severity Reaction Status Date / Time blueberry Allergy Unknown Unknown Verified 01/11/25 21:20 Assessment & Plan Assessment & Plan (1) Schizoaffective disorder, bipolar type: Status: Acute Code(s): F25.0 - Schizoaffective disorder, bipolar type (2) Catatonia: Status: Acute Code(s): F06.1 - Catatonic disorder due to known physiological condition (3) Polysubstance use disorder: Status: Acute Code(s): F19.90 - Other psychoactive substance use, unspecified, uncomplicated (4) Cocaine abuse: Status: Acute Code(s): F14.10 - Cocaine abuse, uncomplicated Plan 34-year-old Arabic-speaking female is a direct transfer, via ambulance, from [facility] to [facility]. She has history of bipolar disorder, schizophrenia, marijuana, PCP, and cocaine/crack use (severe), multiple inpatient admissions and at least 2 section 35. She was evaluated at [facility] for being nonverbal at home following substance use. This provider and patient's geriatric social work professor found the patient lying in her bed. She is alert, opens and closes her eyes, moves her feet, but would not respond to this provider and geriatric social work professor. Patient advised to inform staff if she decides to engage in an interview with her geriatric social work professor and provider for admission. Hospital course: 01/13 patient appears catatonic, not talking much, not moving, sometimes walking around in a disorganized way; seems to be history of catatonia as well. Not sure if eating and drinking. Foster Care Case Manager tried to discuss medications including Ativan however patient not engaging; Currently refusing all medications 01/14: continue current management and treatment plan. Encourage adherence. 01/15: continue current management and treatment plan. Encourage adherence. 01/16/25: Patient slept for 7 hours, was not compliant with medication or point of care, she is in bed most of the morning until she was thinking about signing the 3 days. She would not signed a 3 days until she talk to to geriatric social work professor. She said yes to anxiety and said a little when I asked about depression. Reports hearing voices when being asked, but not able to disclose to more details. She denies suicidal thoughts or thoughts of hurting other people. She was not sure where she stayed and who she stayed with before coming in here. This provider note the patient by history, that mom and sister concerned about her in the past. However, patient is guarded, do not give anymore information or consent to talk to the family member. Not able to assess for more details regarding substance use. 01/17 Patient difficult with which to engage, lying in bed, not talking much at all, intermittently opening eyes. On inquiry about why not taking medications, she She says she did took some pills today (her metformin and 1 dose of Ativan). Does not answer questions about SI, HI, AVH, depression, worries. She is eating and drinking and said that she will talk with ghost writer tomorrow. Foster Care Case Manager asked her about her 3 day notice and there is concern about discharging her if she is not able to answer questions...she said that she will talk with ghost writer tomorrow. Collateral: Foster Care Case Manager talked with patient's sister who reports that was her regular, full functioning self few weeks until she relapsed. Sister says that whenever patient uses a lot she becomes like a zombie; she typically uses crack cocaine. Sister says she has been in numerous treatment facilities and on medication returns to full functioning, communicating and having normal discourse however as soon as he is discharged from any facility she relapses that day; sister reiterated that she has been stabilized numerous times with the same result. Sister said that despite her not talking and acting like a zombie she is typically able to function and reports that patient called their mother 2 days ago asking for phone number is of a friend. Says her diagnose says schizoaffective disorder, bipolar type, borderline personality disorder; denies ASD diagnosis -Foster Care Case Manager also discussed Case with Sarah who has had this patient at other facilities and thinks this might not be catatonia but rather selective mutism and the patient selects the times when she wants to be organized and talk; patient has a history of psychotic illness and catatonia however rarely takes medications during inpatient admissions and at some point just gets better and wants to go. -Of note patient was organized enough to sign a 3 day notice. 01/18 Patient a little more talkative today hand out and about in the milieu more, eating and drinking and sitting with peers though keeping to herself and remains internally preoccupied. Patient told ghost writer that she had a hard time talking because she was in her slumber. She seems to say show take medications and did take some doses; she also agreed to retract her 3 day notice and was able to discuss how much longer ghost writer thought she should stay. Throughout conversation patient continuing to struggle with internal preoccupation and thought blocking. -Patient refusing point of cares to check blood sugar. Foster Care Case Manager can not find hx of scripts for insulin; she's been mostly refusing POC (the few times has allowed <200). Will HOLD sliding scale/POC's for now. 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 She has agreed to restart risperidone but has often refused 01/19 Patient again not talking, isolating and mostly stayed in bed; eating and drinking without problems but refusing medication and remains very internally preoccupied with significant thought blocking. Not answering questions 01/20 Patient remains isolative, lying in bed, not talking and continually responding to internal stimuli. Continues to refuse labs. Sometimes patient will go to groups but does not talk and needs cues for her to transition. 01/21 No change in presentation; remains very difficult with which to engage, not answering questions very much. She did say she is all right and denied AH though she remains internally preoccupied thought blocking. Tried to discuss reasons for refusing medications but patient would not answer; patient eating and drinking -sometimes takes medications but mostly refuses; changed Risperdal to 2 mg b.i.d. (so if she takes it she gets at least 2 mg) 01/22 Patient remains disorganized in speech and behavior. She can not answer questions appropriately and either does not saying anything or says I do not know... She remains unable to articulate any choices in her treatment, if she wants to stay on the unit, if she wants to discharge, where she would go... Foster Care Case Manager explained the need for treatment and that team had decided to rescind her CV and 5 for involuntary commitment. 01/24 Little change in presentation. Patient lying in bed, laughing or smiling inappropriately and saying very little. When asked how she is doing she says so-so but does not respond to any other related questions When ghost writer asks if she is better she says not sure When ghost writer asked who she hear voices she laughs inappropriately but does not answer When asked about SI, she looks, smiles but does not answer When asked how she slept she says not sure Foster Care Case Manager again discussed the need for medications which she has taking sometimes and refusing it others Impression/clinical reasoning: Patient remained psychotic, internally preoccupied and with catatonic symptoms. Refusing treatments, refusing medication. At this time patient can not be discharge safely as there is no indication she can take care of herself in the community; she could not get herself home and if discharge would wander aimlessly, vulnerable to predation; patient is to severely internally preoccupied that she can not even say she wants to discharge or answer questions. Will continue offering medications for both catatonia and psychosis. Team agrees that patient is too disorganized and unsafe for discharge and unable to make any treatment decisions for herself. Will rescind her CV and file for involuntary commitment and substituted judgment 01/25 Patient a little bit more talkative today. Still not answering many questions but did ask ghost writer to repeat the question (patient was too internally preoccupied to hurt initially). Later on she did take medication 01/26 patient is taking medications and starting to do better. Talking more and asking about aftercare. Says she will consider long-acting injectable as well. Will switch at medications to make easier at her request and will taper off Ativan since catatonic symptoms seem to be resolving and remaining symptoms are mostly due to psychosis. Discussed AH and she says they remain and so agrees to increase Risperdal dose. -if patient continues to take medications and improve will likely not need to go to court 01/27/25: Slept for 8 hours, was medication compliant yesterday. She refused them this morning at the beginning, but ended taking them later on. Reported that she has good appetite. Mood is bored . Denies suicidal thoughts or homicidal thoughts. Denies hallucinations at , but saying sometimes when asked if she heard voices, just now . Not able to elaborate further details of what she hears. I do not know regarding anxiety and depression questions. Reported that she has been taking medications but I took someone else medication , then mentioned metformin. Discussed with patient regarding [facility] [employer] for risperidone, she said she does not want it. Explained to patient the benefit of [facility], and remind patient that she does not have to make decision today, but is aware that we have the option to not have to take by mouth every day to enhance the better compliance, and able to be stable longer away from the hospital. Patient also met with geriatric social work professor today, agree with referral for outpatient services for mental health and substance use, she also signed consent to send referral out. She appears to be paranoid, mild thought blocked, however more logical and more engaging in conversation. Staff reported that she shaved yesterday. She was up, in the antonio pacing after the one-to-one assessment. Unkempt him but fair hygiene. 01/29: Continue tx Plan 15 minutes check. section 7 Lower to Ativan 1 mg b.i.d.; catatonic symptoms resolving; will taper off and discontinue Increase to Risperdal to 2 mg daily and 4 mg q.h.s. -encourage long-acting injectable [facility] as needed. Collateral contact. Continue remainder of regime. Encouraged full milieu. Discharge planning. Reason for continued inpatient stay Substantial Risk for: rapid decompensation Time Spent With Patient Time: Total time managing care of this patient today ____ minutes.
[2025-01-29 19:40] VITALS: BP 128/73; PULSE 92; TEMP 36.6; O2SAT 99
--- NOTE | 2025-01-30 09:39 | P.PNPSI_ITS ---
Subjective Subjective Date of Service: 01/30/25 Reason For Visit: F31.2 Biopolar D/O manic; F143.20 Cocaine use raymond Interim History: met with patient; discussed with team; reviewed chart Patient again refused medication over the weekend and again is unable to answer questions, shrugging her shoulders with every question asked. Patient can not say why she did not take medication. Mental Status Exam Mental Status Exam Narrative: Pt is alert and oriented; behavior is isolative, non-cooperative, calm, internally preoccupied, sometimes smiling or laughing inappropriately; speaking very little; patient is not in distress; dressed in hospital attire, unkempt, hirsutism; mood is described as so-so though affect blunted; eye contact avoidant; Speech sparse, soft and quiet; psychomotor retardation present; thought process marred by significant thought blocking; can be goal oriented but quickly becomes disorganized; Thought content not disclosed; does not express any SI/HI. Patient internally preoccupied and responding to internal stimuli. Patients insight and judgment impaired Diagnostics Vital Signs (24Hr): Vital Signs - 24 hr 01/29/25 19:40 Temperature 97.9 F Pulse Rate 92 Blood Pressure 128/73 Pulse Oximetry 99 Oxygen Delivery Method Room Air BMI result Body Mass Index 33.9 Labs 01/27/25 11:42 Medications Medications Current Medications Acetaminophen (Acetaminophen 325 Mg Tablet) 650 mg PO Q6H PRN PRN Reason: Headache/Pain, Scale 1-10 Last Admin: 01/27/25 20:50 Dose: 650 mg Al Hydroxide/Mg Hydroxide (Magnesium Hydrox/Alum Hydrox 30 Ml Oral.Susp) 30 ml PO Q6H PRN PRN Reason: Heartburn/Nausea Last Admin: 01/26/25 20:14 Dose: 30 ml Benzocaine (Benzocaine 20 % Oral Gel 9 Gm Tube) 1 appl MUCOUS MEM QID PRN; Protocol PRN Reason: dental pain Hydroxyzine HCl (Hydroxyzine Hcl 25 Mg Tablet) 25 mg PO Q6H PRN PRN Reason: mild anxiety Insulin Human Lispro (Insulin Lispro 100 Unit/Ml 3 Ml Vial) 0 unit SUBCUT QIDACHS [facility]; Protocol On Hold: 01/18/25 09:59 Last Admin: 01/18/25 09:28 Dose: Not Given Magnesium Hydroxide (Milk Of Magnesia 30 Ml Oral.Susp) 30 ml PO DAILY PRN PRN Reason: Constipation Last Admin: 01/26/25 12:41 Dose: 30 ml Metformin HCl (Metformin Hcl 500 Mg Tablet) 500 mg PO BIDWM MÓNICA Last Admin: 01/29/25 18:00 Dose: Not Given Nicotine Polacrilex (Nicotine Polacrilex 2 Mg Gum) 2 mg BUCCAL Q2H PRN PRN Reason: Nicotine Cravings Polyethylene Glycol (Polyethylene Glycol 3350 17 Gm Powd.Pack) 17 gm PO DAILY PRN PRN Reason: Constipation Last Admin: 01/27/25 14:45 Dose: 17 gm Risperidone (Risperidone 2 Mg Tablet) 2 mg PO DAILY MÓNICA Last Admin: 01/29/25 14:51 Dose: 2 mg Risperidone (Risperidone 2 Mg Tablet) 4 mg PO BEDTIME MÓNICA Last Admin: 01/29/25 22:06 Dose: Not Given Senna (Sennosides 8.6 Mg Tablet) 17.2 mg PO DAILY PRN PRN Reason: Constipation Last Admin: 01/27/25 11:44 Dose: 17.2 mg Simethicone (Simethicone 80 Mg Tab.Chew) 80 mg PO QIDWMHS PRN PRN Reason: flatulance Last Admin: 01/27/25 21:02 Dose: 80 mg Trazodone HCl (Trazodone Hcl 50 Mg Tablet) 50 mg PO BEDTIME MRX1 PRN PRN Reason: Insomnia Last Admin: 01/27/25 20:48 Dose: 50 mg Valacyclovir HCl (Valacyclovir Hcl 500 Mg Tablet) 500 mg PO DAILY [facility] Last Admin: 01/29/25 08:26 Dose: Not Given Allergies Allergies Allergy/AdvReac Type Severity Reaction Status Date / Time blueberry Allergy Unknown Unknown Verified 01/11/25 21:20 Assessment & Plan Assessment & Plan (1) Schizoaffective disorder, bipolar type: Status: Acute Code(s): F25.0 - Schizoaffective disorder, bipolar type (2) Catatonia: Status: Acute Code(s): F06.1 - Catatonic disorder due to known physiological condition (3) Polysubstance use disorder: Status: Acute Code(s): F19.90 - Other psychoactive substance use, unspecified, uncomplicated (4) Cocaine abuse: Status: Acute Code(s): F14.10 - Cocaine abuse, uncomplicated Plan 34-year-old Danish-speaking female is a direct transfer, via ambulance, from [facility] to [facility]. She has history of bipolar disorder, schizophrenia, marijuana, PCP, and cocaine/crack use (severe), multiple inpatient admissions and at least 2 section 35. She was evaluated at [facility] for being nonverbal at home following substance use. This provider and patient's social work program coordinator found the patient lying in her bed. She is alert, opens and closes her eyes, moves her feet, but would not respond to this provider and social work program coordinator. Patient advised to inform staff if she decides to engage in an interview with her social work program coordinator and provider for admission. Hospital course: 01/13 patient appears catatonic, not talking much, not moving, sometimes walking around in a disorganized way; seems to be history of catatonia as well. Not sure if eating and drinking. Cataloging Assistant tried to discuss medications including Ativan however patient not engaging; Currently refusing all medications 01/14: continue current management and treatment plan. Encourage adherence. 01/15: continue current management and treatment plan. Encourage adherence. 01/16/25: Patient slept for 7 hours, was not compliant with medication or point of care, she is in bed most of the morning until she was thinking about signing the 3 days. She would not signed a 3 days until she talk to to social work program coordinator. She said yes to anxiety and said a little when I asked about depression. Reports hearing voices when being asked, but not able to disclose to more details. She denies suicidal thoughts or thoughts of hurting other people. She was not sure where she stayed and who she stayed with before coming in here. This provider note the patient by history, that mom and sister concerned about her in the past. However, patient is guarded, do not give anymore information or consent to talk to the family member. Not able to assess for more details regarding substance use. 01/17 Patient difficult with which to engage, lying in bed, not talking much at all, intermittently opening eyes. On inquiry about why not taking medications, she She says she did took some pills today (her metformin and 1 dose of Ativan). Does not answer questions about SI, HI, AVH, depression, worries. She is eating and drinking and said that she will talk with report writer tomorrow. Cataloging Assistant asked her about her 3 day notice and there is concern about discharging her if she is not able to answer questions...she said that she will talk with report writer tomorrow. Collateral: Cataloging Assistant talked with patient's sister who reports that was her regular, full functioning self few weeks until she relapsed. Sister says that whenever patient uses a lot she becomes like a zombie; she typically uses crack cocaine. Sister says she has been in numerous treatment facilities and on medication returns to full functioning, communicating and having normal discourse however as soon as he is discharged from any facility she relapses that day; sister reiterated that she has been stabilized numerous times with the same result. Sister said that despite her not talking and acting like a zombie she is typically able to function and reports that patient called their mother 2 days ago asking for phone number is of a friend. Says her diagnose says schizoaffective disorder, bipolar type, borderline personality disorder; denies ASD diagnosis -Cataloging Assistant also discussed Case with Sarah who has had this patient at other facilities and thinks this might not be catatonia but rather selective mutism and the patient selects the times when she wants to be organized and talk; patient has a history of psychotic illness and catatonia however rarely takes medications during inpatient admissions and at some point just gets better and wants to go. -Of note patient was organized enough to sign a 3 day notice. 01/18 Patient a little more talkative today hand out and about in the milieu more, eating and drinking and sitting with peers though keeping to herself and remains internally preoccupied. Patient told report writer that she had a hard time talking because she was in her slumber. She seems to say show take medications and did take some doses; she also agreed to retract her 3 day notice and was able to discuss how much longer report writer thought she should stay. Throughout conversation patient continuing to struggle with internal preoccupation and thought blocking. -Patient refusing point of cares to check blood sugar. Cataloging Assistant can not find hx of scripts for insulin; she's been mostly refusing POC (the few times has allowed <200). Will HOLD sliding scale/POC's for now. 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 She has agreed to restart risperidone but has often refused 01/19 Patient again not talking, isolating and mostly stayed in bed; eating and drinking without problems but refusing medication and remains very internally preoccupied with significant thought blocking. Not answering questions 01/20 Patient remains isolative, lying in bed, not talking and continually responding to internal stimuli. Continues to refuse labs. Sometimes patient will go to groups but does not talk and needs cues for her to transition. 01/21 No change in presentation; remains very difficult with which to engage, not answering questions very much. She did say she is all right and denied AH though she remains internally preoccupied thought blocking. Tried to discuss reasons for refusing medications but patient would not answer; patient eating and drinking -sometimes takes medications but mostly refuses; changed Risperdal to 2 mg b.i.d. (so if she takes it she gets at least 2 mg) 01/22 Patient remains disorganized in speech and behavior. She can not answer questions appropriately and either does not saying anything or says I do not know... She remains unable to articulate any choices in her treatment, if she wants to stay on the unit, if she wants to discharge, where she would go... Cataloging Assistant explained the need for treatment and that team had decided to rescind her CV and 5 for involuntary commitment. 01/24 Little change in presentation. Patient lying in bed, laughing or smiling inappropriately and saying very little. When asked how she is doing she says so-so but does not respond to any other related questions When report writer asks if she is better she says not sure When report writer asked who she hear voices she laughs inappropriately but does not answer When asked about SI, she looks, smiles but does not answer When asked how she slept she says not sure Cataloging Assistant again discussed the need for medications which she has taking sometimes and refusing it others Impression/clinical reasoning: Patient remained psychotic, internally preoccupied and with catatonic symptoms. Refusing treatments, refusing medication. At this time patient can not be discharge safely as there is no indication she can take care of herself in the community; she could not get herself home and if discharge would wander aimlessly, vulnerable to predation; patient is to severely internally preoccupied that she can not even say she wants to discharge or answer questions. Will continue offering medications for both catatonia and psychosis. Team agrees that patient is too disorganized and unsafe for discharge and unable to make any treatment decisions for herself. Will rescind her CV and file for involuntary commitment and substituted judgment 01/25 Patient a little bit more talkative today. Still not answering many questions but did ask report writer to repeat the question (patient was too internally preoccupied to hurt initially). Later on she did take medication 01/26 patient is taking medications and starting to do better. Talking more and asking about aftercare. Says she will consider long-acting injectable as well. Will switch at medications to make easier at her request and will taper off Ativan since catatonic symptoms seem to be resolving and remaining symptoms are mostly due to psychosis. Discussed AH and she says they remain and so agrees to increase Risperdal dose. -if patient continues to take medications and improve will likely not need to go to court 01/27/25: Slept for 8 hours, was medication compliant yesterday. She refused them this morning at the beginning, but ended taking them later on. Reported that she has good appetite. Mood is bored . Denies suicidal thoughts or homicidal thoughts. Denies hallucinations at 1st, but saying sometimes when asked if she heard voices, just now . Not able to elaborate further details of what she hears. I do not know regarding anxiety and depression questions. Reported that she has been taking medications but I took someone else medication , then mentioned metformin. Discussed with patient regarding [facility] [employer] for risperidone, she said she does not want it. Explained to patient the benefit of [facility], and remind patient that she does not have to make decision today, but is aware that we have the option to not have to take by mouth every day to enhance the better compliance, and able to be stable longer away from the hospital. Patient also met with social work program coordinator today, agree with referral for outpatient services for mental health and substance use, she also signed consent to send referral out. She appears to be paranoid, mild thought blocked, however more logical and more engaging in conversation. Staff reported that she shaved yesterday. She was up, in the antonio pacing after the one-to-one assessment. Unkempt him but fair hygiene. 01/29: Continue tx 8/25 Patient again refused medication over the weekend and again is unable to answer questions, shrugging her shoulders with every question asked. Patient can not say why she did not take medication. Plan 15 minutes check. section 7 Lower to Ativan 1 mg b.i.d.; catatonic symptoms resolving; will taper off and discontinue Increase to Risperdal to 2 mg daily and 4 mg q.h.s. -encourage long-acting injectable [facility] as needed. Collateral contact. Continue remainder of regime. Encouraged full milieu. Discharge planning. Patient educated on: diagnosis and medication risk/benefits Informed Consent: does not understand Reason for continued inpatient stay Substantial Risk for: inability to function Time Spent With Patient Time: Total time managing care of this patient today ____ minutes.
[2025-01-30 20:00] VITALS: BP 131/82; PULSE 78; TEMP 36.8; O2SAT 97
--- NOTE | 2025-01-31 09:45 | P.PNPSI_ITS ---
Subjective Subjective Date of Service: 01/31/25 Reason For Visit: F31.2 Biopolar D/O manic; F143.20 Cocaine use raymond Interim History: Met with patient; discussed with team Patient remains unchanged, not answering any questions that sports book writer or other staff ask under struggling her shoulders or just mumbling to herself in response. Mental Status Exam Mental Status Exam Narrative: Pt is alert and oriented; behavior is isolative, non-cooperative, calm, internally preoccupied, sometimes smiling or laughing inappropriately; speaking very little; patient is not in distress; dressed in hospital attire, unkempt, hirsutism; mood is described as so-so though affect blunted; eye contact avoidant; Speech sparse, soft and quiet; psychomotor retardation present; thought process marred by significant thought blocking; can be goal oriented but quickly becomes disorganized; Thought content not disclosed; does not express any SI/HI. Patient internally preoccupied and responding to internal stimuli. Patients insight and judgment impaired Diagnostics Vital Signs (24Hr): Vital Signs - 24 hr 01/30/25 20:00 Temperature 98.3 F Pulse Rate 78 Blood Pressure 131/82 Pulse Oximetry 97 Oxygen Delivery Method Room Air BMI result Body Mass Index 33.9 Labs 01/27/25 11:42 Medications Medications Current Medications Acetaminophen (Acetaminophen 325 Mg Tablet) 650 mg PO Q6H PRN PRN Reason: Headache/Pain, Scale 1-10 Last Admin: 01/27/25 20:50 Dose: 650 mg Al Hydroxide/Mg Hydroxide (Magnesium Hydrox/Alum Hydrox 30 Ml Oral.Susp) 30 ml PO Q6H PRN PRN Reason: Heartburn/Nausea Last Admin: 01/26/25 20:14 Dose: 30 ml Benzocaine (Benzocaine 20 % Oral Gel 9 Gm Tube) 1 appl MUCOUS MEM QID PRN; Protocol PRN Reason: dental pain Hydroxyzine HCl (Hydroxyzine Hcl 25 Mg Tablet) 25 mg PO Q6H PRN PRN Reason: mild anxiety Insulin Human Lispro (Insulin Lispro 100 Unit/Ml 3 Ml Vial) 0 unit SUBCUT QIDACHS [facility]; Protocol On Hold: 01/18/25 09:59 Last Admin: 01/18/25 09:28 Dose: Not Given Magnesium Hydroxide (Milk Of Magnesia 30 Ml Oral.Susp) 30 ml PO DAILY PRN PRN Reason: Constipation Last Admin: 01/26/25 12:41 Dose: 30 ml Metformin HCl (Metformin Hcl 500 Mg Tablet) 500 mg PO BIDWM MÓNICA Last Admin: 01/30/25 17:35 Dose: Not Given Nicotine Polacrilex (Nicotine Polacrilex 2 Mg Gum) 2 mg BUCCAL Q2H PRN PRN Reason: Nicotine Cravings Polyethylene Glycol (Polyethylene Glycol 3350 17 Gm Powd.Pack) 17 gm PO DAILY PRN PRN Reason: Constipation Last Admin: 01/27/25 14:45 Dose: 17 gm Risperidone (Risperidone 2 Mg Tablet) 2 mg PO DAILY [facility] Last Admin: 01/30/25 10:03 Dose: Not Given Risperidone (Risperidone 2 Mg Tablet) 4 mg PO BEDTIME MÓNICA Last Admin: 01/30/25 20:37 Dose: 4 mg Senna (Sennosides 8.6 Mg Tablet) 17.2 mg PO DAILY PRN PRN Reason: Constipation Last Admin: 01/27/25 11:44 Dose: 17.2 mg Simethicone (Simethicone 80 Mg Tab.Chew) 80 mg PO QIDWMHS PRN PRN Reason: flatulance Last Admin: 01/27/25 21:02 Dose: 80 mg Trazodone HCl (Trazodone Hcl 50 Mg Tablet) 50 mg PO BEDTIME MRX1 PRN PRN Reason: Insomnia Last Admin: 01/27/25 20:48 Dose: 50 mg Valacyclovir HCl (Valacyclovir Hcl 500 Mg Tablet) 500 mg PO DAILY [facility] Last Admin: 01/30/25 10:03 Dose: Not Given Allergies Allergies Allergy/AdvReac Type Severity Reaction Status Date / Time blueberry Allergy Unknown Unknown Verified 01/11/25 21:20 Assessment & Plan Assessment & Plan (1) Schizoaffective disorder, bipolar type: Status: Acute Code(s): F25.0 - Schizoaffective disorder, bipolar type (2) Catatonia: Status: Acute Code(s): F06.1 - Catatonic disorder due to known physiological condition (3) Polysubstance use disorder: Status: Acute Code(s): F19.90 - Other psychoactive substance use, unspecified, uncomplicated (4) Cocaine abuse: Status: Acute Code(s): F14.10 - Cocaine abuse, uncomplicated Plan 34-year-old Belarusian-speaking female is a direct transfer, via ambulance, from [facility] to [facility]. She has history of bipolar disorder, schizophrenia, marijuana, PCP, and cocaine/crack use (severe), multiple inpatient admissions and at least 2 section 35. She was evaluated at [facility] for being nonverbal at home following substance use. This provider and patient's social work administrator found the patient lying in her bed. She is alert, opens and closes her eyes, moves her feet, but would not respond to this provider and social work administrator. Patient advised to inform staff if she decides to engage in an interview with her social work administrator and provider for admission. Hospital course: 01/13 patient appears catatonic, not talking much, not moving, sometimes walking around in a disorganized way; seems to be history of catatonia as well. Not sure if eating and drinking. Staff Interpreter tried to discuss medications including Ativan however patient not engaging; Currently refusing all medications 01/14: continue current management and treatment plan. Encourage adherence. 01/15: continue current management and treatment plan. Encourage adherence. 01/16/25: Patient slept for 7 hours, was not compliant with medication or point of care, she is in bed most of the morning until she was thinking about signing the 3 days. She would not signed a 3 days until she talk to to social work administrator. She said yes to anxiety and said a little when I asked about depression. Reports hearing voices when being asked, but not able to disclose to more details. She denies suicidal thoughts or thoughts of hurting other people. She was not sure where she stayed and who she stayed with before coming in here. This provider note the patient by history, that mom and sister concerned about her in the past. However, patient is guarded, do not give anymore information or consent to talk to the family member. Not able to assess for more details regarding substance use. 01/17 Patient difficult with which to engage, lying in bed, not talking much at all, intermittently opening eyes. On inquiry about why not taking medications, she She says she did took some pills today (her metformin and 1 dose of Ativan). Does not answer questions about SI, HI, AVH, depression, worries. She is eating and drinking and said that she will talk with sports book writer tomorrow. Staff Interpreter asked her about her 3 day notice and there is concern about discharging her if she is not able to answer questions...she said that she will talk with sports book writer tomorrow. Collateral: Staff Interpreter talked with patient's sister who reports that was her regular, full functioning self few weeks until she relapsed. Sister says that whenever patient uses a lot she becomes like a zombie; she typically uses crack cocaine. Sister says she has been in numerous treatment facilities and on medication returns to full functioning, communicating and having normal discourse however as soon as he is discharged from any facility she relapses that day; sister reiterated that she has been stabilized numerous times with the same result. Sister said that despite her not talking and acting like a zombie she is typically able to function and reports that patient called their mother 2 days ago asking for phone number is of a friend. Says her diagnose says schizoaffective disorder, bipolar type, borderline personality disorder; denies ASD diagnosis -Staff Interpreter also discussed Case with Sarah who has had this patient at other facilities and thinks this might not be catatonia but rather selective mutism and the patient selects the times when she wants to be organized and talk; patient has a history of psychotic illness and catatonia however rarely takes medications during inpatient admissions and at some point just gets better and wants to go. -Of note patient was organized enough to sign a 3 day notice. 01/18 Patient a little more talkative today hand out and about in the milieu more, eating and drinking and sitting with peers though keeping to herself and remains internally preoccupied. Patient told sports book writer that she had a hard time talking because she was in her slumber. She seems to say show take medications and did take some doses; she also agreed to retract her 3 day notice and was able to discuss how much longer sports book writer thought she should stay. Throughout conversation patient continuing to struggle with internal preoccupation and thought blocking. -Patient refusing point of cares to check blood sugar. Staff Interpreter can not find hx of scripts for insulin; she's been mostly refusing POC (the few times has allowed <200). Will HOLD sliding scale/POC's for now. 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 She has agreed to restart risperidone but has often refused 01/19 Patient again not talking, isolating and mostly stayed in bed; eating and drinking without problems but refusing medication and remains very internally preoccupied with significant thought blocking. Not answering questions 01/20 Patient remains isolative, lying in bed, not talking and continually responding to internal stimuli. Continues to refuse labs. Sometimes patient will go to groups but does not talk and needs cues for her to transition. 01/21 No change in presentation; remains very difficult with which to engage, not answering questions very much. She did say she is all right and denied AH though she remains internally preoccupied thought blocking. Tried to discuss reasons for refusing medications but patient would not answer; patient eating and drinking -sometimes takes medications but mostly refuses; changed Risperdal to 2 mg b.i.d. (so if she takes it she gets at least 2 mg) 01/22 Patient remains disorganized in speech and behavior. She can not answer questions appropriately and either does not saying anything or says I do not know... She remains unable to articulate any choices in her treatment, if she wants to stay on the unit, if she wants to discharge, where she would go... Staff Interpreter explained the need for treatment and that team had decided to rescind her CV and 5 for involuntary commitment. 01/24 Little change in presentation. Patient lying in bed, laughing or smiling inappropriately and saying very little. When asked how she is doing she says so-so but does not respond to any other related questions When sports book writer asks if she is better she says not sure When sports book writer asked who she hear voices she laughs inappropriately but does not answer When asked about SI, she looks, smiles but does not answer When asked how she slept she says not sure Staff Interpreter again discussed the need for medications which she has taking sometimes and refusing it others Impression/clinical reasoning: Patient remained psychotic, internally preoccupied and with catatonic symptoms. Refusing treatments, refusing medication. At this time patient can not be discharge safely as there is no indication she can take care of herself in the community; she could not get herself home and if discharge would wander aimlessly, vulnerable to predation; patient is to severely internally preoccupied that she can not even say she wants to discharge or answer questions. Will continue offering medications for both catatonia and psychosis. Team agrees that patient is too disorganized and unsafe for discharge and unable to make any treatment decisions for herself. Will rescind her CV and file for involuntary commitment and substituted judgment 01/25 Patient a little bit more talkative today. Still not answering many questions but did ask sports book writer to repeat the question (patient was too internally preoccupied to hurt initially). Later on she did take medication 01/26 patient is taking medications and starting to do better. Talking more and asking about aftercare. Says she will consider long-acting injectable as well. Will switch at medications to make easier at her request and will taper off Ativan since catatonic symptoms seem to be resolving and remaining symptoms are mostly due to psychosis. Discussed AH and she says they remain and so agrees to increase Risperdal dose. -if patient continues to take medications and improve will likely not need to go to court 01/27/25: Slept for 8 hours, was medication compliant yesterday. She refused them this morning at the beginning, but ended taking them later on. Reported that she has good appetite. Mood is bored . Denies suicidal thoughts or homicidal thoughts. Denies hallucinations at 1st, but saying sometimes when asked if she heard voices, just now . Not able to elaborate further details of what she hears. I do not know regarding anxiety and depression questions. Reported that she has been taking medications but I took someone else medication , then mentioned metformin. Discussed with patient regarding [facility] for risperidone, she said she does not want it. Explained to patient the benefit of [facility], and remind patient that she does not have to make decision today, but is aware that we have the option to not have to take by mouth every day to enhance the better compliance, and able to be stable longer away from the hospital. Patient also met with social work administrator today, agree with referral for outpatient services for mental health and substance use, she also signed consent to send referral out. She appears to be paranoid, mild thought blocked, however more logical and more engaging in conversation. Staff reported that she shaved yesterday. She was up, in the antonio pacing after the one-to-one assessment. Unkempt him but fair hygiene. 01/30 Patient again refused medication over the weekend and again is unable to answer questions, shrugging her shoulders with every question asked. Patient can not say why she did not take medication. 01/31 Patient remains unchanged, not answering any questions that sports book writer or other staff ask under struggling her shoulders or just mumbling to herself in response -continue its until February 07 Plan 15 minutes check. section 7 Lower to Ativan 1 mg b.i.d.; catatonic symptoms resolving; will taper off and discontinue Increase to Risperdal to 2 mg daily and 4 mg q.h.s. -encourage long-acting injectable [facility] as needed. Collateral contact. Continue remainder of regime. Encouraged full milieu. Discharge planning. Patient educated on: diagnosis and medication risk/benefits Informed Consent: does not understand Reason for continued inpatient stay Substantial Risk for: inability to function Time Spent With Patient Time: Total time managing care of this patient today ____ minutes.
[2025-02-01 08:00] VITALS: BP 121/56; PULSE 86; TEMP 36.5; O2SAT 95
--- NOTE | 2025-02-01 09:52 | HO.PSYCHPN ---
Subjective Subjective Date of Service: 02/01/25 Reason For Visit: F31.2 Biopolar D/O manic; F143.20 Cocaine use raymond Interim History: met with patient; discussed with team pt remains guarded, internally preoccupied, not responding to questions at all Mental Status Exam Mental Status Exam Narrative: Pt is alert and oriented; behavior is isolative, non-cooperative, calm, internally preoccupied, sometimes smiling or laughing inappropriately; speaking very little; patient is not in distress; dressed in hospital attire, unkempt, hirsutism; mood is described as so-so though affect blunted; eye contact avoidant; Speech sparse, soft and quiet; psychomotor retardation present; thought process marred by significant thought blocking; can be goal oriented but quickly becomes disorganized; Thought content not disclosed; does not express any SI/HI. Patient internally preoccupied and responding to internal stimuli. Patients insight and judgment impaired Diagnostics Vital Signs (24Hr): Vital Signs - 24 hr 02/01/25 08:00 Temperature 97.7 F Pulse Rate 86 Blood Pressure 121/56 L Pulse Oximetry 95 Oxygen Delivery Method Room Air BMI result Body Mass Index 33.9 Labs 01/27/25 11:42 Medications Medications Current Medications Acetaminophen (Acetaminophen 325 Mg Tablet) 650 mg PO Q6H PRN PRN Reason: Headache/Pain, Scale 1-10 Last Admin: 01/27/25 20:50 Dose: 650 mg Al Hydroxide/Mg Hydroxide (Magnesium Hydrox/Alum Hydrox 30 Ml Oral.Susp) 30 ml PO Q6H PRN PRN Reason: Heartburn/Nausea Last Admin: 01/26/25 20:14 Dose: 30 ml Benzocaine (Benzocaine 20 % Oral Gel 9 Gm Tube) 1 appl MUCOUS MEM QID PRN; Protocol PRN Reason: dental pain Hydroxyzine HCl (Hydroxyzine Hcl 25 Mg Tablet) 25 mg PO Q6H PRN PRN Reason: mild anxiety Insulin Human Lispro (Insulin Lispro 100 Unit/Ml 3 Ml Vial) 0 unit SUBCUT QIDACHS [facility]; Protocol On Hold: 01/18/25 09:59 Last Admin: 01/18/25 09:28 Dose: Not Given Magnesium Hydroxide (Milk Of Magnesia 30 Ml Oral.Susp) 30 ml PO DAILY PRN PRN Reason: Constipation Last Admin: 01/26/25 12:41 Dose: 30 ml Metformin HCl (Metformin Hcl 500 Mg Tablet) 500 mg PO BIDWM [facility] Last Admin: 02/01/25 09:38 Dose: 500 mg Nicotine Polacrilex (Nicotine Polacrilex 2 Mg Gum) 2 mg BUCCAL Q2H PRN PRN Reason: Nicotine Cravings Polyethylene Glycol (Polyethylene Glycol 3350 17 Gm Powd.Pack) 17 gm PO DAILY PRN PRN Reason: Constipation Last Admin: 01/27/25 14:45 Dose: 17 gm Risperidone (Risperidone 2 Mg Tablet) 2 mg PO DAILY [facility] Last Admin: 02/01/25 09:38 Dose: 2 mg Risperidone (Risperidone 2 Mg Tablet) 4 mg PO BEDTIME [facility] Last Admin: 01/31/25 21:21 Dose: 4 mg Senna (Sennosides 8.6 Mg Tablet) 17.2 mg PO DAILY PRN PRN Reason: Constipation Last Admin: 01/27/25 11:44 Dose: 17.2 mg Simethicone (Simethicone 80 Mg Tab.Chew) 80 mg PO QIDWMHS PRN PRN Reason: flatulance Last Admin: 01/27/25 21:02 Dose: 80 mg Trazodone HCl (Trazodone Hcl 50 Mg Tablet) 50 mg PO BEDTIME MRX1 PRN PRN Reason: Insomnia Last Admin: 01/27/25 20:48 Dose: 50 mg Valacyclovir HCl (Valacyclovir Hcl 500 Mg Tablet) 500 mg PO DAILY [facility] Last Admin: 02/01/25 09:38 Dose: 500 mg Allergies Allergies Allergy/AdvReac Type Severity Reaction Status Date / Time blueberry Allergy Unknown Unknown Verified 01/11/25 21:20 Assessment & Plan Assessment & Plan (1) Schizoaffective disorder, bipolar type: Status: Acute Code(s): F25.0 - Schizoaffective disorder, bipolar type (2) Catatonia: Status: Acute Code(s): F06.1 - Catatonic disorder due to known physiological condition (3) Polysubstance use disorder: Status: Acute Code(s): F19.90 - Other psychoactive substance use, unspecified, uncomplicated (4) Cocaine abuse: Status: Acute Code(s): F14.10 - Cocaine abuse, uncomplicated Plan 34-year-old Liberian-speaking female is a direct transfer, via ambulance, from [facility] to [facility]. She has history of bipolar disorder, schizophrenia, marijuana, PCP, and cocaine/crack use (severe), multiple inpatient admissions and at least 2 section 35. She was evaluated at [facility] for being nonverbal at home following substance use. This provider and patient's social work specialist found the patient lying in her bed. She is alert, opens and closes her eyes, moves her feet, but would not respond to this provider and social work specialist. Patient advised to inform staff if she decides to engage in an interview with her social work specialist and provider for admission. Hospital course: 01/13 patient appears catatonic, not talking much, not moving, sometimes walking around in a disorganized way; seems to be history of catatonia as well. Not sure if eating and drinking. Pricing Consultant tried to discuss medications including Ativan however patient not engaging; Currently refusing all medications 01/14: continue current management and treatment plan. Encourage adherence. 01/15: continue current management and treatment plan. Encourage adherence. 01/16/25: Patient slept for 7 hours, was not compliant with medication or point of care, she is in bed most of the morning until she was thinking about signing the 3 days. She would not signed a 3 days until she talk to to social work specialist. She said yes to anxiety and said a little when I asked about depression. Reports hearing voices when being asked, but not able to disclose to more details. She denies suicidal thoughts or thoughts of hurting other people. She was not sure where she stayed and who she stayed with before coming in here. This provider note the patient by history, that mom and sister concerned about her in the past. However, patient is guarded, do not give anymore information or consent to talk to the family member. Not able to assess for more details regarding substance use. 01/17 Patient difficult with which to engage, lying in bed, not talking much at all, intermittently opening eyes. On inquiry about why not taking medications, she She says she did took some pills today (her metformin and 1 dose of Ativan). Does not answer questions about SI, HI, AVH, depression, worries. She is eating and drinking and said that she will talk with technical writer tomorrow. Pricing Consultant asked her about her 3 day notice and there is concern about discharging her if she is not able to answer questions...she said that she will talk with technical writer tomorrow. Collateral: Pricing Consultant talked with patient's sister who reports that was her regular, full functioning self few weeks until she relapsed. Sister says that whenever patient uses a lot she becomes like a zombie; she typically uses crack cocaine. Sister says she has been in numerous treatment facilities and on medication returns to full functioning, communicating and having normal discourse however as soon as he is discharged from any facility she relapses that day; sister reiterated that she has been stabilized numerous times with the same result. Sister said that despite her not talking and acting like a zombie she is typically able to function and reports that patient called their mother 2 days ago asking for phone number is of a friend. Says her diagnose says schizoaffective disorder, bipolar type, borderline personality disorder; denies ASD diagnosis -Pricing Consultant also discussed Case with Sarah who has had this patient at other facilities and thinks this might not be catatonia but rather selective mutism and the patient selects the times when she wants to be organized and talk; patient has a history of psychotic illness and catatonia however rarely takes medications during inpatient admissions and at some point just gets better and wants to go. -Of note patient was organized enough to sign a 3 day notice. 01/18 Patient a little more talkative today hand out and about in the milieu more, eating and drinking and sitting with peers though keeping to herself and remains internally preoccupied. Patient told technical writer that she had a hard time talking because she was in her slumber. She seems to say show take medications and did take some doses; she also agreed to retract her 3 day notice and was able to discuss how much longer technical writer thought she should stay. Throughout conversation patient continuing to struggle with internal preoccupation and thought blocking. -Patient refusing point of cares to check blood sugar. Pricing Consultant can not find hx of scripts for insulin; she's been mostly refusing POC (the few times has allowed <200). Will HOLD sliding scale/POC's for now. 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 She has agreed to restart risperidone but has often refused 01/19 Patient again not talking, isolating and mostly stayed in bed; eating and drinking without problems but refusing medication and remains very internally preoccupied with significant thought blocking. Not answering questions 01/20 Patient remains isolative, lying in bed, not talking and continually responding to internal stimuli. Continues to refuse labs. Sometimes patient will go to groups but does not talk and needs cues for her to transition. 01/21 No change in presentation; remains very difficult with which to engage, not answering questions very much. She did say she is all right and denied AH though she remains internally preoccupied thought blocking. Tried to discuss reasons for refusing medications but patient would not answer; patient eating and drinking -sometimes takes medications but mostly refuses; changed Risperdal to 2 mg b.i.d. (so if she takes it she gets at least 2 mg) 01/22 Patient remains disorganized in speech and behavior. She can not answer questions appropriately and either does not saying anything or says I do not know... She remains unable to articulate any choices in her treatment, if she wants to stay on the unit, if she wants to discharge, where she would go... Pricing Consultant explained the need for treatment and that team had decided to rescind her CV and 5 for involuntary commitment. 01/24 Little change in presentation. Patient lying in bed, laughing or smiling inappropriately and saying very little. When asked how she is doing she says so-so but does not respond to any other related questions When technical writer asks if she is better she says not sure When technical writer asked who she hear voices she laughs inappropriately but does not answer When asked about SI, she looks, smiles but does not answer When asked how she slept she says not sure Pricing Consultant again discussed the need for medications which she has taking sometimes and refusing it others Impression/clinical reasoning: Patient remained psychotic, internally preoccupied and with catatonic symptoms. Refusing treatments, refusing medication. At this time patient can not be discharge safely as there is no indication she can take care of herself in the community; she could not get herself home and if discharge would wander aimlessly, vulnerable to predation; patient is to severely internally preoccupied that she can not even say she wants to discharge or answer questions. Will continue offering medications for both catatonia and psychosis. Team agrees that patient is too disorganized and unsafe for discharge and unable to make any treatment decisions for herself. Will rescind her CV and file for involuntary commitment and substituted judgment 01/25 Patient a little bit more talkative today. Still not answering many questions but did ask technical writer to repeat the question (patient was too internally preoccupied to hurt initially). Later on she did take medication 01/26 patient is taking medications and starting to do better. Talking more and asking about aftercare. Says she will consider long-acting injectable as well. Will switch at medications to make easier at her request and will taper off Ativan since catatonic symptoms seem to be resolving and remaining symptoms are mostly due to psychosis. Discussed AH and she says they remain and so agrees to increase Risperdal dose. -if patient continues to take medications and improve will likely not need to go to court 01/27/25: Slept for 8 hours, was medication compliant yesterday. She refused them this morning at the beginning, but ended taking them later on. Reported that she has good appetite. Mood is bored . Denies suicidal thoughts or homicidal thoughts. Denies hallucinations at , but saying sometimes when asked if she heard voices, just now . Not able to elaborate further details of what she hears. I do not know regarding anxiety and depression questions. Reported that she has been taking medications but I took someone else medication , then mentioned metformin. Discussed with patient regarding [facility] for risperidone, she said she does not want it. Explained to patient the benefit of [facility], and remind patient that she does not have to make decision today, but is aware that we have the option to not have to take by mouth every day to enhance the better compliance, and able to be stable longer away from the hospital. Patient also met with social work specialist today, agree with referral for outpatient services for mental health and substance use, she also signed consent to send referral out. She appears to be paranoid, mild thought blocked, however more logical and more engaging in conversation. Staff reported that she shaved yesterday. She was up, in the antonio pacing after the one-to-one assessment. Unkempt him but fair hygiene. 01/30 Patient again refused medication over the weekend and again is unable to answer questions, shrugging her shoulders with every question asked. Patient can not say why she did not take medication. -took pills from nursing put him her mouth but would not swallow them; through they medication cup at the nurse 01/31 Patient remains unchanged, not answering any questions that technical writer or other staff ask under struggling her shoulders or just mumbling to herself in response -continue its until February 0702/01 guarded, internally preoccupied; refusing meds; will increase doses since she frequently refuses and only sometimes takes Plan 15 minutes check. section 7 Lower to Ativan 1 mg b.i.d.; catatonic symptoms resolving; will taper off and discontinue Increase to Risperdal to 4mg bid -encourage long-acting injectable [facility] as needed. Collateral contact. Continue remainder of regime. Encouraged full milieu. Discharge planning. Patient educated on: diagnosis and medication risk/benefits Informed Consent: does not understand Reason for continued inpatient stay Substantial Risk for: inability to function Time Spent With Patient Time: Total time managing care of this patient today ____ minutes.
[2025-02-01 20:00] VITALS: BP 124/82; PULSE 107; RESP 16; TEMP 36.2; O2SAT 99
--- NOTE | 2025-02-01 22:33 | PC.NURSE ---
Patient refused Risperdal 6 mg po scheduled HS dose.
--- NOTE | 2025-02-02 15:19 | P.PNPSI_ITS ---
Subjective Subjective Date of Service: 02/02/25 Reason For Visit: F31.2 Biopolar D/O manic; F143.20 Cocaine use raymond Interim History: met with patient; discussed with team no change; sometimes taking meds, other times refusing Mental Status Exam Mental Status Exam Narrative: Pt is alert and oriented; behavior is isolative, non-cooperative, calm, internally preoccupied, sometimes smiling or laughing inappropriately; speaking very little; patient is not in distress; dressed in hospital attire, unkempt, hirsutism; mood is described as so-so though affect blunted; eye contact avoidant; Speech sparse, soft and quiet; psychomotor retardation present; thought process marred by significant thought blocking; can be goal oriented but quickly becomes disorganized; Thought content not disclosed; does not express any SI/HI. Patient internally preoccupied and responding to internal stimuli. Patients insight and judgment impaired Diagnostics Vital Signs (24Hr): Vital Signs - 24 hr 02/01/25 20:00 Temperature 97.2 F Pulse Rate 107 H Respiratory Rate 16 Blood Pressure 124/82 Pulse Oximetry 99 Oxygen Delivery Method Room Air BMI result Body Mass Index 33.9 Labs 01/27/25 11:42 Medications Medications Current Medications Acetaminophen (Acetaminophen 325 Mg Tablet) 650 mg PO Q6H PRN PRN Reason: Headache/Pain, Scale 1-10 Last Admin: 01/27/25 20:50 Dose: 650 mg Al Hydroxide/Mg Hydroxide (Magnesium Hydrox/Alum Hydrox 30 Ml Oral.Susp) 30 ml PO Q6H PRN PRN Reason: Heartburn/Nausea Last Admin: 01/26/25 20:14 Dose: 30 ml Benzocaine (Benzocaine 20 % Oral Gel 9 Gm Tube) 1 appl MUCOUS MEM QID PRN; Protocol PRN Reason: dental pain Hydroxyzine HCl (Hydroxyzine Hcl 25 Mg Tablet) 25 mg PO Q6H PRN PRN Reason: mild anxiety Insulin Human Lispro (Insulin Lispro 100 Unit/Ml 3 Ml Vial) 0 unit SUBCUT QIDACHS [facility]; Protocol On Hold: 01/18/25 09:59 Last Admin: 01/18/25 09:28 Dose: Not Given Magnesium Hydroxide (Milk Of Magnesia 30 Ml Oral.Susp) 30 ml PO DAILY PRN PRN Reason: Constipation Last Admin: 01/26/25 12:41 Dose: 30 ml Metformin HCl (Metformin Hcl 500 Mg Tablet) 500 mg PO BIDWM [facility] Last Admin: 02/02/25 08:44 Dose: Not Given Nicotine Polacrilex (Nicotine Polacrilex 2 Mg Gum) 2 mg BUCCAL Q2H PRN PRN Reason: Nicotine Cravings Polyethylene Glycol (Polyethylene Glycol 3350 17 Gm Powd.Pack) 17 gm PO DAILY PRN PRN Reason: Constipation Last Admin: 01/27/25 14:45 Dose: 17 gm Risperidone (Risperidone 2 Mg Tablet) 2 mg PO DAILY [facility] Last Admin: 02/02/25 08:44 Dose: Not Given Risperidone (Risperidone 3 Mg Tablet) 6 mg PO BEDTIME [facility] Last Admin: 02/01/25 22:33 Dose: Not Given Senna (Sennosides 8.6 Mg Tablet) 17.2 mg PO DAILY PRN PRN Reason: Constipation Last Admin: 01/27/25 11:44 Dose: 17.2 mg Simethicone (Simethicone 80 Mg Tab.Chew) 80 mg PO QIDWMHS PRN PRN Reason: flatulance Last Admin: 01/27/25 21:02 Dose: 80 mg Trazodone HCl (Trazodone Hcl 50 Mg Tablet) 50 mg PO BEDTIME MRX1 PRN PRN Reason: Insomnia Last Admin: 02/02/25 03:12 Dose: 50 mg Valacyclovir HCl (Valacyclovir Hcl 500 Mg Tablet) 500 mg PO DAILY [facility] Last Admin: 02/02/25 08:45 Dose: Not Given Allergies Allergies Allergy/AdvReac Type Severity Reaction Status Date / Time blueberry Allergy Unknown Unknown Verified 01/11/25 21:20 Assessment & Plan Assessment & Plan (1) Schizoaffective disorder, bipolar type: Status: Acute Code(s): F25.0 - Schizoaffective disorder, bipolar type (2) Catatonia: Status: Acute Code(s): F06.1 - Catatonic disorder due to known physiological condition (3) Polysubstance use disorder: Status: Acute Code(s): F19.90 - Other psychoactive substance use, unspecified, uncomplicated (4) Cocaine abuse: Status: Acute Code(s): F14.10 - Cocaine abuse, uncomplicated Plan 34-year-old Faroese-speaking female is a direct transfer, via ambulance, from [facility] to [facility]. She has history of bipolar disorder, schizophrenia, marijuana, PCP, and cocaine/crack use (severe), multiple inpatient admissions and at least 2 section 35. She was evaluated at [facility] for being nonverbal at home following substance use. This provider and patient's web content & social media manager found the patient lying in her bed. She is alert, opens and closes her eyes, moves her feet, but would not respond to this provider and web content & social media manager. Patient advised to inform staff if she decides to engage in an interview with her web content & social media manager and provider for admission. Hospital course: 01/13 patient appears catatonic, not talking much, not moving, sometimes walking around in a disorganized way; seems to be history of catatonia as well. Not sure if eating and drinking. Home Visits Nurse tried to discuss medications including Ativan however patient not engaging; Currently refusing all medications 01/14: continue current management and treatment plan. Encourage adherence. 01/15: continue current management and treatment plan. Encourage adherence. 01/16/25: Patient slept for 7 hours, was not compliant with medication or point of care, she is in bed most of the morning until she was thinking about signing the 3 days. She would not signed a 3 days until she talk to to web content & social media manager. She said yes to anxiety and said a little when I asked about depression. Reports hearing voices when being asked, but not able to disclose to more details. She denies suicidal thoughts or thoughts of hurting other people. She was not sure where she stayed and who she stayed with before coming in here. This provider note the patient by history, that mom and sister concerned about her in the past. However, patient is guarded, do not give anymore information or consent to talk to the family member. Not able to assess for more details regarding substance use. 01/17 Patient difficult with which to engage, lying in bed, not talking much at all, intermittently opening eyes. On inquiry about why not taking medications, she She says she did took some pills today (her metformin and 1 dose of Ativan). Does not answer questions about SI, HI, AVH, depression, worries. She is eating and drinking and said that she will talk with signwriter tomorrow. Home Visits Nurse asked her about her 3 day notice and there is concern about discharging her if she is not able to answer questions...she said that she will talk with signwriter tomorrow. Collateral: Home Visits Nurse talked with patient's sister who reports that was her regular, full functioning self few weeks until she relapsed. Sister says that whenever patient uses a lot she becomes like a zombie; she typically uses crack cocaine. Sister says she has been in numerous treatment facilities and on medication returns to full functioning, communicating and having normal discourse however as soon as he is discharged from any facility she relapses that day; sister reiterated that she has been stabilized numerous times with the same result. Sister said that despite her not talking and acting like a zombie she is typically able to function and reports that patient called their mother 2 days ago asking for phone number is of a friend. Says her diagnose says schizoaffective disorder, bipolar type, borderline personality disorder; denies ASD diagnosis -Home Visits Nurse also discussed Case with Sarah who has had this patient at other facilities and thinks this might not be catatonia but rather selective mutism and the patient selects the times when she wants to be organized and talk; patient has a history of psychotic illness and catatonia however rarely takes medications during inpatient admissions and at some point just gets better and wants to go. -Of note patient was organized enough to sign a 3 day notice. 01/18 Patient a little more talkative today hand out and about in the milieu more, eating and drinking and sitting with peers though keeping to herself and remains internally preoccupied. Patient told signwriter that she had a hard time talking because she was in her slumber. She seems to say show take medications and did take some doses; she also agreed to retract her 3 day notice and was able to discuss how much longer signwriter thought she should stay. Throughout conversation patient continuing to struggle with internal preoccupation and thought blocking. -Patient refusing point of cares to check blood sugar. Home Visits Nurse can not find hx of scripts for insulin; she's been mostly refusing POC (the few times has allowed <200). Will HOLD sliding scale/POC's for now. 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 She has agreed to restart risperidone but has often refused 01/19 Patient again not talking, isolating and mostly stayed in bed; eating and drinking without problems but refusing medication and remains very internally preoccupied with significant thought blocking. Not answering questions 01/20 Patient remains isolative, lying in bed, not talking and continually responding to internal stimuli. Continues to refuse labs. Sometimes patient will go to groups but does not talk and needs cues for her to transition. 01/21 No change in presentation; remains very difficult with which to engage, not answering questions very much. She did say she is all right and denied AH though she remains internally preoccupied thought blocking. Tried to discuss reasons for refusing medications but patient would not answer; patient eating and drinking -sometimes takes medications but mostly refuses; changed Risperdal to 2 mg b.i.d. (so if she takes it she gets at least 2 mg) 01/22 Patient remains disorganized in speech and behavior. She can not answer questions appropriately and either does not saying anything or says I do not know... She remains unable to articulate any choices in her treatment, if she wants to stay on the unit, if she wants to discharge, where she would go... Home Visits Nurse explained the need for treatment and that team had decided to rescind her CV and 5 for involuntary commitment. 01/24 Little change in presentation. Patient lying in bed, laughing or smiling inappropriately and saying very little. When asked how she is doing she says so-so but does not respond to any other related questions When signwriter asks if she is better she says not sure When signwriter asked who she hear voices she laughs inappropriately but does not answer When asked about SI, she looks, smiles but does not answer When asked how she slept she says not sure Home Visits Nurse again discussed the need for medications which she has taking sometimes and refusing it others Impression/clinical reasoning: Patient remained psychotic, internally preoccupied and with catatonic symptoms. Refusing treatments, refusing medication. At this time patient can not be discharge safely as there is no indication she can take care of herself in the community; she could not get herself home and if discharge would wander aimlessly, vulnerable to predation; patient is to severely internally preoccupied that she can not even say she wants to discharge or answer questions. Will continue offering medications for both catatonia and psychosis. Team agrees that patient is too disorganized and unsafe for discharge and unable to make any treatment decisions for herself. Will rescind her CV and file for involuntary commitment and substituted judgment 01/25 Patient a little bit more talkative today. Still not answering many questions but did ask signwriter to repeat the question (patient was too internally preoccupied to hurt initially). Later on she did take medication 01/26 patient is taking medications and starting to do better. Talking more and asking about aftercare. Says she will consider long-acting injectable as well. Will switch at medications to make easier at her request and will taper off Ativan since catatonic symptoms seem to be resolving and remaining symptoms are mostly due to psychosis. Discussed AH and she says they remain and so agrees to increase Risperdal dose. -if patient continues to take medications and improve will likely not need to go to court 01/27/25: Slept for 8 hours, was medication compliant yesterday. She refused them this morning at the beginning, but ended taking them later on. Reported that she has good appetite. Mood is bored . Denies suicidal thoughts or homicidal thoughts. Denies hallucinations at , but saying sometimes when asked if she heard voices, just now . Not able to elaborate further details of what she hears. I do not know regarding anxiety and depression questions. Reported that she has been taking medications but I took someone else medication , then mentioned metformin. Discussed with patient regarding [facility] for risperidone, she said she does not want it. Explained to patient the benefit of [facility], and remind patient that she does not have to make decision today, but is aware that we have the option to not have to take by mouth every day to enhance the better compliance, and able to be stable longer away from the hospital. Patient also met with web content & social media manager today, agree with referral for outpatient services for mental health and substance use, she also signed consent to send referral out. She appears to be paranoid, mild thought blocked, however more logical and more engaging in conversation. Staff reported that she shaved yesterday. She was up, in the antonio pacing after the one-to-one assessment. Unkempt him but fair hygiene. 01/30 Patient again refused medication over the weekend and again is unable to answer questions, shrugging her shoulders with every question asked. Patient can not say why she did not take medication. -took pills from nursing put him her mouth but would not swallow them; through they medication cup at the nurse 01/31 Patient remains unchanged, not answering any questions that signwriter or other staff ask under struggling her shoulders or just mumbling to herself in response -continue its until February 0702/01 guarded, internally preoccupied; refusing meds; will increase doses since she frequently refuses and only sometimes takes Plan 15 minutes check. section 7 Lower to Ativan 1 mg b.i.d.; catatonic symptoms resolving; will taper off and discontinue Increase to Risperdal to 4mg bid -encourage long-acting injectable [facility] as needed. Collateral contact. Continue remainder of regime. Encouraged full milieu. Discharge planning. Patient educated on: diagnosis and medication risk/benefits Informed Consent: does not understand Reason for continued inpatient stay Substantial Risk for: inability to function Time Spent With Patient Time: Total time managing care of this patient today ____ minutes.
--- NOTE | 2025-02-03 09:46 | HO.PSYCHPN ---
Subjective Subjective Date of Service: 02/03/25 Reason For Visit: F31.2 Biopolar D/O manic; F143.20 Cocaine use raymond Interim History: met with patient; discussed with team little easier with which to engage and talking more; still shrugs shoulders to most questions. Regarding medications, ambivalent; at some points says will take long acting, other times shrugs shoulders and not sure. Mental Status Exam Mental Status Exam Narrative: Pt is alert and oriented; behavior is isolative, non-cooperative, calm, internally preoccupied, sometimes smiling or laughing inappropriately; speaking very little; patient is not in distress; dressed in hospital attire, unkempt, hirsutism; mood is described as so-so though affect blunted; eye contact avoidant; Speech sparse, soft and quiet; psychomotor retardation present; thought process marred by significant thought blocking; can be goal oriented but quickly becomes disorganized; Thought content not disclosed; does not express any SI/HI. Patient internally preoccupied and responding to internal stimuli. Patients insight and judgment impaired Diagnostics Vital Signs (24Hr): BMI result Body Mass Index 33.9 Labs 01/27/25 11:42 Medications Medications Current Medications Acetaminophen (Acetaminophen 325 Mg Tablet) 650 mg PO Q6H PRN PRN Reason: Headache/Pain, Scale 1-10 Last Admin: 01/27/25 20:50 Dose: 650 mg Al Hydroxide/Mg Hydroxide (Magnesium Hydrox/Alum Hydrox 30 Ml Oral.Susp) 30 ml PO Q6H PRN PRN Reason: Heartburn/Nausea Last Admin: 01/26/25 20:14 Dose: 30 ml Benzocaine (Benzocaine 20 % Oral Gel 9 Gm Tube) 1 appl MUCOUS MEM QID PRN; Protocol PRN Reason: dental pain Hydroxyzine HCl (Hydroxyzine Hcl 25 Mg Tablet) 25 mg PO Q6H PRN PRN Reason: mild anxiety Insulin Human Lispro (Insulin Lispro 100 Unit/Ml 3 Ml Vial) 0 unit SUBCUT QIDACHS [facility]; Protocol On Hold: 01/18/25 09:59 Last Admin: 01/18/25 09:28 Dose: Not Given Magnesium Hydroxide (Milk Of Magnesia 30 Ml Oral.Susp) 30 ml PO DAILY PRN PRN Reason: Constipation Last Admin: 01/26/25 12:41 Dose: 30 ml Metformin HCl (Metformin Hcl 500 Mg Tablet) 500 mg PO BIDWM [facility] Last Admin: 02/02/25 17:38 Dose: Not Given Nicotine Polacrilex (Nicotine Polacrilex 2 Mg Gum) 2 mg BUCCAL Q2H PRN PRN Reason: Nicotine Cravings Polyethylene Glycol (Polyethylene Glycol 3350 17 Gm Powd.Pack) 17 gm PO DAILY PRN PRN Reason: Constipation Last Admin: 01/27/25 14:45 Dose: 17 gm Risperidone (Risperidone 2 Mg Tablet) 2 mg PO DAILY [facility] Last Admin: 02/02/25 08:44 Dose: Not Given Risperidone (Risperidone 3 Mg Tablet) 6 mg PO BEDTIME [facility] Last Admin: 02/02/25 21:45 Dose: 6 mg Senna (Sennosides 8.6 Mg Tablet) 17.2 mg PO DAILY PRN PRN Reason: Constipation Last Admin: 01/27/25 11:44 Dose: 17.2 mg Simethicone (Simethicone 80 Mg Tab.Chew) 80 mg PO QIDWMHS PRN PRN Reason: flatulance Last Admin: 01/27/25 21:02 Dose: 80 mg Trazodone HCl (Trazodone Hcl 50 Mg Tablet) 50 mg PO BEDTIME MRX1 PRN PRN Reason: Insomnia Last Admin: 02/02/25 21:45 Dose: 50 mg Valacyclovir HCl (Valacyclovir Hcl 500 Mg Tablet) 500 mg PO DAILY [facility] Last Admin: 02/02/25 08:45 Dose: Not Given Allergies Allergies Allergy/AdvReac Type Severity Reaction Status Date / Time blueberry Allergy Unknown Unknown Verified 01/11/25 21:20 Assessment & Plan Assessment & Plan (1) Schizoaffective disorder, bipolar type: Status: Acute Code(s): F25.0 - Schizoaffective disorder, bipolar type (2) Catatonia: Status: Acute Code(s): F06.1 - Catatonic disorder due to known physiological condition (3) Polysubstance use disorder: Status: Acute Code(s): F19.90 - Other psychoactive substance use, unspecified, uncomplicated (4) Cocaine abuse: Status: Acute Code(s): F14.10 - Cocaine abuse, uncomplicated Plan 34-year-old French-speaking female is a direct transfer, via ambulance, from [facility] to [facility]. She has history of bipolar disorder, schizophrenia, marijuana, PCP, and cocaine/crack use (severe), multiple inpatient admissions and at least 2 section 35. She was evaluated at [facility] for being nonverbal at home following substance use. This provider and patient's social welfare research worker found the patient lying in her bed. She is alert, opens and closes her eyes, moves her feet, but would not respond to this provider and social welfare research worker. Patient advised to inform staff if she decides to engage in an interview with her social welfare research worker and provider for admission. Hospital course: 01/13 patient appears catatonic, not talking much, not moving, sometimes walking around in a disorganized way; seems to be history of catatonia as well. Not sure if eating and drinking. Finisher Cold Rolling tried to discuss medications including Ativan however patient not engaging; Currently refusing all medications 01/14: continue current management and treatment plan. Encourage adherence. 01/15: continue current management and treatment plan. Encourage adherence. 01/16/25: Patient slept for 7 hours, was not compliant with medication or point of care, she is in bed most of the morning until she was thinking about signing the 3 days. She would not signed a 3 days until she talk to to social welfare research worker. She said yes to anxiety and said a little when I asked about depression. Reports hearing voices when being asked, but not able to disclose to more details. She denies suicidal thoughts or thoughts of hurting other people. She was not sure where she stayed and who she stayed with before coming in here. This provider note the patient by history, that mom and sister concerned about her in the past. However, patient is guarded, do not give anymore information or consent to talk to the family member. Not able to assess for more details regarding substance use. 01/17 Patient difficult with which to engage, lying in bed, not talking much at all, intermittently opening eyes. On inquiry about why not taking medications, she She says she did took some pills today (her metformin and 1 dose of Ativan). Does not answer questions about SI, HI, AVH, depression, worries. She is eating and drinking and said that she will talk with magnetic tape typewriter operator tomorrow. Finisher Cold Rolling asked her about her 3 day notice and there is concern about discharging her if she is not able to answer questions...she said that she will talk with magnetic tape typewriter operator tomorrow. Collateral: Finisher Cold Rolling talked with patient's sister who reports that was her regular, full functioning self few weeks until she relapsed. Sister says that whenever patient uses a lot she becomes like a zombie; she typically uses crack cocaine. Sister says she has been in numerous treatment facilities and on medication returns to full functioning, communicating and having normal discourse however as soon as he is discharged from any facility she relapses that day; sister reiterated that she has been stabilized numerous times with the same result. Sister said that despite her not talking and acting like a zombie she is typically able to function and reports that patient called their mother 2 days ago asking for phone number is of a friend. Says her diagnose says schizoaffective disorder, bipolar type, borderline personality disorder; denies ASD diagnosis -Finisher Cold Rolling also discussed Case with Sarah who has had this patient at other facilities and thinks this might not be catatonia but rather selective mutism and the patient selects the times when she wants to be organized and talk; patient has a history of psychotic illness and catatonia however rarely takes medications during inpatient admissions and at some point just gets better and wants to go. -Of note patient was organized enough to sign a 3 day notice. 01/18 Patient a little more talkative today hand out and about in the milieu more, eating and drinking and sitting with peers though keeping to herself and remains internally preoccupied. Patient told magnetic tape typewriter operator that she had a hard time talking because she was in her slumber. She seems to say show take medications and did take some doses; she also agreed to retract her 3 day notice and was able to discuss how much longer magnetic tape typewriter operator thought she should stay. Throughout conversation patient continuing to struggle with internal preoccupation and thought blocking. -Patient refusing point of cares to check blood sugar. Finisher Cold Rolling can not find hx of scripts for insulin; she's been mostly refusing POC (the few times has allowed <200). Will HOLD sliding scale/POC's for now. 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 She has agreed to restart risperidone but has often refused 01/19 Patient again not talking, isolating and mostly stayed in bed; eating and drinking without problems but refusing medication and remains very internally preoccupied with significant thought blocking. Not answering questions 01/20 Patient remains isolative, lying in bed, not talking and continually responding to internal stimuli. Continues to refuse labs. Sometimes patient will go to groups but does not talk and needs cues for her to transition. 01/21 No change in presentation; remains very difficult with which to engage, not answering questions very much. She did say she is all right and denied AH though she remains internally preoccupied thought blocking. Tried to discuss reasons for refusing medications but patient would not answer; patient eating and drinking -sometimes takes medications but mostly refuses; changed Risperdal to 2 mg b.i.d. (so if she takes it she gets at least 2 mg) 01/22 Patient remains disorganized in speech and behavior. She can not answer questions appropriately and either does not saying anything or says I do not know... She remains unable to articulate any choices in her treatment, if she wants to stay on the unit, if she wants to discharge, where she would go... Finisher Cold Rolling explained the need for treatment and that team had decided to rescind her CV and 5 for involuntary commitment. 01/24 Little change in presentation. Patient lying in bed, laughing or smiling inappropriately and saying very little. When asked how she is doing she says so-so but does not respond to any other related questions When magnetic tape typewriter operator asks if she is better she says not sure When magnetic tape typewriter operator asked who she hear voices she laughs inappropriately but does not answer When asked about SI, she looks, smiles but does not answer When asked how she slept she says not sure Finisher Cold Rolling again discussed the need for medications which she has taking sometimes and refusing it others Impression/clinical reasoning: Patient remained psychotic, internally preoccupied and with catatonic symptoms. Refusing treatments, refusing medication. At this time patient can not be discharge safely as there is no indication she can take care of herself in the community; she could not get herself home and if discharge would wander aimlessly, vulnerable to predation; patient is to severely internally preoccupied that she can not even say she wants to discharge or answer questions. Will continue offering medications for both catatonia and psychosis. Team agrees that patient is too disorganized and unsafe for discharge and unable to make any treatment decisions for herself. Will rescind her CV and file for involuntary commitment and substituted judgment 01/25 Patient a little bit more talkative today. Still not answering many questions but did ask magnetic tape typewriter operator to repeat the question (patient was too internally preoccupied to hurt initially). Later on she did take medication 01/26 patient is taking medications and starting to do better. Talking more and asking about aftercare. Says she will consider long-acting injectable as well. Will switch at medications to make easier at her request and will taper off Ativan since catatonic symptoms seem to be resolving and remaining symptoms are mostly due to psychosis. Discussed AH and she says they remain and so agrees to increase Risperdal dose. -if patient continues to take medications and improve will likely not need to go to court 01/27/25: Slept for 8 hours, was medication compliant yesterday. She refused them this morning at the beginning, but ended taking them later on. Reported that she has good appetite. Mood is bored . Denies suicidal thoughts or homicidal thoughts. Denies hallucinations at , but saying sometimes when asked if she heard voices, just now . Not able to elaborate further details of what she hears. I do not know regarding anxiety and depression questions. Reported that she has been taking medications but I took someone else medication , then mentioned metformin. Discussed with patient regarding HOPKINS [employer] for risperidone, she said she does not want it. Explained to patient the benefit of HOPKINS, and remind patient that she does not have to make decision today, but is aware that we have the option to not have to take by mouth every day to enhance the better compliance, and able to be stable longer away from the hospital. Patient also met with social welfare research worker today, agree with referral for outpatient services for mental health and substance use, she also signed consent to send referral out. She appears to be paranoid, mild thought blocked, however more logical and more engaging in conversation. Staff reported that she shaved yesterday. She was up, in the antonio pacing after the one-to-one assessment. Unkempt him but fair hygiene. 01/30 Patient again refused medication over the weekend and again is unable to answer questions, shrugging her shoulders with every question asked. Patient can not say why she did not take medication. -took pills from nursing put him her mouth but would not swallow them; through they medication cup at the nurse 01/31 Patient remains unchanged, not answering any questions that magnetic tape typewriter operator or other staff ask under struggling her shoulders or just mumbling to herself in response -continue its until February 0702/01 guarded, internally preoccupied; refusing meds; will increase doses since she frequently refuses and only sometimes takes 02/03 took risperdal last night and today, more organized, talking. Says she tried to call her application technician. Discussed medication and pt said she would get on HOPKINS, but then later refused. Plan 15 minutes check. section 7 Lower to Ativan 1 mg b.i.d.; catatonic symptoms resolving; will taper off and discontinue Increase to Risperdal to 4mg bid -encourage long-acting injectable [facility] as needed. Collateral contact. Continue remainder of regime. Encouraged full milieu. Discharge planning. Patient educated on: diagnosis and medication risk/benefits Informed Consent: understands Reason for continued inpatient stay Substantial Risk for: inability to function Time Spent With Patient Time: Total time managing care of this patient today ____ minutes.
--- NOTE | 2025-02-03 20:21 | PC.NURSE ---
Rosmery was approached at 1830 to ask if she was ready to take the HOPKINS. She just stared blankly at tw for about 30 seconds and walked away.
--- NOTE | 2025-02-04 13:19 | P.PNPSI_ITS ---
Subjective Subjective Date of Service: 02/04/25 Reason For Visit: F31.2 Biopolar D/O manic; F143.20 Cocaine use raymond Interim History: Active on unit. keeping to self. patient reports feeling depressed however, states she is not sure what is causing her feeling this way. Guarded. When asked if she was having any thoughts of self harm; pt stated, I don't know and declined to elaborate. denies HI/VH/AH. Encouraged to attend groups. Continue current tx plan. Medication Compliance: Intermittent Mental Status Exam Mental Status Exam Patient Appearance: Disheveled Patient Orientation: Person, Place, Time and Situation Level of Consciousness: Awake and Alert Patient Behavior: Guarded and Cooperative Mood Description: Depressed Affect Description: Depressed Ability to Follow Directions: Good Speech Pattern: Clear and Soft-Spoken Memory Description: Intact Hallucinations: None Thought Process: Intact Thought Content: positive for Intact Diagnostics Vital Signs (24Hr): BMI result Body Mass Index 33.9 Labs 01/27/25 11:42 Medications Medications Current Medications Acetaminophen (Acetaminophen 325 Mg Tablet) 650 mg PO Q6H PRN PRN Reason: Headache/Pain, Scale 1-10 Last Admin: 01/27/25 20:50 Dose: 650 mg Al Hydroxide/Mg Hydroxide (Magnesium Hydrox/Alum Hydrox 30 Ml Oral.Susp) 30 ml PO Q6H PRN PRN Reason: Heartburn/Nausea Last Admin: 01/26/25 20:14 Dose: 30 ml Benzocaine (Benzocaine 20 % Oral Gel 9 Gm Tube) 1 appl MUCOUS MEM QID PRN; Protocol PRN Reason: dental pain Hydroxyzine HCl (Hydroxyzine Hcl 25 Mg Tablet) 25 mg PO Q6H PRN PRN Reason: mild anxiety Last Admin: 02/03/25 10:51 Dose: 25 mg Insulin Human Lispro (Insulin Lispro 100 Unit/Ml 3 Ml Vial) 0 unit SUBCUT QIDACHS [facility]; Protocol On Hold: 01/18/25 09:59 Last Admin: 01/18/25 09:28 Dose: Not Given Magnesium Hydroxide (Milk Of Magnesia 30 Ml Oral.Susp) 30 ml PO DAILY PRN PRN Reason: Constipation Last Admin: 01/26/25 12:41 Dose: 30 ml Metformin HCl (Metformin Hcl 500 Mg Tablet) [facility] Last Admin: 02/04/25 09:58 Dose: 500 mg Nicotine Polacrilex (Nicotine Polacrilex 2 Mg Gum) 2 mg BUCCAL Q2H PRN PRN Reason: Nicotine Cravings Paliperidone Palmitate (Paliperidone Palmitate 234 Mg/1.5 Ml Syringe) 234 mg IM Q30D [facility] Last Admin: 02/04/25 10:04 Dose: Not Given Polyethylene Glycol (Polyethylene Glycol 3350 17 Gm Powd.Pack) 17 gm PO DAILY PRN PRN Reason: Constipation Last Admin: 01/27/25 14:45 Dose: 17 gm Risperidone (Risperidone 2 Mg Tablet) 2 mg PO DAILY [facility] Last Admin: 02/04/25 10:04 Dose: Not Given Risperidone (Risperidone 3 Mg Tablet) 6 mg PO BEDTIME [facility] Last Admin: 02/03/25 22:15 Dose: Not Given Senna (Sennosides 8.6 Mg Tablet) 17.2 mg PO DAILY PRN PRN Reason: Constipation Last Admin: 01/27/25 11:44 Dose: 17.2 mg Simethicone (Simethicone 80 Mg Tab.Chew) 80 mg PO QIDWMHS PRN PRN Reason: flatulance Last Admin: 01/27/25 21:02 Dose: 80 mg Trazodone HCl (Trazodone Hcl 50 Mg Tablet) 50 mg PO BEDTIME MRX1 PRN PRN Reason: Insomnia Last Admin: 02/02/25 21:45 Dose: 50 mg Valacyclovir HCl (Valacyclovir Hcl 500 Mg Tablet) 500 mg PO DAILY [facility] Last Admin: 02/04/25 09:58 Dose: 500 mg Allergies Allergies Allergy/AdvReac Type Severity Reaction Status Date / Time blueberry Allergy Unknown Unknown Verified 01/11/25 21:20 Assessment & Plan Assessment & Plan (1) Schizoaffective disorder, bipolar type: Status: Acute Code(s): F25.0 - Schizoaffective disorder, bipolar type (2) Catatonia: Status: Acute Code(s): F06.1 - Catatonic disorder due to known physiological condition (3) Polysubstance use disorder: Status: Acute Code(s): F19.90 - Other psychoactive substance use, unspecified, uncomplicated (4) Cocaine abuse: Status: Acute Code(s): F14.10 - Cocaine abuse, uncomplicated Plan 34-year-old Hungarian-speaking female is a direct transfer, via ambulance, from [facility] to [facility]. She has history of bipolar disorder, schizophrenia, marijuana, PCP, and cocaine/crack use (severe), multiple inpatient admissions and at least 2 section 35. She was evaluated at [facility] for being nonverbal at home following substance use. This provider and patient's social work professor found the patient lying in her bed. She is alert, opens and closes her eyes, moves her feet, but would not respond to this provider and social work professor. Patient advised to inform staff if she decides to engage in an interview with her social work professor and provider for admission. Hospital course: 01/13 patient appears catatonic, not talking much, not moving, sometimes walking around in a disorganized way; seems to be history of catatonia as well. Not sure if eating and drinking. [employer] tried to discuss medications including Ativan however patient not engaging; Currently refusing all medications 01/14: continue current management and treatment plan. Encourage adherence. 01/15: continue current management and treatment plan. Encourage adherence. 01/16/25: Patient slept for 7 hours, was not compliant with medication or point of care, she is in bed most of the morning until she was thinking about signing the 3 days. She would not signed a 3 days until she talk to to social work professor. She said yes to anxiety and said a little when I asked about depression. Reports hearing voices when being asked, but not able to disclose to more details. She denies suicidal thoughts or thoughts of hurting other people. She was not sure where she stayed and who she stayed with before coming in here. This provider note the patient by history, that mom and sister concerned about her in the past. However, patient is guarded, do not give anymore information or consent to talk to the family member. Not able to assess for more details regarding substance use. 01/17 Patient difficult with which to engage, lying in bed, not talking much at all, intermittently opening eyes. On inquiry about why not taking medications, she She says she did took some pills today (her metformin and 1 dose of Ativan). Does not answer questions about SI, HI, AVH, depression, worries. She is eating and drinking and said that she will talk with service writer advisor tomorrow. [employer] asked her about her 3 day notice and there is concern about discharging her if she is not able to answer questions...she said that she will talk with service writer advisor tomorrow. Collateral: [employer] talked with patient's sister who reports that was her regular, full functioning self few weeks until she relapsed. Sister says that whenever patient uses a lot she becomes like a zombie; she typically uses crack cocaine. Sister says she has been in numerous treatment facilities and on medication returns to full functioning, communicating and having normal discourse however as soon as he is discharged from any facility she relapses that day; sister reiterated that she has been stabilized numerous times with the same result. Sister said that despite her not talking and acting like a zombie she is typically able to function and reports that patient called their mother 2 days ago asking for phone number is of a friend. Says her diagnose says schizoaffective disorder, bipolar type, borderline personality disorder; denies ASD diagnosis -[employer] also discussed Case with Sarah who has had this patient at other facilities and thinks this might not be catatonia but rather selective mutism and the patient selects the times when she wants to be organized and talk; patient has a history of psychotic illness and catatonia however rarely takes medications during inpatient admissions and at some point just gets better and wants to go. -Of note patient was organized enough to sign a 3 day notice. 01/18 Patient a little more talkative today hand out and about in the milieu more, eating and drinking and sitting with peers though keeping to herself and remains internally preoccupied. Patient told service writer advisor that she had a hard time talking because she was in her slumber. She seems to say show take medications and did take some doses; she also agreed to retract her 3 day notice and was able to discuss how much longer service writer advisor thought she should stay. Throughout conversation patient continuing to struggle with internal preoccupation and thought blocking. -Patient refusing point of cares to check blood sugar. [employer] can not find hx of scripts for insulin; she's been mostly refusing POC (the few times has allowed <200). Will HOLD sliding scale/POC's for now. 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 She has agreed to restart risperidone but has often refused 01/19 Patient again not talking, isolating and mostly stayed in bed; eating and drinking without problems but refusing medication and remains very internally preoccupied with significant thought blocking. Not answering questions 01/20 Patient remains isolative, lying in bed, not talking and continually responding to internal stimuli. Continues to refuse labs. Sometimes patient will go to groups but does not talk and needs cues for her to transition. 01/21 No change in presentation; remains very difficult with which to engage, not answering questions very much. She did say she is all right and denied AH though she remains internally preoccupied thought blocking. Tried to discuss reasons for refusing medications but patient would not answer; patient eating and drinking -sometimes takes medications but mostly refuses; changed Risperdal to 2 mg b.i.d. (so if she takes it she gets at least 2 mg) 01/22 Patient remains disorganized in speech and behavior. She can not answer questions appropriately and either does not saying anything or says I do not know... She remains unable to articulate any choices in her treatment, if she wants to stay on the unit, if she wants to discharge, where she would go... [employer] explained the need for treatment and that team had decided to rescind her CV and 5 for involuntary commitment. 01/24 Little change in presentation. Patient lying in bed, laughing or smiling inappropriately and saying very little. When asked how she is doing she says so-so but does not respond to any other related questions When service writer advisor asks if she is better she says not sure When service writer advisor asked who she hear voices she laughs inappropriately but does not answer When asked about SI, she looks, smiles but does not answer When asked how she slept she says not sure [employer] again discussed the need for medications which she has taking sometimes and refusing it others Impression/clinical reasoning: Patient remained psychotic, internally preoccupied and with catatonic symptoms. Refusing treatments, refusing medication. At this time patient can not be discharge safely as there is no indication she can take care of herself in the community; she could not get herself home and if discharge would wander aimlessly, vulnerable to predation; patient is to severely internally preoccupied that she can not even say she wants to discharge or answer questions. Will continue offering medications for both catatonia and psychosis. Team agrees that patient is too disorganized and unsafe for discharge and unable to make any treatment decisions for herself. Will rescind her CV and file for involuntary commitment and substituted judgment 01/25 Patient a little bit more talkative today. Still not answering many questions but did ask service writer advisor to repeat the question (patient was too internally preoccupied to hurt initially). Later on she did take medication 01/26 patient is taking medications and starting to do better. Talking more and asking about aftercare. Says she will consider long-acting injectable as well. Will switch at medications to make easier at her request and will taper off Ativan since catatonic symptoms seem to be resolving and remaining symptoms are mostly due to psychosis. Discussed AH and she says they remain and so agrees to increase Risperdal dose. -if patient continues to take medications and improve will likely not need to go to court 01/27/25: Slept for 8 hours, was medication compliant yesterday. She refused them this morning at the beginning, but ended taking them later on. Reported that she has good appetite. Mood is bored . Denies suicidal thoughts or homicidal thoughts. Denies hallucinations at 1st, but saying sometimes when asked if she heard voices, just now . Not able to elaborate further details of what she hears. I do not know regarding anxiety and depression questions. Reported that she has been taking medications but I took someone else medication , then mentioned metformin. Discussed with patient regarding H[facility] Inve[facility] Sustenna for risperidone, she said she does not want it. Explained to patient the benefit of HOPKINS, and remind patient that she does not have to make decision today, but is aware that we have the option to not have to take by mouth every day to enhance the better compliance, and able to be stable longer away from the hospital. Patient also met with social work professor today, agree with referral for outpatient services for mental health and substance use, she also signed consent to send referral out. She appears to be paranoid, mild thought blocked, however more logical and more engaging in conversation. Staff reported that she shaved yesterday. She was up, in the antonio pacing after the one-to-one assessment. Unkempt him but fair hygiene. 01/30 Patient again refused medication over the weekend and again is unable to answer questions, shrugging her shoulders with every question asked. Patient can not say why she did not take medication. -took pills from nursing put him her mouth but would not swallow them; through they medication cup at the nurse 01/31 Patient remains unchanged, not answering any questions that service writer advisor or other staff ask under struggling her shoulders or just mumbling to herself in response -continue its until February 0702/01 guarded, internally preoccupied; refusing meds; will increase doses since she frequently refuses and only sometimes takes 02/03 took risperdal last night and today, more organized, talking. Says she tried to call her asphalt blender. Discussed medication and pt said she would get on HOPKINS, but then later refused. 02/04: Active on unit. keeping to self. patient reports feeling depressed however, states she is not sure what is causing her feeling this way. Guarded. When asked if she was having any thoughts of self harm; pt stated, I don't know and declined to elaborate. denies HI/VH/AH. Encouraged to attend groups. Continue current tx plan. Plan 15 minutes check. section 7 Lower to Ativan 1 mg b.i.d.; catatonic symptoms resolving; will taper off and discontinue Increase to Risperdal to 4mg bid -encourage long-acting injectable [facility] as needed. Collateral contact. Continue remainder of regime. Encouraged full milieu. Discharge planning. Patient educated on: diagnosis and medication risk/benefits Reason for continued inpatient stay Substantial Risk for: med/psych decompensation Time Spent With Patient Time: Total time managing care of this patient today _20___ minutes.
--- NOTE | 2025-02-04 18:13 | PC.NURSE ---
Rosmery refused morning labs and provider Diamante Cruz was informed.
[2025-02-04 20:00] VITALS: BP 126/80; PULSE 88; TEMP 36.7; O2SAT 97
--- NOTE | 2025-02-05 12:23 | HO.PSYCHPN ---
Subjective Subjective Date of Service: 02/05/25 Reason For Visit: F31.2 Biopolar D/O manic; F143.20 Cocaine use raymond Interim History: keeping to self. pacing unit hallway. Guarded. Patient reports feeling anxious and depressed; pt stated, I'm not enthusiastic to be here . declined medications. denies SI/HI/VH/AH. Pt abruptly ended conversation and walked away from T/W. Continue current tx plan. Medication Compliance: Intermittent Side effects from medications: No Attending Groups: No Mental Status Exam Mental Status Exam Patient Appearance: Disheveled Patient Orientation: Person, Place, Time and Situation Level of Consciousness: Awake and Alert Patient Behavior: Guarded Mood Description: Depressed and Anxious Affect Description: Depressed Ability to Follow Directions: Good Speech Pattern: Clear and Soft-Spoken Memory Description: Intact Thought Process: Intact Thought Content: positive for Intact Diagnostics Vital Signs (24Hr): Vital Signs - 24 hr 02/04/25 20:00 Temperature 98.1 F Pulse Rate 88 Blood Pressure 126/80 Pulse Oximetry 97 Oxygen Delivery Method Room Air BMI result Body Mass Index 33.9 Labs 01/27/25 11:42 Medications Medications Current Medications Acetaminophen (Acetaminophen 325 Mg Tablet) 650 mg PO Q6H PRN PRN Reason: Headache/Pain, Scale 1-10 Last Admin: 01/27/25 20:50 Dose: 650 mg Al Hydroxide/Mg Hydroxide (Magnesium Hydrox/Alum Hydrox 30 Ml Oral.Susp) 30 ml PO Q6H PRN PRN Reason: Heartburn/Nausea Last Admin: 01/26/25 20:14 Dose: 30 ml Benzocaine (Benzocaine 20 % Oral Gel 9 Gm Tube) 1 appl MUCOUS MEM QID PRN; Protocol PRN Reason: dental pain Hydroxyzine HCl (Hydroxyzine Hcl 25 Mg Tablet) 25 mg PO Q6H PRN PRN Reason: mild anxiety Last Admin: 02/03/25 10:51 Dose: 25 mg Insulin Human Lispro (Insulin Lispro 100 Unit/Ml 3 Ml Vial) 0 unit SUBCUT [facility]; Protocol On Hold: 01/18/25 09:59 Last Admin: 01/18/25 09:28 Dose: Not Given Magnesium Hydroxide (Milk Of Magnesia 30 Ml Oral.Susp) 30 ml PO DAILY PRN PRN Reason: Constipation Last Admin: 01/26/25 12:41 Dose: 30 ml Metformin HCl (Metformin Hcl 500 Mg Tablet) 500 mg PO BIDWM [facility] Last Admin: 02/05/25 10:35 Dose: Not Given Nicotine Polacrilex (Nicotine Polacrilex 2 Mg Gum) 2 mg BUCCAL Q2H PRN PRN Reason: Nicotine Cravings Paliperidone Palmitate (Paliperidone Palmitate 234 Mg/1.5 Ml Syringe) 234 mg IM Q30D [facility] Last Admin: 02/04/25 10:04 Dose: Not Given Polyethylene Glycol (Polyethylene Glycol 3350 17 Gm Powd.Pack) 17 gm PO DAILY PRN PRN Reason: Constipation Last Admin: 01/27/25 14:45 Dose: 17 gm Risperidone (Risperidone 2 Mg Tablet) 2 mg PO DAILY [facility] Last Admin: 02/05/25 10:35 Dose: Not Given Risperidone (Risperidone 3 Mg Tablet) 6 mg PO BEDTIME [facility] Last Admin: 02/04/25 21:33 Dose: Not Given Senna (Sennosides 8.6 Mg Tablet) 17.2 mg PO DAILY PRN PRN Reason: Constipation Last Admin: 01/27/25 11:44 Dose: 17.2 mg Simethicone (Simethicone 80 Mg Tab.Chew) 80 mg PO QIDWMHS PRN PRN Reason: flatulance Last Admin: 01/27/25 21:02 Dose: 80 mg Trazodone HCl (Trazodone Hcl 50 Mg Tablet) 50 mg PO BEDTIME MRX1 PRN PRN Reason: Insomnia Last Admin: 02/05/25 02:33 Dose: 50 mg Valacyclovir HCl (Valacyclovir Hcl 500 Mg Tablet) 500 mg PO DAILY [facility] Last Admin: 02/05/25 10:35 Dose: Not Given Allergies Allergies Allergy/AdvReac Type Severity Reaction Status Date / Time blueberry Allergy Unknown Unknown Verified 01/11/25 21:20 Assessment & Plan Assessment & Plan (1) Schizoaffective disorder, bipolar type: Status: Acute Code(s): F25.0 - Schizoaffective disorder, bipolar type (2) Catatonia: Status: Acute Code(s): F06.1 - Catatonic disorder due to known physiological condition (3) Polysubstance use disorder: Status: Acute Code(s): F19.90 - Other psychoactive substance use, unspecified, uncomplicated (4) Cocaine abuse: Status: Acute Code(s): F14.10 - Cocaine abuse, uncomplicated Plan 34-year-old Faroese-speaking female is a direct transfer, via ambulance, from [facility] to [facility]. She has history of bipolar disorder, schizophrenia, marijuana, PCP, and cocaine/crack use (severe), multiple inpatient admissions and at least 2 section 35. She was evaluated at [facility] for being nonverbal at home following substance use. This provider and patient's licensed clinical social worker found the patient lying in her bed. She is alert, opens and closes her eyes, moves her feet, but would not respond to this provider and licensed clinical social worker. Patient advised to inform staff if she decides to engage in an interview with her licensed clinical social worker and provider for admission. Hospital course: 01/13 patient appears catatonic, not talking much, not moving, sometimes walking around in a disorganized way; seems to be history of catatonia as well. Not sure if eating and drinking. Shared Services And Outsourcing Manager tried to discuss medications including Ativan however patient not engaging; Currently refusing all medications 01/14: continue current management and treatment plan. Encourage adherence. 01/15: continue current management and treatment plan. Encourage adherence. 01/16/25: Patient slept for 7 hours, was not compliant with medication or point of care, she is in bed most of the morning until she was thinking about signing the 3 days. She would not signed a 3 days until she talk to to licensed clinical social worker. She said yes to anxiety and said a little when I asked about depression. Reports hearing voices when being asked, but not able to disclose to more details. She denies suicidal thoughts or thoughts of hurting other people. She was not sure where she stayed and who she stayed with before coming in here. This provider note the patient by history, that mom and sister concerned about her in the past. However, patient is guarded, do not give anymore information or consent to talk to the family member. Not able to assess for more details regarding substance use. 01/17 Patient difficult with which to engage, lying in bed, not talking much at all, intermittently opening eyes. On inquiry about why not taking medications, she She says she did took some pills today (her metformin and 1 dose of Ativan). Does not answer questions about SI, HI, AVH, depression, worries. She is eating and drinking and said that she will talk with race and sports book writer tomorrow. Shared Services And Outsourcing Manager asked her about her 3 day notice and there is concern about discharging her if she is not able to answer questions...she said that she will talk with race and sports book writer tomorrow. Collateral: Shared Services And Outsourcing Manager talked with patient's sister who reports that was her regular, full functioning self few weeks until she relapsed. Sister says that whenever patient uses a lot she becomes like a zombie; she typically uses crack cocaine. Sister says she has been in numerous treatment facilities and on medication returns to full functioning, communicating and having normal discourse however as soon as he is discharged from any facility she relapses that day; sister reiterated that she has been stabilized numerous times with the same result. Sister said that despite her not talking and acting like a zombie she is typically able to function and reports that patient called their mother 2 days ago asking for phone number is of a friend. Says her diagnose says schizoaffective disorder, bipolar type, borderline personality disorder; denies ASD diagnosis -Shared Services And Outsourcing Manager also discussed Case with Sarah who has had this patient at other facilities and thinks this might not be catatonia but rather selective mutism and the patient selects the times when she wants to be organized and talk; patient has a history of psychotic illness and catatonia however rarely takes medications during inpatient admissions and at some point just gets better and wants to go. -Of note patient was organized enough to sign a 3 day notice. 01/18 Patient a little more talkative today hand out and about in the milieu more, eating and drinking and sitting with peers though keeping to herself and remains internally preoccupied. Patient told race and sports book writer that she had a hard time talking because she was in her slumber. She seems to say show take medications and did take some doses; she also agreed to retract her 3 day notice and was able to discuss how much longer race and sports book writer thought she should stay. Throughout conversation patient continuing to struggle with internal preoccupation and thought blocking. -Patient refusing point of cares to check blood sugar. Shared Services And Outsourcing Manager can not find hx of scripts for insulin; she's been mostly refusing POC (the few times has allowed <200). Will HOLD sliding scale/POC's for now. 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 She has agreed to restart risperidone but has often refused 01/19 Patient again not talking, isolating and mostly stayed in bed; eating and drinking without problems but refusing medication and remains very internally preoccupied with significant thought blocking. Not answering questions 01/20 Patient remains isolative, lying in bed, not talking and continually responding to internal stimuli. Continues to refuse labs. Sometimes patient will go to groups but does not talk and needs cues for her to transition. 01/21 No change in presentation; remains very difficult with which to engage, not answering questions very much. She did say she is all right and denied AH though she remains internally preoccupied thought blocking. Tried to discuss reasons for refusing medications but patient would not answer; patient eating and drinking -sometimes takes medications but mostly refuses; changed Risperdal to 2 mg b.i.d. (so if she takes it she gets at least 2 mg) 01/22 Patient remains disorganized in speech and behavior. She can not answer questions appropriately and either does not saying anything or says I do not know... She remains unable to articulate any choices in her treatment, if she wants to stay on the unit, if she wants to discharge, where she would go... Shared Services And Outsourcing Manager explained the need for treatment and that team had decided to rescind her CV and 5 for involuntary commitment. 01/24 Little change in presentation. Patient lying in bed, laughing or smiling inappropriately and saying very little. When asked how she is doing she says so-so but does not respond to any other related questions When race and sports book writer asks if she is better she says not sure When race and sports book writer asked who she hear voices she laughs inappropriately but does not answer When asked about SI, she looks, smiles but does not answer When asked how she slept she says not sure Shared Services And Outsourcing Manager again discussed the need for medications which she has taking sometimes and refusing it others Impression/clinical reasoning: Patient remained psychotic, internally preoccupied and with catatonic symptoms. Refusing treatments, refusing medication. At this time patient can not be discharge safely as there is no indication she can take care of herself in the community; she could not get herself home and if discharge would wander aimlessly, vulnerable to predation; patient is to severely internally preoccupied that she can not even say she wants to discharge or answer questions. Will continue offering medications for both catatonia and psychosis. Team agrees that patient is too disorganized and unsafe for discharge and unable to make any treatment decisions for herself. Will rescind her CV and file for involuntary commitment and substituted judgment 01/25 Patient a little bit more talkative today. Still not answering many questions but did ask race and sports book writer to repeat the question (patient was too internally preoccupied to hurt initially). Later on she did take medication 01/26 patient is taking medications and starting to do better. Talking more and asking about aftercare. Says she will consider long-acting injectable as well. Will switch at medications to make easier at her request and will taper off Ativan since catatonic symptoms seem to be resolving and remaining symptoms are mostly due to psychosis. Discussed AH and she says they remain and so agrees to increase Risperdal dose. -if patient continues to take medications and improve will likely not need to go to court 01/27/25: Slept for 8 hours, was medication compliant yesterday. She refused them this morning at the beginning, but ended taking them later on. Reported that she has good appetite. Mood is bored . Denies suicidal thoughts or homicidal thoughts. Denies hallucinations at , but saying sometimes when asked if she heard voices, just now . Not able to elaborate further details of what she hears. I do not know regarding anxiety and depression questions. Reported that she has been taking medications but I took someone else medication , then mentioned metformin. Discussed with patient regarding [facility] Inve[facility] Sustenna for risperidone, she said she does not want it. Explained to patient the benefit of HOPKINS, and remind patient that she does not have to make decision today, but is aware that we have the option to not have to take by mouth every day to enhance the better compliance, and able to be stable longer away from the hospital. Patient also met with licensed clinical social worker today, agree with referral for outpatient services for mental health and substance use, she also signed consent to send referral out. She appears to be paranoid, mild thought blocked, however more logical and more engaging in conversation. Staff reported that she shaved yesterday. She was up, in the antonio pacing after the one-to-one assessment. Unkempt him but fair hygiene. 01/30 Patient again refused medication over the weekend and again is unable to answer questions, shrugging her shoulders with every question asked. Patient can not say why she did not take medication. -took pills from nursing put him her mouth but would not swallow them; through they medication cup at the nurse 01/31 Patient remains unchanged, not answering any questions that race and sports book writer or other staff ask under struggling her shoulders or just mumbling to herself in response -continue its until February 0702/01 guarded, internally preoccupied; refusing meds; will increase doses since she frequently refuses and only sometimes takes 02/03 took risperdal last night and today, more organized, talking. Says she tried to call her porter bath. Discussed medication and pt said she would get on HOPKINS, but then later refused. 02/04: Active on unit. keeping to self. patient reports feeling depressed however, states she is not sure what is causing her feeling this way. Guarded. When asked if she was having any thoughts of self harm; pt stated, I don't know and declined to elaborate. denies HI/VH/AH. Encouraged to attend groups. Continue current tx plan. 02/05: keeping to self. pacing unit hallway. Guarded. Patient reports feeling anxious and depressed; pt stated, I'm not enthusiastic to be here . declined medications. denies SI/HI/VH/AH. Pt abruptly ended conversation and walked away from T/W. Continue current tx plan. Plan 15 minutes check. section 7 Lower to Ativan 1 mg b.i.d.; catatonic symptoms resolving; will taper off and discontinue Increase to Risperdal to 4mg bid -encourage long-acting injectable [facility] as needed. Collateral contact. Continue remainder of regime. Encouraged full milieu. Discharge planning. Patient educated on: medication risk/benefits Reason for continued inpatient stay Substantial Risk for: med/psych decompensation Time Spent With Patient Time: Total time managing care of this patient today _15___ minutes.
[2025-02-05] MEDS: Milk of Magnesia 30 ML ORAL.SUSP PO (17:04)
[2025-02-05 19:51] VITALS: BP 118/58; PULSE 97; RESP 16; TEMP 36.6; O2SAT 99
--- NOTE | 2025-02-06 05:21 | PC.NURSE ---
Patient refused HS Abilify, claiming it causes psychosis .
[2025-02-06 07:57] VITALS: BP 121/66; PULSE 74; RESP 18; TEMP 36.4; O2SAT 98
--- NOTE | 2025-02-06 12:03 | P.PNPSI_ITS ---
Subjective Subjective Date of Service: 02/06/25 Reason For Visit: F31.2 Biopolar D/O manic; F143.20 Cocaine use raymond Interim History: keeping to self. Guarded. Observing responding to internal stimuli. laughing to self at times. declined AM medications. denies SI/HI/VH/AH. Responding to questions with one word answers. Continue current tx plan. Medication Compliance: Intermittent Side effects from medications: No Attending Groups: No Mental Status Exam Mental Status Exam Patient Appearance: Disheveled Patient Orientation: Person, Place, Time and Situation Level of Consciousness: Awake and Alert Patient Behavior: Guarded Mood Description: Depressed and Anxious Affect Description: Blunted Ability to Follow Directions: Good Speech Pattern: Clear, Soft-Spoken and Long Pauses Hallucinations: Auditory Thought Process: Slowed Thinking Diagnostics Vital Signs (24Hr): Vital Signs - 24 hr 02/05/25 19:51 02/06/25 07:57 Temperature 97.8 F 97.5 F Pulse Rate 97 74 Respiratory Rate 16 18 Blood Pressure 118/58 L 121/66 Pulse Oximetry 99 98 Oxygen Delivery Method Room Air Room Air BMI result Body Mass Index 33.9 Labs 01/27/25 11:42 Medications Medications Current Medications Acetaminophen (Acetaminophen 325 Mg Tablet) 650 mg PO Q6H PRN PRN Reason: Headache/Pain, Scale 1-10 Last Admin: 01/27/25 20:50 Dose: 650 mg Al Hydroxide/Mg Hydroxide (Magnesium Hydrox/Alum Hydrox 30 Ml Oral.Susp) 30 ml PO Q6H PRN PRN Reason: Heartburn/Nausea Last Admin: 01/26/25 20:14 Dose: 30 ml Benzocaine (Benzocaine 20 % Oral Gel 9 Gm Tube) 1 appl MUCOUS MEM QID PRN; Protocol PRN Reason: dental pain Hydroxyzine HCl (Hydroxyzine Hcl 25 Mg Tablet) 25 mg PO Q6H PRN PRN Reason: mild anxiety Last Admin: 02/03/25 10:51 Dose: 25 mg Insulin Human Lispro (Insulin Lispro 100 Unit/Ml 3 Ml Vial) 0 unit SUBCUT QIDACHS [facility]; Protocol On Hold: 01/18/25 09:59 Last Admin: 01/18/25 09:28 Dose: Not Given Magnesium Hydroxide (Milk Of Magnesia 30 Ml Oral.Susp) 30 ml PO DAILY PRN PRN Reason: Constipation Last Admin: 02/05/25 17:04 Dose: 30 ml Metformin HCl (Metformin Hcl 500 Mg Tablet) 500 mg PO BIDWM [facility] Last Admin: 02/06/25 11:07 Dose: Not Given Nicotine Polacrilex (Nicotine Polacrilex 2 Mg Gum) 2 mg BUCCAL Q2H PRN PRN Reason: Nicotine Cravings Paliperidone Palmitate (Paliperidone Palmitate 234 Mg/1.5 Ml Syringe) 234 mg IM Q30D [facility] Last Admin: 02/04/25 10:04 Dose: Not Given Polyethylene Glycol (Polyethylene Glycol 3350 17 Gm Powd.Pack) 17 gm PO DAILY PRN PRN Reason: Constipation Last Admin: 01/27/25 14:45 Dose: 17 gm Risperidone (Risperidone 2 Mg Tablet) 2 mg PO DAILY [facility] Last Admin: 02/06/25 11:07 Dose: Not Given Risperidone (Risperidone 3 Mg Tablet) 6 mg PO BEDTIME [facility] Last Admin: 02/05/25 23:16 Dose: Not Given Senna (Sennosides 8.6 Mg Tablet) 17.2 mg PO DAILY PRN PRN Reason: Constipation Last Admin: 02/05/25 17:03 Dose: 17.2 mg Simethicone (Simethicone 80 Mg Tab.Chew) 80 mg PO QIDWMHS PRN PRN Reason: flatulance Last Admin: 02/05/25 17:03 Dose: 80 mg Trazodone HCl (Trazodone Hcl 50 Mg Tablet) 50 mg PO BEDTIME MRX1 PRN PRN Reason: Insomnia Last Admin: 02/05/25 02:33 Dose: 50 mg Valacyclovir HCl (Valacyclovir Hcl 500 Mg Tablet) 500 mg PO DAILY [facility] Last Admin: 02/06/25 11:07 Dose: Not Given Allergies Allergies Allergy/AdvReac Type Severity Reaction Status Date / Time blueberry Allergy Unknown Unknown Verified 01/11/25 21:20 Assessment & Plan Assessment & Plan (1) Schizoaffective disorder, bipolar type: Status: Acute Code(s): F25.0 - Schizoaffective disorder, bipolar type (2) Catatonia: Status: Acute Code(s): F06.1 - Catatonic disorder due to known physiological condition (3) Polysubstance use disorder: Status: Acute Code(s): F19.90 - Other psychoactive substance use, unspecified, uncomplicated (4) Cocaine abuse: Status: Acute Code(s): F14.10 - Cocaine abuse, uncomplicated Plan 34-year-old Kiswahili-speaking female is a direct transfer, via ambulance, from [facility] to [facility]. She has history of bipolar disorder, schizophrenia, marijuana, PCP, and cocaine/crack use (severe), multiple inpatient admissions and at least 2 section [address]. She was evaluated at [facility] for being nonverbal at home following substance use. This provider and patient's social problems specialist found the patient lying in her bed. She is alert, opens and closes her eyes, moves her feet, but would not respond to this provider and social problems specialist. Patient advised to inform staff if she decides to engage in an interview with her social problems specialist and provider for admission. Hospital course: 01/13 patient appears catatonic, not talking much, not moving, sometimes walking around in a disorganized way; seems to be history of catatonia as well. Not sure if eating and drinking. Rn Pacu tried to discuss medications including Ativan however patient not engaging; Currently refusing all medications 01/14: continue current management and treatment plan. Encourage adherence. 01/15: continue current management and treatment plan. Encourage adherence. 01/16/25: Patient slept for 7 hours, was not compliant with medication or point of care, she is in bed most of the morning until she was thinking about signing the 3 days. She would not signed a 3 days until she talk to to social problems specialist. She said yes to anxiety and said a little when I asked about depression. Reports hearing voices when being asked, but not able to disclose to more details. She denies suicidal thoughts or thoughts of hurting other people. She was not sure where she stayed and who she stayed with before coming in here. This provider note the patient by history, that mom and sister concerned about her in the past. However, patient is guarded, do not give anymore information or consent to talk to the family member. Not able to assess for more details regarding substance use. 01/17 Patient difficult with which to engage, lying in bed, not talking much at all, intermittently opening eyes. On inquiry about why not taking medications, she She says she did took some pills today (her metformin and 1 dose of Ativan). Does not answer questions about SI, HI, AVH, depression, worries. She is eating and drinking and said that she will talk with financial underwriter tomorrow. Rn Pacu asked her about her 3 day notice and there is concern about discharging her if she is not able to answer questions...she said that she will talk with financial underwriter tomorrow. Collateral: Rn Pacu talked with patient's sister who reports that was her regular, full functioning self few weeks until she relapsed. Sister says that whenever patient uses a lot she becomes like a zombie; she typically uses crack cocaine. Sister says she has been in numerous treatment facilities and on medication returns to full functioning, communicating and having normal discourse however as soon as he is discharged from any facility she relapses that day; sister reiterated that she has been stabilized numerous times with the same result. Sister said that despite her not talking and acting like a zombie she is typically able to function and reports that patient called their mother 2 days ago asking for phone number is of a friend. Says her diagnose says schizoaffective disorder, bipolar type, borderline personality disorder; denies ASD diagnosis -Rn Pacu also discussed Case with Sarah who has had this patient at other facilities and thinks this might not be catatonia but rather selective mutism and the patient selects the times when she wants to be organized and talk; patient has a history of psychotic illness and catatonia however rarely takes medications during inpatient admissions and at some point just gets better and wants to go. -Of note patient was organized enough to sign a 3 day notice. 01/18 Patient a little more talkative today hand out and about in the milieu more, eating and drinking and sitting with peers though keeping to herself and remains internally preoccupied. Patient told financial underwriter that she had a hard time talking because she was in her slumber. She seems to say show take medications and did take some doses; she also agreed to retract her 3 day notice and was able to discuss how much longer financial underwriter thought she should stay. Throughout conversation patient continuing to struggle with internal preoccupation and thought blocking. -Patient refusing point of cares to check blood sugar. Rn Pacu can not find hx of scripts for insulin; she's been mostly refusing POC (the few times has allowed <200). Will HOLD sliding scale/POC's for now. 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 She has agreed to restart risperidone but has often refused 01/19 Patient again not talking, isolating and mostly stayed in bed; eating and drinking without problems but refusing medication and remains very internally preoccupied with significant thought blocking. Not answering questions 01/20 Patient remains isolative, lying in bed, not talking and continually responding to internal stimuli. Continues to refuse labs. Sometimes patient will go to groups but does not talk and needs cues for her to transition. 01/21 No change in presentation; remains very difficult with which to engage, not answering questions very much. She did say she is all right and denied AH though she remains internally preoccupied thought blocking. Tried to discuss reasons for refusing medications but patient would not answer; patient eating and drinking -sometimes takes medications but mostly refuses; changed Risperdal to 2 mg b.i.d. (so if she takes it she gets at least 2 mg) 01/22 Patient remains disorganized in speech and behavior. She can not answer questions appropriately and either does not saying anything or says I do not know... She remains unable to articulate any choices in her treatment, if she wants to stay on the unit, if she wants to discharge, where she would go... Rn Pacu explained the need for treatment and that team had decided to rescind her CV and 5 for involuntary commitment. 01/24 Little change in presentation. Patient lying in bed, laughing or smiling inappropriately and saying very little. When asked how she is doing she says so-so but does not respond to any other related questions When financial underwriter asks if she is better she says not sure When financial underwriter asked who she hear voices she laughs inappropriately but does not answer When asked about SI, she looks, smiles but does not answer When asked how she slept she says not sure Rn Pacu again discussed the need for medications which she has taking sometimes and refusing it others Impression/clinical reasoning: Patient remained psychotic, internally preoccupied and with catatonic symptoms. Refusing treatments, refusing medication. At this time patient can not be discharge safely as there is no indication she can take care of herself in the community; she could not get herself home and if discharge would wander aimlessly, vulnerable to predation; patient is to severely internally preoccupied that she can not even say she wants to discharge or answer questions. Will continue offering medications for both catatonia and psychosis. Team agrees that patient is too disorganized and unsafe for discharge and unable to make any treatment decisions for herself. Will rescind her CV and file for involuntary commitment and substituted judgment 01/25 Patient a little bit more talkative today. Still not answering many questions but did ask financial underwriter to repeat the question (patient was too internally preoccupied to hurt initially). Later on she did take medication 01/26 patient is taking medications and starting to do better. Talking more and asking about aftercare. Says she will consider long-acting injectable as well. Will switch at medications to make easier at her request and will taper off Ativan since catatonic symptoms seem to be resolving and remaining symptoms are mostly due to psychosis. Discussed AH and she says they remain and so agrees to increase Risperdal dose. -if patient continues to take medications and improve will likely not need to go to court 01/27/25: Slept for 8 hours, was medication compliant yesterday. She refused them this morning at the beginning, but ended taking them later on. Reported that she has good appetite. Mood is bored . Denies suicidal thoughts or homicidal thoughts. Denies hallucinations at 1st, but saying sometimes when asked if she heard voices, just now . Not able to elaborate further details of what she hears. I do not know regarding anxiety and depression questions. Reported that she has been taking medications but I took someone else medication , then mentioned metformin. Discussed with patient regarding H[facility]KINS Invega Sustenna for risperidone, she said she does not want it. Explained to patient the benefit of HOPKINS, and remind patient that she does not have to make decision today, but is aware that we have the option to not have to take by mouth every day to enhance the better compliance, and able to be stable longer away from the hospital. Patient also met with social problems specialist today, agree with referral for outpatient services for mental health and substance use, she also signed consent to send referral out. She appears to be paranoid, mild thought blocked, however more logical and more engaging in conversation. Staff reported that she shaved yesterday. She was up, in the antonio pacing after the one-to-one assessment. Unkempt him but fair hygiene. 01/30 Patient again refused medication over the weekend and again is unable to answer questions, shrugging her shoulders with every question asked. Patient can not say why she did not take medication. -took pills from nursing put him her mouth but would not swallow them; through they medication cup at the nurse 01/31 Patient remains unchanged, not answering any questions that financial underwriter or other staff ask under struggling her shoulders or just mumbling to herself in response -continue its until February 0702/01 guarded, internally preoccupied; refusing meds; will increase doses since she frequently refuses and only sometimes takes 02/03 took risperdal last night and today, more organized, talking. Says she tried to call her bed spring maker. Discussed medication and pt said she would get on HOPKINS, but then later refused. 02/04: Active on unit. keeping to self. patient reports feeling depressed however, states she is not sure what is causing her feeling this way. Guarded. When asked if she was having any thoughts of self harm; pt stated, I don't know and declined to elaborate. denies HI/VH/AH. Encouraged to attend groups. Continue current tx plan. 02/05: keeping to self. pacing unit hallway. Guarded. Patient reports feeling anxious and depressed; pt stated, I'm not enthusiastic to be here . declined medications. denies SI/HI/VH/AH. Pt abruptly ended conversation and walked away from T/W. Continue current tx plan. 02/06: Continue current tx plan. Plan 15 minutes check. section 7 Lower to Ativan 1 mg b.i.d.; catatonic symptoms resolving; will taper off and discontinue Increase to Risperdal to 4mg bid -encourage long-acting injectable [facility] as needed. Collateral contact. Continue remainder of regime. Encouraged full milieu. Discharge planning. Patient educated on: diagnosis and medication risk/benefits Reason for continued inpatient stay Substantial Risk for: med/psych decompensation Time Spent With Patient Time: Total time managing care of this patient today _15___ minutes.
--- NOTE | 2025-02-07 09:35 | P.PNPSI_ITS ---
Subjective Subjective Date of Service: 02/07/25 Reason For Visit: F31.2 Biopolar D/O manic; F143.20 Cocaine use raymond Interim History: met with patient; discussed with team; reviewed chart talking a little more; still can not say where she'd go if she were discharged other than... the place that is in the chart... contract technical writer asks if this is her mothers place and she says she does not know. She cannot say whether or not she wants to discharge...shrugging her shoulders on inquiry; conversation remains difficult due to pt being internally preoccupied and forgetting what she's talking about...Discussed HOPKINS and patient liked the idea that she would not have to take PO risperdal. She agreed to get Invega Sustenna and asks if she can go either this thursday or next thursday. Mental Status Exam Mental Status Exam Narrative: Pt is alert and oriented; behavior is guarded but more cooperative, calm, internally preoccupied, pacing antonio; sometimes smiling or laughing inappropriately; speaking very little; patient is not in distress; dressed in hospital attire, unkempt and malodorous; hirsutism; mood is described as ok and affect blunted; eye contact avoidant; Speech sparse, soft and quiet; no psychomotor retardation present; thought process marred by significant thought blocking; can be goal oriented; Thought content not disclosed; does not express any SI/HI. Patient internally preoccupied and responding to internal stimuli. Patients insight and judgment impaired but a little improved. Diagnostics Vital Signs (24Hr): BMI result Body Mass Index 33.9 Labs 01/27/25 11:42 Medications Medications Current Medications Acetaminophen (Acetaminophen 325 Mg Tablet) 650 mg PO Q6H PRN PRN Reason: Headache/Pain, Scale 1-10 Last Admin: 01/27/25 20:50 Dose: 650 mg Al Hydroxide/Mg Hydroxide (Magnesium Hydrox/Alum Hydrox 30 Ml Oral.Susp) 30 ml PO Q6H PRN PRN Reason: Heartburn/Nausea Last Admin: 01/26/25 20:14 Dose: 30 ml Benzocaine (Benzocaine 20 % Oral Gel 9 Gm Tube) 1 appl MUCOUS MEM QID PRN; Protocol PRN Reason: dental pain Hydroxyzine HCl (Hydroxyzine Hcl 25 Mg Tablet) 25 mg PO Q6H PRN PRN Reason: mild anxiety Last Admin: 02/03/25 10:51 Dose: 25 mg Insulin Human Lispro (Insulin Lispro 100 Unit/Ml 3 Ml Vial) 0 unit SUBCUT QIDACHS [facility]; Protocol On Hold: 01/18/25 09:59 Last Admin: 01/18/25 09:28 Dose: Not Given Magnesium Hydroxide (Milk Of Magnesia 30 Ml Oral.Susp) 30 ml PO DAILY PRN PRN Reason: Constipation Last Admin: 02/05/25 17:04 Dose: 30 ml Metformin HCl (Metformin Hcl 500 Mg Tablet) 500 mg PO BIDWM [facility] Last Admin: 02/06/25 16:21 Dose: Not Given Nicotine Polacrilex (Nicotine Polacrilex 2 Mg Gum) 2 mg BUCCAL Q2H PRN PRN Reason: Nicotine Cravings Paliperidone Palmitate (Paliperidone Palmitate 234 Mg/1.5 Ml Syringe) 234 mg IM Q30D [facility] Last Admin: 02/04/25 10:04 Dose: Not Given Polyethylene Glycol (Polyethylene Glycol 3350 17 Gm Powd.Pack) 17 gm PO DAILY PRN PRN Reason: Constipation Last Admin: 01/27/25 14:45 Dose: 17 gm Risperidone (Risperidone 2 Mg Tablet) 2 mg PO DAILY [facility] Last Admin: 02/06/25 11:07 Dose: Not Given Risperidone (Risperidone 3 Mg Tablet) 6 mg PO BEDTIME [facility] Last Admin: 02/06/25 21:44 Dose: 6 mg Senna (Sennosides 8.6 Mg Tablet) 17.2 mg PO DAILY PRN PRN Reason: Constipation Last Admin: 02/05/25 17:03 Dose: 17.2 mg Simethicone (Simethicone 80 Mg Tab.Chew) 80 mg PO QIDWMHS PRN PRN Reason: flatulance Last Admin: 02/05/25 17:03 Dose: 80 mg Trazodone HCl (Trazodone Hcl 50 Mg Tablet) 50 mg PO BEDTIME MRX1 PRN PRN Reason: Insomnia Last Admin: 02/06/25 21:44 Dose: 50 mg Valacyclovir HCl (Valacyclovir Hcl 500 Mg Tablet) 500 mg PO DAILY [facility] Last Admin: 02/06/25 11:07 Dose: Not Given Allergies Allergies Allergy/AdvReac Type Severity Reaction Status Date / Time blueberry Allergy Unknown Unknown Verified 01/11/25 21:20 Assessment & Plan Assessment & Plan (1) Schizoaffective disorder, bipolar type: Status: Acute Code(s): F25.0 - Schizoaffective disorder, bipolar type (2) Catatonia: Status: Acute Code(s): F06.1 - Catatonic disorder due to known physiological condition (3) Polysubstance use disorder: Status: Acute Code(s): F19.90 - Other psychoactive substance use, unspecified, uncomplicated (4) Cocaine abuse: Status: Acute Code(s): F14.10 - Cocaine abuse, uncomplicated Plan 34-year-old Citizen Of [place]-speaking female is a direct transfer, via ambulance, from [facility] to [facility]. She has history of bipolar disorder, schizophrenia, marijuana, PCP, and cocaine/crack use (severe), multiple inpatient admissions and at least 2 section 35. She was evaluated at [facility] for being nonverbal at home following substance use. This provider and patient's home health care social worker found the patient lying in her bed. She is alert, opens and closes her eyes, moves her feet, but would not respond to this provider and home health care social worker. Patient advised to inform staff if she decides to engage in an interview with her home health care social worker and provider for admission. Hospital course: 01/13 patient appears catatonic, not talking much, not moving, sometimes walking around in a disorganized way; seems to be history of catatonia as well. Not sure if eating and drinking. [employer] tried to discuss medications including Ativan however patient not engaging; Currently refusing all medications 01/14: continue current management and treatment plan. Encourage adherence. 01/15: continue current management and treatment plan. Encourage adherence. 01/16/25: Patient slept for 7 hours, was not compliant with medication or point of care, she is in bed most of the morning until she was thinking about signing the 3 days. She would not signed a 3 days until she talk to to home health care social worker. She said yes to anxiety and said a little when I asked about depression. Reports hearing voices when being asked, but not able to disclose to more details. She denies suicidal thoughts or thoughts of hurting other people. She was not sure where she stayed and who she stayed with before coming in here. This provider note the patient by history, that mom and sister concerned about her in the past. However, patient is guarded, do not give anymore information or consent to talk to the family member. Not able to assess for more details regarding substance use. 01/17 Patient difficult with which to engage, lying in bed, not talking much at all, intermittently opening eyes. On inquiry about why not taking medications, she She says she did took some pills today (her metformin and 1 dose of Ativan). Does not answer questions about SI, HI, AVH, depression, worries. She is eating and drinking and said that she will talk with contract technical writer tomorrow. [employer] asked her about her 3 day notice and there is concern about discharging her if she is not able to answer questions...she said that she will talk with contract technical writer tomorrow. Collateral: [employer] talked with patient's sister who reports that was her regular, full functioning self few weeks until she relapsed. Sister says that whenever patient uses a lot she becomes like a zombie; she typically uses crack cocaine. Sister says she has been in numerous treatment facilities and on medication returns to full functioning, communicating and having normal discourse however as soon as he is discharged from any facility she relapses that day; sister reiterated that she has been stabilized numerous times with the same result. Sister said that despite her not talking and acting like a zombie she is typically able to function and reports that patient called their mother 2 days ago asking for phone number is of a friend. Says her diagnose says schizoaffective disorder, bipolar type, borderline personality disorder; denies ASD diagnosis -[employer] also discussed Case with Sarah who has had this patient at other facilities and thinks this might not be catatonia but rather selective mutism and the patient selects the times when she wants to be organized and talk; patient has a history of psychotic illness and catatonia however rarely takes medications during inpatient admissions and at some point just gets better and wants to go. -Of note patient was organized enough to sign a 3 day notice. 01/18 Patient a little more talkative today hand out and about in the milieu more, eating and drinking and sitting with peers though keeping to herself and remains internally preoccupied. Patient told contract technical writer that she had a hard time talking because she was in her slumber. She seems to say show take medications and did take some doses; she also agreed to retract her 3 day notice and was able to discuss how much longer contract technical writer thought she should stay. Throughout conversation patient continuing to struggle with internal preoccupation and thought blocking. -Patient refusing point of cares to check blood sugar. [employer] can not find hx of scripts for insulin; she's been mostly refusing POC (the few times has allowed <200). Will HOLD sliding scale/POC's for now. 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 She has agreed to restart risperidone but has often refused 01/19 Patient again not talking, isolating and mostly stayed in bed; eating and drinking without problems but refusing medication and remains very internally preoccupied with significant thought blocking. Not answering questions 01/20 Patient remains isolative, lying in bed, not talking and continually responding to internal stimuli. Continues to refuse labs. Sometimes patient will go to groups but does not talk and needs cues for her to transition. 01/21 No change in presentation; remains very difficult with which to engage, not answering questions very much. She did say she is all right and denied AH though she remains internally preoccupied thought blocking. Tried to discuss reasons for refusing medications but patient would not answer; patient eating and drinking -sometimes takes medications but mostly refuses; changed Risperdal to 2 mg b.i.d. (so if she takes it she gets at least 2 mg) 01/22 Patient remains disorganized in speech and behavior. She can not answer questions appropriately and either does not saying anything or says I do not know... She remains unable to articulate any choices in her treatment, if she wants to stay on the unit, if she wants to discharge, where she would go... [employer] explained the need for treatment and that team had decided to rescind her CV and 5 for involuntary commitment. 01/24 Little change in presentation. Patient lying in bed, laughing or smiling inappropriately and saying very little. When asked how she is doing she says so-so but does not respond to any other related questions When contract technical writer asks if she is better she says not sure When contract technical writer asked who she hear voices she laughs inappropriately but does not answer When asked about SI, she looks, smiles but does not answer When asked how she slept she says not sure [employer] again discussed the need for medications which she has taking sometimes and refusing it others Impression/clinical reasoning: Patient remained psychotic, internally preoccupied and with catatonic symptoms. Refusing treatments, refusing medication. At this time patient can not be discharge safely as there is no indication she can take care of herself in the community; she could not get herself home and if discharge would wander aimlessly, vulnerable to predation; patient is to severely internally preoccupied that she can not even say she wants to discharge or answer questions. Will continue offering medications for both catatonia and psychosis. Team agrees that patient is too disorganized and unsafe for discharge and unable to make any treatment decisions for herself. Will rescind her CV and file for involuntary commitment and substituted judgment 01/25 Patient a little bit more talkative today. Still not answering many questions but did ask contract technical writer to repeat the question (patient was too internally preoccupied to hurt initially). Later on she did take medication 01/26 patient is taking medications and starting to do better. Talking more and asking about aftercare. Says she will consider long-acting injectable as well. Will switch at medications to make easier at her request and will taper off Ativan since catatonic symptoms seem to be resolving and remaining symptoms are mostly due to psychosis. Discussed AH and she says they remain and so agrees to increase Risperdal dose. -if patient continues to take medications and improve will likely not need to go to court 01/27/25: Slept for 8 hours, was medication compliant yesterday. She refused them this morning at the beginning, but ended taking them later on. Reported that she has good appetite. Mood is bored . Denies suicidal thoughts or homicidal thoughts. Denies hallucinations at 1st, but saying sometimes when asked if she heard voices, just now . Not able to elaborate further details of what she hears. I do not know regarding anxiety and depression questions. Reported that she has been taking medications but I took someone else medication , then mentioned metformin. Discussed with patient regarding HOPKINS Invega Sustenna for risperidone, she said she does not want it. Explained to patient the benefit of HOPKINS, and remind patient that she does not have to make decision today, but is aware that we have the option to not have to take by mouth every day to enhance the better compliance, and able to be stable longer away from the hospital. Patient also met with home health care social worker today, agree with referral for outpatient services for mental health and substance use, she also signed consent to send referral out. She appears to be paranoid, mild thought blocked, however more logical and more engaging in conversation. Staff reported that she shaved yesterday. She was up, in the antonio pacing after the one-to-one assessment. Unkempt him but fair hygiene. 01/30 Patient again refused medication over the weekend and again is unable to answer questions, shrugging her shoulders with every question asked. Patient can not say why she did not take medication. -took pills from nursing put him her mouth but would not swallow them; through they medication cup at the nurse 01/31 Patient remains unchanged, not answering any questions that contract technical writer or other staff ask under struggling her shoulders or just mumbling to herself in response -continue its until February 0702/01 guarded, internally preoccupied; refusing meds; will increase doses since she frequently refuses and only sometimes takes 02/03 took risperdal last night and today, more organized, talking. Says she tried to call her delivery room clerk. Discussed medication and pt said she would get on HOPKINS, but then later refused. 02/07 talking a little more; still can not say where she'd go if she were discharged other than... the place that is in the chart... contract technical writer asks if this is her mothers place and she says she does not know. She cannot say whether or not she wants to discharge...shrugging her shoulders on inquiry; conversation remains difficult due to pt being internally preoccupied and forgetting what she's talking about...Discussed HOPKINS and patient liked the idea that she would not have to take PO risperdal. She agreed to get Invega Sustenna and asks if she can go either this thursday or next thursday. -pt seems to do much better once taking medication and contract technical writer agrees that if on HOPKINS, she will likely soon stabilize and be ok for discharge. Plan 15 minutes check. section 7 DC Ativan 1; catatonia resovled Took Invega Sustenna 234mg on 02/07; will dc PO risperdal Diagnostics as needed. Collateral contact. Continue remainder of regime. Encouraged full milieu. Discharge planning. Patient educated on: diagnosis and medication risk/benefits Informed Consent: understands, does not understand and further education needed Reason for continued inpatient stay Substantial Risk for: inability to function Time Spent With Patient Time: Total time managing care of this patient today ____ minutes.
--- NOTE | 2025-02-08 09:38 | P.PNPSI_ITS ---
Subjective Subjective Date of Service: 02/08/25 Reason For Visit: F31.2 Biopolar D/O manic; F143.20 Cocaine use raymond Interim History: met with patient; discussed with team pt says she is alright. She reports the voices come and go.. She denies any SI. Says the shot made her arm sore, but she agrees to getting next installment. Mental Status Exam Mental Status Exam Narrative: Pt is alert and oriented; behavior is less guarded, more cooperative, calm, internally preoccupied, pacing antonio; sometimes smiling or laughing inappropriately; speaking very little; patient is not in distress; dressed in hospital attire, unkempt and malodorous; hirsutism; mood is described as ok and affect blunted; eye contact avoidant; Speech sparse, soft and quiet; no psychomotor retardation present; thought process marred by significant thought blocking; can be goal oriented; Thought content not disclosed; does not express any SI/HI. Patient internally preoccupied and responding to internal stimuli. Patients insight and judgment impaired but a little improved. Diagnostics Vital Signs (24Hr): BMI result Body Mass Index 33.9 Labs 01/27/25 11:42 Medications Medications Current Medications Acetaminophen (Acetaminophen 325 Mg Tablet) 650 mg PO Q6H PRN PRN Reason: Headache/Pain, Scale 1-10 Last Admin: 01/27/25 20:50 Dose: 650 mg Al Hydroxide/Mg Hydroxide (Magnesium Hydrox/Alum Hydrox 30 Ml Oral.Susp) 30 ml PO Q6H PRN PRN Reason: Heartburn/Nausea Last Admin: 01/26/25 20:14 Dose: 30 ml Benzocaine (Benzocaine 20 % Oral Gel 9 Gm Tube) 1 appl MUCOUS MEM QID PRN; Protocol PRN Reason: dental pain Hydroxyzine HCl (Hydroxyzine Hcl 25 Mg Tablet) 25 mg PO Q6H PRN PRN Reason: mild anxiety Last Admin: 02/03/25 10:51 Dose: 25 mg Insulin Human Lispro (Insulin Lispro 100 Unit/Ml 3 Ml Vial) 0 unit SUBCUT QIDACHS [facility]; Protocol On Hold: 01/18/25 09:59 Last Admin: 01/18/25 09:28 Dose: Not Given Magnesium Hydroxide (Milk Of Magnesia 30 Ml Oral.Susp) 30 ml PO DAILY PRN PRN Reason: Constipation Last Admin: 02/05/25 17:04 Dose: 30 ml Metformin HCl (Metformin Hcl 500 Mg Tablet) 500 mg PO BIDWM [facility] Last Admin: 02/08/25 09:24 Dose: 500 mg Nicotine Polacrilex (Nicotine Polacrilex 2 Mg Gum) 2 mg BUCCAL Q2H PRN PRN Reason: Nicotine Cravings Paliperidone Palmitate (Paliperidone Palmitate 234 Mg/1.5 Ml Syringe) 234 mg IM Q30D [facility] Last Admin: 02/07/25 11:46 Dose: 234 mg Paliperidone Palmitate (Paliperidone Palmitate 156 Mg/Ml Syringe) 156 mg IM ONCE ONE Stop: 02/10/25 09:01 Polyethylene Glycol (Polyethylene Glycol 3350 17 Gm Powd.Pack) 17 gm PO DAILY PRN PRN Reason: Constipation Last Admin: 01/27/25 14:45 Dose: 17 gm Senna (Sennosides 8.6 Mg Tablet) 17.2 mg PO DAILY PRN PRN Reason: Constipation Last Admin: 02/05/25 17:03 Dose: 17.2 mg Simethicone (Simethicone 80 Mg Tab.Chew) 80 mg PO QIDWMHS PRN PRN Reason: flatulance Last Admin: 02/05/25 17:03 Dose: 80 mg Trazodone HCl (Trazodone Hcl 50 Mg Tablet) 50 mg PO BEDTIME MRX1 PRN PRN Reason: Insomnia Last Admin: 02/07/25 20:57 Dose: 50 mg Valacyclovir HCl (Valacyclovir Hcl 500 Mg Tablet) 500 mg PO DAILY [facility] Last Admin: 02/08/25 09:23 Dose: 500 mg Allergies Allergies Allergy/AdvReac Type Severity Reaction Status Date / Time blueberry Allergy Unknown Unknown Verified 01/11/25 21:20 Assessment & Plan Assessment & Plan (1) Schizoaffective disorder, bipolar type: Status: Acute Code(s): F25.0 - Schizoaffective disorder, bipolar type (2) Catatonia: Status: Acute Code(s): F06.1 - Catatonic disorder due to known physiological condition (3) Polysubstance use disorder: Status: Acute Code(s): F19.90 - Other psychoactive substance use, unspecified, uncomplicated (4) Cocaine abuse: Status: Acute Code(s): F14.10 - Cocaine abuse, uncomplicated Plan 34-year-old Japanese-speaking female is a direct transfer, via ambulance, from [facility] to [facility]. She has history of bipolar disorder, schizophrenia, marijuana, PCP, and cocaine/crack use (severe), multiple inpatient admissions and at least 2 section 35. She was evaluated at [facility] for being nonverbal at home following substance use. This provider and patient's social contact worker found the patient lying in her bed. She is alert, opens and closes her eyes, moves her feet, but would not respond to this provider and social contact worker. Patient advised to inform staff if she decides to engage in an interview with her social contact worker and provider for admission. Hospital course: 01/13 patient appears catatonic, not talking much, not moving, sometimes walking around in a disorganized way; seems to be history of catatonia as well. Not sure if eating and drinking. Ergonomics Consultant tried to discuss medications including Ativan however patient not engaging; Currently refusing all medications 01/14: continue current management and treatment plan. Encourage adherence. 01/15: continue current management and treatment plan. Encourage adherence. 01/16/25: Patient slept for 7 hours, was not compliant with medication or point of care, she is in bed most of the morning until she was thinking about signing the 3 days. She would not signed a 3 days until she talk to to social contact worker. She said yes to anxiety and said a little when I asked about depression. Reports hearing voices when being asked, but not able to disclose to more details. She denies suicidal thoughts or thoughts of hurting other people. She was not sure where she stayed and who she stayed with before coming in here. This provider note the patient by history, that mom and sister concerned about her in the past. However, patient is guarded, do not give anymore information or consent to talk to the family member. Not able to assess for more details regarding substance use. 01/17 Patient difficult with which to engage, lying in bed, not talking much at all, intermittently opening eyes. On inquiry about why not taking medications, she She says she did took some pills today (her metformin and 1 dose of Ativan). Does not answer questions about SI, HI, AVH, depression, worries. She is eating and drinking and said that she will talk with video games storywriter tomorrow. Ergonomics Consultant asked her about her 3 day notice and there is concern about discharging her if she is not able to answer questions...she said that she will talk with video games storywriter tomorrow. Collateral: Ergonomics Consultant talked with patient's sister who reports that was her regular, full functioning self few weeks until she relapsed. Sister says that whenever patient uses a lot she becomes like a zombie; she typically uses crack cocaine. Sister says she has been in numerous treatment facilities and on medication returns to full functioning, communicating and having normal discourse however as soon as he is discharged from any facility she relapses that day; sister reiterated that she has been stabilized numerous times with the same result. Sister said that despite her not talking and acting like a zombie she is typically able to function and reports that patient called their mother 2 days ago asking for phone number is of a friend. Says her diagnose says schizoaffective disorder, bipolar type, borderline personality disorder; denies ASD diagnosis -Ergonomics Consultant also discussed Case with Sarah who has had this patient at other facilities and thinks this might not be catatonia but rather selective mutism and the patient selects the times when she wants to be organized and talk; patient has a history of psychotic illness and catatonia however rarely takes medications during inpatient admissions and at some point just gets better and wants to go. -Of note patient was organized enough to sign a 3 day notice. 01/18 Patient a little more talkative today hand out and about in the milieu more, eating and drinking and sitting with peers though keeping to herself and remains internally preoccupied. Patient told video games storywriter that she had a hard time talking because she was in her slumber. She seems to say show take medications and did take some doses; she also agreed to retract her 3 day notice and was able to discuss how much longer video games storywriter thought she should stay. Throughout conversation patient continuing to struggle with internal preoccupation and thought blocking. -Patient refusing point of cares to check blood sugar. Ergonomics Consultant can not find hx of scripts for insulin; she's been mostly refusing POC (the few times has allowed <200). Will HOLD sliding scale/POC's for now. 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 She has agreed to restart risperidone but has often refused 01/19 Patient again not talking, isolating and mostly stayed in bed; eating and drinking without problems but refusing medication and remains very internally preoccupied with significant thought blocking. Not answering questions 01/20 Patient remains isolative, lying in bed, not talking and continually responding to internal stimuli. Continues to refuse labs. Sometimes patient will go to groups but does not talk and needs cues for her to transition. 01/21 No change in presentation; remains very difficult with which to engage, not answering questions very much. She did say she is all right and denied AH though she remains internally preoccupied thought blocking. Tried to discuss reasons for refusing medications but patient would not answer; patient eating and drinking -sometimes takes medications but mostly refuses; changed Risperdal to 2 mg b.i.d. (so if she takes it she gets at least 2 mg) 01/22 Patient remains disorganized in speech and behavior. She can not answer questions appropriately and either does not saying anything or says I do not know... She remains unable to articulate any choices in her treatment, if she wants to stay on the unit, if she wants to discharge, where she would go... Ergonomics Consultant explained the need for treatment and that team had decided to rescind her CV and 5 for involuntary commitment. 01/24 Little change in presentation. Patient lying in bed, laughing or smiling inappropriately and saying very little. When asked how she is doing she says so-so but does not respond to any other related questions When video games storywriter asks if she is better she says not sure When video games storywriter asked who she hear voices she laughs inappropriately but does not answer When asked about SI, she looks, smiles but does not answer When asked how she slept she says not sure Ergonomics Consultant again discussed the need for medications which she has taking sometimes and refusing it others Impression/clinical reasoning: Patient remained psychotic, internally preoccupied and with catatonic symptoms. Refusing treatments, refusing medication. At this time patient can not be discharge safely as there is no indication she can take care of herself in the community; she could not get herself home and if discharge would wander aimlessly, vulnerable to predation; patient is to severely internally preoccupied that she can not even say she wants to discharge or answer questions. Will continue offering medications for both catatonia and psychosis. Team agrees that patient is too disorganized and unsafe for discharge and unable to make any treatment decisions for herself. Will rescind her CV and file for involuntary commitment and substituted judgment 01/25 Patient a little bit more talkative today. Still not answering many questions but did ask video games storywriter to repeat the question (patient was too internally preoccupied to hurt initially). Later on she did take medication 01/26 patient is taking medications and starting to do better. Talking more and asking about aftercare. Says she will consider long-acting injectable as well. Will switch at medications to make easier at her request and will taper off Ativan since catatonic symptoms seem to be resolving and remaining symptoms are mostly due to psychosis. Discussed AH and she says they remain and so agrees to increase Risperdal dose. -if patient continues to take medications and improve will likely not need to go to court 01/27/25: Slept for 8 hours, was medication compliant yesterday. She refused them this morning at the beginning, but ended taking them later on. Reported that she has good appetite. Mood is bored . Denies suicidal thoughts or homicidal thoughts. Denies hallucinations at 1st, but saying sometimes when asked if she heard voices, just now . Not able to elaborate further details of what she hears. I do not know regarding anxiety and depression questions. Reported that she has been taking medications but I took someone else medication , then mentioned metformin. Discussed with patient regarding [facility] risperidone, she said she does not want it. Explained to patient the benefit of H[facility], and remind patient that she does not have to make decision today, but is aware that we have the option to not have to take by mouth every day to enhance the better compliance, and able to be stable longer away from the hospital. Patient also met with social contact worker today, agree with referral for outpatient services for mental health and substance use, she also signed consent to send referral out. She appears to be paranoid, mild thought blocked, however more logical and more engaging in conversation. Staff reported that she shaved yesterday. She was up, in the antonio pacing after the one-to-one assessment. Unkempt him but fair hygiene. 8/25 Patient again refused medication over the weekend and again is unable to answer questions, shrugging her shoulders with every question asked. Patient can not say why she did not take medication. -took pills from nursing put him her mouth but would not swallow them; through they medication cup at the nurse 01/31 Patient remains unchanged, not answering any questions that video games storywriter or other staff ask under struggling her shoulders or just mumbling to herself in response -continue its until February 0702/01 guarded, internally preoccupied; refusing meds; will increase doses since she frequently refuses and only sometimes takes 02/03 took risperdal last night and today, more organized, talking. Says she tried to call her prospecting observer. Discussed medication and pt said she would get on [facility], but then later refused. 02/07 talking a little more; still can not say where she'd go if she were discharged other than... the place that is in the chart... video games storywriter asks if this is her mothers place and she says she does not know. She cannot say whether or not she wants to discharge...shrugging her shoulders on inquiry; conversation remains difficult due to pt being internally preoccupied and forgetting what she's talking about...Discussed [facility] and patient liked the idea that she would not have to take PO risperdal. She agreed to get [facility] and asks if she can go either this thursday or next thursday. -pt seems to do much better once taking medication and video games storywriter agrees that if on H[facility]INS, she will likely soon stabilize and be ok for discharge. 02/08 AH remains; little more able to engage. Continue with tx plan Plan 15 minutes check. section 7 DC Ativan 1; catatonia resovled Took [facility] 234mg on 02/07; will dc PO risperdal [facility] 156mg 02/10 Diagnostics as needed. Collateral contact. Continue remainder of regime. Encouraged full milieu. Discharge planning. Patient educated on: diagnosis and medication risk/benefits Informed Consent: understands, does not understand and further education needed Reason for continued inpatient stay Substantial Risk for: rapid decompensation Time Spent With Patient Time: Total time managing care of this patient today ____ minutes.
[2025-02-08] MEDS: Milk of Magnesia 30 ML ORAL.SUSP PO (15:23)
[2025-02-08 19:56] VITALS: BP 123/85; PULSE 101; RESP 16; TEMP 36.6; O2SAT 98
--- NOTE | 2025-02-09 09:20 | P.PNPSI_ITS ---
Subjective Subjective Date of Service: 02/09/25 Reason For Visit: F31.2 Biopolar D/O manic; F143.20 Cocaine use raymond Subjective Notes: Conditional Voluntary Interim History: Patient notes that she feels so so. She reports a little bit of anxiety and depression. She denies SI/HI/AH/VH. She was found standing in the hallway, in front of her room. Medication Compliance: Yes Side effects from medications: No Attending Groups: No Review of Systems Acute medical concerns: No Mental Status Exam Mental Status Exam Narrative: Appearance: Casually dressed, adequate hygiene Behavior: Calm and cooperative throughout the interview. Minimal eye contact, smiling or laughing inappropriately at times, and there are no signs of psychomotor agitation or retardation Speech: Normal volume and prosody Thought process: Goal-directed, thought blocking Thought content: Not disclosed Mood: so so Affect: Constricted SI:denies HI:denies VH/AH:none Delusions: None Insight/judgment: Impaired insight and judgment Memory/cog: Alert, oriented x 3. grossly intact to conversational testing Diagnostics Vital Signs (24Hr): Vital Signs - 24 hr 02/08/25 19:56 Temperature 97.9 F Pulse Rate 101 H Respiratory Rate 16 Blood Pressure 123/85 Pulse Oximetry 98 Oxygen Delivery Method Room Air BMI result Body Mass Index 33.9 Labs 01/27/25 11:42 Medications Medications Current Medications Acetaminophen (Acetaminophen 325 Mg Tablet) 650 mg PO Q6H PRN PRN Reason: Headache/Pain, Scale 1-10 Last Admin: 01/27/25 20:50 Dose: 650 mg Al Hydroxide/Mg Hydroxide (Magnesium Hydrox/Alum Hydrox 30 Ml Oral.Susp) 30 ml PO Q6H PRN PRN Reason: Heartburn/Nausea Last Admin: 01/26/25 20:14 Dose: 30 ml Benzocaine (Benzocaine 20 % Oral Gel 9 Gm Tube) 1 appl MUCOUS MEM QID PRN; Protocol PRN Reason: dental pain Hydroxyzine HCl (Hydroxyzine Hcl 25 Mg Tablet) 25 mg PO Q6H PRN PRN Reason: mild anxiety Last Admin: 02/03/25 10:51 Dose: 25 mg Insulin Human Lispro (Insulin Lispro 100 Unit/Ml 3 Ml Vial) 0 unit SUBCUT QIDACHS [facility]; Protocol On Hold: 01/18/25 09:59 Last Admin: 01/18/25 09:28 Dose: Not Given Magnesium Hydroxide (Milk Of Magnesia 30 Ml Oral.Susp) 30 ml PO DAILY PRN PRN Reason: Constipation Last Admin: 02/08/25 15:23 Dose: 30 ml Metformin HCl (Metformin Hcl 500 Mg Tablet) 500 mg PO BIDWM [facility] Last Admin: 02/08/25 17:01 Dose: 500 mg Nicotine Polacrilex (Nicotine Polacrilex 2 Mg Gum) 2 mg BUCCAL Q2H PRN PRN Reason: Nicotine Cravings Paliperidone Palmitate (Paliperidone Palmitate 234 Mg/1.5 Ml Syringe) 234 mg IM Q30D [facility] Last Admin: 02/07/25 11:46 Dose: 234 mg Paliperidone Palmitate (Paliperidone Palmitate 156 Mg/Ml Syringe) 156 mg IM ONCE ONE Stop: 02/10/25 09:01 Polyethylene Glycol (Polyethylene Glycol 3350 17 Gm Powd.Pack) 17 gm PO DAILY PRN PRN Reason: Constipation Last Admin: 02/08/25 15:23 Dose: 17 gm Senna (Sennosides 8.6 Mg Tablet) 17.2 mg PO DAILY PRN PRN Reason: Constipation Last Admin: 02/08/25 15:23 Dose: 17.2 mg Simethicone (Simethicone 80 Mg Tab.Chew) 80 mg PO QIDWMHS PRN PRN Reason: flatulance Last Admin: 02/05/25 17:03 Dose: 80 mg Trazodone HCl (Trazodone Hcl 50 Mg Tablet) 50 mg PO BEDTIME MRX1 PRN PRN Reason: Insomnia Last Admin: 02/07/25 20:57 Dose: 50 mg Valacyclovir HCl (Valacyclovir Hcl 500 Mg Tablet) 500 mg PO DAILY [facility] Last Admin: 02/08/25 09:23 Dose: 500 mg Allergies Allergies Allergy/AdvReac Type Severity Reaction Status Date / Time blueberry Allergy Unknown Unknown Verified 01/11/25 21:20 Assessment & Plan Assessment & Plan (1) Schizoaffective disorder, bipolar type: Status: Acute Code(s): F25.0 - Schizoaffective disorder, bipolar type (2) Catatonia: Status: Acute Code(s): F06.1 - Catatonic disorder due to known physiological condition (3) Polysubstance use disorder: Status: Acute Code(s): F19.90 - Other psychoactive substance use, unspecified, uncomplicated (4) Cocaine abuse: Status: Acute Code(s): F14.10 - Cocaine abuse, uncomplicated Plan 34-year-old Japanese-speaking female is a direct transfer, via ambulance, from [facility] to [facility]. She has history of bipolar disorder, schizophrenia, marijuana, PCP, and cocaine/crack use (severe), multiple inpatient admissions and at least 2 section 35. She was evaluated at [facility] for being nonverbal at home following substance use. This provider and patient's social sciences professor found the patient lying in her bed. She is alert, opens and closes her eyes, moves her feet, but would not respond to this provider and social sciences professor. Patient advised to inform staff if she decides to engage in an interview with her social sciences professor and provider for admission. Hospital course: 01/13 patient appears catatonic, not talking much, not moving, sometimes walking around in a disorganized way; seems to be history of catatonia as well. Not sure if eating and drinking. General Clerk tried to discuss medications including Ativan however patient not engaging; Currently refusing all medications 01/14: continue current management and treatment plan. Encourage adherence. 01/15: continue current management and treatment plan. Encourage adherence. 01/16/25: Patient slept for 7 hours, was not compliant with medication or point of care, she is in bed most of the morning until she was thinking about signing the 3 days. She would not signed a 3 days until she talk to to social sciences professor. She said yes to anxiety and said a little when I asked about depression. Reports hearing voices when being asked, but not able to disclose to more details. She denies suicidal thoughts or thoughts of hurting other people. She was not sure where she stayed and who she stayed with before coming in here. This provider note the patient by history, that mom and sister concerned about her in the past. However, patient is guarded, do not give anymore information or consent to talk to the family member. Not able to assess for more details regarding substance use. 01/17 Patient difficult with which to engage, lying in bed, not talking much at all, intermittently opening eyes. On inquiry about why not taking medications, she She says she did took some pills today (her metformin and 1 dose of Ativan). Does not answer questions about SI, HI, AVH, depression, worries. She is eating and drinking and said that she will talk with technical writer tomorrow. General Clerk asked her about her 3 day notice and there is concern about discharging her if she is not able to answer questions...she said that she will talk with technical writer tomorrow. Collateral: General Clerk talked with patient's sister who reports that was her regular, full functioning self few weeks until she relapsed. Sister says that whenever patient uses a lot she becomes like a zombie; she typically uses crack cocaine. Sister says she has been in numerous treatment facilities and on medication returns to full functioning, communicating and having normal discourse however as soon as he is discharged from any facility she relapses that day; sister reiterated that she has been stabilized numerous times with the same result. Sister said that despite her not talking and acting like a zombie she is typically able to function and reports that patient called their mother 2 days ago asking for phone number is of a friend. Says her diagnose says schizoaffective disorder, bipolar type, borderline personality disorder; denies ASD diagnosis -General Clerk also discussed Case with Sarah who has had this patient at other facilities and thinks this might not be catatonia but rather selective mutism and the patient selects the times when she wants to be organized and talk; patient has a history of psychotic illness and catatonia however rarely takes medications during inpatient admissions and at some point just gets better and wants to go. -Of note patient was organized enough to sign a 3 day notice. 01/18 Patient a little more talkative today hand out and about in the milieu more, eating and drinking and sitting with peers though keeping to herself and remains internally preoccupied. Patient told technical writer that she had a hard time talking because she was in her slumber. She seems to say show take medications and did take some doses; she also agreed to retract her 3 day notice and was able to discuss how much longer technical writer thought she should stay. Throughout conversation patient continuing to struggle with internal preoccupation and thought blocking. -Patient refusing point of cares to check blood sugar. General Clerk can not find hx of scripts for insulin; she's been mostly refusing POC (the few times has allowed <200). Will HOLD sliding scale/POC's for now. 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 She has agreed to restart risperidone but has often refused 01/19 Patient again not talking, isolating and mostly stayed in bed; eating and drinking without problems but refusing medication and remains very internally preoccupied with significant thought blocking. Not answering questions 01/20 Patient remains isolative, lying in bed, not talking and continually responding to internal stimuli. Continues to refuse labs. Sometimes patient will go to groups but does not talk and needs cues for her to transition. 01/21 No change in presentation; remains very difficult with which to engage, not answering questions very much. She did say she is all right and denied AH though she remains internally preoccupied thought blocking. Tried to discuss reasons for refusing medications but patient would not answer; patient eating and drinking -sometimes takes medications but mostly refuses; changed Risperdal to 2 mg b.i.d. (so if she takes it she gets at least 2 mg) 01/22 Patient remains disorganized in speech and behavior. She can not answer questions appropriately and either does not saying anything or says I do not know... She remains unable to articulate any choices in her treatment, if she wants to stay on the unit, if she wants to discharge, where she would go... General Clerk explained the need for treatment and that team had decided to rescind her CV and 5 for involuntary commitment. 01/24 Little change in presentation. Patient lying in bed, laughing or smiling inappropriately and saying very little. When asked how she is doing she says so-so but does not respond to any other related questions When technical writer asks if she is better she says not sure When technical writer asked who she hear voices she laughs inappropriately but does not answer When asked about SI, she looks, smiles but does not answer When asked how she slept she says not sure General Clerk again discussed the need for medications which she has taking sometimes and refusing it others Impression/clinical reasoning: Patient remained psychotic, internally preoccupied and with catatonic symptoms. Refusing treatments, refusing medication. At this time patient can not be discharge safely as there is no indication she can take care of herself in the community; she could not get herself home and if discharge would wander aimlessly, vulnerable to predation; patient is to severely internally preoccupied that she can not even say she wants to discharge or answer questions. Will continue offering medications for both catatonia and psychosis. Team agrees that patient is too disorganized and unsafe for discharge and unable to make any treatment decisions for herself. Will rescind her CV and file for involuntary commitment and substituted judgment 01/25 Patient a little bit more talkative today. Still not answering many questions but did ask technical writer to repeat the question (patient was too internally preoccupied to hurt initially). Later on she did take medication 01/26 patient is taking medications and starting to do better. Talking more and asking about aftercare. Says she will consider long-acting injectable as well. Will switch at medications to make easier at her request and will taper off Ativan since catatonic symptoms seem to be resolving and remaining symptoms are mostly due to psychosis. Discussed AH and she says they remain and so agrees to increase Risperdal dose. -if patient continues to take medications and improve will likely not need to go to court 01/27/25: Slept for 8 hours, was medication compliant yesterday. She refused them this morning at the beginning, but ended taking them later on. Reported that she has good appetite. Mood is bored . Denies suicidal thoughts or homicidal thoughts. Denies hallucinations at 1st, but saying sometimes when asked if she heard voices, just now . Not able to elaborate further details of what she hears. I do not know regarding anxiety and depression questions. Reported that she has been taking medications but I took someone else medication , then mentioned metformin. Discussed with patient regarding HOPKINS Invega Sustenna for risperidone, she said she does not want it. Explained to patient the benefit of HOPKINS, and remind patient that she does not have to make decision today, but is aware that we have the option to not have to take by mouth every day to enhance the better compliance, and able to be stable longer away from the hospital. Patient also met with social sciences professor today, agree with referral for outpatient services for mental health and substance use, she also signed consent to send referral out. She appears to be paranoid, mild thought blocked, however more logical and more engaging in conversation. Staff reported that she shaved yesterday. She was up, in the antonio pacing after the one-to-one assessment. Unkempt him but fair hygiene. 01/30 Patient again refused medication over the weekend and again is unable to answer questions, shrugging her shoulders with every question asked. Patient can not say why she did not take medication. -took pills from nursing put him her mouth but would not swallow them; through they medication cup at the nurse 01/31 Patient remains unchanged, not answering any questions that technical writer or other staff ask under struggling her shoulders or just mumbling to herself in response -continue its until February 0702/01 guarded, internally preoccupied; refusing meds; will increase doses since she frequently refuses and only sometimes takes 02/03 took risperdal last night and today, more organized, talking. Says she tried to call her buggy loader. Discussed medication and pt said she would get on HOPKINS, but then later refused. 02/07 talking a little more; still can not say where she'd go if she were discharged other than... the place that is in the chart... technical writer asks if this is her mothers place and she says she does not know. She cannot say whether or not she wants to discharge...shrugging her shoulders on inquiry; conversation remains difficult due to pt being internally preoccupied and forgetting what she's talking about...Discussed HOPKINS and patient liked the idea that she would not have to take PO risperdal. She agreed to get Invega Sustenna and asks if she can go either this thursday or next thursday. -pt seems to do much better once taking medication and technical writer agrees that if on HOPKINS, she will likely soon stabilize and be ok for discharge. 02/08 AH remains; little more able to engage. Continue with tx plan 02/09: Denies SI/HI/AVH. Continue current treatment plan. Invega Sustenna 156 mg tomorrow. Plan 15 minutes check. section 7 DC Ativan 1; catatonia resovled Took Invega Sustenna 234mg on 02/07; will dc PO risperdal Invega Sustenna 156mg 02/10 Diagnostics as needed. Collateral contact. Continue remainder of regime. Encouraged full milieu. Discharge planning. Patient educated on: therapeutic strategies Reason for continued inpatient stay Substantial Risk for: rapid decompensation Time Spent With Patient Time: Total time managing care of this patient today ____ minutes.
[2025-02-09 20:00] VITALS: BP 136/82; PULSE 94; RESP 18; TEMP 36.6; O2SAT 99
--- NOTE | 2025-02-10 15:05 | HO.PSYCHPN ---
Subjective Subjective Date of Service: 02/10/25 Reason For Visit: F31.2 Biopolar D/O manic; F143.20 Cocaine use raymond Subjective Notes: Section 7 Healthcare Proxy: No Guardianship: No Medical Problems Affecting Mental Status: No Interim History: Medical record and nursing notes reviewed; case discussed during rounds with team/nursing staff, and met with patient for supportive therapy/psychoeducation, as well as medication management. Patient slept well, appetite was okay. Mood was so so with mild anixety. Was not compliant with medication yesterday. Reports constipation. Refused to talk to provider yesterday. She is pacing the antonio talking to this provider. Denies safety concerns, but saying I do not know regarding hallucinations if she experienced any. She was reluctant to take the long-acting injection at but able to agree with the after talking to this provider. He is looking forward to leave on Thursday. She was not aware that she had a litigation attorney associate/director of social media marketing. Appeared to be clean, wearing hospital clothes, visible but isolated to self, blunted/flat affect, soft spoken. Medication Compliance: No (refused meds yesterday ) Side effects from medications: No Attending Groups: No Review of Systems Acute medical concerns: No Medical Review of Systems: unchanged Review of Systems Review of Systems No SOB/No breathing issues. Denies pain. No rash/skin issues. Mental Status Exam Mental Status Exam Narrative: Appearance: Casually dressed, adequate hygiene. Fair eye contact. No agitation or retardation Speech: soft to Normal volume and prosody Thought process: Goal-directed, mild thought blocking which is improving. Thought content: No SI/SIB/HI Mood: so so Affect: blunted/flat- brigher SI:denies HI:denies VH/AH:none Delusions: None Insight/judgment: Impaired with some improvement of insight and judgment Memory/cog: Alert, oriented x 3. grossly intact to conversational testing Diagnostics Vital Signs (24Hr): Vital Signs - 24 hr 02/09/25 20:00 Temperature 98 F Pulse Rate 94 Respiratory Rate 18 Blood Pressure 136/82 Pulse Oximetry 99 Oxygen Delivery Method Room Air BMI result Body Mass Index 33.9 Labs 01/27/25 11:42 Medications Medications Current Medications Acetaminophen (Acetaminophen 325 Mg Tablet) 650 mg PO Q6H PRN PRN Reason: Headache/Pain, Scale 1-10 Last Admin: 01/27/25 20:50 Dose: 650 mg Al Hydroxide/Mg Hydroxide (Magnesium Hydrox/Alum Hydrox 30 Ml Oral.Susp) 30 ml PO Q6H PRN PRN Reason: Heartburn/Nausea Last Admin: 01/26/25 20:14 Dose: 30 ml Benzocaine (Benzocaine 20 % Oral Gel 9 Gm Tube) 1 appl MUCOUS MEM QID PRN; Protocol PRN Reason: dental pain Hydroxyzine HCl (Hydroxyzine Hcl 25 Mg Tablet) 25 mg PO Q6H PRN PRN Reason: mild anxiety Last Admin: 02/10/25 14:22 Dose: 25 mg Insulin Human Lispro (Insulin Lispro 100 Unit/Ml 3 Ml Vial) 0 unit SUBCUT QIDACHS [facility]; Protocol On Hold: 01/18/25 09:59 Last Admin: 01/18/25 09:28 Dose: Not Given Magnesium Hydroxide (Milk Of Magnesia 30 Ml Oral.Susp) 30 ml PO DAILY PRN PRN Reason: Constipation Last Admin: 02/08/25 15:23 Dose: 30 ml Metformin HCl (Metformin Hcl 500 Mg Tablet) 500 mg PO BIDWM [facility] Last Admin: 02/10/25 09:01 Dose: 500 mg Nicotine Polacrilex (Nicotine Polacrilex 2 Mg Gum) 2 mg BUCCAL Q2H PRN PRN Reason: Nicotine Cravings Paliperidone Palmitate (Paliperidone Palmitate 234 Mg/1.5 Ml Syringe) 234 mg IM Q30D [facility] Last Admin: 02/07/25 11:46 Dose: 234 mg Polyethylene Glycol (Polyethylene Glycol 3350 17 Gm Powd.Pack) 17 gm PO DAILY PRN PRN Reason: Constipation Last Admin: 02/08/25 15:23 Dose: 17 gm Senna (Sennosides 8.6 Mg Tablet) 17.2 mg PO DAILY PRN PRN Reason: Constipation Last Admin: 02/10/25 14:05 Dose: 17.2 mg Simethicone (Simethicone 80 Mg Tab.Chew) 80 mg PO QIDWMHS PRN PRN Reason: flatulance Last Admin: 02/10/25 14:05 Dose: 80 mg Trazodone HCl (Trazodone Hcl 50 Mg Tablet) 50 mg PO BEDTIME MRX1 PRN PRN Reason: Insomnia Last Admin: 02/07/25 20:57 Dose: 50 mg Valacyclovir HCl (Valacyclovir Hcl 500 Mg Tablet) 500 mg PO DAILY MÓNICA Last Admin: 02/10/25 09:01 Dose: 500 mg Allergies Allergies Allergy/AdvReac Type Severity Reaction Status Date / Time blueberry Allergy Unknown Unknown Verified 01/11/25 21:20 Assessment & Plan Assessment & Plan (1) Schizoaffective disorder, bipolar type: Status: Acute Code(s): F25.0 - Schizoaffective disorder, bipolar type (2) Catatonia: Status: Acute Code(s): F06.1 - Catatonic disorder due to known physiological condition (3) Polysubstance use disorder: Status: Acute Code(s): F19.90 - Other psychoactive substance use, unspecified, uncomplicated (4) Cocaine abuse: Status: Acute Code(s): F14.10 - Cocaine abuse, uncomplicated Plan 34-year-old Latvian-speaking female is a direct transfer, via ambulance, from [facility] to [facility] [place] [facility]. She has history of bipolar disorder, schizophrenia, marijuana, PCP, and cocaine/crack use (severe), multiple inpatient admissions and at least 2 section 35. She was evaluated at [facility] for being nonverbal at home following substance use. This provider and patient's case management social worker found the patient lying in her bed. She is alert, opens and closes her eyes, moves her feet, but would not respond to this provider and case management social worker. Patient advised to inform staff if she decides to engage in an interview with her case management social worker and provider for admission. Hospital course: 01/13 patient appears catatonic, not talking much, not moving, sometimes walking around in a disorganized way; seems to be history of catatonia as well. Not sure if eating and drinking. Water Server tried to discuss medications including Ativan however patient not engaging; Currently refusing all medications 01/14: continue current management and treatment plan. Encourage adherence. 01/15: continue current management and treatment plan. Encourage adherence. 01/16/25: Patient slept for 7 hours, was not compliant with medication or point of care, she is in bed most of the morning until she was thinking about signing the 3 days. She would not signed a 3 days until she talk to to case management social worker. She said yes to anxiety and said a little when I asked about depression. Reports hearing voices when being asked, but not able to disclose to more details. She denies suicidal thoughts or thoughts of hurting other people. She was not sure where she stayed and who she stayed with before coming in here. This provider note the patient by history, that mom and sister concerned about her in the past. However, patient is guarded, do not give anymore information or consent to talk to the family member. Not able to assess for more details regarding substance use. 01/17 Patient difficult with which to engage, lying in bed, not talking much at all, intermittently opening eyes. On inquiry about why not taking medications, she She says she did took some pills today (her metformin and 1 dose of Ativan). Does not answer questions about SI, HI, AVH, depression, worries. She is eating and drinking and said that she will talk with procedure writer tomorrow. Water Server asked her about her 3 day notice and there is concern about discharging her if she is not able to answer questions...she said that she will talk with procedure writer tomorrow. Collateral: Water Server talked with patient's sister who reports that was her regular, full functioning self few weeks until she relapsed. Sister says that whenever patient uses a lot she becomes like a zombie; she typically uses crack cocaine. Sister says she has been in numerous treatment facilities and on medication returns to full functioning, communicating and having normal discourse however as soon as he is discharged from any facility she relapses that day; sister reiterated that she has been stabilized numerous times with the same result. Sister said that despite her not talking and acting like a zombie she is typically able to function and reports that patient called their mother 2 days ago asking for phone number is of a friend. Says her diagnose says schizoaffective disorder, bipolar type, borderline personality disorder; denies ASD diagnosis -Water Server also discussed Case with Sarah who has had this patient at other facilities and thinks this might not be catatonia but rather selective mutism and the patient selects the times when she wants to be organized and talk; patient has a history of psychotic illness and catatonia however rarely takes medications during inpatient admissions and at some point just gets better and wants to go. -Of note patient was organized enough to sign a 3 day notice. 01/18 Patient a little more talkative today hand out and about in the milieu more, eating and drinking and sitting with peers though keeping to herself and remains internally preoccupied. Patient told procedure writer that she had a hard time talking because she was in her slumber. She seems to say show take medications and did take some doses; she also agreed to retract her 3 day notice and was able to discuss how much longer procedure writer thought she should stay. Throughout conversation patient continuing to struggle with internal preoccupation and thought blocking. -Patient refusing point of cares to check blood sugar. Water Server can not find hx of scripts for insulin; she's been mostly refusing POC (the few times has allowed <200). Will HOLD sliding scale/POC's for now. 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 She has agreed to restart risperidone but has often refused 01/19 Patient again not talking, isolating and mostly stayed in bed; eating and drinking without problems but refusing medication and remains very internally preoccupied with significant thought blocking. Not answering questions 01/20 Patient remains isolative, lying in bed, not talking and continually responding to internal stimuli. Continues to refuse labs. Sometimes patient will go to groups but does not talk and needs cues for her to transition. 01/21 No change in presentation; remains very difficult with which to engage, not answering questions very much. She did say she is all right and denied AH though she remains internally preoccupied thought blocking. Tried to discuss reasons for refusing medications but patient would not answer; patient eating and drinking -sometimes takes medications but mostly refuses; changed Risperdal to 2 mg b.i.d. (so if she takes it she gets at least 2 mg) 01/22 Patient remains disorganized in speech and behavior. She can not answer questions appropriately and either does not saying anything or says I do not know... She remains unable to articulate any choices in her treatment, if she wants to stay on the unit, if she wants to discharge, where she would go... Water Server explained the need for treatment and that team had decided to rescind her CV and 5 for involuntary commitment. 01/24 Little change in presentation. Patient lying in bed, laughing or smiling inappropriately and saying very little. When asked how she is doing she says so-so but does not respond to any other related questions When procedure writer asks if she is better she says not sure When procedure writer asked who she hear voices she laughs inappropriately but does not answer When asked about SI, she looks, smiles but does not answer When asked how she slept she says not sure Water Server again discussed the need for medications which she has taking sometimes and refusing it others Impression/clinical reasoning: Patient remained psychotic, internally preoccupied and with catatonic symptoms. Refusing treatments, refusing medication. At this time patient can not be discharge safely as there is no indication she can take care of herself in the community; she could not get herself home and if discharge would wander aimlessly, vulnerable to predation; patient is to severely internally preoccupied that she can not even say she wants to discharge or answer questions. Will continue offering medications for both catatonia and psychosis. Team agrees that patient is too disorganized and unsafe for discharge and unable to make any treatment decisions for herself. Will rescind her CV and file for involuntary commitment and substituted judgment 01/25 Patient a little bit more talkative today. Still not answering many questions but did ask procedure writer to repeat the question (patient was too internally preoccupied to hurt initially). Later on she did take medication 01/26 patient is taking medications and starting to do better. Talking more and asking about aftercare. Says she will consider long-acting injectable as well. Will switch at medications to make easier at her request and will taper off Ativan since catatonic symptoms seem to be resolving and remaining symptoms are mostly due to psychosis. Discussed AH and she says they remain and so agrees to increase Risperdal dose. -if patient continues to take medications and improve will likely not need to go to court 01/27/25: Slept for 8 hours, was medication compliant yesterday. She refused them this morning at the beginning, but ended taking them later on. Reported that she has good appetite. Mood is bored . Denies suicidal thoughts or homicidal thoughts. Denies hallucinations at 1st, but saying sometimes when asked if she heard voices, just now . Not able to elaborate further details of what she hears. I do not know regarding anxiety and depression questions. Reported that she has been taking medications but I took someone else medication , then mentioned metformin. Discussed with patient regarding HOPKINS Invega Sustenna for risperidone, she said she does not want it. Explained to patient the benefit of HOPKINS, and remind patient that she does not have to make decision today, but is aware that we have the option to not have to take by mouth every day to enhance the better compliance, and able to be stable longer away from the hospital. Patient also met with case management social worker today, agree with referral for outpatient services for mental health and substance use, she also signed consent to send referral out. She appears to be paranoid, mild thought blocked, however more logical and more engaging in conversation. Staff reported that she shaved yesterday. She was up, in the antonio pacing after the one-to-one assessment. Unkempt him but fair hygiene. 01/30 Patient again refused medication over the weekend and again is unable to answer questions, shrugging her shoulders with every question asked. Patient can not say why she did not take medication. -took pills from nursing put him her mouth but would not swallow them; through they medication cup at the nurse 01/31 Patient remains unchanged, not answering any questions that procedure writer or other staff ask under struggling her shoulders or just mumbling to herself in response -continue its until February 0702/01 guarded, internally preoccupied; refusing meds; will increase doses since she frequently refuses and only sometimes takes 02/03 took risperdal last night and today, more organized, talking. Says she tried to call her director of social media marketing. Discussed medication and pt said she would get on HOPKINS, but then later refused. 02/07 talking a little more; still can not say where she'd go if she were discharged other than... the place that is in the chart... procedure writer asks if this is her mothers place and she says she does not know. She cannot say whether or not she wants to discharge...shrugging her shoulders on inquiry; conversation remains difficult due to pt being internally preoccupied and forgetting what she's talking about...Discussed HOPKINS and patient liked the idea that she would not have to take PO risperdal. She agreed to get Invega Sustenna and asks if she can go either this thursday or next thursday. -pt seems to do much better once taking medication and procedure writer agrees that if on HOPKINS, she will likely soon stabilize and be ok for discharge. 02/08 AH remains; little more able to engage. Continue with tx plan 02/09: Denies SI/HI/AVH. Continue current treatment plan. Invega Sustenna 156 mg tomorrow. 02/10/25: Patient slept well, appetite was okay. Mood is so so with mild anxiety, Was not compliant with medication yesterday.. Reports constipation. Refused to talk to provider yesterday. She is pacing the antonio talking to this provider. Denies safety concerns, but saying I do not know regarding hallucinations if she experienced any. She was reluctant to take the long-acting injection at but able to agree with the after talking to this provider. He is looking forward to leave on Thursday. She was not aware that she had a litigation attorney associate/director of social media marketing. Appeared to be clean, wearing hospital clothes, visible but isolated to self, blunted/flat affect, soft spoken. Received Invega Sustenna 156 mg HOPKINS on 02/10/25 Plan 15 minutes check. section 7 DC Ativan 1; catatonia resovled Took Invega Sustenna 234mg on 02/07; will dc PO risperdal Took Invega Sustenna 156mg 02/10 Diagnostics as needed. Collateral contact. Continue remainder of regimens. Encouraged full milieu. Discharge planning: tentative discharge on Thursday02/13/25. Patient educated on: medication risk/benefits and therapeutic strategies Informed Consent: further education needed Reason for continued inpatient stay Substantial Risk for: med/psych decompensation Time Spent With Patient Time: Total time managing care of this patient today ____ minutes.
[2025-02-11 08:00] VITALS: RESP 18
--- NOTE | 2025-02-11 08:28 | HO.PSYCHPN ---
Subjective Subjective Date of Service: 02/11/25 Reason For Visit: F31.2 Biopolar D/O manic; F143.20 Cocaine use raymond Interim History: Met With patient; discussed with team; reviewed chart Patient took Invega Sustenna 156 mg yesterday. Not all that much change, still answering with few words however patient has been taking metformin regularly. Regarding mood she says I do not know regarding voices she says there . All right she did say she would likely want to discharge next week. Diagnostics Vital Signs (24Hr): Vital Signs - 24 hr 02/11/25 08:00 Respiratory Rate 18 BMI result Body Mass Index 33.9 Labs 01/27/25 11:42 Medications Medications Current Medications Acetaminophen (Acetaminophen 325 Mg Tablet) 650 mg PO Q6H PRN PRN Reason: Headache/Pain, Scale 1-10 Last Admin: 01/27/25 20:50 Dose: 650 mg Al Hydroxide/Mg Hydroxide (Magnesium Hydrox/Alum Hydrox 30 Ml Oral.Susp) 30 ml PO Q6H PRN PRN Reason: Heartburn/Nausea Last Admin: 01/26/25 20:14 Dose: 30 ml Benzocaine (Benzocaine 20 % Oral Gel 9 Gm Tube) 1 appl MUCOUS MEM QID PRN; Protocol PRN Reason: dental pain Hydroxyzine HCl (Hydroxyzine Hcl 25 Mg Tablet) 25 mg PO Q6H PRN PRN Reason: mild anxiety Last Admin: 02/10/25 14:22 Dose: 25 mg Insulin Human Lispro (Insulin Lispro 100 Unit/Ml 3 Ml Vial) 0 unit SUBCUT QIDACHS PENDING SALE TO [facility]; Protocol On Hold: 01/18/25 09:59 Last Admin: 01/18/25 09:28 Dose: Not Given Magnesium Hydroxide (Milk Of Magnesia 30 Ml Oral.Susp) 30 ml PO DAILY PRN PRN Reason: Constipation Last Admin: 02/08/25 15:23 Dose: 30 ml Metformin HCl (Metformin Hcl 500 Mg Tablet) 500 mg PO BIDWM PENDING SALE TO [facility] Last Admin: 02/10/25 17:25 Dose: 500 mg Nicotine Polacrilex (Nicotine Polacrilex 2 Mg Gum) 2 mg BUCCAL Q2H PRN PRN Reason: Nicotine Cravings Paliperidone Palmitate (Paliperidone Palmitate 234 Mg/1.5 Ml Syringe) 234 mg IM Q30D PENDING SALE TO [facility] Last Admin: 02/07/25 11:46 Dose: 234 mg Polyethylene Glycol (Polyethylene Glycol 3350 17 Gm Powd.Pack) 17 gm PO DAILY PRN PRN Reason: Constipation Last Admin: 02/08/25 15:23 Dose: 17 gm Senna (Sennosides 8.6 Mg Tablet) 17.2 mg PO DAILY PRN PRN Reason: Constipation Last Admin: 02/10/25 14:05 Dose: 17.2 mg Simethicone (Simethicone 80 Mg Tab.Chew) 80 mg PO QIDWMHS PRN PRN Reason: flatulance Last Admin: 02/10/25 14:05 Dose: 80 mg Trazodone HCl (Trazodone Hcl 50 Mg Tablet) 50 mg PO BEDTIME MRX1 PRN PRN Reason: Insomnia Last Admin: 02/07/25 20:57 Dose: 50 mg Valacyclovir HCl (Valacyclovir Hcl 500 Mg Tablet) 500 mg PO DAILY MÓNICA Last Admin: 02/10/25 09:01 Dose: 500 mg Allergies Allergies Allergy/AdvReac Type Severity Reaction Status Date / Time blueberry Allergy Unknown Unknown Verified 01/11/25 21:20 Assessment & Plan Assessment & Plan (1) Schizoaffective disorder, bipolar type: Status: Acute Code(s): F25.0 - Schizoaffective disorder, bipolar type (2) Catatonia: Status: Acute Code(s): F06.1 - Catatonic disorder due to known physiological condition (3) Polysubstance use disorder: Status: Acute Code(s): F19.90 - Other psychoactive substance use, unspecified, uncomplicated (4) Cocaine abuse: Status: Acute Code(s): F14.10 - Cocaine abuse, uncomplicated Plan 34-year-old Korean-speaking female is a direct transfer, via ambulance, from [facility] to [facility]. She has history of bipolar disorder, schizophrenia, marijuana, PCP, and cocaine/crack use (severe), multiple inpatient admissions and at least 2 section 35. She was evaluated at [facility] for being nonverbal at home following substance use. This provider and patient's certified social workers in health care found the patient lying in her bed. She is alert, opens and closes her eyes, moves her feet, but would not respond to this provider and certified social workers in health care. Patient advised to inform staff if she decides to engage in an interview with her certified social workers in health care and provider for admission. Hospital course: 01/13 patient appears catatonic, not talking much, not moving, sometimes walking around in a disorganized way; seems to be history of catatonia as well. Not sure if eating and drinking. Supervisor Unloading tried to discuss medications including Ativan however patient not engaging; Currently refusing all medications 01/14: continue current management and treatment plan. Encourage adherence. 01/15: continue current management and treatment plan. Encourage adherence. 01/16/25: Patient slept for 7 hours, was not compliant with medication or point of care, she is in bed most of the morning until she was thinking about signing the 3 days. She would not signed a 3 days until she talk to to certified social workers in health care. She said yes to anxiety and said a little when I asked about depression. Reports hearing voices when being asked, but not able to disclose to more details. She denies suicidal thoughts or thoughts of hurting other people. She was not sure where she stayed and who she stayed with before coming in here. This provider note the patient by history, that mom and sister concerned about her in the past. However, patient is guarded, do not give anymore information or consent to talk to the family member. Not able to assess for more details regarding substance use. 01/17 Patient difficult with which to engage, lying in bed, not talking much at all, intermittently opening eyes. On inquiry about why not taking medications, she She says she did took some pills today (her metformin and 1 dose of Ativan). Does not answer questions about SI, HI, AVH, depression, worries. She is eating and drinking and said that she will talk with chief writer tomorrow. Supervisor Unloading asked her about her 3 day notice and there is concern about discharging her if she is not able to answer questions...she said that she will talk with chief writer tomorrow. Collateral: Supervisor Unloading talked with patient's sister who reports that was her regular, full functioning self few weeks until she relapsed. Sister says that whenever patient uses a lot she becomes like a zombie; she typically uses crack cocaine. Sister says she has been in numerous treatment facilities and on medication returns to full functioning, communicating and having normal discourse however as soon as he is discharged from any facility she relapses that day; sister reiterated that she has been stabilized numerous times with the same result. Sister said that despite her not talking and acting like a zombie she is typically able to function and reports that patient called their mother 2 days ago asking for phone number is of a friend. Says her diagnose says schizoaffective disorder, bipolar type, borderline personality disorder; denies ASD diagnosis -Supervisor Unloading also discussed Case with Sarah who has had this patient at other facilities and thinks this might not be catatonia but rather selective mutism and the patient selects the times when she wants to be organized and talk; patient has a history of psychotic illness and catatonia however rarely takes medications during inpatient admissions and at some point just gets better and wants to go. -Of note patient was organized enough to sign a 3 day notice. 01/18 Patient a little more talkative today hand out and about in the milieu more, eating and drinking and sitting with peers though keeping to herself and remains internally preoccupied. Patient told chief writer that she had a hard time talking because she was in her slumber. She seems to say show take medications and did take some doses; she also agreed to retract her 3 day notice and was able to discuss how much longer chief writer thought she should stay. Throughout conversation patient continuing to struggle with internal preoccupation and thought blocking. -Patient refusing point of cares to check blood sugar. Supervisor Unloading can not find hx of scripts for insulin; she's been mostly refusing POC (the few times has allowed <200). Will HOLD sliding scale/POC's for now. 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 She has agreed to restart risperidone but has often refused 01/19 Patient again not talking, isolating and mostly stayed in bed; eating and drinking without problems but refusing medication and remains very internally preoccupied with significant thought blocking. Not answering questions 01/20 Patient remains isolative, lying in bed, not talking and continually responding to internal stimuli. Continues to refuse labs. Sometimes patient will go to groups but does not talk and needs cues for her to transition. 01/21 No change in presentation; remains very difficult with which to engage, not answering questions very much. She did say she is all right and denied AH though she remains internally preoccupied thought blocking. Tried to discuss reasons for refusing medications but patient would not answer; patient eating and drinking -sometimes takes medications but mostly refuses; changed Risperdal to 2 mg b.i.d. (so if she takes it she gets at least 2 mg) 01/22 Patient remains disorganized in speech and behavior. She can not answer questions appropriately and either does not saying anything or says I do not know... She remains unable to articulate any choices in her treatment, if she wants to stay on the unit, if she wants to discharge, where she would go... Supervisor Unloading explained the need for treatment and that team had decided to rescind her CV and 5 for involuntary commitment. 01/24 Little change in presentation. Patient lying in bed, laughing or smiling inappropriately and saying very little. When asked how she is doing she says so-so but does not respond to any other related questions When chief writer asks if she is better she says not sure When chief writer asked who she hear voices she laughs inappropriately but does not answer When asked about SI, she looks, smiles but does not answer When asked how she slept she says not sure Supervisor Unloading again discussed the need for medications which she has taking sometimes and refusing it others Impression/clinical reasoning: Patient remained psychotic, internally preoccupied and with catatonic symptoms. Refusing treatments, refusing medication. At this time patient can not be discharge safely as there is no indication she can take care of herself in the community; she could not get herself home and if discharge would wander aimlessly, vulnerable to predation; patient is to severely internally preoccupied that she can not even say she wants to discharge or answer questions. Will continue offering medications for both catatonia and psychosis. Team agrees that patient is too disorganized and unsafe for discharge and unable to make any treatment decisions for herself. Will rescind her CV and file for involuntary commitment and substituted judgment 01/25 Patient a little bit more talkative today. Still not answering many questions but did ask chief writer to repeat the question (patient was too internally preoccupied to hurt initially). Later on she did take medication 01/26 patient is taking medications and starting to do better. Talking more and asking about aftercare. Says she will consider long-acting injectable as well. Will switch at medications to make easier at her request and will taper off Ativan since catatonic symptoms seem to be resolving and remaining symptoms are mostly due to psychosis. Discussed AH and she says they remain and so agrees to increase Risperdal dose. -if patient continues to take medications and improve will likely not need to go to court 01/27/25: Slept for 8 hours, was medication compliant yesterday. She refused them this morning at the beginning, but ended taking them later on. Reported that she has good appetite. Mood is bored . Denies suicidal thoughts or homicidal thoughts. Denies hallucinations at , but saying sometimes when asked if she heard voices, just now . Not able to elaborate further details of what she hears. I do not know regarding anxiety and depression questions. Reported that she has been taking medications but I took someone else medication , then mentioned metformin. Discussed with patient regarding HOPKINS Invega Sustenna for risperidone, she said she does not want it. Explained to patient the benefit of HOPKINS, and remind patient that she does not have to make decision today, but is aware that we have the option to not have to take by mouth every day to enhance the better compliance, and able to be stable longer away from the hospital. Patient also met with certified social workers in health care today, agree with referral for outpatient services for mental health and substance use, she also signed consent to send referral out. She appears to be paranoid, mild thought blocked, however more logical and more engaging in conversation. Staff reported that she shaved yesterday. She was up, in the antonio pacing after the one-to-one assessment. Unkempt him but fair hygiene. 01/30 Patient again refused medication over the weekend and again is unable to answer questions, shrugging her shoulders with every question asked. Patient can not say why she did not take medication. -took pills from nursing put him her mouth but would not swallow them; through they medication cup at the nurse 01/31 Patient remains unchanged, not answering any questions that chief writer or other staff ask under struggling her shoulders or just mumbling to herself in response -continue its until February 0702/01 guarded, internally preoccupied; refusing meds; will increase doses since she frequently refuses and only sometimes takes 02/03 took risperdal last night and today, more organized, talking. Says she tried to call her small arms artillery repairer. Discussed medication and pt said she would get on HOPKINS, but then later refused. 02/07 talking a little more; still can not say where she'd go if she were discharged other than... the place that is in the chart... chief writer asks if this is her mothers place and she says she does not know. She cannot say whether or not she wants to discharge...shrugging her shoulders on inquiry; conversation remains difficult due to pt being internally preoccupied and forgetting what she's talking about...Discussed HOPKINS and patient liked the idea that she would not have to take PO risperdal. She agreed to get Invega Sustenna and asks if she can go either this thursday or next thursday. -pt seems to do much better once taking medication and chief writer agrees that if on HOPKINS, she will likely soon stabilize and be ok for discharge. 02/08 AH remains; little more able to engage. Continue with tx plan 02/09: Denies SI/HI/AVH. Continue current treatment plan. Invega Sustenna 156 mg tomorrow. 02/10/25: Patient slept well, appetite was okay. Mood is so so with mild anxiety, Was not compliant with medication yesterday.. Reports constipation. Refused to talk to provider yesterday. She is pacing the antonio talking to this provider. Denies safety concerns, but saying I do not know regarding hallucinations if she experienced any. She was reluctant to take the long-acting injection at but able to agree with the after talking to this provider. He is looking forward to leave on Thursday. She was not aware that she had a energy attorney/small arms artillery repairer. Appeared to be clean, wearing hospital clothes, visible but isolated to self, blunted/flat affect, soft spoken. Received Invega Sustenna 156 mg HOPKINS on 02/10/2502/11 Patient took Invega Sustenna 156 mg yesterday. Not all that much change, still answering with few words however patient has been taking metformin regularly. Regarding mood she says I do not know regarding voices she says there . All right she did say she would likely want to discharge next week. Plan 15 minutes check. section 7 DC Ativan 1; catatonia resovled Took Invega Sustenna 234mg on 02/07; will dc PO risperdal Took Invega Sustenna 156mg 02/10 Diagnostics as needed. Collateral contact. Continue remainder of regimens. Encouraged full milieu. Discharge planning: tentative discharge on Thursday02/13/25. Patient educated on: diagnosis and medication risk/benefits Informed Consent: understands and further education needed Reason for continued inpatient stay Substantial Risk for: stable for discharge, rapid decompensation and med/psych decompensation Time Spent With Patient Time: Total time managing care of this patient today ____ minutes.
[2025-02-11 17:27] LABS: Creatinine Clr Calc Pharmacy 141.4; Estimated Glomerular Filt Rate > 60
[2025-02-11 21:03] VITALS: BP 124/67; PULSE 102; RESP 18; TEMP 36.9; O2SAT 98
[2025-02-12 07:40] VITALS: RESP 18
--- NOTE | 2025-02-12 09:36 | HO.PSYCHPN ---
Subjective Subjective Date of Service: 02/12/25 Reason For Visit: F31.2 Biopolar D/O manic; F143.20 Cocaine use raymond Interim History: met with patient; discussed with team doing much better today, asking questions about aftercare. Says AH improved. Discussed medications and data analyst report writer shared how much she's changed since getting on medication consistently; she however expresses ambivalence about medication in general, though she seems to acknowledge she's doing better. Talked about sobriety and pt says this is a long complicated thing for me... Pt said she might want to stay on unit a little longer, past thursday, but agrees to decide tomorrow after talking w/ SW. Mental Status Exam Mental Status Exam Narrative: Pt is alert and oriented; behavior is more engaged, not guarded, overall cooperative; patient is not in distress; dressed in casual attire, unkempt and but adequate hygiene; hirsutism; mood is described as ok and affect more expressive, brighter; eye contact avoidant; Speech normal volume, rate, prosody; no psychomotor retardation present; thought process goal oriented, logical; minimal thought blocking; Thought content on treatment, aftercare; no SI/HI. AH but much less; still intermittently internally preoccupied but much less. Patients insight and judgment improved, at baseline and adequate. Diagnostics Vital Signs (24Hr): Vital Signs - 24 hr 02/11/25 21:03 02/12/25 07:40 Temperature 98.4 F Pulse Rate 102 H Respiratory Rate 18 18 Blood Pressure 124/67 Pulse Oximetry 98 Oxygen Delivery Method Room Air BMI result Body Mass Index 33.9 Labs 02/11/25 16:39 Labs: Laboratory Results - last 48 hr 02/11/25 16:39 Creatinine 0.64 Estim Creat Clear Calc 141.4 Estimated GFR > 60 Medications Medications Current Medications Acetaminophen (Acetaminophen 325 Mg Tablet) 650 mg PO Q6H PRN PRN Reason: Headache/Pain, Scale 1-10 Last Admin: 01/27/25 20:50 Dose: 650 mg Al Hydroxide/Mg Hydroxide (Magnesium Hydrox/Alum Hydrox 30 Ml Oral.Susp) 30 ml PO Q6H PRN PRN Reason: Heartburn/Nausea Last Admin: 01/26/25 20:14 Dose: 30 ml Benzocaine (Benzocaine 20 % Oral Gel 9 Gm Tube) 1 appl MUCOUS MEM QID PRN; Protocol PRN Reason: dental pain Hydroxyzine HCl (Hydroxyzine Hcl 25 Mg Tablet) 25 mg PO Q6H PRN PRN Reason: mild anxiety Last Admin: 02/11/25 20:33 Dose: 25 mg Insulin Human Lispro (Insulin Lispro 100 Unit/Ml 3 Ml Vial) 0 unit SUBCUT QIDACHS [facility]; Protocol On Hold: 01/18/25 09:59 Last Admin: 01/18/25 09:28 Dose: Not Given Magnesium Hydroxide (Milk Of Magnesia 30 Ml Oral.Susp) 30 ml PO DAILY PRN PRN Reason: Constipation Last Admin: 02/08/25 15:23 Dose: 30 ml Metformin HCl (Metformin Hcl 500 Mg Tablet) 500 mg PO BIDWM [facility] Last Admin: 02/12/25 08:33 Dose: 500 mg Nicotine Polacrilex (Nicotine Polacrilex 2 Mg Gum) 2 mg BUCCAL Q2H PRN PRN Reason: Nicotine Cravings Paliperidone Palmitate (Paliperidone Palmitate 234 Mg/1.5 Ml Syringe) 234 mg IM Q30D [facility] Last Admin: 02/07/25 11:46 Dose: 234 mg Polyethylene Glycol (Polyethylene Glycol 3350 17 Gm Powd.Pack) 17 gm PO DAILY PRN PRN Reason: Constipation Last Admin: 02/08/25 15:23 Dose: 17 gm Senna (Sennosides 8.6 Mg Tablet) 17.2 mg PO DAILY PRN PRN Reason: Constipation Last Admin: 02/11/25 13:35 Dose: 17.2 mg Simethicone (Simethicone 80 Mg Tab.Chew) 80 mg PO QIDWMHS PRN PRN Reason: flatulance Last Admin: 02/11/25 18:19 Dose: 80 mg Trazodone HCl (Trazodone Hcl 50 Mg Tablet) 50 mg PO BEDTIME MRX1 PRN PRN Reason: Insomnia Last Admin: 02/11/25 20:33 Dose: 50 mg Valacyclovir HCl (Valacyclovir Hcl 500 Mg Tablet) 500 mg PO DAILY [facility] Last Admin: 02/12/25 08:33 Dose: 500 mg Allergies Allergies Allergy/AdvReac Type Severity Reaction Status Date / Time blueberry Allergy Unknown Unknown Verified 01/11/25 21:20 Assessment & Plan Assessment & Plan (1) Schizoaffective disorder, bipolar type: Status: Acute Code(s): F25.0 - Schizoaffective disorder, bipolar type (2) Catatonia: Status: Acute Code(s): F06.1 - Catatonic disorder due to known physiological condition (3) Polysubstance use disorder: Status: Acute Code(s): F19.90 - Other psychoactive substance use, unspecified, uncomplicated (4) Cocaine abuse: Status: Acute Code(s): F14.10 - Cocaine abuse, uncomplicated Plan 34-year-old Macanese-speaking female is a direct transfer, via ambulance, from [facility] to [facility]. She has history of bipolar disorder, schizophrenia, marijuana, PCP, and cocaine/crack use (severe), multiple inpatient admissions and at least 2 section 35. She was evaluated at [facility] for being nonverbal at home following substance use. This provider and patient's social media senior associate found the patient lying in her bed. She is alert, opens and closes her eyes, moves her feet, but would not respond to this provider and social media senior associate. Patient advised to inform staff if she decides to engage in an interview with her social media senior associate and provider for admission. Hospital course: 01/13 patient appears catatonic, not talking much, not moving, sometimes walking around in a disorganized way; seems to be history of catatonia as well. Not sure if eating and drinking. Curing Room Worker tried to discuss medications including Ativan however patient not engaging; Currently refusing all medications 01/14: continue current management and treatment plan. Encourage adherence. 01/15: continue current management and treatment plan. Encourage adherence. 01/16/25: Patient slept for 7 hours, was not compliant with medication or point of care, she is in bed most of the morning until she was thinking about signing the 3 days. She would not signed a 3 days until she talk to to social media senior associate. She said yes to anxiety and said a little when I asked about depression. Reports hearing voices when being asked, but not able to disclose to more details. She denies suicidal thoughts or thoughts of hurting other people. She was not sure where she stayed and who she stayed with before coming in here. This provider note the patient by history, that mom and sister concerned about her in the past. However, patient is guarded, do not give anymore information or consent to talk to the family member. Not able to assess for more details regarding substance use. 01/17 Patient difficult with which to engage, lying in bed, not talking much at all, intermittently opening eyes. On inquiry about why not taking medications, she She says she did took some pills today (her metformin and 1 dose of Ativan). Does not answer questions about SI, HI, AVH, depression, worries. She is eating and drinking and said that she will talk with data analyst report writer tomorrow. Curing Room Worker asked her about her 3 day notice and there is concern about discharging her if she is not able to answer questions...she said that she will talk with data analyst report writer tomorrow. Collateral: Curing Room Worker talked with patient's sister who reports that was her regular, full functioning self few weeks until she relapsed. Sister says that whenever patient uses a lot she becomes like a zombie; she typically uses crack cocaine. Sister says she has been in numerous treatment facilities and on medication returns to full functioning, communicating and having normal discourse however as soon as he is discharged from any facility she relapses that day; sister reiterated that she has been stabilized numerous times with the same result. Sister said that despite her not talking and acting like a zombie she is typically able to function and reports that patient called their mother 2 days ago asking for phone number is of a friend. Says her diagnose says schizoaffective disorder, bipolar type, borderline personality disorder; denies ASD diagnosis -Curing Room Worker also discussed Case with Sarah who has had this patient at other facilities and thinks this might not be catatonia but rather selective mutism and the patient selects the times when she wants to be organized and talk; patient has a history of psychotic illness and catatonia however rarely takes medications during inpatient admissions and at some point just gets better and wants to go. -Of note patient was organized enough to sign a 3 day notice. 01/18 Patient a little more talkative today hand out and about in the milieu more, eating and drinking and sitting with peers though keeping to herself and remains internally preoccupied. Patient told data analyst report writer that she had a hard time talking because she was in her slumber. She seems to say show take medications and did take some doses; she also agreed to retract her 3 day notice and was able to discuss how much longer data analyst report writer thought she should stay. Throughout conversation patient continuing to struggle with internal preoccupation and thought blocking. -Patient refusing point of cares to check blood sugar. Curing Room Worker can not find hx of scripts for insulin; she's been mostly refusing POC (the few times has allowed <200). Will HOLD sliding scale/POC's for now. 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 She has agreed to restart risperidone but has often refused 01/19 Patient again not talking, isolating and mostly stayed in bed; eating and drinking without problems but refusing medication and remains very internally preoccupied with significant thought blocking. Not answering questions 01/20 Patient remains isolative, lying in bed, not talking and continually responding to internal stimuli. Continues to refuse labs. Sometimes patient will go to groups but does not talk and needs cues for her to transition. 01/21 No change in presentation; remains very difficult with which to engage, not answering questions very much. She did say she is all right and denied AH though she remains internally preoccupied thought blocking. Tried to discuss reasons for refusing medications but patient would not answer; patient eating and drinking -sometimes takes medications but mostly refuses; changed Risperdal to 2 mg b.i.d. (so if she takes it she gets at least 2 mg) 01/22 Patient remains disorganized in speech and behavior. She can not answer questions appropriately and either does not saying anything or says I do not know... She remains unable to articulate any choices in her treatment, if she wants to stay on the unit, if she wants to discharge, where she would go... Curing Room Worker explained the need for treatment and that team had decided to rescind her CV and 5 for involuntary commitment. 01/24 Little change in presentation. Patient lying in bed, laughing or smiling inappropriately and saying very little. When asked how she is doing she says so-so but does not respond to any other related questions When data analyst report writer asks if she is better she says not sure When data analyst report writer asked who she hear voices she laughs inappropriately but does not answer When asked about SI, she looks, smiles but does not answer When asked how she slept she says not sure Curing Room Worker again discussed the need for medications which she has taking sometimes and refusing it others Impression/clinical reasoning: Patient remained psychotic, internally preoccupied and with catatonic symptoms. Refusing treatments, refusing medication. At this time patient can not be discharge safely as there is no indication she can take care of herself in the community; she could not get herself home and if discharge would wander aimlessly, vulnerable to predation; patient is to severely internally preoccupied that she can not even say she wants to discharge or answer questions. Will continue offering medications for both catatonia and psychosis. Team agrees that patient is too disorganized and unsafe for discharge and unable to make any treatment decisions for herself. Will rescind her CV and file for involuntary commitment and substituted judgment 01/25 Patient a little bit more talkative today. Still not answering many questions but did ask data analyst report writer to repeat the question (patient was too internally preoccupied to hurt initially). Later on she did take medication 01/26 patient is taking medications and starting to do better. Talking more and asking about aftercare. Says she will consider long-acting injectable as well. Will switch at medications to make easier at her request and will taper off Ativan since catatonic symptoms seem to be resolving and remaining symptoms are mostly due to psychosis. Discussed AH and she says they remain and so agrees to increase Risperdal dose. -if patient continues to take medications and improve will likely not need to go to court 01/27/25: Slept for 8 hours, was medication compliant yesterday. She refused them this morning at the beginning, but ended taking them later on. Reported that she has good appetite. Mood is bored . Denies suicidal thoughts or homicidal thoughts. Denies hallucinations at 1st, but saying sometimes when asked if she heard voices, just now . Not able to elaborate further details of what she hears. I do not know regarding anxiety and depression questions. Reported that she has been taking medications but I took someone else medication , then mentioned metformin. Discussed with patient regarding HOPKINS Invega Sustenna for risperidone, she said she does not want it. Explained to patient the benefit of HOPKINS, and remind patient that she does not have to make decision today, but is aware that we have the option to not have to take by mouth every day to enhance the better compliance, and able to be stable longer away from the hospital. Patient also met with social media senior associate today, agree with referral for outpatient services for mental health and substance use, she also signed consent to send referral out. She appears to be paranoid, mild thought blocked, however more logical and more engaging in conversation. Staff reported that she shaved yesterday. She was up, in the antonio pacing after the one-to-one assessment. Unkempt him but fair hygiene. 01/30 Patient again refused medication over the weekend and again is unable to answer questions, shrugging her shoulders with every question asked. Patient can not say why she did not take medication. -took pills from nursing put him her mouth but would not swallow them; through they medication cup at the nurse 01/31 Patient remains unchanged, not answering any questions that data analyst report writer or other staff ask under struggling her shoulders or just mumbling to herself in response -continue its until February 0702/01 guarded, internally preoccupied; refusing meds; will increase doses since she frequently refuses and only sometimes takes 02/03 took risperdal last night and today, more organized, talking. Says she tried to call her reimbursement consultant. Discussed medication and pt said she would get on HOPKINS, but then later refused. 02/07 talking a little more; still can not say where she'd go if she were discharged other than... the place that is in the chart... data analyst report writer asks if this is her mothers place and she says she does not know. She cannot say whether or not she wants to discharge...shrugging her shoulders on inquiry; conversation remains difficult due to pt being internally preoccupied and forgetting what she's talking about...Discussed HOPKINS and patient liked the idea that she would not have to take PO risperdal. She agreed to get Invega Sustenna and asks if she can go either this thursday or next thursday. -pt seems to do much better once taking medication and data analyst report writer agrees that if on HOPKINS, she will likely soon stabilize and be ok for discharge. 02/08 AH remains; little more able to engage. Continue with tx plan 02/09: Denies SI/HI/AVH. Continue current treatment plan. Invega Sustenna 156 mg tomorrow. 02/10/25: Patient slept well, appetite was okay. Mood is so so with mild anxiety, Was not compliant with medication yesterday.. Reports constipation. Refused to talk to provider yesterday. She is pacing the antonio talking to this provider. Denies safety concerns, but saying I do not know regarding hallucinations if she experienced any. She was reluctant to take the long-acting injection at but able to agree with the after talking to this provider. He is looking forward to leave on Thursday. She was not aware that she had a trade mark attorney/reimbursement consultant. Appeared to be clean, wearing hospital clothes, visible but isolated to self, blunted/flat affect, soft spoken. Received Invega Sustenna 156 mg HOPKINS on 02/10/2502/11 Patient took Invega Sustenna 156 mg yesterday. Not all that much change, still answering with few words however patient has been taking metformin regularly. Regarding mood she says I do not know regarding voices she says there . All right she did say she would likely want to discharge next week. 02/12 doing much better today, asking questions about aftercare. Says AH improved. Discussed medications and data analyst report writer shared how much she's changed since getting on medication consistently; she however expresses ambivalence about medication in general, though she seems to acknowledge she's doing better. Talked about sobriety and pt says this is a long complicated thing for me... Pt said she might want to stay on unit a little longer, past thursday, but agrees to decide tomorrow after talking w/ SW. Plan 15 minutes check. section 7 DC Ativan 1; catatonia resovled Took Invega Sustenna 234mg on 02/07; will dc PO risperdal Took Invega Sustenna 156mg 02/10 Diagnostics as needed. Collateral contact. Continue remainder of regimens. Encouraged full milieu. Discharge planning: tentative discharge on Thursday02/13/25. Patient educated on: diagnosis, medication risk/benefits, substance abuse and therapeutic strategies Informed Consent: understands and further education needed Reason for continued inpatient stay Substantial Risk for: stable for discharge Time Spent With Patient Time: Total time managing care of this patient today ____ minutes.
[2025-02-12] MEDS: Magnesium Hydrox/Alum Hydrox 30 ML ORAL.SUSP PO (20:23)
[2025-02-13 08:00] VITALS: RESP 18
--- NOTE | 2025-02-13 09:48 | PM.PSYDC ---
DS: Providers Provider Date of Service: 02/13/25 Date of admission: 01/11/25 19:03 Date of discharge: 02/13/25 Primary care physician: Unknown Physician Admitting clinician: Cristobal Martinez Consults: 01/11/25 19:33 Consult to Hospitalist Routine Comment: Consulting Provider: [facility] Reason For Exam: New external admit- H&P Attending physician on discharge: Santiago Schaefer DS: Diagnosis Discharge Diagnosis (1) Schizoaffective disorder, bipolar type: Status: Acute (2) Catatonia: Status: Acute (3) Polysubstance use disorder: Status: Acute (4) Cocaine abuse: Status: Acute DS: Medications Discharge Medications Home Medications: Home Medications ?Medication ?Instructions ?Recorded ?Confirmed aripiprazole 2 mg tablet 2 mg PO BEDTIME 01/15/25 01/15/25 benztropine 1 mg tablet 1 mg PO DAILY 01/15/25 01/15/25 hydroxyzine HCl 25 mg tablet 50 mg PO Q6H PRN Anxiety 01/15/25 01/15/25 metformin 500 mg tablet 500 mg PO BID 01/15/25 01/15/25 Previous Rx's ?Medication ?Instructions ?Recorded trazodone 50 mg tablet 50 mg PO BEDTIME PRN Insomnia 30 01/19/23 days #30 tabs valacyclovir 500 mg tablet 500 mg PO DAILY 30 days #30 tabs 01/19/23 Data Data Completed and Pending Completed studies during hospitalization [Text1]: 02/11/25 16:39 Creatinine 0.64 Estim Creat Clear Calc 141.4 Estimated GFR > 60 DS: Summary Hospital Course Hospital Course: 34-year-old Nauruan-speaking female is a direct transfer, via ambulance, from [facility] to [facility]. She has history of bipolar disorder, schizophrenia, marijuana, PCP, and cocaine/crack use (severe), multiple inpatient admissions and at least 2 section 35. She was evaluated at [facility] for being nonverbal at home following substance use. This provider and patient's nursing home social worker found the patient lying in her bed. She is alert, opens and closes her eyes, moves her feet, but would not respond to this provider and nursing home social worker. Patient advised to inform staff if she decides to engage in an interview with her nursing home social worker and provider for admission. Hospital course: 01/13 patient appears catatonic, not talking much, not moving, sometimes walking around in a disorganized way; seems to be history of catatonia as well. Not sure if eating and drinking. Credit Risk Management Director tried to discuss medications including Ativan however patient not engaging; Currently refusing all medications 01/14: continue current management and treatment plan. Encourage adherence. 01/15: continue current management and treatment plan. Encourage adherence. 01/16/25: Patient slept for 7 hours, was not compliant with medication or point of care, she is in bed most of the morning until she was thinking about signing the 3 days. She would not signed a 3 days until she talk to to nursing home social worker. She said yes to anxiety and said a little when I asked about depression. Reports hearing voices when being asked, but not able to disclose to more details. She denies suicidal thoughts or thoughts of hurting other people. She was not sure where she stayed and who she stayed with before coming in here. This provider note the patient by history, that mom and sister concerned about her in the past. However, patient is guarded, do not give anymore information or consent to talk to the family member. Not able to assess for more details regarding substance use. 01/17 Patient difficult with which to engage, lying in bed, not talking much at all, intermittently opening eyes. On inquiry about why not taking medications, she She says she did took some pills today (her metformin and 1 dose of Ativan). Does not answer questions about SI, HI, AVH, depression, worries. She is eating and drinking and said that she will talk with journalists and other writers tomorrow. Credit Risk Management Director asked her about her 3 day notice and there is concern about discharging her if she is not able to answer questions...she said that she will talk with journalists and other writers tomorrow. Collateral: Credit Risk Management Director talked with patient's sister who reports that was her regular, full functioning self few weeks until she relapsed. Sister says that whenever patient uses a lot she becomes like a zombie; she typically uses crack cocaine. Sister says she has been in numerous treatment facilities and on medication returns to full functioning, communicating and having normal discourse however as soon as he is discharged from any facility she relapses that day; sister reiterated that she has been stabilized numerous times with the same result. Sister said that despite her not talking and acting like a zombie she is typically able to function and reports that patient called their mother 2 days ago asking for phone number is of a friend. Says her diagnose says schizoaffective disorder, bipolar type, borderline personality disorder; denies ASD diagnosis -Credit Risk Management Director also discussed Case with Sarah who has had this patient at other facilities and thinks this might not be catatonia but rather selective mutism and the patient selects the times when she wants to be organized and talk; patient has a history of psychotic illness and catatonia however rarely takes medications during inpatient admissions and at some point just gets better and wants to go. -Of note patient was organized enough to sign a 3 day notice. 01/18 Patient a little more talkative today hand out and about in the milieu more, eating and drinking and sitting with peers though keeping to herself and remains internally preoccupied. Patient told journalists and other writers that she had a hard time talking because she was in her slumber. She seems to say show take medications and did take some doses; she also agreed to retract her 3 day notice and was able to discuss how much longer journalists and other writers thought she should stay. Throughout conversation patient continuing to struggle with internal preoccupation and thought blocking. -Patient refusing point of cares to check blood sugar. Credit Risk Management Director can not find hx of scripts for insulin; she's been mostly refusing POC (the few times has allowed <200). Will HOLD sliding scale/POC's for now. 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 She has agreed to restart risperidone but has often refused 01/19 Patient again not talking, isolating and mostly stayed in bed; eating and drinking without problems but refusing medication and remains very internally preoccupied with significant thought blocking. Not answering questions 01/20 Patient remains isolative, lying in bed, not talking and continually responding to internal stimuli. Continues to refuse labs. Sometimes patient will go to groups but does not talk and needs cues for her to transition. 01/21 No change in presentation; remains very difficult with which to engage, not answering questions very much. She did say she is all right and denied AH though she remains internally preoccupied thought blocking. Tried to discuss reasons for refusing medications but patient would not answer; patient eating and drinking -sometimes takes medications but mostly refuses; changed Risperdal to 2 mg b.i.d. (so if she takes it she gets at least 2 mg) 01/22 Patient remains disorganized in speech and behavior. She can not answer questions appropriately and either does not saying anything or says I do not know... She remains unable to articulate any choices in her treatment, if she wants to stay on the unit, if she wants to discharge, where she would go... Credit Risk Management Director explained the need for treatment and that team had decided to rescind her CV and 5 for involuntary commitment. 01/24 Little change in presentation. Patient lying in bed, laughing or smiling inappropriately and saying very little. When asked how she is doing she says so-so but does not respond to any other related questions When journalists and other writers asks if she is better she says not sure When journalists and other writers asked who she hear voices she laughs inappropriately but does not answer When asked about SI, she looks, smiles but does not answer When asked how she slept she says not sure Credit Risk Management Director again discussed the need for medications which she has taking sometimes and refusing it others Impression/clinical reasoning: Patient remained psychotic, internally preoccupied and with catatonic symptoms. Refusing treatments, refusing medication. At this time patient can not be discharge safely as there is no indication she can take care of herself in the community; she could not get herself home and if discharge would wander aimlessly, vulnerable to predation; patient is to severely internally preoccupied that she can not even say she wants to discharge or answer questions. Will continue offering medications for both catatonia and psychosis. Team agrees that patient is too disorganized and unsafe for discharge and unable to make any treatment decisions for herself. Will rescind her CV and file for involuntary commitment and substituted judgment 01/25 Patient a little bit more talkative today. Still not answering many questions but did ask journalists and other writers to repeat the question (patient was too internally preoccupied to hurt initially). Later on she did take medication 01/26 patient is taking medications and starting to do better. Talking more and asking about aftercare. Says she will consider long-acting injectable as well. Will switch at medications to make easier at her request and will taper off Ativan since catatonic symptoms seem to be resolving and remaining symptoms are mostly due to psychosis. Discussed AH and she says they remain and so agrees to increase Risperdal dose. -if patient continues to take medications and improve will likely not need to go to court 01/27/25: Slept for 8 hours, was medication compliant yesterday. She refused them this morning at the beginning, but ended taking them later on. Reported that she has good appetite. Mood is bored . Denies suicidal thoughts or homicidal thoughts. Denies hallucinations at , but saying sometimes when asked if she heard voices, just now . Not able to elaborate further details of what she hears. I do not know regarding anxiety and depression questions. Reported that she has been taking medications but I took someone else medication , then mentioned metformin. Discussed with patient regarding HOPKINS Invega Sustenna for risperidone, she said she does not want it. Explained to patient the benefit of HOPKINS, and remind patient that she does not have to make decision today, but is aware that we have the option to not have to take by mouth every day to enhance the better compliance, and able to be stable longer away from the hospital. Patient also met with nursing home social worker today, agree with referral for outpatient services for mental health and substance use, she also signed consent to send referral out. She appears to be paranoid, mild thought blocked, however more logical and more engaging in conversation. Staff reported that she shaved yesterday. She was up, in the antonio pacing after the one-to-one assessment. Unkempt him but fair hygiene. 01/30 Patient again refused medication over the weekend and again is unable to answer questions, shrugging her shoulders with every question asked. Patient can not say why she did not take medication. -took pills from nursing put him her mouth but would not swallow them; through they medication cup at the nurse 01/31 Patient remains unchanged, not answering any questions that journalists and other writers or other staff ask under struggling her shoulders or just mumbling to herself in response -continue its until February 0702/01 guarded, internally preoccupied; refusing meds; will increase doses since she frequently refuses and only sometimes takes 02/03 took risperdal last night and today, more organized, talking. Says she tried to call her communications media professor. Discussed medication and pt said she would get on HOPKINS, but then later refused. 02/07 talking a little more; still can not say where she'd go if she were discharged other than... the place that is in the chart... journalists and other writers asks if this is her mothers place and she says she does not know. She cannot say whether or not she wants to discharge...shrugging her shoulders on inquiry; conversation remains difficult due to pt being internally preoccupied and forgetting what she's talking about...Discussed HOPKINS and patient liked the idea that she would not have to take PO risperdal. She agreed to get Invega Sustenna and asks if she can go either this thursday or next thursday. -pt seems to do much better once taking medication and journalists and other writers agrees that if on HOPKINS, she will likely soon stabilize and be ok for discharge. 02/08 AH remains; little more able to engage. Continue with tx plan 02/09: Denies SI/HI/AVH. Continue current treatment plan. Invega Sustenna 156 mg tomorrow. 02/10/25: Patient slept well, appetite was okay. Mood is so so with mild anxiety, Was not compliant with medication yesterday.. Reports constipation. Refused to talk to provider yesterday. She is pacing the antonio talking to this provider. Denies safety concerns, but saying I do not know regarding hallucinations if she experienced any. She was reluctant to take the long-acting injection at but able to agree with the after talking to this provider. He is looking forward to leave on Thursday. She was not aware that she had a consumer attorney/communications media professor. Appeared to be clean, wearing hospital clothes, visible but isolated to self, blunted/flat affect, soft spoken. Received Invega Sustenna 156 mg HOPKINS on 02/10/2502/11 Patient took Invega Sustenna 156 mg yesterday. Not all that much change, still answering with few words however patient has been taking metformin regularly. Regarding mood she says I do not know regarding voices she says there . All right she did say she would likely want to discharge next week. 02/12 doing much better today, asking questions about aftercare. Says AH improved. Discussed medications and journalists and other writers shared how much she's changed since getting on medication consistently; she however expresses ambivalence about medication in general, though she seems to acknowledge she's doing better. Talked about sobriety and pt says this is a long complicated thing for me... Pt said she might want to stay on unit a little longer, past thursday, but agrees to decide tomorrow after talking w/ SW. Patient refused labs including hemoglobin A1c and lipids despite multiple attempts Plan 15 minutes check. section 7 DC Ativan 1; catatonia resovled Took Invega Sustenna 234mg on 02/07; will dc PO risperdal Took Invega Sustenna 156mg 02/10 Diagnostics as needed. Collateral contact. Continue remainder of regimens. Encouraged full milieu. Discharge planning: tentative discharge on Thursday02/13/25. Patient educated on: diagnosis, medication risk/benefits, substance abuse and therapeutic strategies Informed Consent: understands and further education needed Reason for continued inpatient stay Substantial Risk for: stable for discharge Time Spent With Patient Time Spent with Patient Time attestation: Total time managing care of this patient today ____ minutes. Discharge Plan Discharge Anticipated Discharge Date/Time: 02/13/25 11:11 Patient Disposition: Home, Self-Care Discharge Diagnosis: Schizoaffective disorder, unspecified Referrals: [facility] for Capptain:Carli Mcmillan(case management) [Other] - 02/14/25 12:30 pm Referral Note: Patient referred for case management services through [facility] in [place] Appointment in person at [facility] in [facility] for [facility] Development: Ayleen Crawford (therapy) [Other] - 02/14/25 1:00 pm Referral Note: Hospital discharge appointment Appointment at [facility] in [place], [place] in person. Patient will then be established through [facility] after initial intake. [facility] for Human Development: Duc Cook (psychiatry) [Other] - 03/02/25 3:20 pm Referral Note: Hospital discharge appointment with psychiatric medication provider for evaluation and medication management Appointment in person at [facility] in [place], [place] for initial assessment prior to being established with permanent provider out of [facility] in [place], [place] Carmine (Clubhouse) [Other] [facility]: [facility] Phys[facility],Unknown J [Primary Care Provider, Medical] Referral Note: Because you did not sign a release of information, your records were not forwarded to your primary care provider. If you would like them sent in the future, please call the hospital. Discharge Medications: New Invega Sustenna 234 mg/1.5 mL Syringe 234 mg IM Q28D 28 Days Qty: 1.5 0RF Rx Instructions: due 03/10/25 (last dose on 02/10/25) sennosides [Senna Lax] 8.6 mg Tablet 17.2 mg PO DAILY PRN (Reason: Constipation) 30 Days Qty: 60 0RF simethicone 80 mg Tablet,Chewable 80 mg PO QIDWMHS PRN (Reason: flatulance) 30 Days Qty: 90 0RF Continued trazodone 50 mg Tablet 50 mg PO BEDTIME PRN (Reason: Insomnia) 30 Days Qty: 30 0RF valacyclovir 500 mg Tablet 500 mg PO DAILY 30 Days Qty: 30 0RF Changed metformin 500 mg tablet 500 mg PO BIDWMEAL 30 Days Qty: 60 0RF hydroxyzine HCl 25 mg tablet 25 mg PO Q6H PRN (Reason: mild Anxiety) 30 Days Qty: 60 0RF Discontinued benztropine 1 mg tablet 1 mg PO DAILY aripiprazole 2 mg tablet 2 mg PO BEDTIME Discharge Orders: Discharge Order (Routine); Ordered 02/13/25 Ordered By: Santiago Schaefer Diet: Regular diet Activity on Discharge: As tolerated Stand Alone Forms: Patient Portal Discharge page, Community Support Print Language: Nauruan Care Plan Goals: Maintain mood and safe behaviors Take medications as prescribed Continue to pursue sobriety Practice coping skills Continue with outpatient providers and reach out to them as needed Health Concerns: Mood stability and behaviors Sobriety Diabetes HSV Plan of Treatment: Follow up with your PCP, psychiatric provider and other outpatient providers regarding above concerns Take medications as prescribed Assessment: Risk assessment at time of discharge:? Patient was interviewed prior to discharge and found to be fully oriented and without any SI or HI. Patient has improved insight and judgment and wants to continue treatment. Patient is not in imminent risk of harm to self or others and has a safety plan that includes presenting to the closest ER or calling 911 if feeling unsafe.? Patient has been observed closely by nursing and unit staff throughout admission; patient has not engaged in any behaviors that suggest dangerousness to self or others and has demonstrated appropriate behaviors and impulse contro Discharge Date/Time: 02/13/25 11:36
[2025-02-13] MEDS: Naloxone HCl Nasal TAKE HOME 4 MG SPRAY 8 MG NOSTRILALT (11:07)
== END 2025-02-13 11:36 | disposition home or self-care (01) | DRG 750 ==
PROVIDERS: Internal Medicine; Nurse Practitioner Psychiatric/Mental Health; Admitting Provider Psychiatry & Neurology Psychiatry; Visit Provider Psychiatry & Neurology Psychiatry
DX: F25.0 Schizoaffective disorder, bipolar type (principal); F06.1 Catatonic disorder due to known physiological condition; F19.90 Other psychoactive substance use, unspecified, uncomplicated; E11.9 Type 2 diabetes mellitus without complications; K21.9 Gastro-esophageal reflux disease without esophagitis; E05.90 Thyrotoxicosis, unspecified without thyrotoxic crisis or storm; F14.10 Cocaine abuse, uncomplicated; F17.210 Nicotine dependence, cigarettes, uncomplicated; Z91.148 Patient's other noncompliance with medication regimen for other reason; Z71.6 Tobacco abuse counseling; Z79.84 Long term (current) use of oral hypoglycemic drugs; Z79.899 Other long term (current) drug therapy
CPT/HCPCS: 36415; 80048; 82565; 82947; J2426

== ENCOUNTER → 2025-01-11 19:03 | Outpatient (BNV) | payer OTHER, SELFPAY | PROVIDERS: Admitting Provider Psychiatry & Neurology Psychiatry; Visit Provider Nurse Practitioner Family | DX: F31.9 Bipolar disorder, unspecified (principal) | CPT/HCPCS: 99221 ==

== ENCOUNTER → 2025-01-11 19:03 | Outpatient (BNV) | payer OTHER, SELFPAY | PROVIDERS: Admitting Provider Psychiatry & Neurology Psychiatry; Visit Provider Psychiatry & Neurology Psychiatry | DX: F25.0 Schizoaffective disorder, bipolar type (principal); F14.10 Cocaine abuse, uncomplicated; F06.1 Catatonic disorder due to known physiological condition; F19.90 Other psychoactive substance use, unspecified, uncomplicated | CPT/HCPCS: 90792; 99231; 99232 ==